=== PATIENT | male | born 1995 | race American Indian/Alaskan Native ===

== ENCOUNTER 2017-01-02 11:12 | Emergency (ER) | payer OTHER ==
[2017-01-02 11:25] VITALS: BP 119/74
--- NOTE | 2017-01-02 11:59 | Emergency Department Report ---
Entered by ARIANA JULIO, acting as scribe for HODA SWAN NP. Chief Complaint: Chest Pain Stated Complaint: CP/VOMITING BLOOD Time Seen by Provider: 01/02/17 11:51 - HPI History of Present Illness: Patient presents to the ED c/o of chest pain that began last night. Patient reports using cocaine yesterday. Associated symptoms include minimal dizziness. NKDA. - ROS Review of Systems: All systems are negative unless stated in HPI above. - Exam Vital Signs: Vital Signs 01/02/17 11:21 Temperature 97.2 F L Pulse Rate 54 L Respiratory 18 Rate Blood Pressure 119/74 O2 Sat by Pulse 98 Oximetry Physical Exam: General: well nourished, well developed, alert and oriented x 3 MSE screening note: Focused history and physical exam performed. Due to findings the following was ordered: COCAINE LAST PM CP DURING HS BIPOLAR OFF MEDS ASTHMA CHILD HERNIA REPAIR IN PAST POLY SUB WATSON/COCAINE/THC/ESCACY... ED Medical Decision Making - EKG Data EKG shows normal: sinus rhythm Rate: normal - EKG Data When compared to previous EKG there are: no significant change Interpretation: no acute changes - Medical Decision Making Patient seen by provider in triage. Patient will be taken to get lab work done. ED Disposition for MSE Condition: Stable This documentation as recorded by the scribe,ARIANA JULIO,accurately reflects the service I personally performed and the decisions made by DENISSE cook CATHLEEN A, NP.
[2017-01-02 12:36] LABS: Basophils % (Auto) 0.4 % (0.0-1.8); Eosinophils % (Auto) 0.9 % (0.0-4.3); Hematocrit 43.9 % (35.5-45.6); Mean Corpuscular HGB Conc 34 % (32-34); Mean Corpuscular Hemoglobin 33 pg (28-32); Mean Corpuscular Volume 96 fl (84-94); Platelet Count 146 K/mm3 (140-440); Red Blood Count 4.57 M/mm3 (3.65-5.03); Red Cell Distribution Width 12.1 % (13.2-15.2); White Blood Count 6.2 K/mm3 (4.5-11.0)
[2017-01-02 12:45] LABS: INR 0.98 (0.87-1.13)
[2017-01-02 12:46] LABS: Partial Thromboplastin Time 33.6 Sec. (24.2-36.6)
[2017-01-02 12:56] LABS: Creatine Kinase MB 1.6 ng/mL (0.0-4.0)
[2017-01-02 12:57] LABS: Alanine Aminotransferase 10 units/L (7-56); Albumin 4.6 g/dL (3.9-5); Albumin/Globulin Ratio 1.8 %; Alkaline Phosphatase 61 units/L (35-129); Anion Gap 18 mmol/L; BUN/Creatinine Ratio 16.66; Bilirubin,Total 0.6 mg/dL (0.1-1.2); Blood Urea Nitrogen 15 mg/dL (9-20); Calcium 9.6 mg/dL (8.4-10.2); Carbon Dioxide 24 mmol/L (22-30); Chloride 102.8 mmol/L (98-107); Creatine Kinase 234 units/L (55-170); Glucose 89 mg/dL (75-100); Potassium 4.7 mmol/L (3.6-5.0); Sodium 140 mmol/L (137-145); Total Protein 7.2 g/dL (6.3-8.2)
[2017-01-02 14:44] LABS: Urine Drugs of Abuse Note Disclamer
[2017-01-02 14:57] LABS: Bilirubin,Urine NEG (Negative); Blood,Urine NEG (Negative); Ketones,Urine NEG (Negative); Leukocyte Esterase,Urine NEG (Negative); Nitrite,Urine NEG (Negative); Protein,Urine <15 mg/dL mg/dL (Negative); Urobilinogen,Urine < 2.0 mg/dL (<2.0); WBC,Urine < 1.0 /HPF (0.0-6.0)
== END 2017-01-03 01:48 | disposition left against medical advice (07) ==
LOC: ED 11:12
DX: R07.9 Chest pain, unspecified (principal); R42 Dizziness and giddiness; F14.90 Cocaine use, unspecified, uncomplicated; Z53.21 Procedure and treatment not carried out due to patient leaving prior to being seen by health care provider
CPT/HCPCS: 36415; 80053; 80307; 81001; 82550; 82553; 84484; 85025; 85610; 85730; 93005; 93010

== ENCOUNTER 2018-06-11 16:35 | Emergency (ER) | payer SELFPAY ==
[2018-06-11 16:48] VITALS: BP 127/83
[2018-06-11] MEDS ORDERED: DUONEB *Not for PRN Use IH ONE ×2 (16:58→17:03)
[2018-06-11] MEDS ORDERED: DECADRON IM ONE (20:38)
[2018-06-11] MEDS ORDERED: PROVENTIL IH ONE (20:38)
--- NOTE | 2018-06-11 21:43 | Emergency Department Report ---
- General Chief Complaint: Adult Asthma Stated Complaint: ASTHMA Time Seen by Provider: 06/11/18 20:36 Source: patient Mode of arrival: Ambulatory Limitations: No Limitations - History of Present Illness Initial Comments: This is a 23-year-old male nontoxic, well nourished in appearance, no acute signs of distress presents to the ED with c/o of productive cough, wheezing, rhinorrhea, nasal congestion x2 days. Patient describes productive cough as yellow mucus production. Patient denies any sick contact. Patient denies any recent travels, long car, recent hospital stays. Patient denies any calf pain or calf tenderness. Patient denies any chest pain, short of breath, fever, chills, nausea, vomiting, hemoptysis, numbness, tingling, headache or stiff neck. Patient denies any allergies. PMH includes asthma. Stated has been out of his inhaler medications. MD Complaint: cough, rhinorrhea, nasal congestion, other (wheezing) -: days(s) (2) Severity: mild Consistency: constant Improves With: nothing Worsens With: nothing Associated Symptoms: rhinorrhea, nasal congestion, cough. denies: fever, chills , myalgias, diaphoresis, headache, sore throat, stiff neck, chest pain, shortness of breath, abdominal pain, nausea, vomiting, diarrhea, dysuria, rash, confusion, right sweats, weight loss, epistaxis, hoarseness, ear pain Treatments Prior to Arrival: none - Related Data Previous Rx's Medication Instructions Recorded Last Taken Type Ciprofloxacin HCl [Ciprofloxacin 500 mg PO Q12HR #20 tab 09/23/15 Unknown Rx TAB] Phenazopyridine [Pyridium] 100 mg PO TID #6 tab 09/23/15 Unknown Rx ALBUTEROL Inhaler (OR & NICU) 2 puff IH QID PRN #1 inha 02/02/16 Unknown Rx [ProAir HFA Inhaler] Albuterol *Only Ed* [Proventil 2.5 mg IH Q4H PRN #1 box 02/02/16 Unknown Rx 0.5% NEBS] predniSONE [Deltasone] 50 mg PO QDAY #5 tab 02/02/16 Unknown Rx ALBUTEROL Inhaler(NF) [VENTOLIN 2 puff IH Q4-6H PRN #1 inha 06/11/18 Unknown Rx Inhaler(NF)] ALBUTEROL NEB's [Proventil 0.083% 2.5 mg IH TID PRN #1 box 06/11/18 Unknown Rx NEBS] Azithromycin [Zithromax Z-ANTONIO] 250 mg PO DAILY #6 tablet 06/11/18 Unknown Rx Benzonatate [Tessalon Perle] 100 mg PO Q8H PRN #20 capsule 06/11/18 Unknown Rx Prednisone [predniSONE 10 mg 10 mg PO .TAPER #1 tab.ds.pk 06/11/18 Unknown Rx (6-Day Pack, 21 Tabs)] Allergies Allergy/AdvReac Type Severity Reaction Status Date / Time No Known Allergies Allergy Verified 09/23/15 15:43 ED Review of Systems ROS: Stated complaint: ASTHMA Other details as noted in HPI Constitutional: denies: chills, fever Eyes: denies: eye pain, eye discharge, vision change ENT: denies: ear pain, throat pain Respiratory: cough, wheezing. denies: shortness of breath Cardiovascular: denies: chest pain, palpitations Endocrine: no symptoms reported Gastrointestinal: denies: abdominal pain, nausea, diarrhea Genitourinary: denies: urgency, dysuria Musculoskeletal: denies: back pain, joint swelling, arthralgia Skin: denies: rash, lesions Neurological: denies: headache, weakness, paresthesias Psychiatric: denies: anxiety, depression Hematological/Lymphatic: denies: easy bleeding, easy bruising ED Past Medical Hx - Past Medical History Previous Medical History?: Yes Hx Psychiatric Treatment: Yes (bipolar, depression) Hx Asthma: Yes Additional medical history: Eczema - Surgical History Past Surgical History?: Yes Additional Surgical History: HERNIA REPAIR - Social History Smoking Status: Current Every Day Smoker Substance Use Type: Cocaine, Marijuana - Medications Home Medications: Home Medications Medication Instructions Recorded Confirmed Last Taken Type Ciprofloxacin HCl [Ciprofloxacin 500 mg PO Q12HR #20 tab 09/23/15 Unknown Rx TAB] Phenazopyridine [Pyridium] 100 mg PO TID #6 tab 09/23/15 Unknown Rx ALBUTEROL Inhaler (OR & NICU) 2 puff IH QID PRN #1 inha 02/02/16 Unknown Rx [ProAir HFA Inhaler] Albuterol *Only Ed* [Proventil 2.5 mg IH Q4H PRN #1 box 02/02/16 Unknown Rx 0.5% NEBS] predniSONE [Deltasone] 50 mg PO QDAY #5 tab 02/02/16 Unknown Rx ALBUTEROL Inhaler(NF) [VENTOLIN 2 puff IH Q4-6H PRN #1 inha 06/11/18 Unknown Rx Inhaler(NF)] ALBUTEROL NEB's [Proventil 0.083% 2.5 mg IH TID PRN #1 box 06/11/18 Unknown Rx NEBS] Azithromycin [Zithromax Z-ANTONIO] 250 mg PO DAILY #6 tablet 06/11/18 Unknown Rx Benzonatate [Tessalon Perle] 100 mg PO Q8H PRN #20 capsule 06/11/18 Unknown Rx Prednisone [predniSONE 10 mg 10 mg PO .TAPER #1 tab.ds.pk 06/11/18 Unknown Rx (6-Day Pack, 21 Tabs)] ED Physical Exam - General Limitations: No Limitations General appearance: alert, in no apparent distress - Head Head exam: Present: atraumatic, normocephalic - Eye Eye exam: Present: normal appearance Pupils: Present: normal accommodation - ENT ENT exam: Present: normal exam, mucous membranes moist - Neck Neck exam: Present: normal inspection, full ROM. Absent: tenderness, meningismus, lymphadenopathy - Respiratory Respiratory exam: Present: normal lung sounds bilaterally, wheezes (bilateral upper and lower lobes). Absent: respiratory distress, rales, rhonchi, stridor, chest wall tenderness, accessory muscle use, decreased breath sounds, prolonged expiratory - Cardiovascular Cardiovascular Exam: Present: regular rate, normal rhythm, normal heart sounds. Absent: bradycardia, tachycardia, irregular rhythm, systolic murmur, diastolic murmur, rubs, gallop - GI/Abdominal GI/Abdominal exam: Present: soft, normal bowel sounds. Absent: distended, tenderness, guarding, rebound, rigid, diminished bowel sounds - Rectal Rectal exam: Present: deferred - Extremities Exam Extremities exam: Present: normal inspection, full ROM, normal capillary refill. Absent: tenderness - Back Exam Back exam: Present: normal inspection, full ROM. Absent: tenderness, CVA tenderness (R), CVA tenderness (L), muscle spasm, paraspinal tenderness, vertebral tenderness, rash noted - Neurological Exam Neurological exam: Present: alert, oriented X3, normal gait - Psychiatric Psychiatric exam: Present: normal affect, normal mood - Skin Skin exam: Present: warm, dry, intact, normal color. Absent: rash ED Course Vital Signs 06/11/18 06/11/18 06/11/18 16:45 17:07 17:42 Temperature 98.3 F Pulse Rate 94 H Pulse Rate [ 79 80 Posterior Bilateral Throughout] Respiratory 20 Rate Respiratory 20 18 Rate [Posterior Bilateral Throughout] Blood Pressure 127/83 O2 Sat by Pulse 95 Oximetry 06/11/18 06/11/18 20:48 21:48 Temperature Pulse Rate Pulse Rate [ 97 H 99 H Posterior Bilateral Throughout] Respiratory Rate Respiratory 20 20 Rate [Posterior Bilateral Throughout] Blood Pressure O2 Sat by Pulse Oximetry - Reevaluation(s) Reevaluation #1: 06/11/18 21:40 Patient is speaking in full sentences with no signs of distress noted. ED Medical Decision Making - Medical Decision Making This is a 23-year-old male that presents with bronchitis and asthma exacerbation. Patient is stable and was examined by me. Chest x-ray has been obtained and dictated by radiologist with normal exam. Patient is notified of x -ray results with no questions noted. Due to patient having symptoms of upper respiratory infection and worsening I will treat patient empirically with zpak. Patient did receive breathing treatment and steroids in the ED which patient the symptoms has resolved and subsided. Posttreatment and there is no wheezing upon auscultation. Patient is discharged with albuterol and prednisone. Patient was instructed to increase hydration, rest and take Motrin for fever episodes. Vitals stable. Patient is nonfebrile and normal heart rate. Patient was instructed Follow-up with a primary care doctor in 3-5 days or if symptoms worsen and continue return to emergency room as soon as possible. At time time of discharge, the patient does not seem toxic or ill in appearance. No acute signs of distress noted. Patient agrees to discharge treatment plan of care. No further questions noted by the patient. Critical care attestation.: If time is entered above; I have spent that time in minutes in the direct care of this critically ill patient, excluding procedure time. ED Disposition Clinical Impression: Bronchitis Asthma exacerbation Qualifiers: Asthma severity: mild Asthma persistence: intermittent Qualified Code(s): J45.21 - Mild intermittent asthma with (acute) exacerbation Disposition: TO HOME OR SELFCARE Is pt being admited?: No Does the pt Need Aspirin: No Condition: Stable Instructions: Asthma (ED), Acute Bronchitis (ED) Additional Instructions: Follow-up with a primary care doctor in 3-5 days or if symptoms worsen and continue return to emergency room as soon as possible. Prescriptions: ALBUTEROL Inhaler(NF) [VENTOLIN Inhaler(NF)] 2 puff IH Q4-6H PRN #1 inha PRN Reason: Wheezing ALBUTEROL NEB's [Proventil 0.083% NEBS] 2.5 mg IH TID PRN #1 box PRN Reason: Wheezing Azithromycin [Zithromax Z-ANTONIO] 250 mg PO DAILY #6 tablet Benzonatate [Tessalon Perle] 100 mg PO Q8H PRN #20 capsule PRN Reason: Cough Prednisone [predniSONE 10 mg (6-Day Pack, 21 Tabs)] 10 mg PO .TAPER #1 tab.ds.pk Referrals: PRIMARY CARE, [Primary Care Provider] - 3-5 Days MAGNOLIA FIELDS MD [Staff Physician] - 3-5 Days [facility] [Outside] - 3-5 Days [facility] [Outside] - 3-5 Days Forms: Work/School Release Form(ED)
--- NOTE | 2018-06-11 22:27 | XRay Report ---
FINAL REPORT PROCEDURE: XR CHEST ROUTINE 2V TECHNIQUE: PA and lateral chest radiographs were obtained. CPT 91282 HISTORY: wheezing cough COMPARISON: No prior studies are available for comparison. FINDINGS: Heart: Normal. Mediastinum/Vessels: Normal. Lungs/Pleural space: Normal. Bony thorax: No acute osseous abnormality. Other: IMPRESSION: Normal examination.
== END 2018-06-11 22:40 | disposition home or self-care (01) ==
LOC: ED 16:35
DX: J40 Bronchitis, not specified as acute or chronic (principal); J45.21 Mild intermittent asthma with (acute) exacerbation; F31.9 Bipolar disorder, unspecified; F32.9 Major depressive disorder, single episode, unspecified; F17.200 Nicotine dependence, unspecified, uncomplicated; F12.10 Cannabis abuse, uncomplicated; F14.10 Cocaine abuse, uncomplicated; Z79.899 Other long term (current) drug therapy
CPT/HCPCS: 71046; 94640; 94644; 96372; 99283; J1100

== ENCOUNTER 2019-05-09 03:50 | Emergency (ER) | payer SELFPAY ==
[2019-05-09 04:03] VITALS: BP 137/73
[2019-05-09] MEDS ORDERED: DUONEB *Not for PRN Use IH ONE (04:03)
[2019-05-09] MEDS ORDERED: DELTASONE PO ONE (04:21)
[2019-05-09] MEDS ORDERED: PROVENTIL IH ONE (04:22)
[2019-05-09] MEDS ORDERED: TYLENOL PO ONE (04:23)
--- NOTE | 2019-05-09 04:26 | Emergency Department Report ---
ED Asthma HPI - General Chief Complaint: Adult Asthma Stated Complaint: ASTHMA ATTACK Time Seen by Provider: 05/09/19 04:21 Source: patient Mode of arrival: Ambulatory Limitations: No Limitations - History of Present Illness Initial Comments: 24-year-old -Serbian male presents to the emergency room reporting he was awaken with wheezing coughing and shortness of breath. Patient reports that he ran out of his medication for several months. Patient denies any fever chills no nausea no vomiting. Patient reports that there is mold in his home. He also complains of a headache. -: During the night Severity: moderate Context: ran out of meds Associated Symptoms: productive cough - Related Data Current Asthma Therapy: none Previous Rx's Medication Instructions Recorded Last Taken Type Ciprofloxacin HCl [Ciprofloxacin 500 mg PO Q12HR #20 tab 09/23/15 Unknown Rx TAB] Phenazopyridine [Pyridium] 100 mg PO TID #6 tab 09/23/15 Unknown Rx ALBUTEROL Inhaler (OR & NICU) 2 puff IH QID PRN #1 inha 02/02/16 Unknown Rx [ProAir HFA Inhaler] Albuterol *Only Ed* [Proventil 2.5 mg IH Q4H PRN #1 box 02/02/16 Unknown Rx 0.5% NEBS] predniSONE [Deltasone] 50 mg PO QDAY #5 tab 02/02/16 Unknown Rx ALBUTEROL Inhaler(NF) [VENTOLIN 2 puff IH Q4-6H PRN #1 inha 06/11/18 Unknown Rx Inhaler(NF)] ALBUTEROL NEB's [Proventil 0.083% 2.5 mg IH TID PRN #1 box 06/11/18 Unknown Rx NEBS] Azithromycin [Zithromax Z-ANTONIO] 250 mg PO DAILY #6 tablet 06/11/18 Unknown Rx Benzonatate [Tessalon Perle] 100 mg PO Q8H PRN #20 capsule 06/11/18 Unknown Rx Prednisone [predniSONE 10 mg 10 mg PO .TAPER #1 tab.ds.pk 06/11/18 Unknown Rx (6-Day Pack, 21 Tabs)] Albuterol Sulfate [Proventil Hfa] 6.7 gm IH QID PRN #1 hfa.aer.ad 05/09/19 Unknown Rx predniSONE [Deltasone] 20 mg PO QDAY 4 Days #4 tab 05/09/19 Unknown Rx Allergies Allergy/AdvReac Type Severity Reaction Status Date / Time No Known Allergies Allergy Verified 09/23/15 15:43 ED Review of Systems ROS: Stated complaint: ASTHMA ATTACK Other details as noted in HPI Comment: All other systems reviewed and negative Respiratory: cough, shortness of breath, wheezing ED Past Medical Hx - Past Medical History Previous Medical History?: Yes Hx Psychiatric Treatment: Yes (bipolar, depression) Hx Asthma: Yes Additional medical history: Eczema - Surgical History Past Surgical History?: Yes Additional Surgical History: HERNIA REPAIR - Social History Smoking Status: Current Every Day Smoker Substance Use Type: Marijuana - Medications Home Medications: Home Medications Medication Instructions Recorded Confirmed Last Taken Type Ciprofloxacin HCl [Ciprofloxacin 500 mg PO Q12HR #20 tab 09/23/15 Unknown Rx TAB] Phenazopyridine [Pyridium] 100 mg PO TID #6 tab 09/23/15 Unknown Rx ALBUTEROL Inhaler (OR & NICU) 2 puff IH QID PRN #1 inha 02/02/16 Unknown Rx [ProAir HFA Inhaler] Albuterol *Only Ed* [Proventil 2.5 mg IH Q4H PRN #1 box 02/02/16 Unknown Rx 0.5% NEBS] predniSONE [Deltasone] 50 mg PO QDAY #5 tab 02/02/16 Unknown Rx ALBUTEROL Inhaler(NF) [VENTOLIN 2 puff IH Q4-6H PRN #1 inha 06/11/18 Unknown Rx Inhaler(NF)] ALBUTEROL NEB's [Proventil 0.083% 2.5 mg IH TID PRN #1 box 06/11/18 Unknown Rx NEBS] Azithromycin [Zithromax Z-ANTONIO] 250 mg PO DAILY #6 tablet 06/11/18 Unknown Rx Benzonatate [Tessalon Perle] 100 mg PO Q8H PRN #20 capsule 06/11/18 Unknown Rx Prednisone [predniSONE 10 mg 10 mg PO .TAPER #1 tab.ds.pk 06/11/18 Unknown Rx (6-Day Pack, 21 Tabs)] Albuterol Sulfate [Proventil Hfa] 6.7 gm IH QID PRN #1 hfa.aer.ad 05/09/19 Unknown Rx predniSONE [Deltasone] 20 mg PO QDAY 4 Days #4 tab 05/09/19 Unknown Rx ED Physical Exam - General Limitations: No Limitations General appearance: alert, in no apparent distress - Head Head exam: Present: atraumatic, normocephalic - Eye Eye exam: Present: normal appearance - ENT ENT exam: Present: mucous membranes moist - Respiratory Respiratory exam: Present: rhonchi - Cardiovascular Cardiovascular Exam: Present: regular rate, normal rhythm. Absent: systolic murmur, diastolic murmur, rubs, gallop - GI/Abdominal GI/Abdominal exam: Present: soft, normal bowel sounds - Neurological Exam Neurological exam: Present: alert, oriented X3, normal gait - Psychiatric Psychiatric exam: Present: normal affect, normal mood - Skin Skin exam: Present: warm, dry, intact, normal color. Absent: rash ED Course Vital Signs 05/09/19 03:58 Temperature 98.2 F Pulse Rate 89 Respiratory 24 Rate Blood Pressure 137/73 O2 Sat by Pulse 92 Oximetry ED Medical Decision Making - Radiology Data Radiology results: report reviewed Patient: GILSON MORENO MR#: [id number] : 1995 Acct:[id number] Age/Sex: 24 / M ADM Date: 05/09/19 Loc: ED Attending Dr: Ordering Physician: SHAHNAZ REY Date of Service: 05/09/19 Procedure(s): XR chest routine 2V Accession Number(s): [id number] cc: SHAHNAZ REY Fluoro Time In Minutes: CHEST 2 VIEWS INDICATION / CLINICAL INFORMATION: SOB and cough. COMPARISON: 06/11/2018. FINDINGS: SUPPORT DEVICES: None. HEART / MEDIASTINUM: The heart size and pulmonary vasculature are normal. LUNGS / PLEURA: The lungs appear mildly hyperinflated, but are clear. No pneumothorax. ADDITIONAL FINDINGS: No significant additional findings. IMPRESSION: Mild hyperinflation of the lungs without other abnormality. Signer Name: Capo Keenan MD Signed: 05/09/2019 4:41 AM Workstation Name: [id number] Transcribed By: RT Dictated By: Capo Keenan MD Electronically Authenticated By: Capo Keenan MD Signed Date/Time: 05/09/19440 DD/ 9 TD/TT: - Medical Decision Making 24-year-old -Serbian male presents to the emergency room reporting he was awaken with wheezing coughing and shortness of breath. Patient reports that he ran out of his medication for several months. Patient denies any fever chills no nausea no vomiting. Patient reports that there is mold in his home. He also complains of a headache. Prednisone 40 mg by mouth, chest x-ray, albuterol nebulizer 5 mg. Patient was given a DuoNeb in triage. Critical care attestation.: If time is entered above; I have spent that time in minutes in the direct care of this critically ill patient, excluding procedure time. ED Disposition Clinical Impression: Asthma Disposition: DC-01 TO HOME OR SELFCARE Is pt being admited?: No Does the pt Need Aspirin: No Condition: Stable Instructions: Asthma (ED), Reactive Airways Disease (ED) Additional Instructions: Please complete steroids as prescribed. Use inhaler as needed. Follow-up with a primary care provider I have listed one below for your convenience. Prescriptions: predniSONE [Deltasone] 20 mg PO QDAY 4 Days #4 tab Albuterol Sulfate [Proventil Hfa] 6.7 gm IH QID PRN #1 hfa.aer.ad PRN Reason: Shortness Of Breath Referrals: SARA POLLARD MD [Primary Care Provider] - 3-5 Days Forms: Work/School Release Form(ED)
--- NOTE | 2019-05-09 04:46 | XRay Report ---
CHEST 2 VIEWS INDICATION / CLINICAL INFORMATION: SOB and cough. COMPARISON: 06/11/2018. FINDINGS: SUPPORT DEVICES: None. HEART / MEDIASTINUM: The heart size and pulmonary vasculature are normal. LUNGS / PLEURA: The lungs appear mildly hyperinflated, but are clear. No pneumothorax. ADDITIONAL FINDINGS: No significant additional findings. IMPRESSION: Mild hyperinflation of the lungs without other abnormality. Signer Name: Capo Keenan MD Signed: 05/09/2019 4:41 AM Workstation Name: [id number]
== END 2019-05-09 05:16 | disposition home or self-care (01) ==
LOC: ED 03:50
DX: J45.909 Unspecified asthma, uncomplicated (principal); F31.9 Bipolar disorder, unspecified; F17.200 Nicotine dependence, unspecified, uncomplicated; F12.10 Cannabis abuse, uncomplicated
CPT/HCPCS: 71046; 94640; 99283; J7512

== ENCOUNTER 2019-05-26 04:23 | Emergency (ER) | payer SELFPAY ==
[2019-05-26] MEDS ORDERED: DELTASONE PO ONE (04:29)
[2019-05-26] MEDS ORDERED: DUONEB *Not for PRN Use IH ONE (04:29)
--- NOTE | 2019-05-26 04:36 | Emergency Department Report ---
ED Asthma HPI - General Stated Complaint: CARLITA Time Seen by Provider: 05/26/19 04:29 Source: patient, EMS - History of Present Illness Initial Comments: Mr. Coleen Leonard is a 24-year-old male history of persistent asthma who presents via the EMS after smoking cocaine prior to arrival with shortness of breath and wheezing productive cough with mucus. He denies fever. He received bronchial dilator therapy per EMS. Denies pain. Denies fever. He does smoke tobacco. He has asthma attack since at least twice a week. Never has been hospitalized for asthma. MD Complaint: "asthma attack", shortness of breath -: Gradual, hour(s) (1) Asthma History: history of frequent attac Severity: mild Context: ran out of meds, other (cocaine use tobacco abuse) Associated Symptoms: productive cough - Related Data Previous Rx's Medication Instructions Recorded Last Taken Type Ciprofloxacin HCl [Ciprofloxacin 500 mg PO Q12HR #20 tab 09/23/15 Unknown Rx TAB] Phenazopyridine [Pyridium] 100 mg PO TID #6 tab 09/23/15 Unknown Rx ALBUTEROL Inhaler (OR & NICU) 2 puff IH QID PRN #1 inha 02/02/16 Unknown Rx [ProAir HFA Inhaler] Albuterol *Only Ed* [Proventil 2.5 mg IH Q4H PRN #1 box 02/02/16 Unknown Rx 0.5% NEBS] predniSONE [Deltasone] 50 mg PO QDAY #5 tab 02/02/16 Unknown Rx ALBUTEROL Inhaler(NF) [VENTOLIN 2 puff IH Q4-6H PRN #1 inha 06/11/18 Unknown Rx Inhaler(NF)] ALBUTEROL NEB's [Proventil 0.083% 2.5 mg IH TID PRN #1 box 06/11/18 Unknown Rx NEBS] Azithromycin [Zithromax Z-ANTONIO] 250 mg PO DAILY #6 tablet 06/11/18 Unknown Rx Benzonatate [Tessalon Perle] 100 mg PO Q8H PRN #20 capsule 06/11/18 Unknown Rx Prednisone [predniSONE 10 mg 10 mg PO .TAPER #1 tab.ds.pk 06/11/18 Unknown Rx (6-Day Pack, 21 Tabs)] Albuterol Sulfate [Proventil Hfa] 6.7 gm IH QID PRN #1 hfa.aer.ad 05/09/19 Unknown Rx predniSONE [Deltasone] 20 mg PO QDAY 4 Days #4 tab 05/09/19 Unknown Rx ALBUTEROL Inhaler (OR & NICU) 2 puff IH QID PRN #1 device 05/26/19 Unknown Rx [ProAir HFA Inhaler] predniSONE [Deltasone] 3 tab PO QDAY 3 Days #9 tab 05/26/19 Unknown Rx Allergies Allergy/AdvReac Type Severity Reaction Status Date / Time No Known Allergies Allergy Verified 09/23/15 15:43 ED Review of Systems ROS: Stated complaint: CARLITA Other details as noted in HPI Comment: All other systems reviewed and negative Constitutional: denies: fever, malaise Respiratory: cough, shortness of breath, wheezing Cardiovascular: denies: chest pain ED Past Medical Hx - Past Medical History Previous Medical History?: Yes Hx Psychiatric Treatment: Yes (bipolar, depression) Hx Asthma: Yes Additional medical history: Eczema - Surgical History Additional Surgical History: HERNIA REPAIR - Social History Smoking Status: Current Every Day Smoker Substance Use Type: Cocaine, Marijuana - Medications Home Medications: Home Medications Medication Instructions Recorded Confirmed Last Taken Type Ciprofloxacin HCl [Ciprofloxacin 500 mg PO Q12HR #20 tab 09/23/15 Unknown Rx TAB] Phenazopyridine [Pyridium] 100 mg PO TID #6 tab 09/23/15 Unknown Rx ALBUTEROL Inhaler (OR & NICU) 2 puff IH QID PRN #1 inha 02/02/16 Unknown Rx [ProAir HFA Inhaler] Albuterol *Only Ed* [Proventil 2.5 mg IH Q4H PRN #1 box 02/02/16 Unknown Rx 0.5% NEBS] predniSONE [Deltasone] 50 mg PO QDAY #5 tab 02/02/16 Unknown Rx ALBUTEROL Inhaler(NF) [VENTOLIN 2 puff IH Q4-6H PRN #1 inha 06/11/18 Unknown Rx Inhaler(NF)] ALBUTEROL NEB's [Proventil 0.083% 2.5 mg IH TID PRN #1 box 06/11/18 Unknown Rx NEBS] Azithromycin [Zithromax Z-ANTONIO] 250 mg PO DAILY #6 tablet 06/11/18 Unknown Rx Benzonatate [Tessalon Perle] 100 mg PO Q8H PRN #20 capsule 06/11/18 Unknown Rx Prednisone [predniSONE 10 mg 10 mg PO .TAPER #1 tab.ds.pk 06/11/18 Unknown Rx (6-Day Pack, 21 Tabs)] Albuterol Sulfate [Proventil Hfa] 6.7 gm IH QID PRN #1 hfa.aer.ad 05/09/19 Unknown Rx predniSONE [Deltasone] 20 mg PO QDAY 4 Days #4 tab 05/09/19 Unknown Rx ALBUTEROL Inhaler (OR & NICU) 2 puff IH QID PRN #1 device 05/26/19 Unknown Rx [ProAir HFA Inhaler] predniSONE [Deltasone] 3 tab PO QDAY 3 Days #9 tab 05/26/19 Unknown Rx ED Physical Exam - General General appearance: alert, in no apparent distress, other (talkative jovial comfortable no acute distress normal vital signs. Heart rate 82 beats a minute episode rate 18 breaths a minute pulse ox 97% on room air) - Head Head exam: Present: atraumatic, normocephalic - Eye Eye exam: Present: normal appearance - ENT ENT exam: Present: mucous membranes moist - Neck Neck exam: Present: normal inspection, full ROM - Respiratory Respiratory exam: Present: normal lung sounds bilaterally. Absent: respiratory distress, wheezes, rales, rhonchi - Cardiovascular Cardiovascular Exam: Present: regular rate, normal rhythm, normal heart sounds. Absent: systolic murmur, diastolic murmur, rubs, gallop - GI/Abdominal GI/Abdominal exam: Present: soft, normal bowel sounds. Absent: distended, tenderness, guarding, rebound - Rectal Rectal exam: Present: deferred - Extremities Exam Extremities exam: Present: normal inspection - Back Exam Back exam: Present: normal inspection - Neurological Exam Neurological exam: Present: alert, oriented X3 - Psychiatric Psychiatric exam: Present: normal affect, normal mood - Skin Skin exam: Present: warm, dry, intact, normal color. Absent: rash ED Medical Decision Making - Medical Decision Making Mr. Velasco is a 23-year-old male who presents with asthma exacerbation. Prescribed prednisone therapy as well as albuterol MDI. Clear breath sounds upon arrival. Appears well and comfortable. Denies chest pain. I do not suspect pneumothorax or complication from cocaine use. He appears well and comfortable. Critical care attestation.: If time is entered above; I have spent that time in minutes in the direct care of this critically ill patient, excluding procedure time. ED Disposition Clinical Impression: Acute asthma exacerbation Disposition: TO HOME OR SELFCARE Is pt being admited?: No Does the pt Need Aspirin: No Condition: Stable Instructions: Asthma (ED) Prescriptions: predniSONE [Deltasone] 3 tab PO QDAY 3 Days #9 tab ALBUTEROL Inhaler (OR & NICU) [ProAir HFA Inhaler] 2 puff IH QID PRN #1 device PRN Reason: Shortness Of Breath Referrals: [facility] [Outside] - 3-5 Days
[2019-05-26 05:04] VITALS: BP 130/60
== END 2019-05-26 05:25 | disposition home or self-care (01) ==
LOC: ED 04:23
DX: J45.901 Unspecified asthma with (acute) exacerbation (principal); F31.9 Bipolar disorder, unspecified; F17.200 Nicotine dependence, unspecified, uncomplicated; F12.10 Cannabis abuse, uncomplicated; F14.10 Cocaine abuse, uncomplicated; Z79.899 Other long term (current) drug therapy; Z98.890 Other specified postprocedural states
CPT/HCPCS: 94640; 99283; J7512; 94644

== ENCOUNTER 2019-05-30 03:34 | Emergency (ER) | payer SELFPAY ==
[2019-05-30] MEDS ORDERED: DUONEB *Not for PRN Use IH ONE ×2 (03:39→03:58)
[2019-05-30 03:58] VITALS: BP 128/76
[2019-05-30] MEDS ORDERED: PROVENTIL IH ONE (04:06)
[2019-05-30] MEDS ORDERED: DECADRON IM ONE (04:06)
[2019-05-30] MEDS ORDERED: CLARITIN PO ONE (04:10)
[2019-05-30] MEDS ORDERED: IBUPROFEN PO ONE (04:10)
--- NOTE | 2019-05-30 04:13 | Emergency Department Report ---
Minor Respiratory - HPI Chief Complaint: Adult Asthma Stated Complaint: ASTHMA ATTACk Time Seen by Provider: 05/30/19 04:06 Duration: Today Pain Location: Chest Severity: moderate Minor Respiratory: Yes Able to Tolerate Fluids, Yes Cough, Yes Shortness of Breath, No Rhinorrhea, No Sore Throat, No Ear Pain, No Sick Contacts, No Hemoptysis, No Chest Pain, No Fever Other History: 24 yo male comes to ER co sob. Pt has asthma and is wheezing with a documented sat of 88 in triage. RN placed pt in 30- on exam - dec in bases moved to 45 and RT called for a second duoneb/steroids. ED Review of Systems ROS: Stated complaint: ASTHMA ATTACH Other details as noted in HPI Comment: All other systems reviewed and negative ED Past Medical Hx - Past Medical History Previous Medical History?: Yes Hx Psychiatric Treatment: Yes (bipolar, depression) Hx Asthma: Yes Additional medical history: Eczema - Surgical History Past Surgical History?: Yes Additional Surgical History: HERNIA REPAIR - Social History Smoking Status: Never Smoker Substance Use Type: None - Medications Home Medications: Home Medications Medication Instructions Recorded Confirmed Last Taken Type ALBUTEROL NEB's [Proventil 0.083% 2.5 mg IH TID PRN #1 box 05/30/19 Unknown Rx NEBS] Albuterol Sulfate [Proventil Hfa] 6.7 gm IH QID PRN #1 hfa.aer.ad 05/30/19 Unknown Rx Cetirizine HCl [ZyrTEC] 10 mg PO DAILY #30 capsule 05/30/19 Unknown Rx Fluticasone [Flonase] 1 spray NS QDAY #1 bottle 05/30/19 Unknown Rx Fluticasone/Salmeterol [Advair 1 puff IH BID #1 disk.w.dev 05/30/19 Unknown Rx Diskus 250-50 mcg] predniSONE [Deltasone] 20 mg PO DAILY #5 tablet 05/30/19 Unknown Rx Minor Respiratory Exam - Exam General: Vital signs noted. No distress. Alert and acting appropriately. HEENT: Yes Moist Mucous Membranes, No Pharyngeal Erythema, No Pharyngeal Exudates Ear: Neither TM Bulge, Neither TM Erythema, Neither EAC Pain, Neither EAC Discharge Neck: Yes Supple, No Adenopathy Lungs: Yes Good Air Exchange, Yes Wheezes, No Ronchi, No Stridor Heart: Yes Regular Abdomen: No Tenderness Skin: No Rash Neurologic: Alert and oriented, no deficits. Musculoskeletal: Unremarkable. ED Course Vital Signs 05/30/19 03:37 Temperature 97.7 F Pulse Rate 102 H Respiratory 28 H Rate Blood Pressure 128/76 O2 Sat by Pulse 88 Oximetry ED Medical Decision Making - Medical Decision Making no fever no sputum vs noted- RN to chart duoneb x2 medicated in ER improved with duoneb dc home with dc plan of care and pcp follow up - Differential Diagnosis asthma ae with or without infection Critical care attestation.: If time is entered above; I have spent that time in minutes in the direct care of this critically ill patient, excluding procedure time. ED Disposition Clinical Impression: Acute asthma exacerbation Disposition: DC-01 TO HOME OR SELFCARE Is pt being admited?: No Does the pt Need Aspirin: No Condition: Stable Instructions: Asthma (ED) Additional Instructions: TAKE MEDS INSTRUCTED FOLLOW UP WITH PCP REFERRAL BELOW Prescriptions: Fluticasone/Salmeterol [Advair Diskus 250-50 mcg] 1 puff IH BID #1 disk.w.dev predniSONE [Deltasone] 20 mg PO DAILY #5 tablet Fluticasone [Flonase] 1 spray NS QDAY #1 bottle ALBUTEROL NEB's [Proventil 0.083% NEBS] 2.5 mg IH TID PRN #1 box PRN Reason: Wheezing Albuterol Sulfate [Proventil Hfa] 6.7 gm IH QID PRN #1 hfa.aer.ad PRN Reason: Shortness Of Breath Cetirizine HCl [ZyrTEC] 10 mg PO DAILY #30 capsule Referrals: SLICK AGUIAR MD [Staff Physician] - 3-5 Days Time of Disposition: 04:11
== END 2019-05-30 05:36 | disposition home or self-care (01) ==
LOC: ED 03:34
DX: J45.901 Unspecified asthma with (acute) exacerbation (principal); F31.9 Bipolar disorder, unspecified
CPT/HCPCS: 96372; 99283; J1100

== ENCOUNTER 2019-12-23 01:37 | Emergency (ER) | payer SELFPAY ==
[2019-12-23] MEDS ORDERED: ALBUTEROL 2.5 MG/3 ML NEBU IH PRN (01:58)
[2019-12-23] MEDS ORDERED: HALOPERIDOL LACTATE 5 MG/1 ML INJ IM PRN (01:58)
[2019-12-23] MEDS ORDERED: LORazepam 2 MG/ML VIAL IM PRN (01:58)
--- NOTE | 2019-12-23 02:03 | Emergency Department Report ---
ED General Adult HPI - General Chief complaint: Dyspnea/Respdistress Stated complaint: CARLITA Time Seen by Provider: 12/23/19 01:44 Source: patient, EMS ( EMS documentation not available at time of chart dictation ), RN notes reviewed, old records reviewed Mode of arrival: Stretcher Limitations: Other (Intoxication and disorganized behavior) - History of Present Illness Initial comments: The patient is a 24-year-old gentleman who is not known to myself previously, has a history of asthma, and crack abuse. He is brought to the hospital by emergency medical services. Apparently, the patient consumed crack and possibly methamphetamines, and developed shortness of breath. As per EMS verbal report, there is no history of trauma. Patient complains of chest pressure, headache, shortness of breath, generalized weakness, malaise and fatigue. He will not answer questions about homicidality or suicidality. He states that he did not do cocaine, only crack, but "I aint no crack head." The patient will follow commands, and is asking for shots of Kaela alcohol at this time. He is also asking to take his boots off. The patient is not currently accompanied by friends or family members at this time who provide additional information or collateral information. History is limited as the patient appears to be impaired and intoxicated. -: This evening Severity scale (0 -10): 0 Quality: other Consistency: other Improves with: other Worsens with: other Associated Symptoms: other - Related Data Previous Rx's Medication Instructions Recorded Last Taken Type ALBUTEROL NEB's [Proventil 0.083% 2.5 mg IH TID PRN #1 box 05/30/19 Unknown Rx NEBS] Albuterol Sulfate [Proventil Hfa] 6.7 gm IH QID PRN #1 hfa.aer.ad 05/30/19 Unknown Rx Cetirizine HCl [ZyrTEC] 10 mg PO DAILY #30 capsule 05/30/19 Unknown Rx Fluticasone [Flonase] 1 spray NS QDAY #1 bottle 05/30/19 Unknown Rx Fluticasone/Salmeterol [Advair 1 puff IH BID #1 disk.w.dev 05/30/19 Unknown Rx Diskus 250-50 mcg] predniSONE [Deltasone] 20 mg PO DAILY #5 tablet 05/30/19 Unknown Rx Albuterol Sulfate [Proair 90 mcg IH Q4HR PRN #2 aer.pow.ba 12/23/19 Unknown Rx Respiclick] Allergies Allergy/AdvReac Type Severity Reaction Status Date / Time No Known Allergies Allergy Verified 09/23/15 15:43 ED Review of Systems ROS: Stated complaint: CARLITA Other details as noted in HPI Comment: Unobtainable due to pts medical conditions (Intoxication, disorganized behavior, lack of patient cooperation) ED Past Medical Hx - Past Medical History Previous Medical History?: Yes Hx Psychiatric Treatment: Yes (bipolar, depression, schizophrenia) Hx Asthma: Yes Additional medical history: Eczema - Surgical History Past Surgical History?: Yes Additional Surgical History: HERNIA REPAIR - Social History Smoking Status: Current Every Day Smoker Substance Use Type: Alcohol, Cocaine, Methamphetamines - Medications Home Medications: Home Medications Medication Instructions Recorded Confirmed Last Taken Type ALBUTEROL NEB's [Proventil 0.083% 2.5 mg IH TID PRN #1 box 05/30/19 Unknown Rx NEBS] Albuterol Sulfate [Proventil Hfa] 6.7 gm IH QID PRN #1 hfa.aer.ad 05/30/19 Unknown Rx Cetirizine HCl [ZyrTEC] 10 mg PO DAILY #30 capsule 05/30/19 Unknown Rx Fluticasone [Flonase] 1 spray NS QDAY #1 bottle 05/30/19 Unknown Rx Fluticasone/Salmeterol [Advair 1 puff IH BID #1 disk.w.dev 05/30/19 Unknown Rx Diskus 250-50 mcg] predniSONE [Deltasone] 20 mg PO DAILY #5 tablet 05/30/19 Unknown Rx Albuterol Sulfate [Proair 90 mcg IH Q4HR PRN #2 aer.pow.ba 12/23/19 Unknown Rx Respiclick] ED Physical Exam - General Limitations: Other (Disorganized behavior, intoxication) General appearance: appears intoxicated, anxious - Head Head exam: Present: atraumatic, normocephalic - Eye Eye exam: Present: normal appearance, EOMI. Absent: nystagmus - ENT ENT exam: Present: normal exam, normal orophraynx, mucous membranes moist, normal external ear exam - Neck Neck exam: Present: normal inspection, full ROM. Absent: tenderness, meningismus - Respiratory Respiratory exam: Present: rhonchi. Absent: respiratory distress, wheezes, rales, stridor - Cardiovascular Cardiovascular Exam: Present: normal rhythm, tachycardia, normal heart sounds. Absent: systolic murmur, diastolic murmur, rubs, gallop - GI/Abdominal GI/Abdominal exam: Present: soft. Absent: distended, tenderness, guarding, rebound, rigid, pulsatile mass - Rectal Rectal exam: Present: deferred - Extremities Exam Extremities exam: Present: normal inspection, full ROM, other (2+ pulses noted in the bilateral upper and lower extremities. There is no palpable cord. negative Homans sign. Muscular compartments are soft. The pelvis is stable.). Absent: pedal edema, calf tenderness - Back Exam Back exam: Present: normal inspection, full ROM. Absent: tenderness, CVA tenderness (R), CVA tenderness (L), paraspinal tenderness, vertebral tenderness - Neurological Exam Neurological exam: Present: alert, other (There is no facial droop. The tongue is midline. Extraocular movements are intact bilaterally. There is 5 out of 5 strength in bilateral upper and lower extremities. Sensation is intact to light touch bilateral upper and lower extremities. ) - Psychiatric Psychiatric exam: Present: agitated, anxious - Skin Skin exam: Present: warm, dry, intact, normal color. Absent: rash ED Course Vital Signs 12/23/19 12/23/19 12/23/19 01:47 01:51 02:00 Temperature 98.2 F Pulse Rate 113 H 106 H 103 H Respiratory 20 23 16 Rate Blood Pressure 139/101 139/101 Blood Pressure 139/101 [Left] O2 Sat by Pulse 99 96 94 Oximetry 12/23/19 12/23/19 05:00 06:00 Temperature 98.0 F Pulse Rate 94 H 98 H Respiratory 31 H 28 H Rate Blood Pressure 122/72 Blood Pressure 120/78 [Left] O2 Sat by Pulse 96 Oximetry - Reevaluation(s) Reevaluation #1: 12/23/19 02:03 Differential diagnosis, including but not limited to: Polysubstance abuse, reactive airway disease, intoxication, disorganized behavior, electrolyte derangement, myositis/rhabdomyolysis, asthma, pneumonia, pneumothorax, intracranial injury Assessment and plan: 24-year-old gentleman who is obviously intoxicated and impaired on presumed crack/cocaine/methamphetamines, brought to the hospital by EMS with a complaint of shortness of breath, minimal rhonchi noted on exam, saturating at 97% on room air, complaining of headache and chest pressure, and is obviously intoxicated. He is asking for shots of alcohol at this time. He is placed on hold, screening laboratory studies ordered, EKG ordered, CT scan of the brain ordered, we will reassess once the patient is clinically sober. As needed Haldol, Ativan, albuterol are ordered. Reevaluation #2: 12/23/19 02:04 For the entire history and physical examination, and in subsequent patient encounters, I had on complete personal protective equipment. Reevaluation #3: 12/23/19 03:15 X-ray of the chest is negative. CT scan of the brain is negative. Reevaluation #4: 12/23/19 05:21 Patient sleeping comfortably at this time, and in no acute distress. He was medicated with haloperidol and Ativan for agitation. Patient will be discharged when he is clinically sober, and exhibits decision-making capacity. care was transferred to Dr Nestor Cr to discharge when the above criteria are met 12/24/19 10:02 ED Medical Decision Making - Lab Data Result diagrams: 12/23/19 02:47 12/23/19 02:47 Vital Signs 12/23/19 01:51 Temperature 98.2 F Pulse Rate 106 H Respiratory 23 Rate Blood Pressure 139/101 [Left] O2 Sat by Pulse 96 Oximetry Vital Signs 12/23/19 01:51 Temperature 98.2 F Pulse Rate 106 H Respiratory 23 Rate Blood Pressure 139/101 [Left] O2 Sat by Pulse 96 Oximetry Lab Results 12/23/19 12/23/19 12/23/19 Range/Units 02:47 02:47 02:47 Hgb 13.9 (11.8-15.2) gm/dl Hct 40.6 (35.5-45.6) % Plt Count 163 (140-440) K/mm3 Sodium 141 (137-145) mmol/L Potassium 3.5 L (3.6-5.0) mmol/L Chloride 107.7 H (98-107) mmol/L Carbon Dioxide 24 (22-30) mmol/L Anion Gap 13 mmol/L BUN 10 (9-20) mg/dL Creatinine 0.9 (0.8-1.5) mg/dL Estimated GFR > 60 ml/min BUN/Creatinine Ratio 11 % Glucose 100 (75-100) mg/dL Calcium 9.0 (8.4-10.2) mg/dL Total Creatine Kinase 430 H (55-170) units/L Salicylates < 0.3 L (2.8-20.0) mg/dL Acetaminophen (10.0-30.0) ug/mL Plasma/Serum Alcohol (0-0.07) % 12/23/19 12/23/19 Range/Units 02:47 02:47 Hgb (11.8-15.2) gm/dl Hct (35.5-45.6) % Plt Count (140-440) K/mm3 Sodium (137-145) mmol/L Potassium (3.6-5.0) mmol/L Chloride (98-107) mmol/L Carbon Dioxide (22-30) mmol/L Anion Gap mmol/L BUN (9-20) mg/dL Creatinine (0.8-1.5) mg/dL Estimated GFR ml/min BUN/Creatinine Ratio % Glucose (75-100) mg/dL Calcium (8.4-10.2) mg/dL Total Creatine Kinase (55-170) units/L Salicylates (2.8-20.0) mg/dL Acetaminophen < 5.0 L (10.0-30.0) ug/mL Plasma/Serum Alcohol < 0.01 (0-0.07) % - EKG Data -: EKG Interpreted by [place] EKG shows normal: sinus rhythm Rate: tachycardia - EKG Data 12/23/19 02:36 Sinus rhythm, tachycardia, 103 bpm, normal axis, QTC 445 ms, high left ventricular voltage, motion artifact, Q waves noted in the inferior leads, borderline atrial enlargement, QTC 445 ms. The EKG is abnormal. Nonspecific changes when compared to prior EKG from December 2016. Not a STEMI. - Radiology Data Radiology results: pending Critical care attestation.: If time is entered above; I have spent that time in minutes in the direct care of this critically ill patient, excluding procedure time. ED Disposition Clinical Impression: Reactive airway disease, Crack cocaine use Disposition: DC-01 TO HOME OR SELFCARE Is pt being admited?: No Does the pt Need Aspirin: No Condition: Stable Additional Instructions: Please drink 4 to 6 cups of water per day for the foreseeable future. Avoid consumption of alcohol, crack, cocaine, methamphetamines and recreational drugs. Consumption of the aforementioned may lead to addiction, , disability, paralysis, loss of quality of life. Take the medications as needed and directed, follow-up with a primary care doctor within 2 weeks, make certain to wash hands with soap and water often, and do not touch hands to face, eyes, mouth. Return to the emergency room right away with new, worsened or different symptoms, or symptoms not present on the initial emergency room evaluation. Prescriptions: Albuterol Sulfate [Proair Respiclick] 90 mcg IH Q4HR PRN #2 aer.pow.ba PRN Reason: Wheezing Referrals: FRANDY TOM MD [Staff Physician] - 3-5 Days [facility] [Provider Group] - 3-5 Days
--- NOTE | 2019-12-23 02:56 | XRay Report ---
CHEST 1 VIEW INDICATION / CLINICAL INFORMATION: cough wheezing. COMPARISON: 05/09/2019 FINDINGS: SUPPORT DEVICES: None. HEART / MEDIASTINUM: No significant abnormality. LUNGS / PLEURA: No significant pulmonary or pleural abnormality. No pneumothorax. ADDITIONAL FINDINGS: No significant additional findings. IMPRESSION: 1. No acute findings. Signer Name: Eric Cason MD Signed: 12/23/2019 2:51 AM Workstation Name: [id number]
--- NOTE | 2019-12-23 03:07 | Cat Scan Report ---
CT head/brain wo con INDICATION / CLINICAL INFORMATION: Pt admitted to doing CRACK, he complains of a headache now. Had to scan twice due to motion artifact( s).. TECHNIQUE: All CT scans at this location are performed using CT dose reduction for ALARA by means of automated e xposure control. COMPARISON: None available. FINDINGS: No intracranial hemorrhage. No abnormal extra-axial fluid collection. The ventricular system and basilar cisterns are normal. No evidence of territorial infarction. Osseous structures and visualized nasal sinuses are normal. IMPRESSION: 1. No acute intracranial abnormality Signer Name: Eric Cason MD Signed: 12/23/2019 3:03 AM Workstation Name: [id number]
[2019-12-23 03:17] LABS: BUN/Creatinine Ratio 11; Blood Urea Nitrogen 10 mg/dL (9-20); Hematocrit 40.6 % (35.5-45.6); Hemoglobin 13.9 gm/dl (11.8-15.2); Hemolysis Index 6
[2019-12-23 06:14] VITALS: BP 120/78
== END 2019-12-23 12:41 | disposition home or self-care (01) ==
LOC: ED 01:37
DX: J45.909 Unspecified asthma, uncomplicated (principal); F14.10 Cocaine abuse, uncomplicated; F31.9 Bipolar disorder, unspecified; F20.9 Schizophrenia, unspecified; L30.9 Dermatitis, unspecified; F17.200 Nicotine dependence, unspecified, uncomplicated; F15.10 Other stimulant abuse, uncomplicated; Z98.890 Other specified postprocedural states; Z79.899 Other long term (current) drug therapy
CPT/HCPCS: 36415; 70450; 71045; 80048; 82550; 85014; 85018; 85049; 93005; 93010; 96372; 99285; J1630; J2060; 80320; G0480

== ENCOUNTER 2020-05-03 10:15 | Inpatient (IN) | payer OTHER, SELFPAY ==
[2020-05-03] MEDS ORDERED: ETOMIDATE 20 MG/10 ML INJ IV ONE (10:20)
[2020-05-03] MEDS ORDERED: SUCCINYLCHOLINE CHLORIDE 200 MG/10 ML INJ MDV ONE (10:20)
[2020-05-03] MEDS ORDERED: LORazepam 2 MG/ML VIAL ONE (10:21)
[2020-05-03] MEDS ORDERED: IPRATROPIUM 0.02% NEBU 2.5 ML IH ONE ×2 (10:28→10:31)
[2020-05-03] MEDS ORDERED: ALBUTEROL 2.5 MG/3 ML NEBU IH ONE ×3 (10:29→12:46)
[2020-05-03] MEDS ORDERED: LORazepam 2 MG/ML VIAL IV ONE (10:30)
[2020-05-03] MEDS ORDERED: LEVALBUTEROL 0.63 MG/3 ML NEBU IH ONE ×2 (10:34→11:05)
--- NOTE | 2020-05-03 10:53 | Emergency Department Report ---
ED Shortness of Breath HPI - General Chief Complaint: Dyspnea/Respdistress Stated Complaint: RESPIRATORY DISTRESS Time Seen by Provider: 05/03/20 10:30 Source: patient, EMS Mode of arrival: Stretcher Limitations: No Limitations - History of Present Illness Initial Comments: 25-year-old male, history of asthma, presents to ED in respiratory distress. Sampson mares states symptoms began last. EMS was called this morning. Initial O2 sats upon arrival was 78% on room air. Patient was given mag sulfate 2 g, Solu- Medrol 125 mg, albuterol 10 mg. EMS attempted to use CPAP the patient, however he did not tolerate it. Patient was here last month for same and was intubated. MD Complaint: "asthma attack" -: Last night Severity: severe Consistency: constant Improves With: bronchodilators Worsens With: exertion Known History Of: asthma Treatments Prior to Arrival: bronchodilator, other (Solu-Medrol, mag sulfate) - Related Data Home Oxygen Therapy: No Previous Rx's Medication Instructions Recorded Last Taken Type ALBUTEROL NEB's [Proventil 0.083% 2.5 mg IH TID PRN #1 box 05/30/19 Unknown Rx NEBS] Albuterol Sulfate [Proventil Hfa] 6.7 gm IH QID PRN #1 hfa.aer.ad 05/30/19 Unknown Rx Cetirizine HCl [ZyrTEC] 10 mg PO DAILY #30 capsule 05/30/19 Unknown Rx Fluticasone [Flonase] 1 spray NS QDAY #1 bottle 05/30/19 Unknown Rx Fluticasone/Salmeterol [Advair 1 puff IH BID #1 disk.w.dev 05/30/19 Unknown Rx Diskus 250-50 mcg] predniSONE [Deltasone] 20 mg PO DAILY #5 tablet 05/30/19 Unknown Rx Albuterol Sulfate [Proair 90 mcg IH Q4HR PRN #2 aer.pow.ba 12/23/19 Unknown Rx Respiclick] Albuterol Sulfate [Albuterol 0.63% 0.63 mg IH TID PRN #1 box 04/09/20 Unknown Rx NEBS] Ipratropium [Atrovent NEB] 0.5 mg IH Q8HRT #1 box 04/09/20 Unknown Rx Nebulizer and Compressor [[place] 1 each MC TID PRN #1 each 04/09/20 Unknown Rx Choice Nebulizer] Prednisone [predniSONE 10 mg 10 mg PO .TAPER #1 tab.ds.pk 04/09/20 Unknown Rx (6-Day Pack, 21 Tabs)] Allergies Allergy/AdvReac Type Severity Reaction Status Date / Time No Known Allergies Allergy Verified 09/23/15 15:43 ED Review of Systems ROS: Stated complaint: RESPIRATORY DISTRESS Other details as noted in HPI Comment: All other systems reviewed and negative Constitutional: denies: fever Respiratory: cough, shortness of breath, wheezing ED Past Medical Hx - Past Medical History Previous Medical History?: Yes Hx Psychiatric Treatment: Yes (bipolar, depression, schizophrenia) Hx Asthma: Yes (intubation) Hx Tuberculosis: No Additional medical history: Eczema - Surgical History Past Surgical History?: Yes Additional Surgical History: HERNIA REPAIR - Social History Smoking Status: Current Every Day Smoker - Medications Home Medications: Home Medications Medication Instructions Recorded Confirmed Last Taken Type ALBUTEROL NEB's [Proventil 0.083% 2.5 mg IH TID PRN #1 box 05/30/19 Unknown Rx NEBS] Albuterol Sulfate [Proventil Hfa] 6.7 gm IH QID PRN #1 hfa.aer.ad 05/30/19 Unknown Rx Cetirizine HCl [ZyrTEC] 10 mg PO DAILY #30 capsule 05/30/19 Unknown Rx Fluticasone [Flonase] 1 spray NS QDAY #1 bottle 05/30/19 Unknown Rx Fluticasone/Salmeterol [Advair 1 puff IH BID #1 disk.w.dev 05/30/19 Unknown Rx Diskus 250-50 mcg] predniSONE [Deltasone] 20 mg PO DAILY #5 tablet 05/30/19 Unknown Rx Albuterol Sulfate [Proair 90 mcg IH Q4HR PRN #2 aer.pow.ba 12/23/19 Unknown Rx Respiclick] Albuterol Sulfate [Albuterol 0.63% 0.63 mg IH TID PRN #1 box 04/09/20 Unknown Rx NEBS] Ipratropium [Atrovent NEB] 0.5 mg IH Q8HRT #1 box 04/09/20 Unknown Rx Nebulizer and Compressor [[place] 1 each MC TID PRN #1 each 04/09/20 Unknown Rx Choice Nebulizer] Prednisone [predniSONE 10 mg 10 mg PO .TAPER #1 tab.ds.pk 04/09/20 Unknown Rx (6-Day Pack, 21 Tabs)] ED Physical Exam - General Limitations: No Limitations General appearance: alert, in distress - Head Head exam: Present: atraumatic, normocephalic - Eye Eye exam: Present: normal appearance, EOMI - ENT ENT exam: Present: mucous membranes moist - Neck Neck exam: Present: normal inspection - Respiratory Respiratory exam: Present: wheezes, decreased breath sounds - Cardiovascular Cardiovascular Exam: Present: normal rhythm, tachycardia - GI/Abdominal GI/Abdominal exam: Present: soft. Absent: distended, tenderness - Extremities Exam Extremities exam: Present: normal inspection, pedal edema. Absent: calf tenderness - Neurological Exam Neurological exam: Present: alert, oriented X3 - Psychiatric Psychiatric exam: Present: normal affect, normal mood - Skin Skin exam: Present: warm, dry, intact, normal color ED Course Vital Signs 05/03/20 05/03/20 05/03/20 10:30 10:39 10:40 Temperature 98.7 F Pulse Rate 140 H 138 H 136 H Pulse Rate [ 140 H Anterior Bilateral Throughout] Pulse Rate [ From Monitor] Respiratory 39 H 47 H 43 H Rate Respiratory 40 H Rate [Anterior Bilateral Throughout] Blood Pressure 102/85 Blood Pressure 102/85 [Right] O2 Sat by Pulse 99 98 100 Oximetry 05/03/20 05/03/20 05/03/20 11:00 11:30 12:00 Temperature Pulse Rate 131 H 121 H 127 H Pulse Rate [ Anterior Bilateral Throughout] Pulse Rate [ From Monitor] Respiratory 51 H 45 H 43 H Rate Respiratory Rate [Anterior Bilateral Throughout] Blood Pressure 116/71 129/61 114/74 Blood Pressure [Right] O2 Sat by Pulse 100 100 99 Oximetry 05/03/20 05/03/20 05/03/20 12:30 12:59 13:00 Temperature Pulse Rate 113 H 115 H Pulse Rate [ 116 H Anterior Bilateral Throughout] Pulse Rate [ From Monitor] Respiratory 38 H 44 H Rate Respiratory 36 H Rate [Anterior Bilateral Throughout] Blood Pressure 121/76 146/74 Blood Pressure [Right] O2 Sat by Pulse 98 100 Oximetry 05/03/20 14:25 Temperature Pulse Rate Pulse Rate [ Anterior Bilateral Throughout] Pulse Rate [ 118 H From Monitor] Respiratory 29 H Rate Respiratory Rate [Anterior Bilateral Throughout] Blood Pressure Blood Pressure [Right] O2 Sat by Pulse 100 Oximetry - Reevaluation(s) Reevaluation #1: 05/03/20 11:04 Per lab, ABG machine is down, not working. ED Medical Decision Making - Lab Data Result diagrams: 05/03/20 10:41 05/03/20 10:41 - Radiology Data Radiology results: report reviewed, image reviewed - Medical Decision Making 25-year-old male with acute asthma exacerbation. Patient was given 1 mg of Ativan for anxiety and then immediately placed on BiPAP, which he has tolerated well. Patient was given Solu-Medrol, mag sulfate en route by EMS prior to ED arrival. Labs are within normal limits. Unable to obtain ABG because machine is currently not working. Chest x-ray was negative for any acute findings. Patient has been reassessed multiple times. Patient feeling much better. His respiratory rate improved. Patient will be admitted to the hospitalist, Dr. Boyer, for further management. - Differential Diagnosis Asthma, pneumonia, pulm edema Critical Care Time: Yes Critical care time in (mins) excluding proc time.: 35 Critical care attestation.: If time is entered above; I have spent that time in minutes in the direct care of this critically ill patient, excluding procedure time. Critical Care Time: 35 min ED Disposition Clinical Impression: Status asthmaticus, Acute respiratory failure with hypoxia Disposition: OP ADMIT IP TO THIS HOSP Is pt being admited?: Yes Condition: Stable Time of Disposition: 12:09
[2020-05-03 11:08] LABS: Basophils % (Auto) 0.7 % (0.0-1.8); Eosinophils # (Auto) 0.4 K/mm3 (0.0-0.4); Eosinophils % (Auto) 6.4 % (0.0-4.3); Hematocrit 44.3 % (35.5-45.6); Lymphocytes # (Auto) 0.9 K/mm3 (1.2-5.4); Lymphocytes % (Auto) 15.5 % (13.4-35.0); Mean Corpuscular HGB Conc 34 % (32-34); Mean Corpuscular Volume 97 fl (84-94); Monocytes # (Auto) 0.3 K/mm3 (0.0-0.8); Monocytes % (Auto) 5.5 % (0.0-7.3); Platelet Count 174 K/mm3 (140-440); Red Blood Count 4.57 M/mm3 (3.65-5.03); Red Cell Distribution Width 12.5 % (13.2-15.2)
--- NOTE | 2020-05-03 11:09 | XRay Report ---
CHEST 1 VIEW INDICATION / CLINICAL INFORMATION: sob. COMPARISON: Single view chest dated 04/04/2020. FINDINGS: SUPPORT DEVICES: None. HEART / MEDIASTINUM: No significant abnormality. LUNGS / PLEURA: There is mild hyperinflation of the lungs. No focal airspace disease. No pneumothorax . ADDITIONAL FINDINGS: No significant additional findings. IMPRESSION: Mild hyperinflation which can be seen with asthma/reactive airways disease. Alternatively, this may b e the result of a good inspiratory effort. Signer Name: Osmel Alford MD Signed: 05/03/2020 11:04 AM Workstation Name: [id number]
[2020-05-03 11:25] LABS: BUN/Creatinine Ratio 8; Blood Urea Nitrogen 8 mg/dL (9-20); Calcium 9.2 mg/dL (8.4-10.2); Hemolysis Index 9
[2020-05-03] MEDS ORDERED: SODIUM CHLORIDE 0.9% 1000 ML 1,000 ML IV ONE (12:02)
[2020-05-03] MEDS ORDERED: NALOXONE 0.4 MG/1 ML INJ IV PRN (12:55)
[2020-05-03] MEDS ORDERED: MAGNESIUM SULFATE 2 GM/50 ML BAG IV ONE ×2 (12:57→13:41)
--- NOTE | 2020-05-03 12:58 | History and Physical Report ---
History of Present Illness Date of examination: 05/03/20 Date of admission: 05/03/20 Chief complaint: ACUTE RESPIRATORY FAILURE History of present illness: Patient is a 25-year-old old male with history of asthma, bipolar, depression, schizophrenia with hx of Drug abuse comes in for severe shortness of breath and wheezing and was brought in by the EMS. Per ED documentation, patient received multiple treatments with EMS but was still with rapid rate at 40 on admission, improving some on BIPAP. The patient is significantly dyspenic and unable to give me any information. The Patient was recently at the hospital and was briefly intubated and extubated and discharged. No further information is available. Past History Past Medical History: hypertension, other Past Surgical History: Other (hernia surgery) Social history: no significant social history, full code Family history: no significant family history Medications and Allergies Allergies Allergy/AdvReac Type Severity Reaction Status Date / Time No Known Allergies Allergy Verified 09/23/15 15:43 Home Medications Medication Instructions Recorded Confirmed Last Taken Type ALBUTEROL NEB's [Proventil 0.083% 2.5 mg IH TID PRN #1 box 05/30/19 Unknown Rx NEBS] Albuterol Sulfate [Proventil Hfa] 6.7 gm IH QID PRN #1 hfa.aer.ad 05/30/19 Unknown Rx Cetirizine HCl [ZyrTEC] 10 mg PO DAILY #30 capsule 05/30/19 Unknown Rx Fluticasone [Flonase] 1 spray NS QDAY #1 bottle 05/30/19 Unknown Rx Fluticasone/Salmeterol [Advair 1 puff IH BID #1 disk.w.dev 05/30/19 Unknown Rx Diskus 250-50 mcg] predniSONE [Deltasone] 20 mg PO DAILY #5 tablet 05/30/19 Unknown Rx Albuterol Sulfate [Proair 90 mcg IH Q4HR PRN #2 aer.pow.ba 12/23/19 Unknown Rx Respiclick] Albuterol Sulfate [Albuterol 0.63% 0.63 mg IH TID PRN #1 box 04/09/20 Unknown Rx NEBS] Ipratropium [Atrovent NEB] 0.5 mg IH Q8HRT #1 box 04/09/20 Unknown Rx Nebulizer and Compressor [[place] 1 each MC TID PRN #1 each 04/09/20 Unknown Rx Choice Nebulizer] Prednisone [predniSONE 10 mg 10 mg PO .TAPER #1 tab.ds.pk 04/09/20 Unknown Rx (6-Day Pack, 21 Tabs)] Active Meds: Active Medications Sodium Chloride (Nacl 0.9% 1000 Ml) 1,000 mls @ 999 mls/hr IV BOLUS ONE Stop: 05/03/20 13:02 Last Admin: 05/03/20 12:13 Dose: 999 mls/hr Documented by: Review of Systems ROS unobtainable: due to mental status (respiratory failure) Exam - Physical Exam Narrative exam: VITAL SIGNS: Reviewed. GENERAL: The patient appears normally developed, increased respiratory distress, Vital signs as documented. HEAD: No signs of head trauma. EYES: Pupils are equal. Extraocular motions intact. EARS: Hearing grossly intact. MOUTH: Oropharynx is normal. NECK: No adenopathy, no JVD. CHEST: Chest with tachypenia breath sounds bilaterally. No wheezes, rales, or rhonchi. CARDIAC: Regular rate and rhythm. S1 and S2, without murmurs, gallops, or rubs. VASCULAR: No Edema. Peripheral pulses normal and equal in all extremities. ABDOMEN: Soft, non tender and non distended. No rebound or guarding, and no masses palpated. Bowel Sounds normal. MUSCULOSKELETAL: Good range of motion of all major joints. Extremities without clubbing, cyanosis or edema. NEUROLOGIC EXAM: lethargic No focal sensory or strength deficits. PSYCHIATRIC: Mood normal. SKIN: detail exam as documented in skin assessment - Constitutional Vitals: Temp Pulse Resp BP Pulse Ox 98.7 F 140 H 40 H 102/85 100 05/03/20 10:39 05/03/20 10:40 05/03/20 10:40 05/03/20 10:39 05/03/20 10:40 Results - Labs CBC & Chem 7: 05/03/20 10:41 05/03/20 10:41 Labs: Laboratory Last Values WBC 5.7 K/mm3 (4.5-11.0) 05/03/20 10:41 RBC 4.57 M/mm3 (3.65-5.03) 05/03/20 10:41 Hgb 15.0 gm/dl (11.8-15.2) 05/03/20 10:41 Hct 44.3 % (35.5-45.6) 05/03/20 10:41 MCV 97 fl (84-94) H 05/03/20 10:41 MCH 33 pg (28-32) H 05/03/20 10:41 MCHC 34 % (32-34) 05/03/20 10:41 RDW 12.5 % (13.2-15.2) L 05/03/20 10:41 Plt Count 174 K/mm3 (140-440) 05/03/20 10:41 Lymph % (Auto) 15.5 % (13.4-35.0) 05/03/20 10:41 [place] % (Auto) 5.5 % (0.0-7.3) 05/03/20 10:41 Eos % (Auto) 6.4 % (0.0-4.3) H 05/03/20 10:41 Baso % (Auto) 0.7 % (0.0-1.8) 05/03/20 10:41 Lymph # 0.9 K/mm3 (1.2-5.4) L 05/03/20 10:41 [place] # 0.3 K/mm3 (0.0-0.8) 05/03/20 10:41 Eos # 0.4 K/mm3 (0.0-0.4) 05/03/20 10:41 Baso # 0.0 K/mm3 (0.0-0.1) 05/03/20 10:41 Seg Neutrophils % 71.9 % (40.0-70.0) H 05/03/20 10:41 Seg Neutrophils # 4.1 K/mm3 (1.8-7.7) 05/03/20 10:41 Sodium 141 mmol/L (137-145) 05/03/20 10:41 Potassium 3.6 mmol/L (3.6-5.0) 05/03/20 10:41 Chloride 102.1 mmol/L (98-107) 05/03/20 10:41 Carbon Dioxide 25 mmol/L (22-30) 05/03/20 10:41 Anion Gap 18 mmol/L 05/03/20 10:41 BUN 8 mg/dL (9-20) L 05/03/20 10:41 Creatinine 1.0 mg/dL (0.8-1.3) 05/03/20 10:41 Estimated GFR > 60 ml/min 05/03/20 10:41 BUN/Creatinine Ratio 8 % 05/03/20 10:41 Glucose 139 mg/dL (75-100) H 05/03/20 10:41 Calcium 9.2 mg/dL (8.4-10.2) 05/03/20 10:41 Assessment and Plan Assessment and plan: Patient is a 25-year-old old male with history of asthma, bipolar, depression, schizophrenia with hx of Drug abuse comes in for severe shortness of breath and wheezing and was brought in by the EMS. Per ED documentation, patient received multiple treatments with EMS but was still with rapid rate at 40 on admission, improving some on BIPAP. The patient is significantly dyspenic and unable to give me any information. The Patient was recently at the hospital and was briefly intubated and extubated and discharged. No further information is available. Acute Hypoxic and hypercapenia Respiratory Failure Status Asthmaticus Cocaine Dependance in prior admit Plan Admit to IMCU Nebs Continue BIPAP Pulmonary Consult STEROIDS TOXICOLOGY Repeat ABG DVT/GI prophy The high probability of a clinically significant, sudden or life threatening deterioration of the [PULMONARY] system(s) required my full and direct attention, intervention and personal management. The aggregate critical care time was [65] minutes. This time is in addition to time spent performing reported procedures but includes the following: [X] Data Review and interpretation [X] Patient assessment and monitoring of vital signs [X] Documentation [X] Medication orders and management Advance Directives: Yes Plan of care discussed with patient/family: Yes
[2020-05-03] MEDS ORDERED: methylPREDNISolone Sod Succinate 40 MG/1 ML INJ ONE (13:41)
[2020-05-03] MEDS: methylPREDNISolone Sod Succinate 125 MG/2 ML INJ IV SCH ×2 (15:14→21:36)
[2020-05-03] MEDS: IPRATROPIUM/ALBUTEROL SULFATE 3 ML AMPUL.NEB IH SCH ×2 (15:43→21:14)
[2020-05-03 18:56] LABS: C-Reactive Protein 17.7 mg/dL (0.00-1.30)
[2020-05-03] MEDS: LORazepam 2 MG/ML VIAL IV PRN (20:10)
[2020-05-03] MEDS: BUDESONIDE 0.5 MG/2 ML NEBU IH SCH (21:07)
[2020-05-03] MEDS: ALBUTEROL 2.5 MG/3 ML NEBU IH PRN ×2 (21:15→22:34)
[2020-05-03] MEDS ORDERED: diphenhydrAMINE 50 MG/ML VIAL IV STA (21:20)
[2020-05-03] MEDS ORDERED: HALOPERIDOL DECANOATE 100 MG/1 ML INJ IM STA (21:21)
[2020-05-03] MEDS ORDERED: LORazepam 2 MG/ML VIAL IV STA (21:22)
[2020-05-03] MEDS ORDERED: HALOPERIDOL LACTATE 5 MG/1 ML INJ IV ONE (21:32)
[2020-05-03] MEDS: SENNOSIDES 8.6 MG TAB PO SCH (21:54)
[2020-05-04] MEDS: IPRATROPIUM/ALBUTEROL SULFATE 3 ML AMPUL.NEB IH SCH ×4 (02:45→20:11)
[2020-05-04] MEDS: guaiFENesin 100 MG/5 ML ORAL LIQD PO PRN (05:02)
[2020-05-04] MEDS: LORazepam 2 MG/ML VIAL IV PRN (05:02)
[2020-05-04] MEDS: methylPREDNISolone Sod Succinate 125 MG/2 ML INJ IV SCH (05:02)
[2020-05-04] MEDS: BUDESONIDE 0.5 MG/2 ML NEBU IH SCH ×2 (08:18→20:11)
[2020-05-04 08:28] LABS: Basophils % (Auto) 0.3 % (0.0-1.8); Hematocrit 41.3 % (35.5-45.6); Lymphocytes # (Auto) 0.3 K/mm3 (1.2-5.4); Mean Corpuscular HGB Conc 34 % (32-34); Mean Corpuscular Volume 97 fl (84-94); Monocytes # (Auto) 0.1 K/mm3 (0.0-0.8); Monocytes % (Auto) 2.8 % (0.0-7.3); Platelet Count 182 K/mm3 (140-440); Red Blood Count 4.28 M/mm3 (3.65-5.03); Red Cell Distribution Width 12.1 % (13.2-15.2)
[2020-05-04 08:55] LABS: BUN/Creatinine Ratio 17; Blood Urea Nitrogen 15 mg/dL (9-20); Calcium 9.9 mg/dL (8.4-10.2); Hemolysis Index 31
[2020-05-04] MEDS: SENNOSIDES 8.6 MG TAB PO SCH ×2 (09:10→22:18)
--- NOTE | 2020-05-04 11:14 | Event Note ---
Date: 05/04/20 25 y/o male with known asthma, tobacco abuse, polysubstance abuse, admitted with acute respiratory failure. Very agitated and anxious last night. Treated with Haldol 5, Ativan 2 and Benadryl IV 25 along with labetalol 20 IV x1. Slept through the night with better vitals and respiratory rate. Still tachypnic this am but asleep. Mask off and sat is 100. Stopped IV steroids and will place on oral prednisone. Continue Pulmicort and scheduled duonebs. Follow up tox screen and continue PRN ativan.
--- NOTE | 2020-05-04 12:37 | Consultation ---
History of Present Illness - Reason for Consult Consult date: 05/04/20 Reason for consult: agitation - History of Present Psychiatric Illness Kanu Velasco is a 25y/o male patient who presented to the ER for shortness of breath. It is documented that the patient was here for the same thing last month, in which he was intubated for at that time. The patient has a history of polysubstance abuse. His UDS was positive for Meth, and Cocaine. I attempted to interview the patient, he is lying in bed with his eyes closed. The patient is somnolent and could not be engaged to interview. PAST PSYCHIATRIC HISTORY: Unable to obtain due to patient's factors PAST MEDICAL HISTORY: Unable to obtain Family Psychiatric History: None reported or documented SOCIAL HISTORY Unable to obtain REVIEW OF SYSTEMS Unable to assess due to patient factors MENTAL STATUS EXAMINATION Unable to obtain ASSESSMENT Altered Mental Status Cocaine Use Disorder Methamphetamine Use Disorder RECOMMENDATIONS MEDICATIONS Valproic Sodium 500mg IV q12 hours Start Risperidone 0.25mg po BID Start Geodon 20mg IM q6h prn agitation Risks, benefits and alternatives of medications discussed with the patient, questions answered and consent obtained from patient. PSYCHOTHERAPY: Supportive psychotherapy provided MEDICAL: Per primary team DELIRIUM PRECAUTIONS: Please re-orient patient frequently, keep lights on during the day, and minimize benzodiazepines and opiates as these medications could worsen patient's confusion. CRM SPECIALIST: per medical team DISPOSITION: TBD LEGAL STATUS: Involuntary Will continue to follow Thank you for the consult. Please contact with any questions and/or concerns. Medications and Allergies Allergies Allergy/AdvReac Type Severity Reaction Status Date / Time No Known Allergies Allergy Verified 09/23/15 15:43 Home Medications Medication Instructions Recorded Confirmed Last Taken Type ALBUTEROL NEB's [Proventil 0.083% 2.5 mg IH TID PRN #1 box 05/30/19 Unknown Rx NEBS] Albuterol Sulfate [Proventil Hfa] 6.7 gm IH QID PRN #1 hfa.aer.ad 05/30/19 Unknown Rx Cetirizine HCl [ZyrTEC] 10 mg PO DAILY #30 capsule 05/30/19 Unknown Rx Fluticasone [Flonase] 1 spray NS QDAY #1 bottle 05/30/19 Unknown Rx Fluticasone/Salmeterol [Advair 1 puff IH BID #1 disk.w.dev 05/30/19 Unknown Rx Diskus 250-50 mcg] predniSONE [Deltasone] 20 mg PO DAILY #5 tablet 05/30/19 Unknown Rx Albuterol Sulfate [Proair 90 mcg IH Q4HR PRN #2 aer.pow.ba 12/23/19 Unknown Rx Respiclick] Albuterol Sulfate [Albuterol 0.63% 0.63 mg IH TID PRN #1 box 04/09/20 Unknown Rx NEBS] Ipratropium [Atrovent NEB] 0.5 mg IH Q8HRT #1 box 04/09/20 Unknown Rx Nebulizer and Compressor [[place] 1 each MC TID PRN #1 each 04/09/20 Unknown Rx Choice Nebulizer] Prednisone [predniSONE 10 mg 10 mg PO .TAPER #1 tab.ds.pk 04/09/20 Unknown Rx (6-Day Pack, 21 Tabs)] Active Meds: Active Medications Acetaminophen (Tylenol) 650 mg PO Q6H PRN PRN Reason: Pain MILD(1-3)/Fever >100.5/ROJO Albuterol (Proventil) 2.5 mg IH Q3HRT PRN PRN Reason: Shortness Of Breath Last Admin: 05/03/20 22:34 Dose: 2.5 mg Documented by: Albuterol/Ipratropium (Duoneb *Not For Prn Use*) 1 ampul IH Q6HRT [facility] Last Admin: 05/04/20 08:18 Dose: 1 ampul Documented by: Budesonide (Pulmicort) 0.5 mg IH Q12HRT [facility] Last Admin: 05/04/20 08:18 Dose: 0.5 mg Documented by: Guaifenesin (Robitussin) 200 mg PO Q6H PRN PRN Reason: Cough Lorazepam (Ativan) 1 mg IV Q3H PRN PRN Reason: Anxiety Last Admin: 05/04/20 05:02 Dose: 1 mg Documented by: Naloxone HCl (Naloxone) 0.1 mg IV Q2MIN PRN PRN Reason: Res Rate </= 8 or 02 SAT < 92% Oxycodone/Acetaminophen (Percocet 5/325) 1 tab PO Q6H PRN PRN Reason: Pain, Moderate (4-6) Senna (Senokot) 8.6 mg PO BID [facility] Last Admin: 05/04/20 09:10 Dose: Not Given Documented by: Sodium Chloride (Sodium Chloride Flush Syringe 10 Ml) 10 ml IV BID [facility] Last Admin: 05/04/20 09:28 Dose: 10 ml Documented by: Sodium Chloride (Sodium Chloride Flush Syringe 10 Ml) 10 ml IV PRN PRN PRN Reason: LINE FLUSH Mental Status Exam - Vital signs Last Vital Signs Temp 97.4 F L 05/03/20 23:38 Pulse 95 H 05/04/20 12:00 Resp 42 H 05/04/20 12:00 BP 119/61 05/04/20 12:00 Pulse Ox 96 05/04/20 12:00 Results Result Diagrams: 05/04/20 07:06 05/04/20 07:06 Abnormal lab results 05/03/20 05/03/20 05/03/20 Range/Units 14:06 18:19 18:19 WBC (4.5-11.0) K/mm3 MCV (84-94) fl MCH (28-32) pg RDW (13.2-15.2) % Lymph % (Auto) (13.4-35.0) % Lymph # (1.2-5.4) K/mm3 Seg Neutrophils % (40.0-70.0) % D-Dimer (0-234) ng/mlDDU ABG pH 7.289 L (7.320-7.450) POC ABG pO2 146.9 H (83-108) mmHg Glucose 143 H (75-100) mg/dL Ferritin 636.4 H (30.0-300.0) ng/mL Lactate Dehydrogenase 1035 H (91-180) units/L C-Reactive Protein 17.70 H (0.00-1.30) mg/dL 05/04/20 05/04/20 05/04/20 Range/Units 07:06 07:06 07:06 WBC 2.6 L (4.5-11.0) K/mm3 MCV 97 H (84-94) fl MCH 33 H (28-32) pg RDW 12.1 L (13.2-15.2) % Lymph % (Auto) 13.0 L (13.4-35.0) % Lymph # 0.3 L (1.2-5.4) K/mm3 Seg Neutrophils % 83.9 H (40.0-70.0) % D-Dimer 377.38 H (0-234) ng/mlDDU ABG pH (7.320-7.450) POC ABG pO2 (83-108) mmHg Glucose 143 H (75-100) mg/dL Ferritin (30.0-300.0) ng/mL Lactate Dehydrogenase (91-180) units/L C-Reactive Protein (0.00-1.30) mg/dL All other labs normal.
[2020-05-04] MEDS ORDERED: ZIPRASIDONE MESYLATE 20 MG VIAL IM PRN (12:41)
[2020-05-04] MEDS: risperiDONE 0.25 MG TAB PO SCH ×2 (13:12→22:17)
[2020-05-04] MEDS: VALPROATE SODIUM 500 MG in SODIUM CHLORIDE 0.9% 100 ML IV SCH (14:33)
--- NOTE | 2020-05-04 15:56 | Progress Note ---
Assessment and Plan Assessment and plan: Patient is a 25-year-old old male with history of asthma, bipolar, depression, schizophrenia with hx of Drug abuse comes in for severe shortness of breath and wheezing and was brought in by the EMS. Per ED documentation, patient received multiple treatments with EMS but was still with rapid rate at 40 on admission, improving some on BIPAP. The patient is significantly dyspenic and unable to give me any information. The Patient was recently at the hospital and was briefly intubated and extubated and discharged. No further information is available. Acute Hypoxic and hypercapenia Respiratory Failure Status Asthmaticus Cocaine Dependance in prior admit Plan Continue supportive care Now off BiPAP Nebs Pulmonary Consult noted iv steroids stopped, inhaled steroids at this time. TOXICOLOGY Repeat ABG DVT/GI prophy The high probability of a clinically significant, sudden or life threatening deterioration of the [PULMONARY] system(s) required my full and direct attent ion, intervention and personal management. The aggregate critical care time was [35] minutes. This time is in addition to time spent performing reported procedures but includes the following: [X] Data Review and interpretation [X] Patient assessment and monitoring of vital signs [X] Documentation [X] Medication orders and management History Interval history: Patient seen and examined, still tachypenic but good oxygen saturation. Hospitalist Physical - Physical exam Narrative exam: VITAL SIGNS: Reviewed. GENERAL: The patient appears normally developed, Tachypenia, Vital signs as documented. HEAD: No signs of head trauma. EYES: Pupils are equal. Extraocular motions intact. EARS: Hearing grossly intact. MOUTH: Oropharynx is normal. NECK: No adenopathy, no JVD. CHEST: Chest with tachypenia breath sounds bilaterally. No wheezes, rales, or rhonchi. CARDIAC: Regular rate and rhythm. S1 and S2, without murmurs, gallops, or rubs. VASCULAR: No Edema. Peripheral pulses normal and equal in all extremities. ABDOMEN: Soft, non tender and non distended. No rebound or guarding, and no masses palpated. Bowel Sounds normal. MUSCULOSKELETAL: Good range of motion of all major joints. Extremities without clubbing, cyanosis or edema. NEUROLOGIC EXAM: lethargic No focal sensory or strength deficits. PSYCHIATRIC: Mood normal. SKIN: detail exam as documented in skin assessment - Constitutional Vitals: Temp Pulse Resp BP Pulse Ox 97.4 F L 97 H 33 H 119/45 100 08/16/20 23:38 05/04/20 15:00 05/04/20 15:00 05/04/20 15:00 05/04/20 15:00 Results - Labs CBC & Chem 7: 05/04/20 07:06 05/04/20 07:06 Labs: Laboratory Last Values WBC 2.6 K/mm3 (4.5-11.0) L 05/04/20 07:06 RBC 4.28 M/mm3 (3.65-5.03) 05/04/20 07:06 Hgb 14.0 gm/dl (11.8-15.2) 05/04/20 07:06 Hct 41.3 % (35.5-45.6) 05/04/20 07:06 MCV 97 fl (84-94) H 05/04/20 07:06 MCH 33 pg (28-32) H 05/04/20 07:06 MCHC 34 % (32-34) 05/04/20 07:06 RDW 12.1 % (13.2-15.2) L 05/04/20 07:06 Plt Count 182 K/mm3 (140-440) 05/04/20 07:06 Lymph % (Auto) 13.0 % (13.4-35.0) L 05/04/20 07:06 [place] % (Auto) 2.8 % (0.0-7.3) 05/04/20 07:06 Eos % (Auto) 0.0 % (0.0-4.3) 05/04/20 07:06 Baso % (Auto) 0.3 % (0.0-1.8) 05/04/20 07:06 Lymph # 0.3 K/mm3 (1.2-5.4) L 05/04/20 07:06 [place] # 0.1 K/mm3 (0.0-0.8) 05/04/20 07:06 Eos # 0.0 K/mm3 (0.0-0.4) 05/04/20 07:06 Baso # 0.0 K/mm3 (0.0-0.1) 05/04/20 07:06 Seg Neutrophils % 83.9 % (40.0-70.0) H 05/04/20 07:06 Seg Neutrophils # 2.2 K/mm3 (1.8-7.7) 05/04/20 07:06 D-Dimer 377.38 ng/mlDDU (0-234) H 05/04/20 07:06 ABG pH 7.289 (7.320-7.450) L 05/03/20 14:06 POC ABG pCO2 46.4 mmHg (32.0-48.0) 05/03/20 14:06 POC ABG pO2 146.9 mmHg (83-108) H 05/03/20 14:06 ABG Sodium 136.0 mmol/L (136.0-145.0) 05/03/20 14:06 ABG Potassium 3.9 mmol/L (3.40-4.50) 05/03/20 14:06 ABG Chloride 104.0 mmol/L (98-107) 05/03/20 14:06 FiO2 50.0 05/03/20 14:06 Sodium 139 mmol/L (137-145) 05/04/20 07:06 Potassium 5.0 mmol/L (3.6-5.0) D 05/04/20 07:06 Chloride 102.0 mmol/L (98-107) 05/04/20 07:06 Carbon Dioxide 23 mmol/L (22-30) 05/04/20 07:06 Anion Gap 19 mmol/L 05/04/20 07:06 BUN 15 mg/dL (9-20) 05/04/20 07:06 Creatinine 0.9 mg/dL (0.8-1.3) 05/04/20 07:06 Estimated GFR > 60 ml/min 05/04/20 07:06 BUN/Creatinine Ratio 17 % 05/04/20 07:06 Glucose 143 mg/dL (75-100) H 05/04/20 07:06 Calcium 9.9 mg/dL (8.4-10.2) 05/04/20 07:06 Ferritin 636.4 ng/mL (30.0-300.0) H 05/03/20 18:19 Lactate Dehydrogenase 1035 units/L (91-180) H 05/03/20 18:19 C-Reactive Protein 17.70 mg/dL (0.00-1.30) H 05/03/20 18:19 Procalcitonin 1.42 ng/mL (<0.15) 05/03/20 18:19 Arterial Blood Ionized Calcium 4.6 mg/dL (4.6-5.3) 05/03/20 14:06 Coronavirus (PCR) Negative (Negative) 05/04/20 08:27 Wallace/IV: Voiding Method Urinal IV Catheter Type [Right INT / Saline Lock Antecubital] IV Catheter Type [Left Hand] INT / Saline Lock Active Medications - Current Medications Current Medications: Generic Name Dose Route Start Last Admin Trade Name Freq PRN Reason Stop Dose Admin Acetaminophen 650 mg 05/03/20 12:55 Tylenol PO Q6H PRN Pain MILD(1-3)/Fever >100.5/ROJO Albuterol 2.5 mg 05/03/20 12:55 05/03/20 22:34 Proventil IH 2.5 mg Q3HRT PRN Administration Shortness Of Breath Albuterol/Ipratropium 1 ampul 05/03/20 14:00 05/04/20 08:18 Duoneb *Not For Prn Use* IH 1 ampul Q6HRT LARISA Administration Budesonide 0.5 mg 05/03/20 20:00 05/04/20 08:18 Pulmicort IH 0.5 mg Q12HRT LARISA Administration Guaifenesin 200 mg 05/03/20 22:21 Robitussin PO Q6H PRN Cough Valproate Sodium 500 mg/ 105 mls @ 100 mls/hr 05/04/20 14:00 05/04/20 14:33 Sodium Chloride IV 100 mls/hr Q12H LARISA Administration Lorazepam 1 mg 05/03/20 19:56 05/04/20 05:02 Ativan IV 1 mg Q3H PRN Administration Anxiety Naloxone HCl 0.1 mg 05/03/20 12:55 Naloxone IV Q2MIN PRN Res Rate </= 8 or 02 SAT < 92% Oxycodone/Acetaminophen 1 tab 05/03/20 12:55 Percocet 5/325 PO Q6H PRN Pain, Moderate (4-6) Risperidone 0.25 mg 05/04/20 13:00 05/04/20 13:12 Risperdal PO 0.25 mg BID LARISA Administration Senna 8.6 mg 05/03/20 22:00 05/04/20 09:10 Senokot PO Not Given BID LARISA Sodium Chloride 10 ml 05/03/20 22:00 05/04/20 09:28 Sodium Chloride Flush Syringe 10 Ml IV 10 ml BID LARISA Administration Sodium Chloride 10 ml 05/03/20 12:55 Sodium Chloride Flush Syringe 10 Ml IV PRN PRN LINE FLUSH Ziprasidone 20 mg 05/04/20 12:41 Geodon IM Q6H PRN Agitation Nutrition/Malnutrition Assess - Dietary Evaluation Nutrition/Malnutrition Findings: Nutrition Notes Start: 05/04/20 13:41 Freq: Status: Active Protocol: Document 05/04/20 13:41 LM (Rec: 05/04/20 13:50 LM [id number]) Nutrition Notes Need for Assessment generated from: MD Order Initial or Follow up Assessment Other Pertinent Diagnosis ARF, cocaine/meth dependence, PUI COVID-19, asthma, schizophrenia Current Diet Regular Labs/Tests Reviewed Pertinent Medications Solu-Medrol Ativan Height 5 ft 6 in Weight 61.008 kg [place] Body Weight (kg) 64.54 BMI 21.7 Weight Status Appropriate Subjective/Other Information Unable to reach pt by phone. No intakes in chart. Burn Absent Trauma Absent Minimum of two criteria No physical signs of malnutrition #1 Nutrition Diagnosis Predicted suboptimal energy intake Etiology cocaine/meth abuse, homelessness As Evidenced by Signs and Symptoms no intakes in chart Is patient on ventilator? No Is Patient Ambulatory and/or Out of Bed No REE-([facility]-confined to bed) 0181.160 Calculation Used for Recommendations [facility] Additional Notes Protein: 49-61g (0.8-1g/kg) Fluid: 1ml/kcal Nutrition Intervention Change Diet Order: continue Goal #1 Meet at least 75% of energy and protein needs Anticipated Discharge Needs: regular Follow-Up By: 05/06/20 Additional Comments F/U for intakes, full assessment
[2020-05-04 17:15] LABS: Amphetamine Screen,Urine PRESUMPTIVE NEGATIVE; Benzodiazepines Screen,Urine PRESUMPTIVE NEGATIVE; Cannabinoid Screen,Urine PRESUMPTIVE NEGATIVE; Cocaine Screen,Urine PRESUMPTIVE POSITIVE; Methadone Screen,Urine PRESUMPTIVE NEGATIVE; Opiate Screen,Urine PRESUMPTIVE NEGATIVE
[2020-05-05] MEDS: VALPROATE SODIUM 500 MG in SODIUM CHLORIDE 0.9% 100 ML IV SCH ×2 (01:05→20:24)
[2020-05-05] MEDS: IPRATROPIUM/ALBUTEROL SULFATE 3 ML AMPUL.NEB IH SCH ×5 (01:47→20:59)
[2020-05-05] MEDS: BUDESONIDE 0.5 MG/2 ML NEBU IH SCH ×3 (09:57→20:59)
--- NOTE | 2020-05-05 10:23 | Progress Note ---
Assessment and Plan Pulm lr stable for discharge. Suggest long acting therapy if patient can afford. Would start on Symbicort 160 2 puffs BID Smoking cessation Polysubstance abuse help if willing to do so Will sign off, call if questions. Subjective Date of service: 05/05/20 Interval history: Weaned to room air with good sats. Psych saw on yesterday. No plan in note yet as seen by the GEOGRAPHY DEPARTMENT CHAIR. Objective - Constitutional Vitals: Vital Signs - 12hr 05/04/20 05/04/20 05/04/20 22:30 22:46 23:00 Temperature Pulse Rate 104 H 102 H 100 H Pulse Rate [ Anterior Bilateral Throughout] Pulse Rate [ From Monitor] Pulse Rate [ Posterior Bilateral Throughout] Respiratory 24 33 H 37 H Rate Respiratory Rate [Anterior Bilateral Throughout] Respiratory Rate [Posterior Bilateral Throughout] Blood Pressure 125/104 143/84 45/31 O2 Sat by Pulse 96 88 98 Oximetry 05/04/20 05/04/20 05/04/20 23:16 23:30 23:46 Temperature Pulse Rate 90 102 H 103 H Pulse Rate [ Anterior Bilateral Throughout] Pulse Rate [ From Monitor] Pulse Rate [ Posterior Bilateral Throughout] Respiratory 19 24 24 Rate Respiratory Rate [Anterior Bilateral Throughout] Respiratory Rate [Posterior Bilateral Throughout] Blood Pressure 45/31 O2 Sat by Pulse 97 95 93 Oximetry 05/04/20 05/05/20 05/05/20 23:52 00:00 00:02 Temperature 97.8 F Pulse Rate 97 H 97 H 89 Pulse Rate [ Anterior Bilateral Throughout] Pulse Rate [ 97 H From Monitor] Pulse Rate [ Posterior Bilateral Throughout] Respiratory 26 H 26 H 26 H Rate Respiratory Rate [Anterior Bilateral Throughout] Respiratory Rate [Posterior Bilateral Throughout] Blood Pressure 104/59 O2 Sat by Pulse 94 94 93 Oximetry 05/05/20 05/05/20 05/05/20 00:16 00:30 00:46 Temperature Pulse Rate 97 H 96 H 91 H Pulse Rate [ Anterior Bilateral Throughout] Pulse Rate [ From Monitor] Pulse Rate [ Posterior Bilateral Throughout] Respiratory 26 H 25 H 24 Rate Respiratory Rate [Anterior Bilateral Throughout] Respiratory Rate [Posterior Bilateral Throughout] Blood Pressure O2 Sat by Pulse 93 95 92 Oximetry 05/05/20 05/05/20 05/05/20 01:00 01:16 01:30 Temperature Pulse Rate 91 H 92 H 97 H Pulse Rate [ Anterior Bilateral Throughout] Pulse Rate [ From Monitor] Pulse Rate [ Posterior Bilateral Throughout] Respiratory 24 25 H 16 Rate Respiratory Rate [Anterior Bilateral Throughout] Respiratory Rate [Posterior Bilateral Throughout] Blood Pressure 132/64 O2 Sat by Pulse 91 94 86 Oximetry 05/05/20 05/05/20 05/05/20 01:45 02:00 02:15 Temperature Pulse Rate 86 84 88 Pulse Rate [ Anterior Bilateral Throughout] Pulse Rate [ From Monitor] Pulse Rate [ Posterior Bilateral Throughout] Respiratory 28 H 27 H 27 H Rate Respiratory Rate [Anterior Bilateral Throughout] Respiratory Rate [Posterior Bilateral Throughout] Blood Pressure 109/64 105/56 94/58 O2 Sat by Pulse 90 92 91 Oximetry 05/05/20 05/05/20 05/05/20 02:30 02:45 03:00 Temperature Pulse Rate 81 91 H 92 H Pulse Rate [ Anterior Bilateral Throughout] Pulse Rate [ From Monitor] Pulse Rate [ Posterior Bilateral Throughout] Respiratory 25 H 24 25 H Rate Respiratory Rate [Anterior Bilateral Throughout] Respiratory Rate [Posterior Bilateral Throughout] Blood Pressure 124/67 105/59 102/55 O2 Sat by Pulse 90 91 91 Oximetry 05/05/20 05/05/20 05/05/20 03:15 03:30 03:45 Temperature Pulse Rate 91 H 84 87 Pulse Rate [ Anterior Bilateral Throughout] Pulse Rate [ From Monitor] Pulse Rate [ Posterior Bilateral Throughout] Respiratory 26 H 26 H Rate Respiratory Rate [Anterior Bilateral Throughout] Respiratory Rate [Posterior Bilateral Throughout] Blood Pressure 103/62 98/61 107/60 O2 Sat by Pulse 90 90 89 Oximetry 05/05/20 05/05/20 05/05/20 04:00 04:15 04:30 Temperature 98.3 F Pulse Rate 89 88 82 Pulse Rate [ Anterior Bilateral Throughout] Pulse Rate [ 87 From Monitor] Pulse Rate [ Posterior Bilateral Throughout] Respiratory 26 H Rate Respiratory Rate [Anterior Bilateral Throughout] Respiratory Rate [Posterior Bilateral Throughout] Blood Pressure 99/64 93/59 91/58 O2 Sat by Pulse 91 89 85 Oximetry 05/05/20 05/05/20 05/05/20 04:46 05:00 05:15 Temperature Pulse Rate Pulse Rate [ Anterior Bilateral Throughout] Pulse Rate [ From Monitor] Pulse Rate [ Posterior Bilateral Throughout] Respiratory Rate Respiratory Rate [Anterior Bilateral Throughout] Respiratory Rate [Posterior Bilateral Throughout] Blood Pressure 134/93 113/69 107/59 O2 Sat by Pulse 87 95 89 Oximetry 05/05/20 05/05/20 05/05/20 05:30 05:45 06:00 Temperature Pulse Rate 84 Pulse Rate [ Anterior Bilateral Throughout] Pulse Rate [ From Monitor] Pulse Rate [ Posterior Bilateral Throughout] Respiratory 27 H Rate Respiratory Rate [Anterior Bilateral Throughout] Respiratory Rate [Posterior Bilateral Throughout] Blood Pressure 105/65 99/62 99/62 O2 Sat by Pulse 93 91 86 Oximetry 05/05/20 05/05/20 05/05/20 06:15 06:30 06:45 Temperature Pulse Rate 79 75 80 Pulse Rate [ Anterior Bilateral Throughout] Pulse Rate [ From Monitor] Pulse Rate [ Posterior Bilateral Throughout] Respiratory 25 H 24 24 Rate Respiratory Rate [Anterior Bilateral Throughout] Respiratory Rate [Posterior Bilateral Throughout] Blood Pressure 100/59 100/65 100/61 O2 Sat by Pulse 91 91 91 Oximetry 05/05/20 05/05/20 05/05/20 07:00 07:15 07:30 Temperature Pulse Rate 78 80 84 Pulse Rate [ Anterior Bilateral Throughout] Pulse Rate [ From Monitor] Pulse Rate [ Posterior Bilateral Throughout] Respiratory 19 33 H 36 H Rate Respiratory Rate [Anterior Bilateral Throughout] Respiratory Rate [Posterior Bilateral Throughout] Blood Pressure 118/78 116/76 110/67 O2 Sat by Pulse 94 93 92 Oximetry 05/05/20 05/05/20 05/05/20 07:45 08:00 08:15 Temperature 97.6 F Pulse Rate 82 104 H 83 Pulse Rate [ Anterior Bilateral Throughout] Pulse Rate [ 114 H From Monitor] Pulse Rate [ Posterior Bilateral Throughout] Respiratory 27 H 29 H 28 H Rate Respiratory Rate [Anterior Bilateral Throughout] Respiratory Rate [Posterior Bilateral Throughout] Blood Pressure 102/65 111/61 107/65 O2 Sat by Pulse 92 96 91 Oximetry 05/05/20 05/05/20 05/05/20 08:30 08:45 09:00 Temperature Pulse Rate 79 89 90 Pulse Rate [ Anterior Bilateral Throughout] Pulse Rate [ From Monitor] Pulse Rate [ Posterior Bilateral Throughout] Respiratory 18 20 24 Rate Respiratory Rate [Anterior Bilateral Throughout] Respiratory Rate [Posterior Bilateral Throughout] Blood Pressure 121/49 127/73 136/76 O2 Sat by Pulse 96 92 93 Oximetry 05/05/20 05/05/20 05/05/20 09:15 09:30 09:45 Temperature Pulse Rate 92 H 92 H 100 H Pulse Rate [ Anterior Bilateral Throughout] Pulse Rate [ From Monitor] Pulse Rate [ Posterior Bilateral Throughout] Respiratory 30 H 29 H 25 H Rate Respiratory Rate [Anterior Bilateral Throughout] Respiratory Rate [Posterior Bilateral Throughout] Blood Pressure 122/66 122/66 99/48 O2 Sat by Pulse 91 94 88 Oximetry 05/05/20 05/05/20 05/05/20 09:57 09:59 10:00 Temperature Pulse Rate 104 H Pulse Rate [ 91 H Anterior Bilateral Throughout] Pulse Rate [ From Monitor] Pulse Rate [ 89 Posterior Bilateral Throughout] Respiratory 31 H Rate Respiratory 29 H Rate [Anterior Bilateral Throughout] Respiratory 26 H Rate [Posterior Bilateral Throughout] Blood Pressure 109/56 O2 Sat by Pulse 96 95 Oximetry - Labs CBC & Chem 7: 05/04/20 07:06 05/04/20 07:06 Medications & Allergies - Medications Allergies/Adverse Reactions: Allergies No Known Allergies Allergy (Verified 09/23/15 15:43) Home Medications: Home Medications Medication Instructions Recorded Confirmed Last Taken Type ALBUTEROL NEB's [Proventil 0.083% 2.5 mg IH TID PRN #1 box 05/30/19 Unknown Rx NEBS] Albuterol Sulfate [Proventil Hfa] 6.7 gm IH QID PRN #1 hfa.aer.ad 05/30/19 Unknown Rx Cetirizine HCl [ZyrTEC] 10 mg PO DAILY #30 capsule 05/30/19 Unknown Rx Fluticasone [Flonase] 1 spray NS QDAY #1 bottle 05/30/19 Unknown Rx Fluticasone/Salmeterol [Advair 1 puff IH BID #1 disk.w.dev 05/30/19 Unknown Rx Diskus 250-50 mcg] predniSONE [Deltasone] 20 mg PO DAILY #5 tablet 05/30/19 Unknown Rx Albuterol Sulfate [Proair 90 mcg IH Q4HR PRN #2 aer.pow.ba 12/23/19 Unknown Rx Respiclick] Albuterol Sulfate [Albuterol 0.63% 0.63 mg IH TID PRN #1 box 04/09/20 Unknown Rx NEBS] Ipratropium [Atrovent NEB] 0.5 mg IH Q8HRT #1 box 04/09/20 Unknown Rx Nebulizer and Compressor [Mcdaniel 1 each MC TID PRN #1 each 04/09/20 Unknown Rx Choice Nebulizer] Prednisone [predniSONE 10 mg 10 mg PO .TAPER #1 tab.ds.pk 04/09/20 Unknown Rx (6-Day Pack, 21 Tabs)] Active Medications: Generic Name Dose Route Start Last Admin Trade Name Freq PRN Reason Stop Dose Admin Acetaminophen 650 mg 05/03/20 12:55 Tylenol PO Q6H PRN Pain MILD(1-3)/Fever >100.5/ROJO Albuterol 2.5 mg 05/03/20 12:55 05/03/20 22:34 Proventil IH 2.5 mg Q3HRT PRN Administration Shortness Of Breath Albuterol/Ipratropium 1 ampul 05/03/20 14:00 05/05/20 09:57 Duoneb *Not For Prn Use* IH 1 ampul Q6HRT LARISA Administration Budesonide 0.5 mg 05/03/20 20:00 05/05/20 09:57 Pulmicort IH 0.5 mg Q12HRT LARISA Administration Guaifenesin 200 mg 05/03/20 22:21 Robitussin PO Q6H PRN Cough Valproate Sodium 500 mg/ 105 mls @ 100 mls/hr 05/04/20 14:00 05/05/20 01:05 Sodium Chloride IV 100 mls/hr Q12H LARISA Administration Lorazepam 1 mg 05/03/20 19:56 05/04/20 05:02 Ativan IV 1 mg Q3H PRN Administration Anxiety Naloxone HCl 0.1 mg 05/03/20 12:55 Naloxone IV Q2MIN PRN Res Rate </= 8 or 02 SAT < 92% Oxycodone/Acetaminophen 1 tab 05/03/20 12:55 Percocet 5/325 PO Q6H PRN Pain, Moderate (4-6) Risperidone 0.25 mg 05/04/20 13:00 05/04/20 22:17 Risperdal PO 0.25 mg BID LARISA Administration Senna 8.6 mg 05/03/20 22:00 05/04/20 22:18 Senokot PO Not Given BID LARISA Sodium Chloride 10 ml 05/03/20 22:00 05/05/20 01:05 Sodium Chloride Flush Syringe 10 Ml IV 10 ml BID LARISA Administration Sodium Chloride 10 ml 05/03/20 12:55 Sodium Chloride Flush Syringe 10 Ml IV PRN PRN LINE FLUSH Ziprasidone 20 mg 05/04/20 12:41 Geodon IM Q6H PRN Agitation
[2020-05-05] MEDS: SENNOSIDES 8.6 MG TAB PO SCH ×2 (10:24→22:07)
[2020-05-05] MEDS: risperiDONE 0.25 MG TAB PO SCH ×2 (10:24→22:07)
--- NOTE | 2020-05-05 10:27 | Progress Note ---
Subjective - Reason for Consult Consult date: 05/05/20 Reason for consult: drug use - Chief Complaint Chief complaint: During my interview with the patient today, he is lying in bed with his eyes closed. He easily arouses. He is a/o x 3. He states he was admitted because he has "an asthma attack." The patient expressed "feeling suicidal." He says, "nothing is going right in my life." The patient also verbalizes feeling "depressed." The patient was positive for cocaine use, and states, "I feel that my purpose in life is to do drugs and music." He states, "I do want rehab, but it's not going to change nothing. He says "as soon as I get out of rehab, I'm gone do drugs again." He then states, "I don't know what else to do. I feel hopeless." The patient denies hallucinations of any kind. The patient states, "I feel like God allows things to happen for a reason." REVIEW OF SYSTEMS Constitutional: Negative for weight loss ENT: Negative for stridor Respiratory: Cough All other systems reviewed and are negative, except respiratory MENTAL STATUS EXAMINATION General Appearance: Dressed appropriately Behavior: calm, cooperative. Good eye contact Mood: "depressed, hopeless" Affect and affective range: Congruent with stated mood Speech: Normal volume, Regular rate and rhythm Thought Process: Goal directed Thought Content: Suicidal Ideation: yes Homicidal Ideation: Denies HI Hallucinations: Denies Delusions: None elicited Insight and Judgment: Limited Memory/Cognition: Limited RECOMMENDATIONS 1013, informed nurse and community support worker of the patient's status MEDICATIONS Start Zoloft 25mg po daily Continue previously prescribed meds Risks, benefits and alternatives of medications discussed with the patient, questions answered and consent obtained from patient. PSYCHOTHERAPY: Supportive psychotherapy provided MEDICAL: Per primary team DELIRIUM PRECAUTIONS: Please re-orient patient frequently, keep lights on during the day, and minimize benzodiazepines and opiates as these medications could worsen patient's confusion. 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 He may transfer to an acute psych facility once medically clear. LEGAL STATUS: Involuntary Will continue to follow Thank you for the consult. Please contact with any questions and/or concerns. Mental Status Exam - Vital signs Last Vital Signs Temp 97.6 F 05/05/20 08:00 Pulse 104 H 08/18/20 10:00 Resp 31 H 05/05/20 10:00 BP 109/56 05/05/20 10:00 Pulse Ox 95 05/05/20 10:00
--- NOTE | 2020-05-05 10:54 | Event Note ---
Date: 05/05/20 Patient is medically stable for discharge Patient could be discharged to inpatient psych facility as soon as bed available
--- NOTE | 2020-05-05 16:09 | Progress Note ---
Assessment and Plan Acute Hypoxic and hypercapenia Respiratory Failure - Now off BiPAP, nebs, Pulmonary Consult noted - iv steroids stopped, inhaled steroids at this time. Status Asthmaticus, cont nebs and steroid, And supplemental O2 as needed Cocaine Dependance - UDS +ve for cocaine - no willingness to stop - psych following DVT/GI prophy - transfer to tele today Brief history: Patient is a 25-year-old old male with history of asthma, bipolar, depression, schizophrenia with hx of Drug abuse comes in for severe shortness of breath and wheezing and was brought in by the EMS. Per ED documentation, patient received multiple treatments with EMS but was still with rapid rate at 40 on admission, improving some on BIPAP. The patient is significantly dyspenic and unable to give me any information. The Patient was recently at the hospital and was briefly intubated and extubated and discharged. No further information is juventino ilable. Subjective Date of service: 05/05/20 Interval history: Patient seen and examined. Medical records and medication list reviewed. No acute event overnight noted by the RN. Patient denies any chest pain . Patient is tolerating diet. Discussed plan of care at bedside with patient. transfer to floor today Objective - Exam Narrative Exam: GENERAL: well-developed and well-nourished black male lying on bed appeared to be lethargic. HEENT: Normocephalic. Atraumatic. No conjunctival congestion or icterus. Patient has moist mucous membranes. NECK: Supple. Trachea midline. CHEST/LUNGS: Clear to auscultated bilaterally, breathing nonlabored. No wheezes crackles or rhonchi. HEART/CARDIOVASCULAR: Regular in rate and rhythm. S1 and S2 positive. ABDOMEN: Abdomen is soft, nontender. Patient has normal bowel sounds. SKIN: There is no rash. Warm and dry. NEURO: No focal motor deficit. Follows command. MUSCULOSKELETAL: No joint effusion or tenderness. EXTRIMITY: No edema, no cyanosis or clubbing. PSYCH: Cooperative. - Constitutional Vitals: Vital Signs - 12hr 05/05/20 05/05/20 05/05/20 04:15 04:30 04:46 Temperature Pulse Rate 88 82 Pulse Rate [ Anterior Bilateral Throughout] Pulse Rate [ From Monitor] Pulse Rate [ Posterior Bilateral Throughout] Respiratory Rate Respiratory Rate [Anterior Bilateral Throughout] Respiratory Rate [Posterior Bilateral Throughout] Blood Pressure 93/59 91/58 134/93 O2 Sat by Pulse 89 85 87 Oximetry 05/05/20 05/05/20 05/05/20 05:00 05:15 05:30 Temperature Pulse Rate Pulse Rate [ Anterior Bilateral Throughout] Pulse Rate [ From Monitor] Pulse Rate [ Posterior Bilateral Throughout] Respiratory Rate Respiratory Rate [Anterior Bilateral Throughout] Respiratory Rate [Posterior Bilateral Throughout] Blood Pressure 113/69 107/59 105/65 O2 Sat by Pulse 95 89 93 Oximetry 05/05/20 05/05/20 05/05/20 05:45 06:00 06:15 Temperature Pulse Rate 84 79 Pulse Rate [ Anterior Bilateral Throughout] Pulse Rate [ From Monitor] Pulse Rate [ Posterior Bilateral Throughout] Respiratory 27 H 25 H Rate Respiratory Rate [Anterior Bilateral Throughout] Respiratory Rate [Posterior Bilateral Throughout] Blood Pressure 99/62 99/62 100/59 O2 Sat by Pulse 91 86 91 Oximetry 05/05/20 05/05/20 05/05/20 06:30 06:45 07:00 Temperature Pulse Rate 75 80 78 Pulse Rate [ Anterior Bilateral Throughout] Pulse Rate [ From Monitor] Pulse Rate [ Posterior Bilateral Throughout] Respiratory 24 24 19 Rate Respiratory Rate [Anterior Bilateral Throughout] Respiratory Rate [Posterior Bilateral Throughout] Blood Pressure 100/65 100/61 118/78 O2 Sat by Pulse 91 91 94 Oximetry 05/05/20 05/05/20 05/05/20 07:15 07:30 07:45 Temperature Pulse Rate 80 84 82 Pulse Rate [ Anterior Bilateral Throughout] Pulse Rate [ From Monitor] Pulse Rate [ Posterior Bilateral Throughout] Respiratory 33 H 36 H 27 H Rate Respiratory Rate [Anterior Bilateral Throughout] Respiratory Rate [Posterior Bilateral Throughout] Blood Pressure 116/76 110/67 102/65 O2 Sat by Pulse 93 92 92 Oximetry 05/05/20 05/05/20 05/05/20 08:00 08:15 08:30 Temperature 97.6 F Pulse Rate 81 83 79 Pulse Rate [ Anterior Bilateral Throughout] Pulse Rate [ 114 H From Monitor] Pulse Rate [ Posterior Bilateral Throughout] Respiratory 29 H 28 H 18 Rate Respiratory Rate [Anterior Bilateral Throughout] Respiratory Rate [Posterior Bilateral Throughout] Blood Pressure 111/61 107/65 121/49 O2 Sat by Pulse 96 91 96 Oximetry 05/05/20 05/05/20 05/05/20 08:45 09:00 09:15 Temperature Pulse Rate 89 90 92 H Pulse Rate [ Anterior Bilateral Throughout] Pulse Rate [ From Monitor] Pulse Rate [ Posterior Bilateral Throughout] Respiratory 20 24 30 H Rate Respiratory Rate [Anterior Bilateral Throughout] Respiratory Rate [Posterior Bilateral Throughout] Blood Pressure 127/73 136/76 122/66 O2 Sat by Pulse 92 93 91 Oximetry 05/05/20 05/05/20 05/05/20 09:30 09:45 09:57 Temperature Pulse Rate 92 H 100 H Pulse Rate [ 91 H Anterior Bilateral Throughout] Pulse Rate [ From Monitor] Pulse Rate [ 89 Posterior Bilateral Throughout] Respiratory 29 H 25 H Rate Respiratory 29 H Rate [Anterior Bilateral Throughout] Respiratory 26 H Rate [Posterior Bilateral Throughout] Blood Pressure 122/66 99/48 O2 Sat by Pulse 94 88 Oximetry 05/05/20 05/05/20 05/05/20 09:59 10:00 10:15 Temperature Pulse Rate 104 H 105 H Pulse Rate [ Anterior Bilateral Throughout] Pulse Rate [ From Monitor] Pulse Rate [ Posterior Bilateral Throughout] Respiratory 31 H Rate Respiratory Rate [Anterior Bilateral Throughout] Respiratory Rate [Posterior Bilateral Throughout] Blood Pressure 109/56 103/62 O2 Sat by Pulse 96 95 93 Oximetry 05/05/20 05/05/20 05/05/20 10:30 10:45 11:00 Temperature Pulse Rate 96 H 89 96 H Pulse Rate [ Anterior Bilateral Throughout] Pulse Rate [ From Monitor] Pulse Rate [ Posterior Bilateral Throughout] Respiratory 35 H 42 H 33 H Rate Respiratory Rate [Anterior Bilateral Throughout] Respiratory Rate [Posterior Bilateral Throughout] Blood Pressure 99/66 110/71 118/64 O2 Sat by Pulse 93 94 97 Oximetry 05/05/20 05/05/20 05/05/20 11:15 11:30 11:46 Temperature Pulse Rate 95 H 97 H 107 H Pulse Rate [ Anterior Bilateral Throughout] Pulse Rate [ From Monitor] Pulse Rate [ Posterior Bilateral Throughout] Respiratory 29 H 30 H 22 Rate Respiratory Rate [Anterior Bilateral Throughout] Respiratory Rate [Posterior Bilateral Throughout] Blood Pressure 107/59 107/59 111/54 O2 Sat by Pulse 91 84 88 Oximetry 05/05/20 05/05/20 05/05/20 12:00 12:15 12:30 Temperature 98 F Pulse Rate 105 H 90 82 Pulse Rate [ Anterior Bilateral Throughout] Pulse Rate [ 97 H From Monitor] Pulse Rate [ Posterior Bilateral Throughout] Respiratory 17 24 34 H Rate Respiratory Rate [Anterior Bilateral Throughout] Respiratory Rate [Posterior Bilateral Throughout] Blood Pressure 114/60 111/73 112/74 O2 Sat by Pulse 86 91 96 Oximetry 05/05/20 05/05/20 05/05/20 12:45 13:00 13:15 Temperature Pulse Rate 85 82 87 Pulse Rate [ Anterior Bilateral Throughout] Pulse Rate [ From Monitor] Pulse Rate [ Posterior Bilateral Throughout] Respiratory 31 H 29 H 28 H Rate Respiratory Rate [Anterior Bilateral Throughout] Respiratory Rate [Posterior Bilateral Throughout] Blood Pressure 114/59 107/55 96/52 O2 Sat by Pulse 94 93 92 Oximetry 05/05/20 13:30 Temperature Pulse Rate 95 H Pulse Rate [ Anterior Bilateral Throughout] Pulse Rate [ From Monitor] Pulse Rate [ Posterior Bilateral Throughout] Respiratory 28 H Rate Respiratory Rate [Anterior Bilateral Throughout] Respiratory Rate [Posterior Bilateral Throughout] Blood Pressure 113/56 O2 Sat by Pulse 93 Oximetry - Labs CBC & Chem 7: 05/04/20 07:06 05/04/20 07:06
[2020-05-05] MEDS: SERTRALINE 25 MG TAB PO SCH (19:41)
[2020-05-06] MEDS: VALPROATE SODIUM 500 MG in SODIUM CHLORIDE 0.9% 100 ML IV SCH ×2 (02:47→14:54)
[2020-05-06] MEDS: IPRATROPIUM/ALBUTEROL SULFATE 3 ML AMPUL.NEB IH SCH ×4 (02:50→20:41)
[2020-05-06] MEDS: BUDESONIDE 0.5 MG/2 ML NEBU IH SCH ×2 (08:36→20:40)
[2020-05-06] MEDS: SERTRALINE 25 MG TAB PO SCH (09:35)
[2020-05-06] MEDS: SENNOSIDES 8.6 MG TAB PO SCH ×2 (09:35→22:49)
[2020-05-06] MEDS: risperiDONE 0.25 MG TAB PO SCH ×2 (10:26→22:49)
--- NOTE | 2020-05-06 12:10 | Discharge Summary ---
Providers - Providers Date of Admission: 05/03/20 12:22 Date of discharge: 05/11/20 Attending physician: TYLER HENRIQUEZ 05/03/20 12:55 Consult to Dietitian/Nutrition [CONS] Routine Physician Instructions: Reason For Exam: Reason for Consult: Malnutrition 05/03/20 12:57 Consult to Mental Health [CONS] Routine Reason For Exam: PSYCHOSIS Primary care physician: GEOTHERMAL HVAC TECHNICIAN Hospitalization Condition: Stable Hospital course: Patient is a 25-year-old old male with history of asthma, bipolar, depression, schizophrenia with hx of Drug abuse comes in for severe shortness of breath and wheezing and was brought in by the EMS. Per ED documentation, patient received multiple treatments with EMS but was still with rapid respiratory rate at 40 on admission, placed on BIPAP. Patient also treated with frequent nebulizer and IV steroid. Patient was weaned off from the BiPAP and IV steroid change to inhaled steroid. Patient was initially at IMCU then transferred to medical floor. His UDS was positive for cocaine. Psychiatry recommended inpatient psych admission. Patient is medically stable for inpatient psych admission when available. Discharge diagnosis: Acute hypoxic and hypercapnic respiratory failure due to status asthmaticus, now resolved Status asthmaticus, resolved Cocaine dependence Bipolar 1 disorder, depressed s/p 1013 Substance induced mood disorder Disposition: [id number]/TX-70 ANOTHER TYPE HLTHCARE Time spent for discharge: 34 minutes Core Measure Documentation - Palliative Care Palliative Care/ Comfort Measures: Not Applicable - Core Measures Any of the following diagnoses?: none Exam - Physical Exam Narrative exam: GENERAL: well-developed and well-nourished black male lying on bed HEENT: Normocephalic. Atraumatic. No conjunctival congestion or icterus. Patient has moist mucous membranes. NECK: Supple. Trachea midline. CHEST/LUNGS: Clear to auscultated bilaterally, breathing nonlabored. No wheezes crackles or rhonchi. HEART/CARDIOVASCULAR: Regular in rate and rhythm. S1 and S2 positive. ABDOMEN: Abdomen is soft, nontender. Patient has normal bowel sounds. SKIN: There is no rash. Warm and dry. NEURO: No focal motor deficit. Follows command. MUSCULOSKELETAL: No joint effusion or tenderness. EXTRIMITY: No edema, no cyanosis or clubbing. PSYCH: Cooperative. - Constitutional Vitals: Temp Pulse Resp BP Pulse Ox 97.5 F L 101 H 17 103/65 91 05/06/20 11:32 05/06/20 11:32 05/06/20 11:32 05/06/20 11:32 05/06/20 11:32 Plan Activity: advance as tolerated Weight Bearing Status: Weight Bear as Tolerated Diet: regular Additional Instructions: Follow-up with psychiatry outpatient Follow up with: PRIMARY CARE, [Primary Care Provider] - 7 Days Prescriptions: Fluticasone/Salmeterol [Advair Diskus 250-50 mcg] 1 puff IH BID #1 disk.w.dev Fluticasone [Flonase] 1 spray NS QDAY #1 bottle Prednisone [predniSONE 10 mg (6-Day Pack, 21 Tabs)] 10 mg PO .TAPER #1 tab.ds.pk risperiDONE [RisperDAL] 0.25 mg PO BID #14 tablet Sertraline [Zoloft] 25 mg PO QDAY #14 tablet
--- NOTE | 2020-05-06 12:43 | Progress Note ---
Subjective - Reason for Consult Consult date: 05/06/20 Reason for consult: SI - Chief Complaint Chief complaint: During my interview with the patient today, he is lying in bed awake. He is a/o x 3. His affect is restricted. The patient seems a little better today. He verbalizes "being depressed with so much that has happened in my life." He says, "but the medicine made me feel level." Kanu says, "my mom was on drugs. She didn't raise me. And when I lost my about a year ago, my world was knocked off it's axis." He says, "but I don't think I'll hurt myself when I leave." He then says, "I'll try no to. That's why I do the drugs." The patient denies hallucinations of any kind. He says "I was never hallucinating." The patient states, "I do drugs to deal with everything that's going on. And to not think about my depression." REVIEW OF SYSTEMS Constitutional: Negative for weight loss ENT: Negative for stridor Respiratory: Cough All other systems reviewed and are negative, except respiratory MENTAL STATUS EXAMINATION General Appearance: Dressed appropriately Behavior: calm, cooperative. Good eye contact Mood: "depressed" Affect and affective range: Congruent with stated mood Speech: Normal volume, Regular rate and rhythm Thought Process: Goal directed Thought Content: Suicidal Ideation: Passive Homicidal Ideation: Denies HI Hallucinations: Denies Delusions: None elicited Insight and Judgment: Limited Memory/Cognition: Limited RECOMMENDATIONS 1013, informed nurse and residential door unit installer of the patient's status MEDICATIONS Continue currently prescribed meds Risks, benefits and alternatives of medications discussed with the patient, questions answered and consent obtained from patient. PSYCHOTHERAPY: Supportive psychotherapy provided MEDICAL: Per primary team DELIRIUM PRECAUTIONS: Please re-orient patient frequently, keep lights on during the day, and minimize benzodiazepines and opiates as these medications could worsen patient's confusion. GARNETT FIXER: per medical team DISPOSITION: The patient meets the criteria for acute inpatient psychiatric treatment. He may transfer to an acute psych facility once medically clear. LEGAL STATUS: Involuntary Will continue to follow Thank you for the consult. Please contact with any questions and/or concerns. Mental Status Exam - Vital signs Last Vital Signs Temp 97.5 F L 05/06/20 11:32 Pulse 101 H 05/06/20 11:32 Resp 17 05/06/20 11:32 BP 103/65 05/06/20 11:32 Pulse Ox 91 05/06/20 11:32
--- NOTE | 2020-05-06 15:14 | Progress Note ---
Assessment and Plan Acute Hypoxic and hypercapenia Respiratory Failure - Now off BiPAP, nebs, Pulmonary Consult noted - iv steroids stopped, inhaled steroids at this time. Status Asthmaticus, cont nebs and steroid, And supplemental O2 as needed Cocaine Dependance - UDS +ve for cocaine - no willingness to stop - psych following Severe depression - paych following, need inpt psych on discharge DVT/GI prophy - heparin/ppi Brief history: Patient is a 25-year-old old male with history of asthma, bipolar, depression, schizophrenia with hx of Drug abuse comes in for severe shortness of breath and wheezing and was brought in by the EMS. Per ED documentation, patient received multiple treatments with EMS but was still with rapid rate at 40 on admission, improving some on BIPAP. The patient is significantly dyspenic and unable to give me any information. The Patient was recently at the hospital and was briefly intubated and extubated and discharged. No further information is available. Subjective Date of service: 05/06/20 Interval history: Patient seen and examined. Medical records and medication list reviewed. No acute event overnight noted by the RN. Patient denies any chest pain . Patient is tolerating diet. Discussed plan of care at bedside with patient. sitter at bedside Objective - Exam Narrative Exam: GENERAL: well-developed and well-nourished black male lying on bed HEENT: Normocephalic. Atraumatic. No conjunctival congestion or icterus. Patient has moist mucous membranes. NECK: Supple. Trachea midline. CHEST/LUNGS: Clear to auscultated bilaterally, breathing nonlabored. No wheezes crackles or rhonchi. HEART/CARDIOVASCULAR: Regular in rate and rhythm. S1 and S2 positive. ABDOMEN: Abdomen is soft, nontender. Patient has normal bowel sounds. SKIN: There is no rash. Warm and dry. NEURO: No focal motor deficit. Follows command. MUSCULOSKELETAL: No joint effusion or tenderness. EXTRIMITY: No edema, no cyanosis or clubbing. PSYCH: Cooperative. - Constitutional Vitals: Vital Signs - 12hr 05/06/20 05/06/20 05/06/20 05:03 08:38 11:32 Temperature 98.4 F 97.5 F L Pulse Rate 76 101 H Pulse Rate [ 88 Anterior Bilateral Throughout] Pulse Rate [ 86 Posterior Bilateral Throughout] Respiratory 18 17 Rate Respiratory 18 Rate [Anterior Bilateral Throughout] Respiratory 16 Rate [Posterior Bilateral Throughout] Blood Pressure 116/76 103/65 O2 Sat by Pulse 95 95 91 Oximetry - Labs CBC & Chem 7: 05/04/20 07:06 05/04/20 07:06
[2020-05-07] MEDS: VALPROATE SODIUM 500 MG in SODIUM CHLORIDE 0.9% 100 ML IV SCH (01:53)
[2020-05-07] MEDS: SERTRALINE 25 MG TAB PO SCH (10:48)
[2020-05-07] MEDS: SENNOSIDES 8.6 MG TAB PO SCH ×2 (10:48→22:10)
[2020-05-07] MEDS: risperiDONE 0.25 MG TAB PO SCH ×2 (10:48→22:10)
[2020-05-07] MEDS: IPRATROPIUM/ALBUTEROL SULFATE 3 ML AMPUL.NEB IH SCH ×3 (11:57→21:44)
[2020-05-07] MEDS: BUDESONIDE 0.5 MG/2 ML NEBU IH SCH ×2 (11:58→21:43)
--- NOTE | 2020-05-07 12:09 | Progress Note ---
Subjective - Reason for Consult Consult date: 05/07/20 Reason for consult: overdose, drug use - Chief Complaint Chief complaint: During my interview with the patient today, he is lying in bed awake. He is a/o x 3. His mood appears better. The patient states, "down, but I feel a little more upbeat. The meds are starting to level me out." He says, "but life is so stressful. I keep allowing things to take me to that place." When asking the patient was he suicidal, he looks out of the window and says, "right now talking to you, I feel okay. It's getting out there that makes me feel scared and hopeless." He then says, "I just don't know. Do you think I'll be okay." The patient denies hallucinations of any kind. He also denies any problems with his sleep cycle or appetite. REVIEW OF SYSTEMS Constitutional: Negative for weight loss ENT: Negative for stridor Respiratory: Cough All other systems reviewed and are negative, except respiratory MENTAL STATUS EXAMINATION General Appearance: Dressed appropriately Behavior: calm, cooperative. Good eye contact Mood: "down, but a little more upbeat" Affect and affective range: Congruent with stated mood Speech: Normal volume, Regular rate and rhythm Thought Process: Goal directed Thought Content: Suicidal Ideation: Passive Homicidal Ideation: Denies HI Hallucinations: Denies Delusions: None elicited Insight and Judgment: Limited Memory/Cognition: Limited Assessment Bipolar Disorder, Severe, Current Episode Depressed w/o Psychotic Features Cocaine Use Disorder Substance Induced Mood Disorder RECOMMENDATIONS MEDICATIONS Changed Depakote to DR 500mg po BID Increased Risperidone 0.5mg po BID to improve mood Risks, benefits and alternatives of medications discussed with the patient, questions answered and consent obtained from patient. PSYCHOTHERAPY: Supportive psychotherapy provided MEDICAL: Per primary team DELIRIUM PRECAUTIONS: Please re-orient patient frequently, keep lights on during the day, and minimize benzodiazepines and opiates as these medications could worsen patient's confusion. TICKET SELLER: per medical team DISPOSITION: The patient meets the criteria for acute inpatient psychiatric treatment. He may transfer to an acute psych facility once medically clear. LEGAL STATUS: Involuntary Will continue to follow Thank you for the consult. Please contact with any questions and/or concerns. Mental Status Exam - Vital signs Last Vital Signs Temp 98.6 F 05/07/20 05:33 Pulse 74 05/07/20 08:08 Resp 20 05/07/20 08:08 BP 117/63 05/07/20 08:08 Pulse Ox 93 05/07/20 08:08
[2020-05-07] MEDS ORDERED: VALPROIC ACID 250 MG CAP PO SCH (13:00)
[2020-05-07] MEDS: DIVALPROEX DR 500 MG TAB PO SCH (22:10)
[2020-05-08] MEDS: oxyCODONE /ACETAMINOPHEN 5-325MG TAB PO PRN ×4 (00:58→22:41)
[2020-05-08] MEDS: ACETAMINOPHEN 325 MG TAB PO PRN (04:44)
[2020-05-08] MEDS: LORazepam 2 MG/ML VIAL IV PRN (04:44)
[2020-05-08] MEDS: BUDESONIDE 0.5 MG/2 ML NEBU IH SCH ×2 (07:51→19:26)
[2020-05-08] MEDS: IPRATROPIUM/ALBUTEROL SULFATE 3 ML AMPUL.NEB IH SCH ×3 (07:51→19:26)
[2020-05-08] MEDS: SERTRALINE 25 MG TAB PO SCH (09:32)
[2020-05-08] MEDS: SENNOSIDES 8.6 MG TAB PO SCH ×2 (09:32→22:41)
[2020-05-08] MEDS: DIVALPROEX DR 500 MG TAB PO SCH ×2 (09:32→22:41)
[2020-05-08] MEDS: risperiDONE 0.25 MG TAB PO SCH ×2 (09:33→22:40)
--- NOTE | 2020-05-08 09:42 | Progress Note ---
Subjective - Reason for Consult Consult date: 05/08/20 Reason for consult: MHE Requesting physician: TYLER HENRIQUEZ - Chief Complaint Chief complaint: Psych Progress HPI In my interview with the patient this morning, the patient reports he feels "daron alright", endorses still feeling sad, identifies drug use as a problem, OD recently and says he is not "technically SI". Review of Symptoms: Constitutional: Negative for weight loss ENT: Negative for stridor Respiratory: Negative for cough or hemoptysis All other systems reviewed and are negative MENTAL STATUS EXAMINATION General Appearance and Behavior: Age appropriate, faire hygiene, wearing appropriate clothes, lying in bed, good eye contact, cooperative polite with questioning. Cooperation: Participating/engaged Psychomotor Behavior: unremarkable and within normal limits Mood: Depressed Affect and affective range: sad Thought Process: Fluent/Logical, Thought Content: Within reality Speech: Normal volume, Regular rate and rhythm Intellectual Functioning: Average Suicidal Ideation: Suicidal Homicidal Ideation: Denies HI Impulse Control: Unimpaired Insight and Judgment: Normal insight and judgment Memory: Normal Attention: Normal Orientation: Alert, oriented Assessment and Plan - Patient Problems (1) Bipolar 1 disorder, depressed Current Visit: Yes Status: Acute (2) Substance induced mood disorder Current Visit: Yes Status: Acute MEDICATIONS: continue current meds Risks, benefits and alternatives of medications discussed with the patient, questions answered and consent obtained from patient. PSYCHOTHERAPY: Supportive psychotherapy provided MEDICAL: Per primary team DELIRIUM PRECAUTIONS: Please re-orient patient frequently, keep lights on during the day, and minimize benzodiazepines and opiates as these medications could worsen patient's confusion. WIND SITE MANAGER: Per medical team DISPOSITION: Recommends acute inpatient psychiatric hospitalization at this time LEGAL STATUS: 1013 FOLLOW-UP: Will follow Thank you for the consult. Please contact with any questions and/or concerns. Mental Status Exam - Vital signs Last Vital Signs Temp 98.0 F 05/08/20 02:52 Pulse 88 05/08/20 07:52 Resp 18 05/08/20 07:52 BP 117/64 05/08/20 02:52 Pulse Ox 95 05/08/20 02:52 Assessment and Plan - Patient Problems (1) Bipolar 1 disorder, depressed Current Visit: Yes Status: Acute (2) Substance induced mood disorder Current Visit: Yes Status: Acute
[2020-05-08] MEDS ORDERED: ALBUTEROL 2.5 MG/3 ML NEBU IH PRN (09:50)
--- NOTE | 2020-05-08 13:09 | Progress Note ---
Assessment and Plan Acute Hypoxic and hypercapenia Respiratory Failure - Now off BiPAP, nebs, Pulmonary Consult noted - iv steroids stopped, inhaled steroids at this time. Status Asthmaticus, s/p nebs and iv steroid, - now on inhalers And supplemental O2 as needed Cocaine Dependance - UDS +ve for cocaine - no willingness to stop - psych following Bipolar 1 disorder, depressed Substance induced mood disorder - paych following, need inpt psych on discharge DVT/GI prophy - heparin/ppi -Medically stable to go for inpatient psych unit. Discharge pending on inpatient psych placement. Brief history: Patient is a 25-year-old old male with history of asthma, bipolar, depression, schizophrenia with hx of Drug abuse comes in for severe shortness of breath and wheezing and was brought in by the EMS. Per ED documentation, patient received multiple treatments with EMS but was still with rapid rate at 40 on admission, improved some on BIPAP. The patient was significantly dyspenic and unable to give any information. The Patient was recently at the hospital and was briefly intubated and extubated and discharged. No further information is available. Subjective Date of service: 05/07/20 Interval history: Patient seen and examined. Medical records and medication list reviewed. No acute event overnight noted by the RN. Patient denies any chest pain . Patient is tolerating diet. Discussed plan of care at bedside with patient. sitter at bedside Objective - Exam Narrative Exam: GENERAL: well-developed and well-nourished black male lying on bed HEENT: Normocephalic. Atraumatic. No conjunctival congestion or icterus. Patient has moist mucous membranes. NECK: Supple. Trachea midline. CHEST/LUNGS: Clear to auscultated bilaterally, breathing nonlabored. No wheezes crackles or rhonchi. HEART/CARDIOVASCULAR: Regular in rate and rhythm. S1 and S2 positive. ABDOMEN: Abdomen is soft, nontender. Patient has normal bowel sounds. SKIN: There is no rash. Warm and dry. NEURO: No focal motor deficit. Follows command. MUSCULOSKELETAL: No joint effusion or tenderness. EXTRIMITY: No edema, no cyanosis or clubbing. PSYCH: Cooperative. - Constitutional Vitals: Vital Signs - 12hr 05/08/20 05/08/20 02:52 07:52 Temperature 98.0 F Pulse Rate 83 Pulse Rate [ 88 Posterior Bilateral Throughout] Respiratory 18 Rate Respiratory 18 Rate [Posterior Bilateral Throughout] Blood Pressure 117/64 O2 Sat by Pulse 95 Oximetry - Labs CBC & Chem 7: 05/04/20 07:06 05/04/20 07:06 Labs: Abnormal lab results 05/03/20 Range/Units 22:28 POC ABG pO2 113.5 H (83-108) mmHg ABG Potassium 4.9 H (3.40-4.50) mmol/L ABG Glucose 149 H (65-95) mg/dL Arterial Blood Glucose 149 H (65-95) mg/dL
[2020-05-09] MEDS: oxyCODONE /ACETAMINOPHEN 5-325MG TAB PO PRN ×3 (06:38→22:46)
[2020-05-09] MEDS: BUDESONIDE 0.5 MG/2 ML NEBU IH SCH ×2 (08:11→21:56)
[2020-05-09] MEDS: IPRATROPIUM/ALBUTEROL SULFATE 3 ML AMPUL.NEB IH SCH ×3 (08:11→21:56)
--- NOTE | 2020-05-09 08:35 | Progress Note ---
Subjective - Reason for Consult Consult date: 05/09/20 Reason for consult: MHE Requesting physician: TYLER HENRIQUEZ - Chief Complaint Chief complaint: Psych Progress HPI In my interview with the patient this morning, patient reports poor sleep but says appetite has been improving since he is not on drugs. Patient reports his mood is down, he feels empty, no intrusive thoughts. He reports he lost his GF about a year ago to drugs, and does not want to end up that way, says when he is back in the street things can happen, and he can find drugs anywhere but is not craving. Pt says his looking forward to getting placed. Review of Symptoms: Constitutional: Negative for weight loss ENT: Negative for stridor Respiratory: Negative for cough or hemoptysis All other systems reviewed and are negative MENTAL STATUS EXAMINATION General Appearance and Behavior: Age appropriate, faire hygiene, wearing appropriate clothes, lying in bed, good eye contact, cooperative polite with questioning. Cooperation: Participating/engaged Psychomotor Behavior: unremarkable and within normal limits Mood: i dont know Affect and affective range: flat Thought Process: Fluent/Logical, Thought Content: Within reality Speech: Normal volume, Regular rate and rhythm Intellectual Functioning: Average Suicidal Ideation: Suicidal Homicidal Ideation: Denies HI Impulse Control: Unimpaired Insight and Judgment: Normal insight and judgment Memory: Normal Attention: Normal Orientation: Alert, oriented Assessment and Plan - Patient Problems (1) Bipolar 1 disorder, depressed Current Visit: Yes Status: Acute (2) Substance induced mood disorder Current Visit: Yes Status: Acute MEDICATIONS: continue current meds Risks, benefits and alternatives of medications discussed with the patient, questions answered and consent obtained from patient. PSYCHOTHERAPY: Supportive psychotherapy provided MEDICAL: Per primary team DELIRIUM PRECAUTIONS: Please re-orient patient frequently, keep lights on during the day, and minimize benzodiazepines and opiates as these medications could worsen patient's confusion. IRIDOLOGIST: Per medical team DISPOSITION: Recommends acute inpatient psychiatric hospitalization at this time LEGAL STATUS: 1013 FOLLOW-UP: Will follow Thank you for the consult. Please contact with any questions and/or concerns. Mental Status Exam - Vital signs Last Vital Signs Temp 98.5 F 05/08/20 23:13 Pulse 86 05/08/20 23:13 Resp 20 05/08/20 23:13 BP 140/80 05/08/20 23:13 Pulse Ox 93 05/08/20 23:13 Assessment and Plan - Patient Problems (1) Bipolar 1 disorder, depressed Current Visit: Yes Status: Acute (2) Substance induced mood disorder Current Visit: Yes Status: Acute
--- NOTE | 2020-05-09 10:52 | Progress Note ---
Assessment and Plan Acute Hypoxic and hypercapenia Respiratory Failure - Now off BiPAP and nebs, Pulmonary Consult noted - iv steroids stopped, inhaled steroids at this time Status Asthmaticus, s/p nebs and iv steroid, - now on inhalers And supplemental O2 as needed Cocaine Dependance - UDS +ve for cocaine - no willingness to stop - psych following Bipolar 1 disorder, depressed Substance induced mood disorder - paych following, need inpt psych on discharge DVT/GI prophy - heparin/ppi -Medically stable to go for inpatient psych unit. Discharge pending on inpatient psych placement. Brief history: Patient is a 25-year-old old male with history of asthma, bipolar, depression, schizophrenia with hx of Drug abuse comes in for severe shortness of breath and wheezing and was brought in by the EMS. Per ED documentation, patient received multiple treatments with EMS but was still with rapid rate at 40 on admission, improved some on BIPAP. The patient was significantly dyspenic and unable to give any information. The Patient was recently at the hospital and was briefly intubated and extubated and discharged. No further information is available. Subjective Date of service: 05/08/20 Interval history: Patient seen and examined. Medical records and medication list reviewed. No acute event overnight noted by the RN. Patient denies any chest pain . Patient is tolerating diet. Discussed plan of care at bedside with patient. sitter at bedside Objective - Exam Narrative Exam: GENERAL: well-developed and well-nourished black male lying on bed HEENT: Normocephalic. Atraumatic. No conjunctival congestion or icterus. Patient has moist mucous membranes. NECK: Supple. Trachea midline. CHEST/LUNGS: Clear to auscultated bilaterally, breathing nonlabored. No wheezes crackles or rhonchi. HEART/CARDIOVASCULAR: Regular in rate and rhythm. S1 and S2 positive. ABDOMEN: Abdomen is soft, nontender. Patient has normal bowel sounds. SKIN: There is no rash. Warm and dry. NEURO: No focal motor deficit. Follows command. MUSCULOSKELETAL: No joint effusion or tenderness. EXTRIMITY: No edema, no cyanosis or clubbing. PSYCH: Cooperative. - Constitutional Vitals: Vital Signs - 12hr 05/08/20 23:13 Temperature 98.5 F Pulse Rate 86 Respiratory 20 Rate Blood Pressure 140/80 O2 Sat by Pulse 93 Oximetry - Labs CBC & Chem 7: 05/04/20 07:06 05/04/20 07:06
[2020-05-09] MEDS ORDERED: FUROSEMIDE 40 MG/4 ML INJ IV ONE (10:53)
[2020-05-09] MEDS: ACETAMINOPHEN 325 MG TAB PO PRN ×2 (11:49→19:54)
[2020-05-09] MEDS: DIVALPROEX DR 500 MG TAB PO SCH ×2 (11:50→21:53)
[2020-05-09] MEDS: risperiDONE 0.25 MG TAB PO SCH ×2 (11:50→21:53)
[2020-05-09] MEDS: SENNOSIDES 8.6 MG TAB PO SCH ×2 (11:52→21:53)
[2020-05-09] MEDS: SERTRALINE 25 MG TAB PO SCH (11:56)
[2020-05-09] MEDS: guaiFENesin 100 MG/5 ML ORAL LIQD PO PRN (22:46)
[2020-05-10] MEDS: oxyCODONE /ACETAMINOPHEN 5-325MG TAB PO PRN ×4 (05:25→22:43)
--- NOTE | 2020-05-10 09:55 | Progress Note ---
Subjective - Reason for Consult Consult date: 05/10/20 Reason for consult: MHE Requesting physician: TYLER HENRIQUEZ - Chief Complaint Chief complaint: Psych Progress HPI Patient seen in room this AM, says he still feels hopeless, not suicidal but he doesn't know what he would do to himself once back ont he streets because he will most likely do more drugs since they help clear his mind and make him forget things easily. Reports sleeping and eating good Review of Symptoms: Constitutional: Negative for weight loss ENT: Negative for stridor Respiratory: Negative for cough or hemoptysis All other systems reviewed and are negative MENTAL STATUS EXAMINATION General Appearance and Behavior: Age appropriate, faire hygiene, wearing appropriate clothes, lying in bed, good eye contact, cooperative polite with questioning. Cooperation: Participating/engaged Psychomotor Behavior: unremarkable and within normal limits Mood:empty Affect and affective range: flat Thought Process: Fluent/Logical, Thought Content: hopelessness Speech: Normal volume, Regular rate and rhythm Intellectual Functioning: Average Suicidal Ideation: Suicidal Homicidal Ideation: Denies HI Impulse Control: Unimpaired Insight and Judgment: Normal insight and judgment Memory: Normal Attention: Normal Orientation: Alert, oriented Assessment and Plan - Patient Problems (1) Bipolar 1 disorder, depressed Current Visit: Yes Status: Acute (2) Substance induced mood disorder Current Visit: Yes Status: Acute MEDICATIONS: continue current meds Risks, benefits and alternatives of medications discussed with the patient, questions answered and consent obtained from patient. PSYCHOTHERAPY: Supportive psychotherapy provided MEDICAL: Per primary team DELIRIUM PRECAUTIONS: Please re-orient patient frequently, keep lights on during the day, and minimize benzodiazepines and opiates as these medications could worsen patient's confusion. PRESIDENT AND CEO: Per medical team DISPOSITION: Recommends acute inpatient psychiatric hospitalization at this time LEGAL STATUS: 1013 FOLLOW-UP: Will follow Thank you for the consult. Please contact with any questions and/or concerns. Mental Status Exam - Vital signs Last Vital Signs Temp 97.8 F 05/10/20 05:57 Pulse 83 05/10/20 05:57 Resp 20 05/10/20 05:57 BP 116/75 05/10/20 05:57 Pulse Ox 96 05/10/20 05:57 Assessment and Plan - Patient Problems (1) Bipolar 1 disorder, depressed Current Visit: Yes Status: Acute (2) Substance induced mood disorder Current Visit: Yes Status: Acute
[2020-05-10] MEDS: BUDESONIDE 0.5 MG/2 ML NEBU IH SCH ×2 (10:03→22:12)
[2020-05-10] MEDS: IPRATROPIUM/ALBUTEROL SULFATE 3 ML AMPUL.NEB IH SCH ×3 (10:08→22:12)
[2020-05-10] MEDS: SENNOSIDES 8.6 MG TAB PO SCH ×2 (10:49→22:43)
[2020-05-10] MEDS: risperiDONE 0.25 MG TAB PO SCH ×2 (10:49→22:43)
[2020-05-10] MEDS: SERTRALINE 25 MG TAB PO SCH (10:49)
[2020-05-10] MEDS: DIVALPROEX DR 500 MG TAB PO SCH ×2 (10:49→22:44)
--- NOTE | 2020-05-10 10:54 | Progress Note ---
Assessment and Plan Acute Hypoxic and hypercapenia Respiratory Failure - Now off BiPAP and nebs, Pulmonary Consult noted - iv steroids stopped, inhaled steroids at this time Status Asthmaticus, s/p nebs and iv steroid, - now on inhalers And supplemental O2 as needed Cocaine Dependance - UDS +ve for cocaine - no willingness to stop - psych following Bipolar 1 disorder, depressed Substance induced mood disorder - paych following, need inpt psych on discharge DVT/GI prophy - heparin/ppi -Medically stable to go for inpatient psych unit. Discharge pending on inpatient psych placement. Brief history: Patient is a 25-year-old old male with history of asthma, bipolar, depression, schizophrenia with hx of Drug abuse comes in for severe shortness of breath and wheezing and was brought in by the EMS. Per ED documentation, patient received multiple treatments with EMS but was still with rapid rate at 40 on admission, improved some on BIPAP. The patient was significantly dyspenic and unable to give any information. The Patient was recently at the hospital and was briefly intubated and extubated and discharged. No further information is available. Subjective Date of service: 05/09/20 Interval history: Patient seen and examined. Medical records and medication list reviewed. No acute event overnight noted by the RN. Patient denies any chest pain . Patient is tolerating diet. Discussed plan of care at bedside with patient. sitter at bedside Objective - Exam Narrative Exam: GENERAL: well-developed and well-nourished black male lying on bed HEENT: Normocephalic. Atraumatic. No conjunctival congestion or icterus. Patient has moist mucous membranes. NECK: Supple. Trachea midline. CHEST/LUNGS: Clear to auscultated bilaterally, breathing nonlabored. No wheezes crackles or rhonchi. HEART/CARDIOVASCULAR: Regular in rate and rhythm. S1 and S2 positive. ABDOMEN: Abdomen is soft, nontender. Patient has normal bowel sounds. SKIN: There is no rash. Warm and dry. NEURO: No focal motor deficit. Follows command. MUSCULOSKELETAL: No joint effusion or tenderness. EXTRIMITY: No edema, no cyanosis or clubbing. PSYCH: Cooperative. - Constitutional Vitals: Vital Signs - 12hr 05/09/20 05/10/20 23:34 05:57 Temperature 98.1 F 97.8 F Pulse Rate 89 83 Respiratory 20 20 Rate Blood Pressure 131/81 116/75 O2 Sat by Pulse 95 96 Oximetry - Labs CBC & Chem 7: 05/04/20 07:06 05/04/20 07:06
--- NOTE | 2020-05-10 19:30 | XRay Report ---
CHEST 1 VIEW INDICATION / CLINICAL INFORMATION: MAIN. COMPARISON: 05/03/2020 FINDINGS: SUPPORT DEVICES: None. HEART / MEDIASTINUM: No significant abnormality. LUNGS / PLEURA: No significant pulmonary or pleural abnormality. No pneumothorax. ADDITIONAL FINDINGS: No significant additional findings. IMPRESSION: 1. No acute findings. Signer Name: Capo Dow MD Signed: 05/10/2020 7:25 PM Workstation Name: [id number]
[2020-05-10] MEDS: ACETAMINOPHEN 325 MG TAB PO PRN (20:05)
[2020-05-10] MEDS: guaiFENesin 100 MG/5 ML ORAL LIQD PO PRN (22:43)
[2020-05-11] MEDS: ACETAMINOPHEN 325 MG TAB PO PRN ×3 (03:37→22:33)
[2020-05-11] MEDS: oxyCODONE /ACETAMINOPHEN 5-325MG TAB PO PRN ×3 (05:01→18:36)
--- NOTE | 2020-05-11 07:48 | Progress Note ---
Assessment and Plan Acute Hypoxic and hypercapenia Respiratory Failure - Now off BiPAP and nebs, Pulmonary Consult noted - iv steroids stopped, inhaled steroids at this time Status Asthmaticus, s/p nebs and iv steroid, - now on inhalers And supplemental O2 as needed Cocaine Dependance - UDS +ve for cocaine - no willingness to stop - psych following Bipolar 1 disorder, depressed Substance induced mood disorder - paych following, need inpt psych on discharge DVT/GI prophy - heparin/ppi -Medically stable to go for inpatient psych unit. Discharge pending on inpatient psych placement. Brief history: Patient is a 25-year-old old male with history of asthma, bipolar, depression, schizophrenia with hx of Drug abuse comes in for severe shortness of breath and wheezing and was brought in by the EMS. Per ED documentation, patient received multiple treatments with EMS but was still with rapid rate at 40 on admission, improved some on BIPAP. The patient was significantly dyspenic and unable to give any information. The Patient was recently at the hospital and was briefly intubated and extubated and discharged. No further information is available. Subjective Date of service: 05/10/20 Interval history: Patient seen and examined. Medical records and medication list reviewed. No acute event overnight noted by the RN. Patient denies any chest pain . Patient is tolerating diet. Discussed plan of care at bedside with patient. sitter at bedside Objective - Exam Narrative Exam: GENERAL: well-developed and well-nourished black male lying on bed HEENT: Normocephalic. Atraumatic. No conjunctival congestion or icterus. Patient has moist mucous membranes. NECK: Supple. Trachea midline. CHEST/LUNGS: Clear to auscultated bilaterally, breathing nonlabored. No wheezes crackles or rhonchi. HEART/CARDIOVASCULAR: Regular in rate and rhythm. S1 and S2 positive. ABDOMEN: Abdomen is soft, nontender. Patient has normal bowel sounds. SKIN: There is no rash. Warm and dry. NEURO: No focal motor deficit. Follows command. MUSCULOSKELETAL: No joint effusion or tenderness. EXTRIMITY: No edema, no cyanosis or clubbing. PSYCH: Cooperative. - Constitutional Vitals: Vital Signs - 12hr 05/10/20 05/10/20 05/10/20 22:00 22:15 22:16 Temperature Pulse Rate Pulse Rate [ 98 H Posterior Bilateral Throughout] Pulse Rate [ 102 H Right Radial] Respiratory 18 Rate Respiratory 20 Rate [Posterior Bilateral Throughout] Blood Pressure 138/86 [Right] O2 Sat by Pulse 95 93 Oximetry 05/10/20 05/10/20 22:44 22:45 Temperature 98.2 F Pulse Rate 102 H Pulse Rate [ Posterior Bilateral Throughout] Pulse Rate [ Right Radial] Respiratory 18 Rate Respiratory Rate [Posterior Bilateral Throughout] Blood Pressure [Right] O2 Sat by Pulse 95 Oximetry - Labs CBC & Chem 7: 05/04/20 07:06 05/04/20 07:06 HEART Score - HEART Score Troponin: Troponin T < 0.010 ng/mL (0.00-0.029) 05/10/20 19:40
[2020-05-11] MEDS: BUDESONIDE 0.5 MG/2 ML NEBU IH SCH ×2 (07:52→19:36)
[2020-05-11] MEDS: IPRATROPIUM/ALBUTEROL SULFATE 3 ML AMPUL.NEB IH SCH ×3 (07:52→19:36)
[2020-05-11] MEDS: DIVALPROEX DR 500 MG TAB PO SCH ×2 (09:48→22:24)
[2020-05-11] MEDS: risperiDONE 0.25 MG TAB PO SCH ×2 (09:48→22:24)
[2020-05-11] MEDS: SENNOSIDES 8.6 MG TAB PO SCH ×2 (09:48→22:24)
[2020-05-11] MEDS: SERTRALINE 25 MG TAB PO SCH (09:48)
--- NOTE | 2020-05-11 10:55 | Progress Note ---
Subjective - Reason for Consult Consult date: 05/11/20 Reason for consult: MHE Requesting physician: TYLER HENRIQUEZ - Chief Complaint Chief complaint: Psych Progress HPI Patient seen in room this AM, says he still feels very hopeless and knows if discharged he would do more drugs, thankful im actually listening to him and helping with mental health and being here is helping him with his withdrawals. He has nothing to live for but believes if he is able to get intervention he can pull his life back together Review of Symptoms: Constitutional: Negative for weight loss ENT: Negative for stridor Respiratory: Negative for cough or hemoptysis All other systems reviewed and are negative MENTAL STATUS EXAMINATION General Appearance and Behavior: Age appropriate, faire hygiene, wearing appropriate clothes, lying in bed, good eye contact, cooperative polite with questioning. Cooperation: Participating/engaged Psychomotor Behavior: unremarkable and within normal limits Mood:empty Affect and affective range: flat Thought Process: Fluent/Logical, Thought Content: hopelessness Speech: Normal volume, Regular rate and rhythm Intellectual Functioning: Average Suicidal Ideation: Suicidal Homicidal Ideation: Denies HI Impulse Control: Unimpaired Insight and Judgment: Normal insight and judgment Memory: Normal Attention: Normal Orientation: Alert, oriented Assessment and Plan - Patient Problems (1) Bipolar 1 disorder, depressed Current Visit: Yes Status: Acute (2) Substance induced mood disorder Current Visit: Yes Status: Acute MEDICATIONS: continue current meds Risks, benefits and alternatives of medications discussed with the patient, questions answered and consent obtained from patient. PSYCHOTHERAPY: Supportive psychotherapy provided MEDICAL: Per primary team DELIRIUM PRECAUTIONS: Please re-orient patient frequently, keep lights on during the day, and minimize benzodiazepines and opiates as these medications could worsen patient's confusion. DAIRY QUALITY ASSURANCE OFFICER: Per medical team DISPOSITION: Recommends acute inpatient psychiatric hospitalization at this time LEGAL STATUS: 1013 FOLLOW-UP: Will follow Thank you for the consult. Please contact with any questions and/or concerns. Mental Status Exam - Vital signs Last Vital Signs Temp 98.2 F 05/10/20 22:45 Pulse 80 05/11/20 07:53 Resp 20 05/11/20 07:53 BP 138/86 05/10/20 22:00 Pulse Ox 95 05/10/20 22:44 Assessment and Plan - Patient Problems (1) Bipolar 1 disorder, depressed Current Visit: Yes Status: Acute (2) Substance induced mood disorder Current Visit: Yes Status: Acute
--- NOTE | 2020-05-11 14:28 | Progress Note ---
Assessment and Plan Acute Hypoxic and hypercapenia Respiratory Failure - Now off BiPAP and nebs, Pulmonary Consult noted - iv steroids stopped, inhaled steroids at this time Status Asthmaticus, s/p nebs and iv steroid, - now on inhalers And supplemental O2 as needed Cocaine Dependance - UDS +ve for cocaine - no willingness to stop - psych following Bipolar 1 disorder, depressed Substance induced mood disorder - paych following, need inpt psych on discharge left chest wall pain -CXr negative, trop normal, EKG unremarkable - as needed pain meds DVT/GI prophy - heparin/ppi -Medically stable to go for inpatient psych unit. Discharge pending on inpatient psych placement. Brief history: Patient is a 25-year-old old male with history of asthma, bipolar, depression, schizophrenia with hx of Drug abuse comes in for severe shortness of breath and wheezing and was brought in by the EMS. Per ED documentation, patient received multiple treatments with EMS but was still with rapid rate at 40 on admission, improved some on BIPAP. The patient was significantly dyspenic and unable to give any information. The Patient was recently at the hospital and was briefly intubated and extubated and discharged. No further information is available. Subjective Date of service: 05/11/20 Interval history: Patient seen and examined. Medical records and medication list reviewed. No acute event overnight noted by the RN. Patient c/o left chest wall pain . Patient is tolerating diet. Discussed plan of care at bedside with patient. sitter at bedside Objective - Exam Narrative Exam: GENERAL: well-developed and well-nourished black male lying on bed HEENT: Normocephalic. Atraumatic. No conjunctival congestion or icterus. Patient has moist mucous membranes. NECK: Supple. Trachea midline. CHEST/LUNGS: Clear to auscultated bilaterally, breathing nonlabored. No wheezes crackles or rhonchi. HEART/CARDIOVASCULAR: Regular in rate and rhythm. S1 and S2 positive. ABDOMEN: Abdomen is soft, nontender. Patient has normal bowel sounds. SKIN: There is no rash. Warm and dry. NEURO: No focal motor deficit. Follows command. MUSCULOSKELETAL: No joint effusion or tenderness. EXTRIMITY: No edema, no cyanosis or clubbing. PSYCH: Cooperative. - Constitutional Vitals: Vital Signs - 12hr 05/11/20 05/11/20 05/11/20 03:37 03:38 07:53 Temperature 98.1 F Pulse Rate 86 Pulse Rate [ 80 Posterior Bilateral Throughout] Respiratory 20 Rate Respiratory 20 Rate [Posterior Bilateral Throughout] Blood Pressure 125/82 O2 Sat by Pulse 96 Oximetry 05/11/20 13:02 Temperature 98.3 F Pulse Rate 89 Pulse Rate [ Posterior Bilateral Throughout] Respiratory 20 Rate Respiratory Rate [Posterior Bilateral Throughout] Blood Pressure 127/84 O2 Sat by Pulse 97 Oximetry - Labs CBC & Chem 7: 05/04/20 07:06 05/04/20 07:06 HEART Score - HEART Score Troponin: Troponin T < 0.010 ng/mL (0.00-0.029) 05/10/20 19:40
[2020-05-11] MEDS: guaiFENesin 100 MG/5 ML ORAL LIQD PO PRN (22:25)
[2020-05-12] MEDS: LORazepam 2 MG/ML VIAL IV PRN (01:53)
[2020-05-12] MEDS: oxyCODONE /ACETAMINOPHEN 5-325MG TAB PO PRN ×3 (01:53→21:18)
[2020-05-12] MEDS: BUDESONIDE 0.5 MG/2 ML NEBU IH SCH ×2 (07:22→21:30)
[2020-05-12] MEDS: IPRATROPIUM/ALBUTEROL SULFATE 3 ML AMPUL.NEB IH SCH ×2 (07:22→21:30)
--- NOTE | 2020-05-12 07:34 | Progress Note ---
Assessment and Plan Assessment and plan: Patient is a 25-year-old old male with history of asthma, bipolar, depression, schizophrenia with hx of Drug abuse comes in for severe shortness of breath and wheezing and was brought in by the EMS. Per ED documentation, patient received multiple treatments with EMS but was still with rapid rate at 40 on admission, improved some on BIPAP. The patient was significantly dyspenic and unable to give any information. The Patient was recently at the hospital and was briefly intubated and extubated and discharged. No further information is available. Interval history: Since my last visit with the patient the patient was treated on BiPAP has now been off BiPAP steroids stopped continues on inhaled steroids. Urine drug screen was positive for cocaine and he did not exhibit any willingness to quit cocaine use. Was also noted to have bipolar disorder following psych evaluation and inpatient psych is recommended and this has been delaying the discharge as facility still being sought for for the patient. He remains medically stable for discharge once an inpatient facility is found Acute Hypoxic and hypercapenia Respiratory Failure Status Asthmaticus Cocaine Dependance in prior admit Bipolar disorder Substance use disorder Left chest wall pain: Chest x-ray, negative, troponin negative EKG unremarkable Plan Continue supportive care Awaiting placement Continue nebulizer management Nebs DVT and GI prophylaxis Continue management per psych Medically stable for transfer to inpatient psych History Interval history: Patient seen and examined, sitting up at the bedside, wants to go home with concerned that he continues his drug habit due to a sense of guilt he contributed to his girlfriend by encouraging her drug use. Hospitalist Physical - Physical exam Narrative exam: VITAL SIGNS: Reviewed. GENERAL: The patient appears normally developed, sitting up at the bedside vital signs as documented. HEAD: No signs of head trauma. EYES: Pupils are equal. Extraocular motions intact. EARS: Hearing grossly intact. MOUTH: Oropharynx is normal. NECK: No adenopathy, no JVD. CHEST: Chest with clear breath sounds bilaterally. No wheezes, rales, or rhonchi. CARDIAC: Regular rate and rhythm. S1 and S2, without murmurs, gallops, or rubs. VASCULAR: No Edema. Peripheral pulses normal and equal in all extremities. ABDOMEN: Soft, non tender and non distended. No rebound or guarding, and no masses palpated. Bowel Sounds normal. MUSCULOSKELETAL: Good range of motion of all major joints. Extremities without clubbing, cyanosis or edema. NEUROLOGIC EXAM: Awake alert and oriented x3 no focal sensory or strength deficits. PSYCHIATRIC: Mood normal. SKIN: detail exam as documented in skin assessment - Constitutional Vitals: Temp Pulse Resp BP Pulse Ox 98.4 F 104 H 16 118/82 96 05/12/20 04:51 05/12/20 07:24 05/12/20 07:24 05/12/20 04:51 05/12/20 04:51 HEART Score - HEART Score Troponin: Troponin T < 0.010 ng/mL (0.00-0.029) 05/10/20 19:40 Results - Labs CBC & Chem 7: 05/04/20 07:06 05/04/20 07:06 Labs: Laboratory Last Values WBC 2.6 K/mm3 (4.5-11.0) L 05/04/20 07:06 RBC 4.28 M/mm3 (3.65-5.03) 05/04/20 07:06 Hgb 14.0 gm/dl (11.8-15.2) 05/04/20 07:06 Hct 41.3 % (35.5-45.6) 05/04/20 07:06 MCV 97 fl (84-94) H 05/04/20 07:06 MCH 33 pg (28-32) H 05/04/20 07:06 MCHC 34 % (32-34) 05/04/20 07:06 RDW 12.1 % (13.2-15.2) L 05/04/20 07:06 Plt Count 182 K/mm3 (140-440) 05/04/20 07:06 Lymph % (Auto) 13.0 % (13.4-35.0) L 05/04/20 07:06 [place] % (Auto) 2.8 % (0.0-7.3) 05/04/20 07:06 Eos % (Auto) 0.0 % (0.0-4.3) 05/04/20 07:06 Baso % (Auto) 0.3 % (0.0-1.8) 05/04/20 07:06 Lymph # 0.3 K/mm3 (1.2-5.4) L 05/04/20 07:06 [place] # 0.1 K/mm3 (0.0-0.8) 05/04/20 07:06 Eos # 0.0 K/mm3 (0.0-0.4) 05/04/20 07:06 Baso # 0.0 K/mm3 (0.0-0.1) 05/04/20 07:06 Seg Neutrophils % 83.9 % (40.0-70.0) H 05/04/20 07:06 Seg Neutrophils # 2.2 K/mm3 (1.8-7.7) 05/04/20 07:06 D-Dimer 377.38 ng/mlDDU (0-234) H 05/04/20 07:06 ABG pH TNR 05/03/20 22:42 POC ABG pCO2 TNR 05/03/20 22:42 POC ABG pO2 TNR 05/03/20 22:42 ABG Sodium TNR 05/03/20 22:42 ABG Potassium TNR 05/03/20 22:42 ABG Chloride TNR 05/03/20 22:42 ABG Glucose TNR 05/03/20 22:42 FiO2 TNR 05/03/20 22:42 Sodium 139 mmol/L (137-145) 05/04/20 07:06 Potassium 5.0 mmol/L (3.6-5.0) D 05/04/20 07:06 Chloride 102.0 mmol/L (98-107) 05/04/20 07:06 Carbon Dioxide 23 mmol/L (22-30) 05/04/20 07:06 Anion Gap 19 mmol/L 05/04/20 07:06 BUN 15 mg/dL (9-20) 05/04/20 07:06 Creatinine 0.9 mg/dL (0.8-1.3) 05/04/20 07:06 Estimated GFR > 60 ml/min 05/04/20 07:06 BUN/Creatinine Ratio 17 % 05/04/20 07:06 Glucose 143 mg/dL (75-100) H 05/04/20 07:06 Calcium 9.9 mg/dL (8.4-10.2) 05/04/20 07:06 Ferritin 636.4 ng/mL (30.0-300.0) H 05/03/20 18:19 Lactate Dehydrogenase 1035 units/L (91-180) H 05/03/20 18:19 Troponin T < 0.010 ng/mL (0.00-0.029) 05/10/20 19:40 C-Reactive Protein 17.70 mg/dL (0.00-1.30) H 05/03/20 18:19 Procalcitonin 1.42 ng/mL (<0.15) 05/03/20 18:19 Arterial Blood Glucose TNR 05/03/20 22:42 Arterial Blood Ionized Calcium TNR 05/03/20 22:42 Urine Opiates Screen Presumptive negative 05/04/20 16:54 Urine Methadone Screen Presumptive negative 05/04/20 16:54 Ur Barbiturates Screen Presumptive negative 05/04/20 16:54 Ur Phencyclidine Scrn Presumptive negative 05/04/20 16:54 Ur Amphetamines Screen Presumptive negative 05/04/20 16:54 U Benzodiazepines Scrn Presumptive negative 05/04/20 16:54 Urine Cocaine Screen Presumptive positive 05/04/20 16:54 U Marijuana (THC) Screen Presumptive negative 05/04/20 16:54 Drugs of Abuse Note Disclamer 05/04/20 16:54 Coronavirus (PCR) Negative (Negative) 05/04/20 08:27 Awllace/IV: Voiding Method Toilet IV Catheter Type [Right INT / Saline Lock Antecubital] IV Catheter Type [Left Hand] INT / Saline Lock Active Medications - Current Medications Current Medications: Generic Name Dose Route Start Last Admin Trade Name Freq PRN Reason Stop Dose Admin Acetaminophen 650 mg 05/03/20 12:55 05/11/20 22:33 Tylenol PO 650 mg Q6H PRN Administration Pain MILD(1-3)/Fever >100.5/ROJO Albuterol 2.5 mg 05/08/20 09:50 Proventil IH Q4HRT PRN Shortness Of Breath Albuterol/Ipratropium 1 ampul 05/08/20 08:00 05/12/20 07:22 Duoneb *Not For Prn Use* IH 1 ampul TIDRT LARISA Administration Budesonide 0.5 mg 05/03/20 20:00 05/12/20 07:22 Pulmicort IH 0.5 mg Q12HRT LARISA Administration Divalproex Sodium 500 mg 05/07/20 22:00 05/11/20 22:[address] PO 500 mg BID LARISA Administration Guaifenesin 200 mg 05/03/20 22:21 05/11/20 22:25 Robitussin PO 200 mg Q6H PRN Administration Cough Lorazepam 1 mg 05/03/20 19:56 05/12/20 01:53 Ativan IV 1 mg Q3H PRN Administration Anxiety Naloxone HCl 0.1 mg 05/03/20 12:55 Naloxone IV Q2MIN PRN Res Rate </= 8 or 02 SAT < 92% Oxycodone/Acetaminophen 1 tab 05/11/20 12:13 05/12/20 01:53 Percocet 5/325 PO 1 tab Q8H PRN Administration Pain, Moderate (4-6) Risperidone 0.5 mg 05/07/20 22:00 05/11/20 22:24 Risperdal PO 0.5 mg BID LARISA Administration Senna 8.6 mg 05/03/20 22:00 05/11/20 22:24 Senokot PO 8.6 mg BID LARISA Administration Sertraline HCl 25 mg 05/05/20 11:00 05/11/20 09:48 Zoloft PO 25 mg QDAY LARISA Administration Sodium Chloride 10 ml 05/03/20 22:00 05/11/20 22:25 Sodium Chloride Flush Syringe 10 Ml IV 10 ml BID LARISA Administration Sodium Chloride 10 ml 05/03/20 12:55 Sodium Chloride Flush Syringe 10 Ml IV PRN PRN LINE FLUSH Ziprasidone 20 mg 05/04/20 12:41 Geodon IM Q6H PRN Agitation Nutrition/Malnutrition Assess - Dietary Evaluation Nutrition/Malnutrition Findings: Nutrition Notes Start: 05/04/20 13:41 Freq: Status: Active Protocol: Document 05/07/20 13:15 LP (Rec: 05/07/20 13:35 LP [id number]) Nutrition Notes Initial or Follow up Reassessment Current Diagnosis Respiratory Failure Other Pertinent Diagnosis cocaine/meth dependence, PUI COVID-19, asthma, schizophrenia Current Diet Regular Labs/Tests Reviewed Pertinent Medications Reviewed Height 5 ft 6 in Weight 61.008 kg [place] Body Weight (kg) 64.54 BMI 21.7 Subjective/Other Data Entry Assistant states pt is eating well. Unable to obtain nutrition hx and unable to give malnutrition dx at this time. Burn Absent Trauma Absent GI Symptoms None Minimum of two criteria No physical signs of malnutrition #1 Nutrition Diagnosis Predicted suboptimal energy intake As Evidenced by Signs and Symptoms Pt eating well Diagnosis Progress(for reassessment Resolved documentation) Is patient on ventilator? No Is Patient Ambulatory and/or Out of Bed No [facility] 1841.160 Calculation Used for Recommendations [facility] Additional Notes Protein: 49-61g (0.8-1g/kg) Fluid: 1ml/kcal Nutrition Intervention Change Diet Order: continue Goal #1 Meet at least 75% of energy and protein needs Revisit per MD consult or patient Sign Off request:
--- NOTE | 2020-05-12 08:02 | Progress Note ---
Subjective - Reason for Consult Consult date: 05/12/20 Reason for consult: MHE Requesting physician: TYLER HENRIQUEZ - Chief Complaint Chief complaint: Psych Progress HPI Patient seen today, reports poor sleep, cigarette cravings. Endorses improved self worthiness feeling, medication compliant, denies acute SI, endorses intermittent feeling of hopelessness. Review of Symptoms: Constitutional: Negative for weight loss ENT: Negative for stridor Respiratory: Negative for cough or hemoptysis All other systems reviewed and are negative MENTAL STATUS EXAMINATION General Appearance and Behavior: Age appropriate, faire hygiene, wearing appropriate clothes, lying in bed, good eye contact, cooperative polite with questioning. Cooperation: Participating/engaged Psychomotor Behavior: unremarkable and within normal limits Mood:empty Affect and affective range: flat Thought Process: Fluent/Logical, Thought Content: hopelessness Speech: Normal volume, Regular rate and rhythm Intellectual Functioning: Average Suicidal Ideation: Suicidal Homicidal Ideation: Denies HI Impulse Control: Unimpaired Insight and Judgment: Normal insight and judgment Memory: Normal Attention: Normal Orientation: Alert, oriented Assessment and Plan - Patient Problems (1) Bipolar 1 disorder, depressed Current Visit: Yes Status: Acute (2) Substance induced mood disorder Current Visit: Yes Status: Acute MEDICATIONS: continue current meds, pt started on ambien for sleep. Risks, benefits and alternatives of medications discussed with the patient, questions answered and consent obtained from patient. PSYCHOTHERAPY: Supportive psychotherapy provided MEDICAL: Per primary team DELIRIUM PRECAUTIONS: Please re-orient patient frequently, keep lights on during the day, and minimize benzodiazepines and opiates as these medications could worsen patient's confusion. RESEARCH LABORATORY MANAGER: Per medical team DISPOSITION: Recommends acute inpatient psychiatric hospitalization at this time LEGAL STATUS: 1013 FOLLOW-UP: Will follow Thank you for the consult. Please contact with any questions and/or concerns. Mental Status Exam - Vital signs Last Vital Signs Temp 98.4 F 05/12/20 04:51 Pulse 104 H 05/12/20 07:24 Resp 16 05/12/20 07:24 BP 118/82 05/12/20 04:51 Pulse Ox 96 05/12/20 04:51 Assessment and Plan - Patient Problems (1) Bipolar 1 disorder, depressed Current Visit: Yes Status: Acute (2) Substance induced mood disorder Current Visit: Yes Status: Acute
[2020-05-12] MEDS: risperiDONE 0.25 MG TAB PO SCH ×2 (09:40→21:17)
[2020-05-12] MEDS: SENNOSIDES 8.6 MG TAB PO SCH ×2 (09:40→21:17)
[2020-05-12] MEDS: DIVALPROEX DR 500 MG TAB PO SCH ×2 (09:40→21:17)
[2020-05-12] MEDS: SERTRALINE 25 MG TAB PO SCH (09:40)
[2020-05-12] MEDS: NICOTINE 21 MG/24 HR PATCH TD SCH (10:47)
[2020-05-12] MEDS: guaiFENesin 100 MG/5 ML ORAL LIQD PO PRN (21:16)
[2020-05-12] MEDS: ZOLPIDEM 5 MG TAB PO SCH (21:17)
[2020-05-13] MEDS: oxyCODONE /ACETAMINOPHEN 5-325MG TAB PO PRN ×3 (05:49→22:22)
[2020-05-13] MEDS: guaiFENesin 100 MG/5 ML ORAL LIQD PO PRN (05:49)
--- NOTE | 2020-05-13 07:36 | Progress Note ---
Subjective - Reason for Consult Consult date: 05/13/20 Reason for consult: MHE Requesting physician: TYLER HENRIQUEZ - Chief Complaint Chief complaint: Psych Progress HPI Review of Symptoms: Constitutional: Negative for weight loss ENT: Negative for stridor Respiratory: Negative for cough or hemoptysis All other systems reviewed and are negative MENTAL STATUS EXAMINATION General Appearance and Behavior: Age appropriate, faire hygiene, wearing appropriate clothes, lying in bed, good eye contact, cooperative polite with questioning. Cooperation: Participating/engaged Psychomotor Behavior: unremarkable and within normal limits Mood:empty Affect and affective range: flat Thought Process: Fluent/Logical, Thought Content: hopelessness Speech: Normal volume, Regular rate and rhythm Intellectual Functioning: Average Suicidal Ideation: Suicidal Homicidal Ideation: Denies HI Impulse Control: Unimpaired Insight and Judgment: Normal insight and judgment Memory: Normal Attention: Normal Orientation: Alert, oriented Assessment and Plan - Patient Problems (1) Bipolar 1 disorder, depressed Current Visit: Yes Status: Acute (2) Substance induced mood disorder Current Visit: Yes Status: Acute MEDICATIONS: continue current meds, pt started on ambien for sleep. Risks, benefits and alternatives of medications discussed with the patient, questions answered and consent obtained from patient. PSYCHOTHERAPY: Supportive psychotherapy provided MEDICAL: Per primary team DELIRIUM PRECAUTIONS: Please re-orient patient frequently, keep lights on during the day, and minimize benzodiazepines and opiates as these medications could worsen patient's confusion. PASTEURIZER: Per medical team DISPOSITION: Recommends acute inpatient psychiatric hospitalization at this time LEGAL STATUS: 1013 FOLLOW-UP: Will follow Thank you for the consult. Please contact with any questions and/or concerns. Mental Status Exam - Vital signs Last Vital Signs Temp 97.9 F 05/13/20 05:58 Pulse 83 05/13/20 05:58 Resp 17 05/13/20 06:49 BP 122/80 05/13/20 05:58 Pulse Ox 99 05/13/20 05:58 Assessment and Plan - Patient Problems (1) Bipolar 1 disorder, depressed Current Visit: Yes Status: Acute (2) Substance induced mood disorder Current Visit: Yes Status: Acute
[2020-05-13] MEDS: BUDESONIDE 0.5 MG/2 ML NEBU IH SCH ×2 (08:23→20:31)
[2020-05-13] MEDS: IPRATROPIUM/ALBUTEROL SULFATE 3 ML AMPUL.NEB IH SCH ×2 (08:23→20:31)
[2020-05-13] MEDS: SERTRALINE 25 MG TAB PO SCH (10:57)
[2020-05-13] MEDS: NICOTINE 21 MG/24 HR PATCH TD SCH (10:57)
[2020-05-13] MEDS: risperiDONE 0.25 MG TAB PO SCH ×2 (10:57→22:24)
[2020-05-13] MEDS: DIVALPROEX DR 500 MG TAB PO SCH ×2 (10:57→22:23)
[2020-05-13] MEDS: SENNOSIDES 8.6 MG TAB PO SCH ×2 (10:57→22:24)
[2020-05-13] MEDS ORDERED: MORPHINE 2 MG/1 ML INJ IV ONE (13:00)
--- NOTE | 2020-05-13 13:33 | Progress Note ---
Assessment and Plan Assessment and plan: Patient is a 25-year-old old male with history of asthma, bipolar, depression, schizophrenia with hx of Drug abuse comes in for severe shortness of breath and wheezing and was brought in by the EMS. Per ED documentation, patient received multiple treatments with EMS but was still with rapid rate at 40 on admission, improved some on BIPAP. The patient was significantly dyspenic and unable to give any information. The Patient was recently at the hospital and was briefly intubated and extubated and discharged. No further information is available. Interval history: Since my last visit with the patient the patient was treated on BiPAP has now been off BiPAP steroids stopped continues on inhaled steroids. Urine drug screen was positive for cocaine and he did not exhibit any willingness to quit cocaine use. Was also noted to have bipolar disorder following psych evaluation and inpatient psych is recommended and this has been delaying the discharge as facility still being sought for for the patient. He remains medically stable for discharge once an inpatient facility is found 05/13: Patient is clinically stable at this point for discharge to inpatient psych. Again in summary of his clinical condition the patient had asthma exacerbation which is often exacerbated by cocaine use. Otherwise he has not had any acute exacerbations since his BiPAP discontinuation he has not had any recurrent hypoxic or hypercapnic episode. He will continue for management of his asthma on nebulizer treatments and as needed albuterol. An outpatient he will need follow-up with pulmonary physician. A peak flow meter will also be recommended to continue to monitor his progress which is standard diagnosis and management for asthmatic patients. Harmonic Analyst also recommends Symbicort 160 mg 2 puffs twice daily and patient continues on this.. Acute Hypoxic and hypercapenia Respiratory Failure-resolved Status Asthmaticus-resolved Asthma Cocaine Dependance in prior admit Bipolar disorder Substance use disorder Left chest wall pain: Chest x-ray, negative, troponin negative EKG unremarkable Plan Continue supportive care Awaiting placement Continue nebulizer management Nebs DVT and GI prophylaxis Continue management per psych Medically stable for transfer to inpatient psych History Interval history: Patient seen and examined, sitting up at the bedside, continues to wants to go home with concerned that he continues his drug habit due to a sense of guilt he contributed to his girlfriend by encouraging her drug use. Hospitalist Physical - Physical exam Narrative exam: VITAL SIGNS: Reviewed. GENERAL: The patient appears normally developed, sitting up at the bedside vital signs as documented. HEAD: No signs of head trauma. EYES: Pupils are equal. Extraocular motions intact. EARS: Hearing grossly intact. MOUTH: Oropharynx is normal. NECK: No adenopathy, no JVD. CHEST: Chest with clear breath sounds bilaterally. No wheezes, rales, or rhonchi. CARDIAC: Regular rate and rhythm. S1 and S2, without murmurs, gallops, or rubs. VASCULAR: No Edema. Peripheral pulses normal and equal in all extremities. ABDOMEN: Soft, non tender and non distended. No rebound or guarding, and no masses palpated. Bowel Sounds normal. MUSCULOSKELETAL: Good range of motion of all major joints. Extremities without clubbing, cyanosis or edema. NEUROLOGIC EXAM: Awake alert and oriented x3 no focal sensory or strength deficits. PSYCHIATRIC: Mood normal. SKIN: detail exam as documented in skin assessment - Constitutional Vitals: Temp Pulse Resp BP Pulse Ox 98.9 F 89 20 114/66 97 05/13/20 11:33 05/13/20 11:33 05/13/20 11:33 05/13/20 11:33 05/13/20 11:33 HEART Score - HEART Score Troponin: Troponin T < 0.010 ng/mL (0.00-0.029) 05/10/20 19:40 Results - Labs CBC & Chem 7: 05/04/20 07:06 05/04/20 07:06 Labs: Laboratory Last Values WBC 2.6 K/mm3 (4.5-11.0) L 05/04/20 07:06 RBC 4.28 M/mm3 (3.65-5.03) 05/04/20 07:06 Hgb 14.0 gm/dl (11.8-15.2) 05/04/20 07:06 Hct 41.3 % (35.5-45.6) 05/04/20 07:06 MCV 97 fl (84-94) H 05/04/20 07:06 MCH 33 pg (28-32) H 05/04/20 07:06 MCHC 34 % (32-34) 05/04/20 07:06 RDW 12.1 % (13.2-15.2) L 05/04/20 07:06 Plt Count 182 K/mm3 (140-440) 05/04/20 07:06 Lymph % (Auto) 13.0 % (13.4-35.0) L 05/04/20 07:06 [place] % (Auto) 2.8 % (0.0-7.3) 05/04/20 07:06 Eos % (Auto) 0.0 % (0.0-4.3) 05/04/20 07:06 Baso % (Auto) 0.3 % (0.0-1.8) 05/04/20 07:06 Lymph # 0.3 K/mm3 (1.2-5.4) L 05/04/20 07:06 [place] # 0.1 K/mm3 (0.0-0.8) 05/04/20 07:06 Eos # 0.0 K/mm3 (0.0-0.4) 05/04/20 07:06 Baso # 0.0 K/mm3 (0.0-0.1) 05/04/20 07:06 Seg Neutrophils % 83.9 % (40.0-70.0) H 05/04/20 07:06 Seg Neutrophils # 2.2 K/mm3 (1.8-7.7) 05/04/20 07:06 D-Dimer 377.38 ng/mlDDU (0-234) H 05/04/20 07:06 ABG pH TNR 05/03/20 22:42 POC ABG pCO2 TNR 05/03/20 22:42 POC ABG pO2 TNR 05/03/20 22:42 ABG Sodium TNR 05/03/20 22:42 ABG Potassium TNR 05/03/20 22:42 ABG Chloride TNR 05/03/20 22:42 ABG Glucose TNR 05/03/20 22:42 FiO2 TNR 05/03/20 22:42 Sodium 139 mmol/L (137-145) 05/04/20 07:06 Potassium 5.0 mmol/L (3.6-5.0) D 05/04/20 07:06 Chloride 102.0 mmol/L (98-107) 05/04/20 07:06 Carbon Dioxide 23 mmol/L (22-30) 05/04/20 07:06 Anion Gap 19 mmol/L 05/04/20 07:06 BUN 15 mg/dL (9-20) 05/04/20 07:06 Creatinine 0.9 mg/dL (0.8-1.3) 05/04/20 07:06 Estimated GFR > 60 ml/min 05/04/20 07:06 BUN/Creatinine Ratio 17 % 05/04/20 07:06 Glucose 143 mg/dL (75-100) H 05/04/20 07:06 Calcium 9.9 mg/dL (8.4-10.2) 05/04/20 07:06 Ferritin 636.4 ng/mL (30.0-300.0) H 05/03/20 18:19 Lactate Dehydrogenase 1035 units/L (91-180) H 05/03/20 18:19 Troponin T < 0.010 ng/mL (0.00-0.029) 05/10/20 19:40 C-Reactive Protein 17.70 mg/dL (0.00-1.30) H 05/03/20 18:19 Procalcitonin 1.42 ng/mL (<0.15) 05/03/20 18:19 Arterial Blood Glucose TNR 05/03/20 22:42 Arterial Blood Ionized Calcium TNR 05/03/20 22:42 Urine Opiates Screen Presumptive negative 05/04/20 16:54 Urine Methadone Screen Presumptive negative 05/04/20 16:54 Ur Barbiturates Screen Presumptive negative 05/04/20 16:54 Ur Phencyclidine Scrn Presumptive negative 05/04/20 16:54 Ur Amphetamines Screen Presumptive negative 05/04/20 16:54 U Benzodiazepines Scrn Presumptive negative 05/04/20 16:54 Urine Cocaine Screen Presumptive positive 05/04/20 16:54 U Marijuana (THC) Screen Presumptive negative 05/04/20 16:54 Drugs of Abuse Note Disclamer 05/04/20 16:54 Coronavirus (PCR) Negative (Negative) 05/04/20 08:27 Wallace/IV: Voiding Method Toilet IV Catheter Type [Right INT / Saline Lock Antecubital] IV Catheter Type [Left Hand] INT / Saline Lock Active Medications - Current Medications Current Medications: Generic Name Dose Route Start Last Admin Trade Name Freq PRN Reason Stop Dose Admin Acetaminophen 650 mg 05/03/20 12:55 05/11/20 22:33 Tylenol PO 650 mg Q6H PRN Administration Pain MILD(1-3)/Fever >100.5/ROJO Albuterol 2.5 mg 05/08/20 09:50 Proventil IH Q4HRT PRN Shortness Of Breath Albuterol/Ipratropium 1 ampul 05/12/20 20:00 05/13/20 08:23 Duoneb *Not For Prn Use* IH 1 ampul Q12HRT LARISA Administration Budesonide 0.5 mg 05/03/20 20:00 05/13/20 08:23 Pulmicort IH 0.5 mg Q12HRT LARISA Administration Divalproex Sodium 500 mg 05/07/20 22:00 05/13/20 10:[address] PO 500 mg BID LARISA Administration Guaifenesin 200 mg 05/03/20 22:21 05/13/20 05:49 Robitussin PO 200 mg Q6H PRN Administration Cough Lorazepam 1 mg 05/03/20 19:56 05/12/20 01:53 Ativan IV 1 mg Q3H PRN Administration Anxiety Naloxone HCl 0.1 mg 05/03/20 12:55 Naloxone IV Q2MIN PRN Res Rate </= 8 or 02 SAT < 92% Nicotine 21 mg 05/12/20 11:00 05/13/20 10:57 Habitrol TD 21 mg QDAY LARISA Administration Oxycodone/Acetaminophen 1 tab 05/13/20 13:05 Percocet 5/325 PO Q6H PRN Pain, Moderate (4-6) Prazosin HCl 1 mg 05/13/20 22:00 Prazosin PO QHS LARISA Risperidone 0.5 mg 05/07/20 22:00 05/13/20 10:57 Risperdal PO 0.5 mg BID LARISA Administration Senna 8.6 mg 05/03/20 22:00 05/13/20 10:57 Senokot PO 8.6 mg BID LARISA Administration Sertraline HCl 25 mg 05/05/20 11:00 05/13/20 10:57 Zoloft PO 25 mg QDAY LARISA Administration Sodium Chloride 10 ml 05/03/20 22:00 05/13/20 10:58 Sodium Chloride Flush Syringe 10 Ml IV 10 ml BID LARISA Administration Sodium Chloride 10 ml 05/03/20 12:55 Sodium Chloride Flush Syringe 10 Ml IV PRN PRN LINE FLUSH Ziprasidone 20 mg 05/04/20 12:41 Geodon IM Q6H PRN Agitation Zolpidem Tartrate 5 mg 05/12/20 22:00 05/12/20 21:17 Ambien PO 5 mg QHS LARISA Administration Nutrition/Malnutrition Assess - Dietary Evaluation Nutrition/Malnutrition Findings: Nutrition Notes Start: 05/04/20 13:41 Freq: Status: Active Protocol: Document 05/07/20 13:15 LP (Rec: 05/07/20 13:35 LP [id number]) Nutrition Notes Initial or Follow up Reassessment Current Diagnosis Respiratory Failure Other Pertinent Diagnosis cocaine/meth dependence, PUI COVID-19, asthma, schizophrenia Current Diet Regular Labs/Tests Reviewed Pertinent Medications Reviewed Height 5 ft 6 in Weight 61.008 kg [place] Body Weight (kg) 64.54 BMI 21.7 Subjective/Other Sack Keeper states pt is eating well. Unable to obtain nutrition hx and unable to give malnutrition dx at this time. Burn Absent Trauma Absent GI Symptoms None Minimum of two criteria No physical signs of malnutrition #1 Nutrition Diagnosis Predicted suboptimal energy intake As Evidenced by Signs and Symptoms Pt eating well Diagnosis Progress(for reassessment Resolved documentation) Is patient on ventilator? No Is Patient Ambulatory and/or Out of Bed No REE-(Reese-St. Jeor-confined to bed) 1841.160 Calculation Used for Recommendations Reese-St Jeor Additional Notes Protein: 49-61g (0.8-1g/kg) Fluid: 1ml/kcal Nutrition Intervention Change Diet Order: continue Goal #1 Meet at least 75% of energy and protein needs Revisit per MD consult or patient Sign Off request:
[2020-05-13 14:11] LABS: Basophils % (Auto) 0.5 % (0.0-1.8); Eosinophils # (Auto) 0.1 K/mm3 (0.0-0.4); Eosinophils % (Auto) 2.9 % (0.0-4.3); Hematocrit 36.7 % (35.5-45.6); Hemoglobin 12.4 gm/dl (11.8-15.2); Lymphocytes # (Auto) 1.5 K/mm3 (1.2-5.4); Lymphocytes % (Auto) 32.2 % (13.4-35.0); Mean Corpuscular HGB Conc 34 % (32-34); Mean Corpuscular Volume 97 fl (84-94); Monocytes # (Auto) 0.4 K/mm3 (0.0-0.8); Monocytes % (Auto) 9.1 % (0.0-7.3); Platelet Count 195 K/mm3 (140-440); Red Cell Distribution Width 12.2 % (13.2-15.2)
[2020-05-13] MEDS: ZOLPIDEM 5 MG TAB PO SCH (22:28)
[2020-05-13] MEDS: PRAZOSIN 1 MG CAP PO SCH (22:40)
[2020-05-14] MEDS: ACETAMINOPHEN 325 MG TAB PO PRN (01:54)
[2020-05-14] MEDS: oxyCODONE /ACETAMINOPHEN 5-325MG TAB PO PRN ×3 (05:54→23:51)
[2020-05-14] MEDS: guaiFENesin 100 MG/5 ML ORAL LIQD PO PRN (05:55)
--- NOTE | 2020-05-14 08:22 | Discharge Summary ---
Providers - Providers Date of Admission: 05/03/20 12:22 Attending physician: YAKELIN PITTMAN MD 05/03/20 12:55 Consult to Dietitian/Nutrition [CONS] Routine Physician Instructions: Reason For Exam: Reason for Consult: Malnutrition 05/03/20 12:57 Consult to Mental Health [CONS] Routine Reason For Exam: PSYCHOSIS Primary care physician: [facility] APPLICATION ARCHITECT Hospitalization Reason for admission: ASTHMA WITH ACUTE EXACERBATION Condition: Stable Hospital course: Patient is a 25-year-old old male with history of asthma, bipolar, depression, schizophrenia with hx of Drug abuse comes in for severe shortness of breath and wheezing and was brought in by the EMS. Per ED documentation, patient received multiple treatments with EMS but was still with rapid rate at 40 on admission, improved some on BIPAP. The patient was significantly dyspenic and unable to give any information. The Patient was recently at the hospital and was briefly intubated and extubated and discharged. No further information is available. Interval history: Since my last visit with the patient the patient was treated on BiPAP has now been off BiPAP steroids stopped continues on inhaled steroids. Urine drug screen was positive for cocaine and he did not exhibit any willingness to quit cocaine use. Was also noted to have bipolar disorder following psych evaluation and inpatient psych is recommended and this has been delaying the discharge as facility still being sought for for the patient. He remains medically stable for discharge once an inpatient facility is found 05/13: Patient is clinically stable at this point for discharge to inpatient psych. Again in summary of his clinical condition the patient had asthma exacerbation which is often exacerbated by cocaine use. Otherwise he has not had any acute exacerbations since his BiPAP discontinuation he has not had any recurrent hypoxic or hypercapnic episode. He will continue for management of his asthma on nebulizer treatments and as needed albuterol. An outpatient he will need follow-up with pulmonary physician. A peak flow meter will also be recommended to continue to monitor his progress which is standard diagnosis and management for asthmatic patients. Generator Switchboard Operator also recommends Symbicort 160 mg 2 puffs twice daily and patient continues on this. 05/14: Patient clinically stable, BP has remained stable, will stop BP meds at this time. Patient leukopenia resolved. Pending bed for discharged to inpatient psych facility. He remains clinically stable for discharge. 05/15: Patient clinically stable seen by psychiatrist today and considering his improvement rescinded 1013 he is stable to be discharged. Acute Hypoxic and hypercapenia Respiratory Failure-resolved Status Asthmaticus-resolved Asthma Cocaine Dependance in prior admit Bipolar disorder Substance use disorder Left chest wall pain: Chest x-ray, negative, troponin negative EKG unremarkable Leukopenia Disposition: DC/TX-65 PSY HOSP/PSY UNIT Time spent for discharge: 35 MINS Core Measure Documentation - Palliative Care Palliative Care/ Comfort Measures: Not Applicable - Core Measures Any of the following diagnoses?: none Exam - Physical Exam Narrative exam: VITAL SIGNS: Reviewed. GENERAL: The patient appears normally developed, vital signs as documented. HEAD: No signs of head trauma. EYES: Pupils are equal. Extraocular motions intact. EARS: Hearing grossly intact. MOUTH: Oropharynx is normal. NECK: No adenopathy, no JVD. CHEST: Chest with clear breath sounds bilaterally. No wheezes, rales, or rhonchi. CARDIAC: Regular rate and rhythm. S1 and S2, without murmurs, gallops, or rubs. VASCULAR: No Edema. Peripheral pulses normal and equal in all extremities. ABDOMEN: Soft, non tender and non distended. No rebound or guarding, and no masses palpated. Bowel Sounds normal. MUSCULOSKELETAL: Good range of motion of all major joints. Extremities without clubbing, cyanosis or edema. NEUROLOGIC EXAM: Awake alert and oriented x3 no focal sensory or strength deficits. PSYCHIATRIC: Mood normal. SKIN: detail exam as documented in skin assessment - Constitutional Vitals: Temp Pulse Resp BP Pulse Ox 99.3 F 78 18 117/65 96 05/13/20 21:19 05/14/20 06:13 05/14/20 06:00 05/14/20 06:00 05/14/20 06:13 Plan Activity: advance as tolerated, fall precautions Diet: low fat Special Instructions: record daily weights, record daily BP diary Follow up with: PRIMARY CARE, [Primary Care Provider] - 7 Days Prescriptions: Fluticasone/Salmeterol [Advair Diskus 250-50 mcg] 1 puff IH BID #1 disk.w.dev Divalproex [DepaKOTE ] 500 mg PO BID #60 tablet Fluticasone [Flonase] 1 spray NS QDAY #1 bottle Prednisone [predniSONE 10 mg (6-Day Pack, 21 Tabs)] 10 mg PO .TAPER #1 tab.ds.pk risperiDONE [RisperDAL] 0.5 mg PO BID #60 tablet Sertraline [Zoloft] 25 mg PO QDAY #30 tab
--- NOTE | 2020-05-14 08:45 | Progress Note ---
Subjective - Reason for Consult Consult date: 05/14/20 Reason for consult: MHE Requesting physician: YAKELIN PITTMAN - Chief Complaint Chief complaint: Psych Progress HPI Patient seen in room today, reports sleeping much better than previous, nightmares gone and medication helped, still endorses hopelessness, depression but denies active SI, says it comes and goes. Review of Symptoms: Constitutional: Negative for weight loss ENT: Negative for stridor Respiratory: Negative for cough or hemoptysis All other systems reviewed and are negative MENTAL STATUS EXAMINATION General Appearance and Behavior: Age appropriate, faire hygiene, wearing appropriate clothes, lying in bed, good eye contact, cooperative polite with questioning. Cooperation: Participating/engaged Psychomotor Behavior: unremarkable and within normal limits Mood:empty Affect and affective range: flat Thought Process: Fluent/Logical, Thought Content: hopelessness Speech: Normal volume, Regular rate and rhythm Intellectual Functioning: Average Suicidal Ideation: Passive Homicidal Ideation: Denies HI Impulse Control: Unimpaired Insight and Judgment: Normal insight and judgment Memory: Normal Attention: Normal Orientation: Alert, oriented Assessment and Plan - Patient Problems (1) Bipolar 1 disorder, depressed Current Visit: Yes Status: Acute (2) Substance induced mood disorder Current Visit: Yes Status: Acute MEDICATIONS: continue current meds, pt started on ambien for sleep. Risks, benefits and alternatives of medications discussed with the patient, questions answered and consent obtained from patient. PSYCHOTHERAPY: Supportive psychotherapy provided MEDICAL: Per primary team DELIRIUM PRECAUTIONS: Please re-orient patient frequently, keep lights on during the day, and minimize benzodiazepines and opiates as these medications could worsen patient's confusion. HEARING INSTRUMENT SPECIALIST: Per medical team DISPOSITION: Recommends acute inpatient psychiatric hospitalization at this time LEGAL STATUS: 1013 FOLLOW-UP: Will follow Thank you for the consult. Please contact with any questions and/or concerns. Mental Status Exam - Vital signs Last Vital Signs Temp 99.3 F 05/13/20 21:19 Pulse 78 05/14/20 06:13 Resp 16 05/14/20 06:54 BP 117/65 05/14/20 06:00 Pulse Ox 96 05/14/20 06:13 Assessment and Plan - Patient Problems (1) Bipolar 1 disorder, depressed Current Visit: Yes Status: Acute (2) Substance induced mood disorder Current Visit: Yes Status: Acute
[2020-05-14] MEDS: BUDESONIDE 0.5 MG/2 ML NEBU IH SCH ×2 (09:00→21:01)
[2020-05-14] MEDS: IPRATROPIUM/ALBUTEROL SULFATE 3 ML AMPUL.NEB IH SCH ×2 (09:00→21:02)
[2020-05-14] MEDS: NICOTINE 21 MG/24 HR PATCH TD SCH (10:05)
[2020-05-14] MEDS: SERTRALINE 25 MG TAB PO SCH (10:05)
[2020-05-14] MEDS: DIVALPROEX DR 500 MG TAB PO SCH ×2 (10:05→23:52)
[2020-05-14] MEDS: SENNOSIDES 8.6 MG TAB PO SCH ×2 (10:05→23:52)
[2020-05-14] MEDS: risperiDONE 0.25 MG TAB PO SCH ×2 (10:17→23:51)
--- NOTE | 2020-05-14 16:57 | Progress Note ---
Assessment and Plan Assessment and plan: Patient is a 25-year-old old male with history of asthma, bipolar, depression, schizophrenia with hx of Drug abuse comes in for severe shortness of breath and wheezing and was brought in by the EMS. Per ED documentation, patient received multiple treatments with EMS but was still with rapid rate at 40 on admission, improved some on BIPAP. The patient was significantly dyspenic and unable to give any information. The Patient was recently at the hospital and was briefly intubated and extubated and discharged. No further information is available. Interval history: Since my last visit with the patient the patient was treated on BiPAP has now been off BiPAP steroids stopped continues on inhaled steroids. Urine drug screen was positive for cocaine and he did not exhibit any willingness to quit cocaine use. Was also noted to have bipolar disorder following psych evaluation and inpatient psych is recommended and this has been delaying the discharge as facility still being sought for for the patient. He remains medically stable for discharge once an inpatient facility is found 05/13: Patient is clinically stable at this point for discharge to inpatient psych. Again in summary of his clinical condition the patient had asthma exacerbation which is often exacerbated by cocaine use. Otherwise he has not had any acute exacerbations since his BiPAP discontinuation he has not had any recurrent hypoxic or hypercapnic episode. He will continue for management of his asthma on nebulizer treatments and as needed albuterol. An outpatient he will need follow-up with pulmonary physician. A peak flow meter will also be recommended to continue to monitor his progress which is standard diagnosis and management for asthmatic patients. Engine Hostler also recommends Symbicort 160 mg 2 puffs twice daily and patient continues on this. 05/14: No respiratory distress. Clinically stable. Acute Hypoxic and hypercapenia Respiratory Failure-resolved Status Asthmaticus-resolved Asthma Cocaine Dependance in prior admit Bipolar disorder Substance use disorder Left chest wall pain: Chest x-ray, negative, troponin negative EKG unremarkable Plan Continue supportive care Awaiting placement Continue nebulizer management Nebs DVT and GI prophylaxis Continue management per psych Medically stable for transfer to inpatient psych History Interval history: Patient seen and examined, ambulating with no new complaints Hospitalist Physical - Physical exam Narrative exam: VITAL SIGNS: Reviewed. GENERAL: The patient appears normally developed, vital signs as documented. HEAD: No signs of head trauma. EYES: Pupils are equal. Extraocular motions intact. EARS: Hearing grossly intact. MOUTH: Oropharynx is normal. NECK: No adenopathy, no JVD. CHEST: Chest with clear breath sounds bilaterally. No wheezes, rales, or rhonchi. CARDIAC: Regular rate and rhythm. S1 and S2, without murmurs, gallops, or rubs. VASCULAR: No Edema. Peripheral pulses normal and equal in all extremities. ABDOMEN: Soft, non tender and non distended. No rebound or guarding, and no masses palpated. Bowel Sounds normal. MUSCULOSKELETAL: Good range of motion of all major joints. Extremities without clubbing, cyanosis or edema. NEUROLOGIC EXAM: Awake alert and oriented x3 no focal sensory or strength deficits. PSYCHIATRIC: Mood normal. SKIN: detail exam as documented in skin assessment - Constitutional Vitals: Temp Pulse Resp BP Pulse Ox 98.1 F 99 H 20 127/71 97 05/14/20 13:06 05/14/20 13:06 05/14/20 13:06 05/14/20 13:06 05/14/20 13:06 HEART Score - HEART Score Troponin: Troponin T < 0.010 ng/mL (0.00-0.029) 05/10/20 19:40 Results - Labs CBC & Chem 7: 05/13/20 13:22 05/04/20 07:06 Labs: Laboratory Last Values WBC 4.6 K/mm3 (4.5-11.0) 05/13/20 13:22 RBC 3.80 M/mm3 (3.65-5.03) 05/13/20 13:22 Hgb 12.4 gm/dl (11.8-15.2) 05/13/20 13:22 Hct 36.7 % (35.5-45.6) 05/13/20 13:22 MCV 97 fl (84-94) H 05/13/20 13:22 MCH 33 pg (28-32) H 05/13/20 13:22 MCHC 34 % (32-34) 05/13/20 13:22 RDW 12.2 % (13.2-15.2) L 05/13/20 13:22 Plt Count 195 K/mm3 (140-440) 05/13/20 13:22 Lymph % (Auto) 32.2 % (13.4-35.0) 05/13/20 13:22 Kimble % (Auto) 9.1 % (0.0-7.3) H 05/13/20 13:22 Eos % (Auto) 2.9 % (0.0-4.3) 05/13/20 13:22 Baso % (Auto) 0.5 % (0.0-1.8) 05/13/20 13:22 Lymph # 1.5 K/mm3 (1.2-5.4) 05/13/20 13:22 Kimble # 0.4 K/mm3 (0.0-0.8) 05/13/20 13:22 Eos # 0.1 K/mm3 (0.0-0.4) 05/13/20 13:22 Baso # 0.0 K/mm3 (0.0-0.1) 05/13/20 13:22 Seg Neutrophils % 55.3 % (40.0-70.0) 05/13/20 13:22 Seg Neutrophils # 2.6 K/mm3 (1.8-7.7) 05/13/20 13:22 D-Dimer 377.38 ng/mlDDU (0-234) H 05/04/20 07:06 ABG pH TNR 05/03/20 22:42 POC ABG pCO2 TNR 05/03/20 22:42 POC ABG pO2 TNR 05/03/20 22:42 ABG Sodium TNR 05/03/20 22:42 ABG Potassium TNR 05/03/20 22:42 ABG Chloride TNR 05/03/20 22:42 ABG Glucose TNR 05/03/20 22:42 FiO2 TNR 05/03/20 22:42 Sodium 139 mmol/L (137-145) 05/04/20 07:06 Potassium 5.0 mmol/L (3.6-5.0) D 05/04/20 07:06 Chloride 102.0 mmol/L (98-107) 05/04/20 07:06 Carbon Dioxide 23 mmol/L (22-30) 05/04/20 07:06 Anion Gap 19 mmol/L 05/04/20 07:06 BUN 15 mg/dL (9-20) 05/04/20 07:06 Creatinine 0.9 mg/dL (0.8-1.3) 05/04/20 07:06 Estimated GFR > 60 ml/min 05/04/20 07:06 BUN/Creatinine Ratio 17 % 05/04/20 07:06 Glucose 143 mg/dL (75-100) H 05/04/20 07:06 Calcium 9.9 mg/dL (8.4-10.2) 05/04/20 07:06 Ferritin 636.4 ng/mL (30.0-300.0) H 05/03/20 18:19 Lactate Dehydrogenase 1035 units/L (91-180) H 05/03/20 18:19 Troponin T < 0.010 ng/mL (0.00-0.029) 05/10/20 19:40 C-Reactive Protein 17.70 mg/dL (0.00-1.30) H 05/03/20 18:19 Procalcitonin 1.42 ng/mL (<0.15) 05/03/20 18:19 Arterial Blood Glucose TNR 05/03/20 22:42 Arterial Blood Ionized Calcium TNR 05/03/20 22:42 Urine Opiates Screen Presumptive negative 05/04/20 16:54 Urine Methadone Screen Presumptive negative 05/04/20 16:54 Ur Barbiturates Screen Presumptive negative 05/04/20 16:54 Ur Phencyclidine Scrn Presumptive negative 05/04/20 16:54 Ur Amphetamines Screen Presumptive negative 05/04/20 16:54 U Benzodiazepines Scrn Presumptive negative 05/04/20 16:54 Urine Cocaine Screen Presumptive positive 05/04/20 16:54 U Marijuana (THC) Screen Presumptive negative 05/04/20 16:54 Drugs of Abuse Note Disclamer 05/04/20 16:54 Coronavirus (PCR) Negative (Negative) 05/04/20 08:27 Wallace/IV: Voiding Method Toilet IV Catheter Type [Right INT / Saline Lock Antecubital] IV Catheter Type [Left Hand] INT / Saline Lock Active Medications - Current Medications Current Medications: Generic Name Dose Route Start Last Admin Trade Name Freq PRN Reason Stop Dose Admin Acetaminophen 650 mg 05/03/20 12:55 05/14/20 01:54 Tylenol PO 650 mg Q6H PRN Administration Pain MILD(1-3)/Fever >100.5/ROJO Albuterol 2.5 mg 05/08/20 09:50 Proventil IH Q4HRT PRN Shortness Of Breath Albuterol/Ipratropium 1 ampul 05/12/20 20:00 05/14/20 09:00 Duoneb *Not For Prn Use* IH 1 ampul Q12HRT LARISA Administration Budesonide 0.5 mg 05/03/20 20:00 05/14/20 09:00 Pulmicort IH 0.5 mg Q12HRT LARISA Administration Divalproex Sodium 500 mg 05/07/20 22:00 05/14/20 10:[address] PO 500 mg BID LARISA Administration Guaifenesin 200 mg 05/03/20 22:21 05/14/20 05:55 Robitussin PO 200 mg Q6H PRN Administration Cough Lorazepam 1 mg 05/03/20 19:56 05/12/20 01:53 Ativan IV 1 mg Q3H PRN Administration Anxiety Naloxone HCl 0.1 mg 05/03/20 12:55 Naloxone IV Q2MIN PRN Res Rate </= 8 or 02 SAT < 92% Nicotine 21 mg 05/12/20 11:00 05/14/20 10:05 Habitrol TD 21 mg QDAY LARISA Administration Oxycodone/Acetaminophen 1 tab 05/13/20 13:05 05/14/20 15:05 Percocet 5/325 PO 1 tab Q6H PRN Administration Pain, Moderate (4-6) Prazosin HCl 1 mg 05/13/20 22:00 05/13/20 22:40 Prazosin PO 1 mg QHS LARISA Administration Risperidone 0.5 mg 05/07/20 22:00 05/14/20 10:17 Risperdal PO 0.5 mg BID LARISA Administration Senna 8.6 mg 05/03/20 22:00 05/14/20 10:05 Senokot PO 8.6 mg BID LARISA Administration Sertraline HCl 25 mg 05/05/20 11:00 05/14/20 10:05 Zoloft PO 25 mg QDAY LARISA Administration Sodium Chloride 10 ml 05/03/20 22:00 05/14/20 10:06 Sodium Chloride Flush Syringe 10 Ml IV 10 ml BID LARISA Administration Sodium Chloride 10 ml 05/03/20 12:55 Sodium Chloride Flush Syringe 10 Ml IV PRN PRN LINE FLUSH Ziprasidone 20 mg 05/04/20 12:41 Geodon IM Q6H PRN Agitation Zolpidem Tartrate 5 mg 05/12/20 22:00 05/13/20 22:28 Ambien PO 5 mg QHS LARISA Administration Nutrition/Malnutrition Assess - Dietary Evaluation Nutrition/Malnutrition Findings: Nutrition Notes Start: 05/04/20 13:41 Freq: Status: Active Protocol: Document 05/07/20 13:15 LP (Rec: 05/07/20 13:35 LP [email or web address]) Nutrition Notes Initial or Follow up Reassessment Current Diagnosis Respiratory Failure Other Pertinent Diagnosis cocaine/meth dependence, PUI COVID-19, asthma, schizophrenia Current Diet Regular Labs/Tests Reviewed Pertinent Medications Reviewed Height 5 ft 6 in Weight 61.008 kg Cameron Body Weight (kg) 64.54 BMI 21.7 Subjective/Other Data Reporting Analyst states pt is eating well. Unable to obtain nutrition hx and unable to give malnutrition dx at this time. Burn Absent Trauma Absent GI Symptoms None Minimum of two criteria No physical signs of malnutrition #1 Nutrition Diagnosis Predicted suboptimal energy intake As Evidenced by Signs and Symptoms Pt eating well Diagnosis Progress(for reassessment Resolved documentation) Is patient on ventilator? No Is Patient Ambulatory and/or Out of Bed No REE-(Cannon-St. Jeor-confined to bed) 1841.160 Calculation Used for Recommendations Cannon-St Jeor Additional Notes Protein: 49-61g (0.8-1g/kg) Fluid: 1ml/kcal Nutrition Intervention Change Diet Order: continue Goal #1 Meet at least 75% of energy and protein needs Revisit per MD consult or patient Sign Off request:
[2020-05-14] MEDS: ZOLPIDEM 5 MG TAB PO SCH (23:52)
[2020-05-14] MEDS: PRAZOSIN 1 MG CAP PO SCH (23:53)
[2020-05-15] MEDS: DIVALPROEX DR 500 MG TAB PO SCH (09:39)
[2020-05-15] MEDS: risperiDONE 0.25 MG TAB PO SCH (09:40)
[2020-05-15] MEDS: NICOTINE 21 MG/24 HR PATCH TD SCH (09:40)
[2020-05-15] MEDS: SERTRALINE 25 MG TAB PO SCH (09:40)
[2020-05-15] MEDS: SENNOSIDES 8.6 MG TAB PO SCH (09:40)
[2020-05-15] MEDS: oxyCODONE /ACETAMINOPHEN 5-325MG TAB PO PRN (09:45)
[2020-05-15 13:08] VITALS: BP 126/70
--- NOTE | 2020-05-15 13:20 | Progress Note ---
Subjective - Reason for Consult Consult date: 05/15/20 Reason for consult: Drug use - Chief Complaint Chief complaint: The patient's medical record was reviewed and the patient's progress was discussed with the nursing staff. During my interview with the patient today, he is lying in bed, awake. He is calm, cooperative and pleasant. The patient makes good eye contact. He is conversational and upbeat. He is smiling. The patient states "why am I still here. I thoughts I was going home when I last saw you." The patient denies SI/HI. He states, "look, I do not want to . I'm not feeling like that at all. I'm not suicidal or homicidal." Kanu says, "I spoke with my twins today. They are coming down here and will be with my uncle." He then states, "I'm not thinking about no drugs or none of that. I want to see my kids." The patient denies hallucinations of any kind. He calls me back into the room as I'm leaving the interview. He states, "seriously though, can you please let me go home. I'm good." REVIEW OF SYSTEMS Constitutional: Negative for weight loss ENT: Negative for stridor Respiratory: Cough All other systems reviewed and are negative, except respiratory MENTAL STATUS EXAMINATION General Appearance: Dressed appropriately Behavior: calm, cooperative. Pleasant. Good eye contact Mood: "good" the patient is upbeat Affect and affective range: Congruent with stated mood Speech: Normal volume, Regular rate and rhythm Thought Process: Goal directed Thought Content: Suicidal Ideation: Denies Homicidal Ideation: Denies Hallucinations: Denies Delusions: None elicited Insight and Judgment: Limited Memory/Cognition: Limited Assessment Bipolar Disorder, Severe, Current Episode Depressed w/o Psychotic Features Cocaine Use Disorder Substance Induced Mood Disorder RECOMMENDATIONS D/C [address] 500mg po BID Risperidone 0.5mg po BID Zoloft 25mg po daily Risks, benefits and alternatives of medications discussed with the patient, questions answered and consent obtained from patient. PSYCHOTHERAPY: Supportive psychotherapy provided MEDICAL: Per primary team DELIRIUM PRECAUTIONS: Please re-orient patient frequently, keep lights on during the day, and minimize benzodiazepines and opiates as these medications could worsen patient's confusion. COORDINATOR SKILL TRAINING PROGRAM: per medical team DISPOSITION: The patient does not meet the criteria for acute inpatient psychiatric treatment. He may discharge home once medically clear. The patient understands that if suicidal thoughts or feelings of endangerment are to arise he is to seek immediate assistance including, but not limited to the crisis hotline, 911 and/or ER. The sitter to give the patient resources for cognitive behavioral therapy, outpatient psych and drug rehabilitation programs. The sitter is also to further discuss the safety plant with the patient. The patient is to abstain from all illicit drug use and alcohol. He is to follow up with outpatient psych in 7 to 14 days upon discharge. Will sign off. Thank you for the consult. Please contact with any questions and/or concerns. Mental Status Exam - Vital signs Last Vital Signs Temp 98.6 F 05/15/20 11:02 Pulse 105 H 05/15/20 11:02 Resp 18 05/15/20 11:02 BP 126/70 05/15/20 11:02 Pulse Ox 95 05/15/20 11:02
[2020-05-15] MEDS: IPRATROPIUM/ALBUTEROL SULFATE 3 ML AMPUL.NEB IH SCH (14:44)
[2020-05-15] MEDS: BUDESONIDE 0.5 MG/2 ML NEBU IH SCH (14:44)
--- NOTE | 2020-05-15 15:25 | Discharge Summary ---
Providers - Providers Date of Admission: 05/03/20 12:22 Attending physician: YAKELIN PITTMAN MD 05/03/20 12:55 Consult to Dietitian/Nutrition [CONS] Routine Physician Instructions: Reason For Exam: Reason for Consult: Malnutrition 05/03/20 12:57 Consult to Mental Health [CONS] Routine Reason For Exam: PSYCHOSIS Primary care physician: LEGAL LIBRARIAN Hospitalization Reason for admission: asthma exacerbation Condition: Stable Hospital course: Patient is a 25-year-old old male with history of asthma, bipolar, depression, schizophrenia with hx of Drug abuse comes in for severe shortness of breath and wheezing and was brought in by the EMS. Per ED documentation, patient received multiple treatments with EMS but was still with rapid rate at 40 on admission, improved some on BIPAP. The patient was significantly dyspenic and unable to give any information. The Patient was recently at the hospital and was briefly intubated and extubated and discharged. No further information is available. Interval history: Since my last visit with the patient the patient was treated on BiPAP has now been off BiPAP steroids stopped continues on inhaled steroids. Urine drug screen was positive for cocaine and he did not exhibit any willingness to quit cocaine use. Was also noted to have bipolar disorder following psych evaluation and inpatient psych is recommended and this has been delaying the discharge as facility still being sought for for the patient. He remains medically stable for discharge once an inpatient facility is found 05/13: Patient is clinically stable at this point for discharge to inpatient psych. Again in summary of his clinical condition the patient had asthma exacerbation which is often exacerbated by cocaine use. Otherwise he has not had any acute exacerbations since his BiPAP discontinuation he has not had any recurrent hypoxic or hypercapnic episode. He will continue for management of his asthma on nebulizer treatments and as needed albuterol. An outpatient he will need follow-up with pulmonary physician. A peak flow meter will also be recommended to continue to monitor his progress which is standard diagnosis and management for asthmatic patients. Foam Tank Laminator also recommends Symbicort 160 mg 2 puffs twice daily and patient continues on this. 05/14: Patient clinically stable, BP has remained stable, will stop BP meds at this time. Patient leukopenia resolved. Pending bed for discharged to inpatient psych facility. He remains clinically stable for discharge. 05/15: Patient clinically stable seen by psychiatrist today and considering his improvement rescinded 1013 he is stable to be discharged. Acute Hypoxic and hypercapenia Respiratory Failure-resolved Status Asthmaticus-resolved Asthma Cocaine Dependance in prior admit Bipolar disorder Substance use disorder Left chest wall pain: Chest x-ray, negative, troponin negative EKG unremarkable Leukopenia Disposition: DC-01 TO HOME OR SELFCARE Time spent for discharge: 35 mins Core Measure Documentation - Palliative Care Palliative Care/ Comfort Measures: Not Applicable - Core Measures Any of the following diagnoses?: none Exam - Physical Exam Narrative exam: VITAL SIGNS: Reviewed. GENERAL: The patient appears normally developed, vital signs as documented. HEAD: No signs of head trauma. EYES: Pupils are equal. Extraocular motions intact. EARS: Hearing grossly intact. MOUTH: Oropharynx is normal. NECK: No adenopathy, no JVD. CHEST: Chest with clear breath sounds bilaterally. No wheezes, rales, or rhonchi. CARDIAC: Regular rate and rhythm. S1 and S2, without murmurs, gallops, or rubs. VASCULAR: No Edema. Peripheral pulses normal and equal in all extremities. ABDOMEN: Soft, non tender and non distended. No rebound or guarding, and no masses palpated. Bowel Sounds normal. MUSCULOSKELETAL: Good range of motion of all major joints. Extremities without clubbing, cyanosis or edema. NEUROLOGIC EXAM: Awake alert and oriented x3 no focal sensory or strength deficits. PSYCHIATRIC: Mood normal. SKIN: detail exam as documented in skin assessment - Constitutional Vitals: Temp Pulse Resp BP Pulse Ox 98.6 F 105 H 18 126/70 95 05/15/20 11:02 05/15/20 14:45 05/15/20 14:45 05/15/20 11:02 05/15/20 11:02 Plan Activity: advance as tolerated, fall precautions Diet: low fat Special Instructions: record daily BP diary, smoking cessation Follow up with: PRIMARY CARE, [Primary Care Provider] - 7 Days Prescriptions: Fluticasone/Salmeterol [Advair Diskus 250-50 mcg] 1 puff IH BID #1 disk.w.dev Divalproex [DepaKOTE ] 500 mg PO BID #60 tablet Fluticasone [Flonase] 1 spray NS QDAY #1 bottle Prednisone [predniSONE 10 mg (6-Day Pack, 21 Tabs)] 10 mg PO .TAPER #1 tab.ds.pk risperiDONE [RisperDAL] 0.5 mg PO BID #60 tablet Sertraline [Zoloft] 25 mg PO QDAY #30 tab
== END 2020-05-15 15:25 | disposition home or self-care (01) | DRG 189 ==
LOC: ED 10:15 → CC1 12:22 → IMCU 13:03 → 3A 05-05 20:16
PROVIDERS: ADMIT Internal Medicine; ATTEND Internal Medicine
PROC: 5A09357 Assistance with Respiratory Ventilation, Less than 24 Consecutive Hours, Continuous Positive Airway Pressure (ICD-10-PCS; principal; 2020-05-03)
PROC: 4A033R1 Measurement of Arterial Saturation, Peripheral, Percutaneous Approach (ICD-10-PCS; 2020-05-03)
DX: J96.02 Acute respiratory failure with hypercapnia (principal); J45.902 Unspecified asthma with status asthmaticus; F31.4 Bipolar disorder, current episode depressed, severe, without psychotic features; J96.01 Acute respiratory failure with hypoxia; F20.9 Schizophrenia, unspecified; D72.819 Decreased white blood cell count, unspecified; F19.90 Other psychoactive substance use, unspecified, uncomplicated; F14.90 Cocaine use, unspecified, uncomplicated; I10 Essential (primary) hypertension; Z79.899 Other long term (current) drug therapy; Z03.818 Encounter for observation for suspected exposure to other biological agents ruled out
CPT/HCPCS: 36415; 36600; 71045; 80048; 80307; 82728; 82805; 82947; 83615; 84145; 84484; 85025; 85379; 86140; 93005; 94640; 94644; 94760; G0378; J0330; J1200; J1630; J1940; J2060; J2920; J2930; J3475; J7030; U0003-CS

== ENCOUNTER 2020-06-20 03:59 | Inpatient (IN) | payer OTHER, SELFPAY ==
[~2020-06-20 03:59] MED LIST: ETOMIDATE 20 MG/10 ML INJ IV ONE; MIDAZOLAM 5 MG/5 ML INJ MDV IV ONE; SUCCINYLCHOLINE CHLORIDE 200 MG/10 ML INJ MDV ONE
[2020-06-20] MEDS ORDERED: ALBUTEROL 2.5 MG/3 ML NEBU IH ONE ×2 (04:07→04:09)
[2020-06-20] MEDS ORDERED: methylPREDNISolone Sod Succinate 125 MG/2 ML INJ IV ONE (04:07)
[2020-06-20] MEDS ORDERED: MAGNESIUM SULFATE 2 GM/50 ML BAG IV ONE (04:07)
[2020-06-20] MEDS ORDERED: IPRATROPIUM 0.02% NEBU 2.5 ML IH ONE ×2 (04:07→04:09)
--- NOTE | 2020-06-20 04:14 | Emergency Department Report ---
ED Asthma HPI - General Stated Complaint: ASTHMA/SOB PUI?: No Time Seen by Provider: 06/20/20 04:07 Source: patient, old records reviewed Mode of arrival: Ambulatory Limitations: No Limitations - History of Present Illness Initial Comments: CC: "I need CPAP." HPI: Mr. Velasco is a 25 yo male with hx of severe asthma persistent, tobacco abuse, bipolar disorder who presents with one day of wheezing and shortness of breath. Home treatment did not provide relief. Hx of previous intubation. Hx of multiple hospitalizations for asthma. MD Complaint: "asthma attack", shortness of breath, wheezing -: Gradual, days(s) (1) Asthma History: childhood onset, history of frequent attac, history of prior ED visit, previously intubated Severity: severe Context: medication non-compliance Associated Symptoms: none - Related Data Previous Rx's Medication Instructions Recorded Last Taken Type Cetirizine HCl [ZyrTEC 10mg cap] 10 mg PO DAILY #30 capsule 05/30/19 Unknown Rx Nebulizer and Compressor [[place] 1 each MC TID PRN #1 each 04/09/20 Unknown Rx Choice Nebulizer] Fluticasone [Flonase] 1 spray NS QDAY #1 bottle 05/06/20 Unknown Rx Fluticasone/Salmeterol [Advair 1 puff IH BID #1 disk.w.dev 05/06/20 Unknown Rx Diskus 250-50 mcg] Prednisone [predniSONE 10 mg 10 mg PO .TAPER #1 tab.ds.pk 05/06/20 Unknown Rx (6-Day Pack, 21 Tabs)] Albuterol Mdi (or & Nicu Only) 2 puff IH Q4HRT PRN inha 05/07/20 Unknown Rx [ProAir HFA Inhaler] Divalproex Dr [Johan GARCIA] 500 mg PO BID #60 tablet 05/15/20 Unknown Rx Sertraline [Zoloft] 25 mg PO QDAY #30 tab 05/15/20 Unknown Rx risperiDONE [RisperDAL] 0.5 mg PO BID #60 tablet 05/15/20 Unknown Rx Allergies Allergy/AdvReac Type Severity Reaction Status Date / Time No Known Allergies Allergy Verified 09/23/15 15:43 ED Review of Systems ROS: Stated complaint: ASTHMA/SOB Other details as noted in HPI Comment: All other systems reviewed and negative Constitutional: denies: fever, malaise Respiratory: shortness of breath, wheezing Cardiovascular: denies: chest pain Gastrointestinal: denies: abdominal pain, nausea, vomiting ED Past Medical Hx - Past Medical History Previous Medical History?: Yes Hx Psychiatric Treatment: Yes (bipolar, depression, schizophrenia) Hx Asthma: Yes (intubation) Hx Tuberculosis: No Additional medical history: Eczema - Surgical History Additional Surgical History: HERNIA REPAIR - Social History Smoking Status: Current Every Day Smoker - Medications Home Medications: Home Medications Medication Instructions Recorded Confirmed Last Taken Type Cetirizine HCl [ZyrTEC 10mg cap] 10 mg PO DAILY #30 capsule 05/30/19 05/07/20 Unknown Rx Nebulizer and Compressor [[place] 1 each MC TID PRN #1 each 04/09/20 05/07/20 Unknown Rx Choice Nebulizer] Fluticasone [Flonase] 1 spray NS QDAY #1 bottle 05/06/20 Unknown Rx Fluticasone/Salmeterol [Advair 1 puff IH BID #1 disk.w.dev 05/06/20 Unknown Rx Diskus 250-50 mcg] Prednisone [predniSONE 10 mg 10 mg PO .TAPER #1 tab.ds.pk 05/06/20 Unknown Rx (6-Day Pack, 21 Tabs)] Albuterol Mdi (or & Nicu Only) 2 puff IH Q4HRT PRN inha 05/07/20 Unknown Rx [ProAir HFA Inhaler] Divalproex Dr [DepaKOTE DR] 500 mg PO BID #60 tablet 05/15/20 Unknown Rx Sertraline [Zoloft] 25 mg PO QDAY #30 tab 05/15/20 Unknown Rx risperiDONE [RisperDAL] 0.5 mg PO BID #60 tablet 05/15/20 Unknown Rx ED Physical Exam - General General appearance: alert, anxious, in distress, other (tripod position on edge of stretcher, restless) - Head Head exam: Present: atraumatic, normocephalic - Eye Eye exam: Present: normal appearance - ENT ENT exam: Present: mucous membranes moist - Neck Neck exam: Present: normal inspection - Respiratory Respiratory exam: Present: respiratory distress, wheezes, decreased breath sounds, prolonged expiratory. Absent: rales, rhonchi - Cardiovascular Cardiovascular Exam: Present: normal rhythm, tachycardia, normal heart sounds. Absent: systolic murmur, diastolic murmur, rubs, gallop - GI/Abdominal GI/Abdominal exam: Present: soft, normal bowel sounds. Absent: distended, tenderness, guarding, rebound - Rectal Rectal exam: Present: deferred - Extremities Exam Extremities exam: Present: normal inspection - Neurological Exam Neurological exam: Present: alert, oriented X3 - Psychiatric Psychiatric exam: Present: normal affect, normal mood, anxious - Skin Skin exam: Present: warm, dry, intact, normal color. Absent: rash ED Course Vital Signs 06/20/20 06/20/20 06/20/20 04:07 05:18 05:22 Pulse Rate 103 H 114 H Pulse Rate [ 141 H Bilateral Throughout] Respiratory 20 Rate Respiratory 24 Rate [Bilateral Throughout] Blood Pressure 147/82 Blood Pressure 151/99 [left arm] O2 Sat by Pulse 99 98 Oximetry 06/20/20 05:33 Pulse Rate 105 H Pulse Rate [ Bilateral Throughout] Respiratory 23 Rate Respiratory Rate [Bilateral Throughout] Blood Pressure Blood Pressure [left arm] O2 Sat by Pulse 98 Oximetry - Intubation Time Out Performed: Yes Sedative: Etomidate Mg Given: 20 Mg Given: 150 Laryngoscope: fiberoptic video scope Size: 4 ET Tube Size: 7.5 Tube Secured Depth (cm): 24 Tube Secured Location: lips Tube Placement Confirmation: visualized tube passing t Patient Tolerated Procedure: well Intubation Complications: none ED Medical Decision Making - Lab Data Result diagrams: 06/20/20 04:38 06/20/20 04:38 - Radiology Data Radiology results: report reviewed CHEST 1 VIEW INDICATION: Asthma COMPARISON: 05/10/2020 FINDINGS: Support devices: Endotracheal tube in good position. Heart: Normal Lungs/Pleura: No acute pulmonary or pleural findings. IMPRESSION: 1. No acute disease. Endotracheal tube in good position. - Medical Decision Making Mr. Velasco presents with status asthmaticus. Shortly after arrival to treatment room, patient became agitated. Sweaty. He appeared delirious. Oxygen saturations 94% on room air. I immediately asked nurse to administer epinephrine subcutaneously. Patient also received IV lorazepam and IV Zofran. Patient initially wanted a trial of BiPAP, however due to coughing and vomiting prohibited noninvasive positive pressure ventilation. Patient became increas ingly agitated. I was concerned for hypoxia and hypercapnia. Patient would not allow preoxygenation with nonrebreather nor application of nebulizer treatment. Patient required physical restraint while nonrebreather provided preoxygenation in preparation for emergent intubation. RSI performed without complication. Patient admitted to the CCU in fair condition. Critical Care Time: Yes Critical care time in (mins) excluding proc time.: 40 Critical care attestation.: If time is entered above; I have spent that time in minutes in the direct care of this critically ill patient, excluding procedure time. 40 minutes of critical care time excluding procedures were used in the care of the patient. I came immediately to the bedside upon patient's arrival. Nurse bridge/structure inspection team leader informed me that patient had severe work of breathing. I discussed treatment plan with the nursing team members and respiratory therapist. I re viewed electronic record. Patient required multiple interventions and reassessments. With history of intubation and patient's obvious work of breathing I was concerned for imminent airway compromise. ED Disposition Clinical Impression: Status asthmaticus, Acute respiratory failure with hypoxia Disposition: OP ADMIT IP TO THIS HOSP Is pt being admited?: Yes Does the pt Need Aspirin: No Condition: Fair
[2020-06-20] MEDS ORDERED: ONDANSETRON 4 MG/2 ML INJ ONE (04:18)
[2020-06-20] MEDS ORDERED: LORazepam 2 MG/ML VIAL ONE ×2 (04:18→04:26)
[2020-06-20] MEDS ORDERED: EPINEPHrine/PF 1 MG/1 ML INJ ONE (04:20)
[2020-06-20] MEDS ORDERED: LORazepam 2 MG/ML VIAL IV ONE (04:36)
[2020-06-20] MEDS ORDERED: EPINEPHrine/PF 1 MG/1 ML INJ SUB-Q ONE (04:36)
[2020-06-20] MEDS ORDERED: ONDANSETRON 4 MG/2 ML INJ IV ONE (04:37)
[2020-06-20] MEDS ORDERED: SODIUM CHLORIDE 0.9% 1000 ML 1,000 ML IV ONE (04:37)
[2020-06-20] MEDS ORDERED: MINERAL OIL/PETROLATUM, WHITE OPHTH OINT 3.5 GM OU PRN (04:37)
[2020-06-20] MEDS ORDERED: LIP THERAPY VASELINE TP PRN (04:37)
[2020-06-20] MEDS ORDERED: ETOMIDATE 20 MG/10 ML INJ IV ONE (04:42)
[2020-06-20] MEDS ORDERED: SUCCINYLCHOLINE CHLORIDE 200 MG/10 ML INJ MDV IV ONE (04:42)
[2020-06-20 04:50] LABS: Basophils # (Auto) 0.1 K/mm3 (0.0-0.1); Basophils % (Auto) 0.6 % (0.0-1.8); Eosinophils # (Auto) 0.6 K/mm3 (0.0-0.4); Eosinophils % (Auto) 6.4 % (0.0-4.3); Hematocrit 46.2 % (35.5-45.6); Hemoglobin 16.2 gm/dl (11.8-15.2); Lymphocytes # (Auto) 2.4 K/mm3 (1.2-5.4); Lymphocytes % (Auto) 25.7 % (13.4-35.0); Mean Corpuscular HGB Conc 35 % (32-34); Mean Corpuscular Volume 96 fl (84-94); Monocytes # (Auto) 0.5 K/mm3 (0.0-0.8); Monocytes % (Auto) 4.8 % (0.0-7.3); Red Blood Count 4.81 M/mm3 (3.65-5.03); Red Cell Distribution Width 12.3 % (13.2-15.2)
[2020-06-20 04:54] LABS: Platelet Count 233 K/mm3 (140-440)
[2020-06-20] MEDS ORDERED: MIDAZOLAM 5 MG/5 ML INJ MDV IV NR (05:00)
--- NOTE | 2020-06-20 05:22 | XRay Report ---
CHEST 1 VIEW INDICATION: Asthma COMPARISON: 05/10/2020 FINDINGS: Support devices: Endotracheal tube in good position. Heart: Normal Lungs/Pleura: No acute pulmonary or pleural findings. IMPRESSION: 1. No acute disease. Endotracheal tube in good position. Signer Name: Finn Pierce MD Signed: 06/20/2020 5:17 AM Workstation Name: [id number]
[2020-06-20 05:51] LABS: BUN/Creatinine Ratio TNR; Blood Urea Nitrogen TNR mg/dL (9-20)
[2020-06-20 05:52] LABS: Calcium TNR mg/dL (8.4-10.2); Hemolysis Index TNR
[2020-06-20 06:14] LABS: Bacteria,Urine 1+ /HPF (Negative); Bilirubin,Urine NEG (Negative); Blood,Urine SM (Negative); Color,Urine Yellow (Yellow); Mucus,Urine FEW /HPF; Urobilinogen,Urine < 2.0 mg/dL (<2.0)
[2020-06-20 06:21] LABS: Amphetamine Screen,Urine Negative; Benzodiazepines Screen,Urine Negative; Cannabinoid Screen,Urine Negative; Methadone Screen,Urine Negative; Opiate Screen,Urine Negative
[2020-06-20 06:51] LABS: Cocaine Screen,Urine Positive
[2020-06-20 07:04] LABS: Alanine Aminotransferase 17 units/L (7-56); Albumin 4.4 g/dL (3.9-5); BUN/Creatinine Ratio 11; Blood Urea Nitrogen 10 mg/dL (9-20); Calcium 8.5 mg/dL (8.4-10.2); Hemolysis Index 97
--- NOTE | 2020-06-20 10:30 | History and Physical Report ---
<DIXIE NOVA - Last Filed: 06/20/20 15:51> History of Present Illness Date of examination: 06/20/20 Date of admission: 06/20/20 04:58 Chief complaint: Status asthmatus History of present illness: This is a 25 yo male with hx of severe asthma persistent and hx of multiple admission and intubation. He has hx of tobacco use and bipolar disorder He presents to ED worsening wheezing and shortness of breath. Unable to obtain full history due to patient orally intubated and sedated on propofol Most of the history obtained fro ED note and medical record Ed Work up shows WBC 9.4, hemoglobin 16.2, Sodium 142, potassium 5.1, serum blood sugar 178 Chest x-ray shows ET in place-no acute process Past History Past Medical History: other (asthma) Past Surgical History: No surgical history, Other Social history: smoking Medications and Allergies Allergies Allergy/AdvReac Type Severity Reaction Status Date / Time No Known Allergies Allergy Verified 09/23/15 15:43 Home Medications Medication Instructions Recorded Confirmed Last Taken Type Cetirizine HCl [ZyrTEC 10mg cap] 10 mg PO DAILY #30 capsule 05/30/19 05/07/20 Unknown Rx Nebulizer and Compressor [[place] 1 each MC TID PRN #1 each 04/09/20 05/07/20 Unknown Rx Choice Nebulizer] Fluticasone [Flonase] 1 spray NS QDAY #1 bottle 05/06/20 Unknown Rx Fluticasone/Salmeterol [Advair 1 puff IH BID #1 disk.w.dev 05/06/20 Unknown Rx Diskus 250-50 mcg] Prednisone [predniSONE 10 mg 10 mg PO .TAPER #1 tab.ds.pk 05/06/20 Unknown Rx (6-Day Pack, 21 Tabs)] Albuterol Mdi (or & Nicu Only) 2 puff IH Q4HRT PRN inha 05/07/20 Unknown Rx [ProAir HFA Inhaler] Divalproex [Johan GARCIA] 500 mg PO BID #60 tablet 05/15/20 Unknown Rx Sertraline [Zoloft] 25 mg PO QDAY #30 tab 05/15/20 Unknown Rx risperiDONE [RisperDAL] 0.5 mg PO BID #60 tablet 05/15/20 Unknown Rx Active Meds: Active Medications Hydrophilic Ointment (Vaseline Lip Therapy) 1 applic TP Q2HR PRN PRN Reason: Dry Lips Propofol (Diprivan 10 Mg/Ml) 1,000 mg in 100 mls @ 1.77 mls/hr IV TITR LARISA; Protocol Last Titration: 06/20/20 09:05 Dose: 50 mcg/kg/min, 17.7 mls/hr Documented by: Midazolam HCl (Versed) 5 mg IV ONCE NR Stop: 06/20/20 23:45 Last Admin: 06/20/20 04:40 Dose: 5 mg Documented by: Multi-Ingred Cream/Lotion/Oil/Oint (Artificial Tears Ophth Oint) 1 applic OU Q4HR PRN PRN Reason: Dry Eye(s) Review of Systems Constitutional: lethargy (due to sedation) Exam - Constitutional Vitals: Temp Pulse Resp BP Pulse Ox 97 H 28 H 127/81 96 06/20/20 09:04 06/20/20 08:45 06/20/20 09:04 06/20/20 09:04 General appearance: Present: mild distress - Respiratory Respiratory effort: accessory muscle use, other (Wheezing on auscultation) - Cardiovascular Heart Sounds: Present: S1 & S2. Absent: rub, click - Extremities Extremities: pulses symmetrical, No edema Peripheral Pulses: within normal limits - Abdominal Male genitourinary: Present: normal - Integumentary Integumentary: Present: clear, warm, dry - Musculoskeletal Musculoskeletal: strength equal bilaterally - Psychiatric Psychiatric: other (sedated) - Allied Health Allied health notes reviewed: nursing Results - Labs CBC & Chem 7: 06/20/20 04:38 06/20/20 05:51 Labs: Abnormal lab results 06/20/20 06/20/20 06/20/20 Range/Units 04:38 05:16 05:51 Hgb 16.2 H (11.8-15.2) gm/dl Hct 46.2 H (35.5-45.6) % MCV 96 H (84-94) fl MCH 34 H (28-32) pg MCHC 35 H (32-34) % RDW 12.3 L (13.2-15.2) % Eos % (Auto) 6.4 H (0.0-4.3) % Eos # (Auto) 0.6 H (0.0-0.4) K/mm3 ABG pH 7.142 L (7.320-7.450) POC ABG pCO2 69.3 H (32.0-48.0) mmHg POC ABG pO2 219.5 H (83-108) mmHg ABG Glucose 162 H (65-95) mg/dL Potassium 5.1 H (3.6-5.0) mmol/L Carbon Dioxide 20 L (22-30) mmol/L Glucose 178 H (75-100) mg/dL Arterial Blood Glucose 162 H (65-95) mg/dL 06/20/20 Range/Units 09:26 Hgb (11.8-15.2) gm/dl Hct (35.5-45.6) % MCV (84-94) fl MCH (28-32) pg MCHC (32-34) % RDW (13.2-15.2) % Eos % (Auto) (0.0-4.3) % Eos # (Auto) (0.0-0.4) K/mm3 ABG pH (7.320-7.450) POC ABG pCO2 (32.0-48.0) mmHg POC ABG pO2 (83-108) mmHg ABG Glucose 113 H (65-95) mg/dL Potassium (3.6-5.0) mmol/L Carbon Dioxide (22-30) mmol/L Glucose (75-100) mg/dL Arterial Blood Glucose 113 H (65-95) mg/dL Assessment and Plan - Patient Problems (1) Tobacco dependence Current Visit: Yes Status: Acute Plan to address problem: Will discussed tobacco use cessation when patient stable and awake (2) Acute respiratory failure with hypoxia Current Visit: Yes Status: Acute Plan to address problem: Respiratory care-bronchodilator -oxygen supplementation and ABGs ET in placed appreciated -on chest x-ray Rcis following oral hygiene Start empiric abx with Azithromycin daily (3) Status asthmaticus Current Visit: Yes Status: Acute Plan to address problem: Presently intubated Chest x-ray shows ET in place Rcis consulted Continue abx therapy, Systemic steroids and bronchodilator (4) Bipolar 1 disorder, depressed Current Visit: No Status: Acute Plan to address problem: Will resume home anti-depressant Depakote and risperadone (5) DVT prophylaxis Current Visit: No Status: Acute Plan to address problem: Lovenox SCD while on the bed (6) Cocaine dependence Current Visit: No Status: Chronic Qualifiers: Substance use status: in withdrawal Qualified Code(s): F14.23 - Cocaine dependence with withdrawal Plan to address problem: Will discuss substance use cessation when patient is stable <TYLER HENRIQUEZ R - Last Filed: 06/21/20 14:55> History of Present Illness Date of admission: 06/20/20 04:58 Medications and Allergies Active Meds: Active Medications Albuterol/Ipratropium (Duoneb *Not For Prn Use*) 1 ampul IH Q6HRT LARISA Last Admin: 06/21/20 14:13 Dose: 1 ampul Documented by: Enoxaparin Sodium (Enoxaparin) 40 mg SUB-Q QDAY@2200 LARISA; Protocol Famotidine (Pepcid) 20 mg PO QDAY LARISA Last Admin: 06/21/20 13:51 Dose: 20 mg Documented by: Fentanyl (Sublimaze) 50 mcg IV Q10MIN PRN PRN Reason: ANALGESIA Hydrophilic Ointment (Vaseline Lip Therapy) 1 applic TP Q2HR PRN PRN Reason: Dry Lips Propofol (Diprivan 10 Mg/Ml) 1,000 mg in 100 mls @ 1.77 mls/hr IV TITR LARISA; Protocol Last Titration: 06/21/20 10:06 Dose: 0 mcg/kg/min, 0 mls/hr Documented by: Azithromycin 500 mg/ Sodium (Chloride) 250 mls @ 250 mls/hr IV Q24H LARISA; Protoc ol Last Admin: 06/21/20 11:50 Dose: 250 mls/hr Documented by: Fentanyl Citrate (Fentanyl Drip Premix) 2,000 mcg in 100 mls @ 5.9 mls/hr IV TITR LARISA; Protocol Last Titration: 06/21/20 11:49 Dose: 0 mcg/kg/hr, 0 mls/hr Documented by: Methylprednisolone Sodium Succinate (Solu-Medrol) 80 mg IV Q8H LARISA Last Admin: 06/21/20 11:50 Dose: 80 mg Documented by: Multi-Ingred Cream/Lotion/Oil/Oint (Artificial Tears Ophth Oint) 1 applic OU Q4HR PRN PRN Reason: Dry Eye(s) Risperidone (Risperdal) 0.5 mg PO BID [facility] Last Admin: 06/21/20 09:04 Dose: 0.5 mg Documented by: Valproic Acid (Depakene Liq) 500 mg FEEDTUBE Q12HR [facility] Last Admin: 06/21/20 09:04 Dose: 500 mg Documented by: Exam - Constitutional Vitals: Temp Pulse Resp BP Pulse Ox 97.6 F 87 10 L 120/91 96 06/21/20 11:46 06/21/20 14:30 06/21/20 14:30 06/21/20 14:30 06/21/20 14:30 Results - Labs CBC & Chem 7: 06/20/20 04:38 06/20/20 05:51 Labs: Abnormal lab results 06/21/20 Range/Units 04:40 ABG pO2 67.9 L (80.0-90.0) mm Hg ABG HCO3 26.1 H (20.0-26.0) mmol/L ABG O2 Saturation 94.6 L (95.0-99.0) % ABG Hemoglobin 10.6 L (14.0-18.0) gm/dl Oxyhemoglobin 92.8 L (95.0-99.0) % Assessment and Plan I saw and evaluated the patient. I agree with the findings and the plan of care as documented in the Nurse Practitioner's~note, with the following corrections and additions. Will order for COVID-19, monitor BMP and potassium level for hyperkalemia
[2020-06-20] MEDS ORDERED: methylPREDNISolone Sod Succinate 125 MG/2 ML INJ ONE (11:45)
[2020-06-20] MEDS: methylPREDNISolone Sod Succinate 125 MG/2 ML INJ IV SCH ×2 (11:45→21:05)
[2020-06-20] MEDS ORDERED: DIVALPROEX DR 500 MG TAB ONE (11:46)
[2020-06-20] MEDS: AZITHROMYCIN 500 MG in SODIUM CHLORIDE 0.9% 250ML 250 ML IV SCH (11:46)
[2020-06-20] MEDS: DIVALPROEX DR 250 MG TAB PO SCH ×2 (11:50→23:10)
[2020-06-20] MEDS ORDERED: IPRATROPIUM/ALBUTEROL SULFATE 3 ML AMPUL.NEB IH ONE (13:06)
[2020-06-20] MEDS: IPRATROPIUM/ALBUTEROL SULFATE 3 ML AMPUL.NEB IH SCH ×2 (13:07→20:41)
--- NOTE | 2020-06-20 16:35 | Consultation ---
History of Present Illness Consult date: 06/20/20 Requesting physician: BHUMI CRUZ Reason for consult: asthma (Status), other (Acute Hypoxemic Respiratory Failure) History of present illness: PULMONARY/CCM CONSULT NOTE (Full dictation # [id number]) Please see dictated notes for full details Past History Past Medical History: other (asthma) Past Surgical History: No surgical history, Other Social history: smoking Medications and Allergies Allergies Allergy/AdvReac Type Severity Reaction Status Date / Time No Known Allergies Allergy Verified 09/23/15 15:43 Home Medications Medication Instructions Recorded Confirmed Last Taken Type Cetirizine HCl [ZyrTEC 10mg cap] 10 mg PO DAILY #30 capsule 05/30/19 05/07/20 Unknown Rx Nebulizer and Compressor [[place] 1 each MC TID PRN #1 each 04/09/20 05/07/20 Unknown Rx Choice Nebulizer] Fluticasone [Flonase] 1 spray NS QDAY #1 bottle 05/06/20 Unknown Rx Fluticasone/Salmeterol [Advair 1 puff IH BID #1 disk.w.dev 05/06/20 Unknown Rx Diskus 250-50 mcg] Prednisone [predniSONE 10 mg 10 mg PO .TAPER #1 tab.ds.pk 05/06/20 Unknown Rx (6-Day Pack, 21 Tabs)] Albuterol Mdi (or & Nicu Only) 2 puff IH Q4HRT PRN inha 05/07/20 Unknown Rx [ProAir HFA Inhaler] Divalproex Dr [Johan DE LEÓN] 500 mg PO BID #60 tablet 05/15/20 Unknown Rx Sertraline [Zoloft] 25 mg PO QDAY #30 tab 05/15/20 Unknown Rx risperiDONE [RisperDAL] 0.5 mg PO BID #60 tablet 05/15/20 Unknown Rx Active Meds: Active Medications Albuterol/Ipratropium (Duoneb *Not For Prn Use*) 1 ampul IH Q6HRT [facility] Last Admin: 06/20/20 13:07 Dose: 1 ampul Documented by: Divalproex Sodium (Johan De León) 500 mg PO BID [facility] Last Admin: 06/20/20 11:50 Dose: Not Given Documented by: Hydrophilic Ointment (Vaseline Lip Therapy) 1 applic TP Q2HR PRN PRN Reason: Dry Lips Propofol (Diprivan 10 Mg/Ml) 1,000 mg in 100 mls @ 1.77 mls/hr IV TITR LARISA; Protocol Last Titration: 06/20/20 09:05 Dose: 50 mcg/kg/min, 17.7 mls/hr Documented by: Azithromycin 500 mg/ Sodium (Chloride) 250 mls @ 250 mls/hr IV Q24H LARISA; Protocol Last Admin: 06/20/20 11:46 Dose: 250 mls/hr Documented by: Methylprednisolone Sodium Succinate (Solu-Medrol) 80 mg IV Q8H LARISA Last Admin: 06/20/20 11:45 Dose: 80 mg Documented by: Midazolam HCl (Versed) 5 mg IV ONCE NR Stop: 06/20/20 23:45 Last Admin: 06/20/20 04:40 Dose: 5 mg Documented by: Multi-Ingred Cream/Lotion/Oil/Oint (Artificial Tears Ophth Oint) 1 applic OU Q4HR PRN PRN Reason: Dry Eye(s) Risperidone (Risperdal) 0.5 mg PO BID [facility] Physical Examination Vital signs: Vital Signs Pulse Resp BP Pulse Ox 103 H 20 151/99 99 06/20/20 04:07 06/20/20 04:07 06/20/20 04:07 06/20/20 04:07 Results - Laboratory Findings CBC and BMP: 06/20/20 04:38 06/20/20 05:51 ABG ABG pH 7.354 (7.320-7.450) 06/20/20 09:26 POC ABG pCO2 37.0 mmHg (32.0-48.0) 06/20/20 09:26 POC ABG pO2 107.2 mmHg (83-108) 06/20/20 09:26 POC ABG HCO3 20.2 06/20/20 09:26 Abnormal lab findings: Abnormal Labs 06/20/20 06/20/20 06/20/20 04:38 05:16 05:51 Hgb 16.2 H Hct 46.2 H MCV 96 H MCH 34 H MCHC 35 H RDW 12.3 L Eos % (Auto) 6.4 H Eos # (Auto) 0.6 H ABG pH 7.142 L POC ABG pCO2 69.3 H POC ABG pO2 219.5 H ABG Glucose 162 H Potassium 5.1 H Carbon Dioxide 20 L Glucose 178 H Arterial Blood Glucose 162 H 06/20/20 09:26 Hgb Hct MCV MCH MCHC RDW Eos % (Auto) Eos # (Auto) ABG pH POC ABG pCO2 POC ABG pO2 ABG Glucose 113 H Potassium Carbon Dioxide Glucose Arterial Blood Glucose 113 H
[2020-06-20] MEDS ORDERED: fentaNYL 100 MCG/2 ML INJ IV PRN (17:21)
[2020-06-20] MEDS: fentaNYL DRIP Premix 2,000 MCG/100 ML BAG IV SCH (17:28)
[2020-06-20] MEDS: risperiDONE 0.25 MG TAB PO SCH (21:06)
[2020-06-20] MEDS: VALPROIC ACID 250 MG/5 ML ORAL LIQD FEEDTUBE SCH (23:25)
[2020-06-21] MEDS: IPRATROPIUM/ALBUTEROL SULFATE 3 ML AMPUL.NEB IH SCH ×4 (01:33→20:35)
[2020-06-21] MEDS: methylPREDNISolone Sod Succinate 125 MG/2 ML INJ IV SCH ×3 (03:37→20:48)
[2020-06-21 05:53] LABS: ABG Base Excess 1.3 mmol/L (-2.0-3.0); ABG HCO3 26.1 mmol/L (20.0-26.0); ABG Methemoglobin 0.4 % (0.0-1.5); ABG Oxygen Saturation 94.6 % (95.0-99.0); ABG PH 7.41 pH Units (7.350-7.450); ABG PO2 67.9 mm Hg (80.0-90.0)
[2020-06-21] MEDS: fentaNYL DRIP Premix 2,000 MCG/100 ML BAG IV SCH (07:19)
--- NOTE | 2020-06-21 08:53 | Progress Note ---
<DIXIE NOVA - Last Filed: 06/21/20 14:16> Assessment and Plan - Patient Problems (1) Tobacco dependence Current Visit: Yes Status: Acute Plan to address problem: Will discussed tobacco use cessation when patient stable and awake (2) Acute respiratory failure with hypoxia Current Visit: Yes Status: Acute Plan to address problem: espiratory care-bronchodilator -oxygen supplementation and ABGs ET in placed appreciated -on chest x-ray Glazing Superintendent following oral hygiene Continue empiric abx with Azithromycin daily Covid test ordere-f/u with result (3) Status asthmaticus Current Visit: Yes Status: Acute Plan to address problem: Presently intubated Chest x-ray shows ET in place Glazing Superintendent consulted Continue abx therapy, Systemic steroids and bronchodilator Wheezing improving (4) Bipolar 1 disorder, depressed Current Visit: No Status: Acute Plan to address problem: Will resume home anti-depressant Depakote and risperadone (5) DVT prophylaxis Current Visit: No Status: Acute Plan to address problem: Lovenox SCD while on the bed (6) Cocaine dependence Current Visit: No Status: Chronic Qualifiers: Substance use status: in withdrawal Qualified Code(s): F14.23 - Cocaine dependence with withdrawal Plan to address problem: Will discuss substance use cessation when patient is stable Subjective Date of service: 06/21/20 Principal diagnosis: Asthma Interval history: Reviewed lab, mar, and v/s Patient seen at bedside. Wheezing has improved Patient still orally intubated-on propofol for sedation Objective - Constitutional Vitals: Vital Signs - 12hr 06/20/20 06/20/20 06/20/20 21:00 21:30 22:00 Temperature Pulse Rate 108 H 96 H 99 H Pulse Rate [ Bilateral Throughout] Respiratory 20 20 20 Rate Respiratory Rate [Bilateral Throughout] Blood Pressure 121/74 118/69 118/71 O2 Sat by Pulse 94 91 93 Oximetry 06/20/20 06/20/20 06/20/20 22:20 22:30 22:34 Temperature Pulse Rate 98 H 99 H 99 H Pulse Rate [ Bilateral Throughout] Respiratory 20 20 20 Rate Respiratory Rate [Bilateral Throughout] Blood Pressure 118/71 108/60 108/60 O2 Sat by Pulse 94 93 93 Oximetry 06/20/20 06/20/20 06/20/20 23:00 23:04 23:30 Temperature Pulse Rate 96 H 97 H 102 H Pulse Rate [ Bilateral Throughout] Respiratory 20 20 Rate Respiratory Rate [Bilateral Throughout] Blood Pressure 108/61 131/86 O2 Sat by Pulse 93 90 Oximetry 06/20/20 06/21/20 06/21/20 23:58 00:00 00:30 Temperature 97.5 F L Pulse Rate 96 H 89 Pulse Rate [ Bilateral Throughout] Respiratory 17 20 Rate Respiratory Rate [Bilateral Throughout] Blood Pressure 113/67 117/78 O2 Sat by Pulse 93 90 Oximetry 06/21/20 06/21/20 06/21/20 01:00 01:30 01:34 Temperature Pulse Rate 100 H 97 H Pulse Rate [ 95 H Bilateral Throughout] Respiratory 20 20 Rate Respiratory 20 Rate [Bilateral Throughout] Blood Pressure 127/74 113/67 O2 Sat by Pulse 90 91 Oximetry 06/21/20 06/21/20 06/21/20 02:00 02:30 03:00 Temperature Pulse Rate 94 H 94 H 94 H Pulse Rate [ Bilateral Throughout] Respiratory 20 20 20 Rate Respiratory Rate [Bilateral Throughout] Blood Pressure 121/77 112/71 114/64 O2 Sat by Pulse 93 93 93 Oximetry 06/21/20 06/21/20 06/21/20 03:30 04:00 04:28 Temperature 97.8 F Pulse Rate 94 H 93 H 99 H Pulse Rate [ Bilateral Throughout] Respiratory 20 20 Rate Respiratory Rate [Bilateral Throughout] Blood Pressure 104/62 100/56 100/56 O2 Sat by Pulse 91 91 93 Oximetry 06/21/20 06/21/20 06/21/20 04:30 05:00 05:30 Temperature Pulse Rate 97 H 92 H 92 H Pulse Rate [ Bilateral Throughout] Respiratory 11 L 20 11 L Rate Respiratory Rate [Bilateral Throughout] Blood Pressure 118/78 101/53 90/45 O2 Sat by Pulse 92 91 90 Oximetry 06/21/20 06/21/20 06/21/20 06:00 06:30 07:00 Temperature Pulse Rate 93 H 93 H 91 H Pulse Rate [ Bilateral Throughout] Respiratory 20 20 20 Rate Respiratory Rate [Bilateral Throughout] Blood Pressure 94/45 91/48 95/43 O2 Sat by Pulse 90 91 94 Oximetry 06/21/20 06/21/20 06/21/20 08:00 08:03 08:16 Temperature 97.7 F Pulse Rate 93 H Pulse Rate [ 92 H Bilateral Throughout] Respiratory Rate Respiratory 20 Rate [Bilateral Throughout] Blood Pressure 99/46 O2 Sat by Pulse 95 Oximetry General appearance: Present: mild distress, other (orally intubated/sedated) - EENT ENT: hearing intact, clear oral mucosa - Respiratory Respiratory: bilateral: wheezing (improving) - Cardiovascular Heart rate: 94 Rhythm: regular Heart Sounds: Present: S1 & S2. Absent: gallop, rub Extremities: pulses intact, No edema, normal color, Full ROM - Gastrointestinal General gastrointestinal: Present: soft, non-tender, non-distended, normal bowel sounds - Integumentary Integumentary: clear, warm, dry - Musculoskeletal Musculoskeletal: strength equal bilaterally - Psychiatric Psychiatric: other (sedated) - Allied health notes Allied health notes reviewed: nursing - Labs CBC & Chem 7: 06/20/20 04:38 06/20/20 05:51 Labs: Abnormal lab results 06/20/20 06/21/20 Range/Units 09:26 04:40 ABG pO2 67.9 L (80.0-90.0) mm Hg ABG HCO3 26.1 H (20.0-26.0) mmol/L ABG O2 Saturation 94.6 L (95.0-99.0) % ABG Hemoglobin 10.6 L (14.0-18.0) gm/dl ABG Glucose 113 H (65-95) mg/dL Oxyhemoglobin 92.8 L (95.0-99.0) % Arterial Blood Glucose 113 H (65-95) mg/dL <TYLER HENRIQUEZ R - Last Filed: 06/22/20 14:47> Assessment and Plan I saw and evaluated the patient. I agree with the findings and the plan of care as documented in the Nurse Practitioner's~note, with the following corrections and additions. will follow BMP, follow COVID 19 test result Objective - Constitutional Vitals: Vital Signs - 12hr 06/22/20 06/22/20 06/22/20 03:00 04:00 05:00 Temperature 98.1 F Pulse Rate 63 58 L 60 Pulse Rate [ Anterior Bilateral] Pulse Rate [ 58 L From Monitor] Respiratory 16 13 19 Rate Respiratory Rate [Anterior Bilateral] Blood Pressure 101/57 105/63 114/63 O2 Sat by Pulse 96 96 96 Oximetry 10/05/20 10/05/20 10/05/20 06:00 07:00 07:30 Temperature Pulse Rate 87 71 64 Pulse Rate [ Anterior Bilateral] Pulse Rate [ From Monitor] Respiratory 23 17 Rate Respiratory Rate [Anterior Bilateral] Blood Pressure 103/54 102/67 O2 Sat by Pulse 90 91 Oximetry 06/22/20 06/22/20 06/22/20 07:58 08:00 09:00 Temperature Pulse Rate 68 80 Pulse Rate [ 65 Anterior Bilateral] Pulse Rate [ 64 From Monitor] Respiratory 11 L 36 H Rate Respiratory 17 Rate [Anterior Bilateral] Blood Pressure 122/77 109/62 O2 Sat by Pulse 91 93 90 Oximetry 06/22/20 06/22/20 06/22/20 10:00 11:00 11:26 Temperature Pulse Rate 70 75 75 Pulse Rate [ Anterior Bilateral] Pulse Rate [ From Monitor] Respiratory 18 19 Rate Respiratory Rate [Anterior Bilateral] Blood Pressure 117/64 120/64 O2 Sat by Pulse 92 92 Oximetry 06/22/20 06/22/20 06/22/20 11:27 12:00 13:01 Temperature Pulse Rate 73 76 Pulse Rate [ Anterior Bilateral] Pulse Rate [ 64 From Monitor] Respiratory 14 16 19 Rate Respiratory Rate [Anterior Bilateral] Blood Pressure 113/44 113/52 O2 Sat by Pulse 92 92 95 Oximetry 06/22/20 14:00 Temperature Pulse Rate 75 Pulse Rate [ Anterior Bilateral] Pulse Rate [ From Monitor] Respiratory 21 Rate Respiratory Rate [Anterior Bilateral] Blood Pressure 122/61 O2 Sat by Pulse 93 Oximetry - Labs CBC & Chem 7: 06/21/20 17:10 06/22/20 05:03 Labs: Abnormal lab results 06/21/20 06/21/20 06/21/20 Range/Units 14:45 17:10 17:10 MCV 95 H (84-94) fl MCH 33 H (28-32) pg MCHC 35 H (32-34) % RDW 12.3 L (13.2-15.2) % Plt Count 92 L (140-440) K/mm3 Seg Neuts % (Manual) 87.0 H (40.0-70.0) % Lymphocytes % (Manual) 9.0 L (13.4-35.0) % Lymphocytes # (Manual) 0.6 L (1.2-5.4) K/mm3 POC ABG pO2 79.2 L (83-108) mmHg ABG Potassium 4.7 H (3.40-4.50) mmol/L ABG Glucose 123 H (65-95) mg/dL Potassium 5.2 H (3.6-5.0) mmol/L Carbon Dioxide 21 L (22-30) mmol/L BUN 21 H (9-20) mg/dL Glucose 115 H (75-100) mg/dL Arterial Blood Glucose 123 H (65-95) mg/dL 06/22/20 Range/Units 05:03 MCV (84-94) fl MCH (28-32) pg MCHC (32-34) % RDW (13.2-15.2) % Plt Count (140-440) K/mm3 Seg Neuts % (Manual) (40.0-70.0) % Lymphocytes % (Manual) (13.4-35.0) % Lymphocytes # (Manual) (1.2-5.4) K/mm3 POC ABG pO2 (83-108) mmHg ABG Potassium (3.40-4.50) mmol/L ABG Glucose (65-95) mg/dL Potassium (3.6-5.0) mmol/L Carbon Dioxide (22-30) mmol/L BUN 22 H (9-20) mg/dL Glucose 128 H (75-100) mg/dL Arterial Blood Glucose (65-95) mg/dL
[2020-06-21] MEDS: VALPROIC ACID 250 MG/5 ML ORAL LIQD FEEDTUBE SCH ×2 (09:04→22:32)
[2020-06-21] MEDS: risperiDONE 0.25 MG TAB PO SCH ×2 (09:04→22:32)
--- NOTE | 2020-06-21 09:56 | XRay Report ---
CHEST 1 VIEW, 06/21/2020 8:40 AM CLINICAL INFORMATION/INDICATION: Respiratory failure COMPARISON: Chest radiograph, 06/20/2020 FINDINGS: SUPPORT DEVICES: There has been interval placement of an esophagogastric tube with sidehole overlying the mid stomach. The endotracheal tube remains in stable position.. HEART: The cardiac silhouette is normal in size. LUNGS/PLEURA: The lungs are clear of focal airspace disease or significant pleural effusion ADDITIONAL FINDINGS: No additional acute findings. IMPRESSION: 1. Stable appearance of the chest. Signer Name: Eli Workman MD Signed: 06/21/2020 9:52 AM Workstation Name: [id number]
--- NOTE | 2020-06-21 09:57 | XRay Report ---
ABDOMEN 1 VIEW, 06/21/2020 INDICATION / CLINICAL INFORMATION: Nasogastric tube placement COMPARISON: 9 FINDINGS: TUBES / LINES: An esophagogastric tube is present with distal tip and sidehole overlying the expected position of the mid stomach BOWEL GAS PATTERN: There is mild gaseous distention of the stomach. ADDITIONAL FINDINGS: No significant additional findings. IMPRESSION: 1. Placement of esophagogastric tube as above. Signer Name: Eli Workman MD Signed: 06/21/2020 9:52 AM Workstation Name: [email or web address]
[2020-06-21] MEDS: AZITHROMYCIN 500 MG in SODIUM CHLORIDE 0.9% 250ML 250 ML IV SCH (11:50)
[2020-06-21] MEDS: FAMOTIDINE 20 MG TAB PO SCH (13:51)
--- NOTE | 2020-06-21 14:53 | Consultation ---
PULMONARY CRITICAL CARE CONSULTATION NOTE CONSULTING PHYSICIAN: Petrona Castanon M.D. REASON FOR CONSULTATION: Acute hypoxemic respiratory failure, on mechanical ventilatory support, status asthmaticus. CHIEF COMPLAINT AND HISTORY OF PRESENT ILLNESS: The patient is a now 25-year-old male with past medical history significant for history of asthma, who came into the Emergency Room. He also has a history of tobacco abuse and bipolar disorder. He presented with one day of wheezing and shortness of breath. He was treating himself at home, it did not get better, came into the Emergency Room stating that he needs CPAP therapy. He was managed noninvasively for asthma. However, his symptoms did not improve. He remained very anxious. Amongst other things, a drug screen revealed it was positive for cocaine. He ultimately required intubation and being placed on mechanical ventilatory support. We are asked to assist with management. When I stopped by to see him, he was rested in bed. He was on propofol drip maxed out at 50 mcg/kg/minute, but he was very alert and making gestures towards me. He complained of some pain at that time, could not specify where it is. He nodded no to nausea and vomiting, he nodded yes to tobacco use. This really is as much of the history of presentation as I have. PAST MEDICAL HISTORY: Asthma, bipolar disorder, substance abuse. PAST SURGICAL HISTORY: Unknown. MEDICATIONS: He was on at the time I stopped by to see him were reviewed. Pertinent medications included the following: He was on DuoNeb nebulizer treatments scheduled q.6 hours, Depakote 500 mg p.o. b.i.d. scheduled, propofol drip was going at 50 mcg/kg/minute. He was on Zithromax 500 mg IV daily, Solu-Medrol 80 mg IV q.8 hours, Versed received one-time dose and he is on Risperdal 0.5 mg p.o. b.i.d. ALLERGIES: No known drug allergies. DIET: Well-built gentleman. Denies significant weight loss or gain in the preceding few weeks to months. SOCIAL HISTORY: Apparently lives in the community. Has a tobacco use history. He also apparently has a substance use history with a positive drug screen. FAMILY HISTORY: Otherwise, unknown. REVIEW OF SYSTEMS: Unobtainable secondary to the patient's medical and mental condition. Since he has been here, no gross hematochezia or melena, no gross hematuria, no hematemesis. He denies dysuria. No witnessed seizures. No new onset focal weakness. Complete 13-system review of systems obtained as best as I could. Pertinent positives and/or negatives as in body of the history above, otherwise are noncontributory. PHYSICAL EXAMINATION: VITAL SIGNS: On examination at presentation in the Emergency Room, vital signs, he was afebrile, initial temperature was 98.2 degrees Fahrenheit, pulse of 103, respiratory rate 27, blood pressure 151/99, O2 sats were 99%, inspired oxygen concentration at that time was not recorded. When I stopped by to see him, he was on the mechanical ventilator, assist control mode of ventilation, PRVC AC, tidal volumes 450, rate of 20, PEEP of 6, and 30% FiO2 at that time. GENERAL: He is a young male. Normocephalic, atraumatic, on mechanical ventilator with mildly increased respiratory effort at rest. HEAD, EYES, EARS, NOSE AND THROAT: Anicteric. No conjunctival erythema. Oropharynx was moist. ET tube was taped at the lips around 23 cm. No gross jugular venous distention, no thyromegaly. NECK: Grossly, there were no palpable lymph nodes in the supraclavicular or submandibular lymph node chains. LUNGS: Auscultation of both lung vivas, apart from diminished bilateral breath sounds, lungs are actually clear. He did have a prolonged expiratory phase. HEART: Heart sounds 1 and 2 were heard. They were regular in rate and rhythm at the time of my evaluation without overt rubs or murmurs. ABDOMEN: Soft, flat. Bowel sounds are positive, nontender, no palpable hepatosplenomegaly. EXTREMITIES: Without overt digital clubbing, no cyanosis, no pedal edema. Pedal pulses are 2+ bilaterally. NEUROLOGIC: Pupils are equal, round, about 4 mm, reactive to light. Extraocular muscle movements are intact. He moves all 4 extremities spontaneously. SKIN: Normal turgor without overt cellulitis or rash. PSYCHIATRIC: His mood was normal. His affect was not appropriate. LABORATORY DATA: From my review are as follows: White cell count 9400, hemoglobin 16.3, hematocrit 46.2, platelet count 233. Arterial blood gas at presentation showed a pH of 7.14, pCO2 of 69, pO2 of 220, that was on 60% FiO2. Most recent gas showed a pH of 7.35, pCO2 of 37, pO2 of 107, that was on 30% FiO2. Serum sodium was 142, potassium 5.1, chloride 105, bicarbonate was 20, BUN was 10, creatinine was 0.9, glucose was 178. Liver function tests otherwise within normal limits. Urine drug screen was positive for cocaine. No microbiology studies. A chest x-ray has been reviewed, essentially clear lungs, evidence of hyperinflation with flattening of the right hemidiaphragm and widening of the intercostal spaces. ET tube tip is in good position, tip at the level of the aortic knob. No gross pneumothorax, no cardiomegaly, no gross bony fracture. ASSESSMENT: 1. Acute asthma exacerbation, on mechanical ventilatory support. 2. Cocaine use. 3. Hypercapnic respiratory failure at presentation. 4. Mild hyperkalemia. 5. Mild metabolic acidosis. PLAN: We will continue current treatments. He is doing better. I will add some fentanyl drip for sedation. Hopefully, he continues to show improvement. We will continue systemic steroids. Oxygen will be weaned to keep sats greater than or equal to about 90%. Aspiration precautions will be maintained. Ventilator-associated pneumonia bundle has been introduced. Counseling has been done, a little bit of counseling at the bedside, but this will be continued. Once he is liberated from the mechanical ventilator, crisis intervention counselor him against substance abuse. He will be placed on GI and DVT prophylaxis. Flu and pneumonia vaccination will be addressed per protocol. Thank you very much for the consult. We will follow along and make further recommendations as picture progresses/becomes clearer. He is critically ill, on life-sustaining interventions including mechanical ventilatory support, at high risk of from cardiopulmonary system decompensation. At this time, I spent about 35 minutes of critical care time without overlap and excluding any procedural time that may be necessary. JOB# [id number] JASBIR/MAE ERVIN
--- NOTE | 2020-06-21 14:58 | Progress Note ---
Assessment and Plan Acute asthma exacerbation, on mechanical ventilatory support. Cocaine use. Acute Hypoxemic & Hypercapnic respiratory failure at presentation. Mild hyperkalemia. Mild metabolic acidosis. H/O Bipolar Disorder - continue Daily SAT and SBT assessment as tolerated; (tentative extubation today if passes SBT) - add LABA & ICS - begin systemic steroid taper - continue care as below otherwise; - continue accuchecks with glycemic control per SSI (While critically ill target blood glucose of 140-180 mg/dL; avoid hypoglycemia) - sedation prn for target RASS 0 to -1 - continue to wean supplemental oxygen for target O2 sat's > 90% acutely - VAP bundle addressed - continue lung protective strategies - continue bronchodilators with pulmonary hygiene per RT - wean per pulmonary driven protocols otherwise - avoid nephrotoxins, renally dose all medications - continue to avoid benzodiazepine's, reduce the possibility of delirium - AB's per ID rec's - prn analgesia per CPOT score - Maintenance of sleep-wake cycle, avoid delirium - continue enteral nutritional support at goal rate as tolerated - G.I. & VTE prophylaxis - PT/OT/ROM exercises - continue mobility protocols for pressure ulcer prophylaxis - Monitor hemodynamics closely - continue other care per attending / other consultants - discharge planning ongoing concurrently .... Re-evaluate in am & prn CONDITION: CRITICAL PROGNOSIS: GUARDED CODE STATUS: FULL CODE The high probability of a clinically significant, sudden or life-threatening deterioration of the [respiratory & cardiovascular] system(s) required my full and direct attention, intervention and personal management. The aggregate critical care time was [34] minutes without overlap. Time includes spent on; [x] Data Review and interpretation [x] Patient assessment and monitoring of vital signs [x] Documentation [x] Medication orders and management Subjective Date of service: 06/21/20 Principal diagnosis: Asthma; Ac Hypoxemic/Hypercapnic resp failure; hyperkalemia; Bipolar Disord Interval history: Patient is seen today for: Acute asthma exacerbation; Acute Hypoxemic & Hypercapnic respiratory failure; Mild hyperkalemia; Mild metabolic acidosis; H/O Bipolar Disorder Seen and examined at bedside; 24hour events reviewed; nursing and respiratory care staff consulted; no adverse overnight events reported to me; resting pe acefully in bed; all sedation is off; tolerating SBT veryt well; also no agitation today; No N/V/F/C Objective Vital Signs - 12hr 06/21/20 06/21/20 06/21/20 03:00 03:30 04:00 Temperature 97.8 F Pulse Rate 94 H 94 H 93 H Pulse Rate [ Anterior Bilateral] Pulse Rate [ Bilateral Throughout] Pulse Rate [ From Monitor] Respiratory 20 20 20 Rate Respiratory Rate [Anterior Bilateral] Respiratory Rate [Bilateral Throughout] Blood Pressure 114/64 104/62 100/56 O2 Sat by Pulse 93 91 91 Oximetry 06/21/20 06/21/20 06/21/20 04:28 04:30 05:00 Temperature Pulse Rate 99 H 97 H 92 H Pulse Rate [ Anterior Bilateral] Pulse Rate [ Bilateral Throughout] Pulse Rate [ From Monitor] Respiratory 11 L 20 Rate Respiratory Rate [Anterior Bilateral] Respiratory Rate [Bilateral Throughout] Blood Pressure 100/56 118/78 101/53 O2 Sat by Pulse 93 92 91 Oximetry 06/21/20 06/21/20 06/21/20 05:30 06:00 06:30 Temperature Pulse Rate 92 H 93 H 93 H Pulse Rate [ Anterior Bilateral] Pulse Rate [ Bilateral Throughout] Pulse Rate [ From Monitor] Respiratory 11 L 20 20 Rate Respiratory Rate [Anterior Bilateral] Respiratory Rate [Bilateral Throughout] Blood Pressure 90/45 94/45 91/48 O2 Sat by Pulse 90 90 91 Oximetry 06/21/20 06/21/20 06/21/20 07:00 07:30 08:00 Temperature 97.7 F Pulse Rate 91 H 90 91 H Pulse Rate [ Anterior Bilateral] Pulse Rate [ Bilateral Throughout] Pulse Rate [ 93 H From Monitor] Respiratory 20 20 20 Rate Respiratory Rate [Anterior Bilateral] Respiratory Rate [Bilateral Throughout] Blood Pressure 95/43 93/46 99/46 O2 Sat by Pulse 94 92 91 Oximetry 06/21/20 06/21/20 06/21/20 08:03 08:16 08:30 Temperature Pulse Rate 93 H 92 H Pulse Rate [ Anterior Bilateral] Pulse Rate [ 92 H Bilateral Throughout] Pulse Rate [ From Monitor] Respiratory 20 Rate Respiratory Rate [Anterior Bilateral] Respiratory 20 Rate [Bilateral Throughout] Blood Pressure 99/46 93/45 O2 Sat by Pulse 95 87 Oximetry 06/21/20 06/21/20 06/21/20 09:00 09:30 10:00 Temperature Pulse Rate 82 79 78 Pulse Rate [ Anterior Bilateral] Pulse Rate [ Bilateral Throughout] Pulse Rate [ From Monitor] Respiratory 12 14 9 L Rate Respiratory Rate [Anterior Bilateral] Respiratory Rate [Bilateral Throughout] Blood Pressure 100/55 91/53 99/53 O2 Sat by Pulse 95 97 96 Oximetry 06/21/20 06/21/20 06/21/20 10:30 11:00 11:30 Temperature Pulse Rate 78 74 74 Pulse Rate [ Anterior Bilateral] Pulse Rate [ Bilateral Throughout] Pulse Rate [ From Monitor] Respiratory 20 20 20 Rate Respiratory Rate [Anterior Bilateral] Respiratory Rate [Bilateral Throughout] Blood Pressure 98/54 98/58 100/58 O2 Sat by Pulse 95 94 95 Oximetry 06/21/20 06/21/20 06/21/20 11:39 11:46 12:00 Temperature 97.6 F Pulse Rate 86 100 H Pulse Rate [ Anterior Bilateral] Pulse Rate [ Bilateral Throughout] Pulse Rate [ 100 H From Monitor] Respiratory 10 L 11 L Rate Respiratory Rate [Anterior Bilateral] Respiratory Rate [Bilateral Throughout] Blood Pressure 100/58 111/81 O2 Sat by Pulse 94 97 Oximetry 06/21/20 06/21/20 06/21/20 12:30 13:00 13:30 Temperature Pulse Rate 107 H 104 H 89 Pulse Rate [ Anterior Bilateral] Pulse Rate [ Bilateral Throughout] Pulse Rate [ From Monitor] Respiratory 12 14 13 Rate Respiratory Rate [Anterior Bilateral] Respiratory Rate [Bilateral Throughout] Blood Pressure 121/88 127/81 119/90 O2 Sat by Pulse 96 95 94 Oximetry 06/21/20 06/21/20 06/21/20 14:00 14:13 14:30 Temperature Pulse Rate 91 H 87 Pulse Rate [ 94 H Anterior Bilateral] Pulse Rate [ Bilateral Throughout] Pulse Rate [ From Monitor] Respiratory 14 10 L Rate Respiratory 13 Rate [Anterior Bilateral] Respiratory Rate [Bilateral Throughout] Blood Pressure 115/77 120/91 O2 Sat by Pulse 93 96 Oximetry Constitutional: no acute distress, alert, other (young male with normal respiratory effort at rest on MVS) Eyes: non-icteric ENT: oropharynx moist, other (ETT 24 cm CARIDAD) Neck: supple, no lymphadenopathy, no JVD Effort: normal Ascultation: Bilateral: diminished breath sounds, wheezes (faint and intermittent), other (no accessory muscle use) Percussion: Bilateral: not dull Cardiovascular: regular rate and rhythm Gastrointestinal: normoactive bowel sounds, soft, non-tender, non-distended Integumentary: normal Extremities: no cyanosis, no edema, pulses normal, no ischemia or petechiae Neurologic: normal mental status, non-focal exam, pupils equal and round, motor strength normal and Psychiatric: mood appropriate, affect normal CBC and BMP: 06/20/20 04:38 06/20/20 05:51 ABG, PT/INR, D-dimer: ABG ABG pH 7.410 pH Units (7.350-7.450) 06/21/20 04:40 POC ABG pCO2 37.0 mmHg (32.0-48.0) 06/20/20 09:26 ABG pCO2 42.0 mm Hg 06/21/20 04:40 POC ABG pO2 107.2 mmHg (83-108) 06/20/20 09:26 ABG pO2 67.9 mm Hg (80.0-90.0) L 06/21/20 04:40 POC ABG HCO3 20.2 06/20/20 09:26 ABG O2 Saturation 94.6 % (95.0-99.0) L 06/21/20 04:40 Abnormal lab findings: Abnormal Labs 06/20/20 06/20/20 06/20/20 04:38 05:16 05:51 Hgb 16.2 H Hct 46.2 H MCV 96 H MCH 34 H MCHC 35 H RDW 12.3 L Eos % (Auto) 6.4 H Eos # (Auto) 0.6 H ABG pH 7.142 L POC ABG pCO2 69.3 H POC ABG pO2 219.5 H ABG pO2 ABG HCO3 ABG O2 Saturation ABG Hemoglobin ABG Glucose 162 H Oxyhemoglobin Potassium 5.1 H Carbon Dioxide 20 L Glucose 178 H Arterial Blood Glucose 162 H 06/20/20 06/21/20 09:26 04:40 Hgb Hct MCV MCH MCHC RDW Eos % (Auto) Eos # (Auto) ABG pH POC ABG pCO2 POC ABG pO2 ABG pO2 67.9 L ABG HCO3 26.1 H ABG O2 Saturation 94.6 L ABG Hemoglobin 10.6 L ABG Glucose 113 H Oxyhemoglobin 92.8 L Potassium Carbon Dioxide Glucose Arterial Blood Glucose 113 H Chest x-ray: image reviewed (no focal infiltrate) Allied health notes reviewed: nursing
[2020-06-21 19:05] LABS: Hematocrit 40.7 % (35.5-45.6); Hemoglobin 14.2 gm/dl (11.8-15.2); Mean Corpuscular HGB Conc 35 % (32-34); Mean Corpuscular Volume 95 fl (84-94); Red Blood Count 4.27 M/mm3 (3.65-5.03); Red Cell Distribution Width 12.3 % (13.2-15.2)
[2020-06-21 19:32] LABS: Platelet Count 92 K/mm3 (140-440)
[2020-06-21 19:44] LABS: BUN/Creatinine Ratio 19; Blood Urea Nitrogen 21 mg/dL (9-20); Calcium 9.6 mg/dL (8.4-10.2); Hemolysis Index 82
[2020-06-21] MEDS: BUDESONIDE 0.5 MG/2 ML NEBU IH SCH (20:35)
[2020-06-21] MEDS: ARFORMOTEROL 15 MCG/2 ML NEBU IH SCH (20:35)
[2020-06-21 20:37] LABS: Basophils % (Manual) 0 % (0.0-1.8); Eosinophils % (Manual) 0 % (0.0-4.3); Platelet Estimate Consistent w Auto; RBC Morphology Normal; Total Cells Counted 100
[2020-06-21] MEDS ORDERED: ENOXAPARIN 40 MG/0.4 ML INJ SUB-Q SCH (22:00)
[2020-06-22] MEDS: IPRATROPIUM/ALBUTEROL SULFATE 3 ML AMPUL.NEB IH SCH ×4 (02:00→19:30)
--- NOTE | 2020-06-22 03:59 | XRay Report ---
CHEST 1 VIEW INDICATION: follow up respiratory failure COMPARISON: One day prior. FINDINGS: Support devices: None Heart: Normal and unchanged Lungs/Pleura: No acute pulmonary or pleural findings. IMPRESSION: 1. No acute disease and no interval change. Signer Name: Finn Pierce MD Signed: 06/22/2020 3:54 AM Workstation Name: [id number]
[2020-06-22] MEDS: methylPREDNISolone Sod Succinate 125 MG/2 ML INJ IV SCH ×3 (04:22→21:12)
[2020-06-22 05:43] LABS: BUN/Creatinine Ratio 24; Blood Urea Nitrogen 22 mg/dL (9-20); Calcium 9.5 mg/dL (8.4-10.2); Hemolysis Index 6
[2020-06-22] MEDS: ARFORMOTEROL 15 MCG/2 ML NEBU IH SCH ×2 (07:56→19:29)
[2020-06-22] MEDS: BUDESONIDE 0.5 MG/2 ML NEBU IH SCH ×2 (07:57→19:29)
[2020-06-22] MEDS: FAMOTIDINE 20 MG TAB PO SCH (09:36)
[2020-06-22] MEDS: risperiDONE 0.25 MG TAB PO SCH ×2 (09:36→21:12)
[2020-06-22] MEDS: DIVALPROEX DR 500 MG TAB PO SCH ×2 (09:36→21:12)
[2020-06-22] MEDS: AZITHROMYCIN 250 MG TAB PO SCH (09:36)
--- NOTE | 2020-06-22 11:12 | Progress Note ---
Assessment and Plan Acute asthma exacerbation,s/p mechanical ventilatory support. Cocaine use. Acute Hypoxemic & Hypercapnic respiratory failure at presentation. Mild hyperkalemia. Mild metabolic acidosis. H/O Bipolar Disorder - continue accuchecks with glycemic control per SSI (While critically ill target blood glucose of 140-180 mg/dL; avoid hypoglycemia) - continue to wean supplemental oxygen for target O2 sat's > 90% - continue bronchodilators with pulmonary hygiene per RT - wean per pulmonary driven protocols otherwise - avoid nephrotoxins, renally dose all medications - continue to avoid benzodiazepine's, reduce the possibility of delirium - AB's per ID rec's - prn analgesia per CPOT score - Maintenance of sleep-wake cycle, avoid delirium - continue enteral nutritional support at goal rate as tolerated - G.I. & VTE prophylaxis - PT/OT/ROM exercises - continue mobility protocols for pressure ulcer prophylaxis - Monitor hemodynamics closely - continue other care per attending / other consultants -OK to transfer out of the ICU Subjective Date of service: 06/22/20 Principal diagnosis: Asthma; Ac Hypoxemic/Hypercapnic resp failure; hyp erkalemia; Bipolar Disord Interval history: Patient is seen today for: Acute asthma exacerbation; Acute Hypoxemic & Hypercapnic respiratory failure; Mild hyperkalemia; Mild metabolic acidosis; H/O Bipolar Disorder Seen and examined at bedside; 24hour events reviewed; nursing and respiratory care staff consulted; no adverse overnight events reported to me; resting peacefully in bed;s/p liberation from MVS ; also no agitation today; No N/V/F/C Objective Vital Signs - 12hr 06/21/20 06/22/20 06/22/20 23:31 00:00 00:30 Temperature 97.9 F Pulse Rate 90 88 79 Pulse Rate [ Anterior Bilateral] Pulse Rate [ 88 From Monitor] Respiratory 18 17 16 Rate Respiratory Rate [Anterior Bilateral] Blood Pressure 93/37 123/66 118/61 O2 Sat by Pulse 95 94 97 Oximetry 06/22/20 06/22/20 06/22/20 01:00 01:30 02:00 Temperature Pulse Rate 88 84 92 H Pulse Rate [ Anterior Bilateral] Pulse Rate [ From Monitor] Respiratory 17 16 16 Rate Respiratory Rate [Anterior Bilateral] Blood Pressure 100/52 110/54 120/71 O2 Sat by Pulse 91 90 91 Oximetry 06/22/20 06/22/20 06/22/20 02:30 03:00 04:00 Temperature 98.1 F Pulse Rate 73 63 58 L Pulse Rate [ Anterior Bilateral] Pulse Rate [ 58 L From Monitor] Respiratory 13 16 13 Rate Respiratory Rate [Anterior Bilateral] Blood Pressure 109/60 101/57 105/63 O2 Sat by Pulse 96 96 96 Oximetry 06/22/20 06/22/20 06/22/20 05:00 06:00 07:00 Temperature Pulse Rate 60 87 71 Pulse Rate [ Anterior Bilateral] Pulse Rate [ From Monitor] Respiratory 19 23 17 Rate Respiratory Rate [Anterior Bilateral] Blood Pressure 114/63 103/54 102/67 O2 Sat by Pulse 96 90 91 Oximetry 06/22/20 06/22/20 06/22/20 07:30 07:58 08:00 Temperature Pulse Rate 64 68 Pulse Rate [ 65 Anterior Bilateral] Pulse Rate [ 64 From Monitor] Respiratory 11 L Rate Respiratory 17 Rate [Anterior Bilateral] Blood Pressure 122/77 O2 Sat by Pulse 91 93 Oximetry 06/22/20 06/22/20 09:00 10:00 Temperature Pulse Rate 80 70 Pulse Rate [ Anterior Bilateral] Pulse Rate [ From Monitor] Respiratory 36 H 18 Rate Respiratory Rate [Anterior Bilateral] Blood Pressure 109/62 117/64 O2 Sat by Pulse 90 92 Oximetry Constitutional: no acute distress, alert, other (young male with normal respiratory effort at rest ) Eyes: non-icteric ENT: oropharynx moist, other Neck: supple, no lymphadenopathy, no JVD Effort: normal Ascultation: Bilateral: diminished breath sounds, wheezes, other (no accessory muscle use) Percussion: Bilateral: not dull Cardiovascular: regular rate and rhythm Gastrointestinal: normoactive bowel sounds, soft, non-tender, non-distended Integumentary: normal Extremities: no cyanosis, no edema, pulses normal, no ischemia or petechiae Neurologic: normal mental status, non-focal exam, pupils equal and round, motor strength normal and Psychiatric: mood appropriate, affect normal CBC and BMP: 06/21/20 17:10 06/22/20 05:03 ABG, PT/INR, D-dimer: ABG ABG pH 7.371 (7.320-7.450) 06/21/20 14:45 POC ABG pCO2 43.7 mmHg (32.0-48.0) 06/21/20 14:45 ABG pCO2 42.0 mm Hg 06/21/20 04:40 POC ABG pO2 79.2 mmHg (83-108) L 06/21/20 14:45 ABG pO2 67.9 mm Hg (80.0-90.0) L 06/21/20 04:40 POC ABG HCO3 24.8 06/21/20 14:45 ABG O2 Saturation 94.6 % (95.0-99.0) L 06/21/20 04:40 Abnormal lab findings: Abnormal Labs 06/20/20 06/20/20 06/20/20 04:38 05:16 05:51 Hgb 16.2 H Hct 46.2 H MCV 96 H MCH 34 H MCHC 35 H RDW 12.3 L Plt Count Eos % (Auto) 6.4 H Eos # (Auto) 0.6 H Seg Neuts % (Manual) Lymphocytes % (Manual) Lymphocytes # (Manual) ABG pH 7.142 L POC ABG pCO2 69.3 H POC ABG pO2 219.5 H ABG pO2 ABG HCO3 ABG O2 Saturation ABG Hemoglobin ABG Potassium ABG Glucose 162 H Oxyhemoglobin Potassium 5.1 H Carbon Dioxide 20 L BUN Glucose 178 H Arterial Blood Glucose 162 H 06/20/20 06/21/20 06/21/20 09:26 04:40 14:45 Hgb Hct MCV MCH MCHC RDW Plt Count Eos % (Auto) Eos # (Auto) Seg Neuts % (Manual) Lymphocytes % (Manual) Lymphocytes # (Manual) ABG pH POC ABG pCO2 POC ABG pO2 79.2 L ABG pO2 67.9 L ABG HCO3 26.1 H ABG O2 Saturation 94.6 L ABG Hemoglobin 10.6 L ABG Potassium 4.7 H ABG Glucose 113 H 123 H Oxyhemoglobin 92.8 L Potassium Carbon Dioxide BUN Glucose Arterial Blood Glucose 113 H 123 H 06/21/20 06/21/20 06/22/20 17:10 17:10 05:03 Hgb Hct MCV 95 H MCH 33 H MCHC 35 H RDW 12.3 L Plt Count 92 L Eos % (Auto) Eos # (Auto) Seg Neuts % (Manual) 87.0 H Lymphocytes % (Manual) 9.0 L Lymphocytes # (Manual) 0.6 L ABG pH POC ABG pCO2 POC ABG pO2 ABG pO2 ABG HCO3 ABG O2 Saturation ABG Hemoglobin ABG Potassium ABG Glucose Oxyhemoglobin Potassium 5.2 H Carbon Dioxide 21 L BUN 21 H 22 H Glucose 115 H 128 H Arterial Blood Glucose Chest x-ray: image reviewed Allied health notes reviewed: nursing
--- NOTE | 2020-06-22 15:10 | Progress Note ---
Assessment and Plan -- Acute respiratory failure with hypoxia Due to acute asthma exacerbation with possible drug abuse respiratory care-bronchodilator -oxygen supplementation and ABGs s/o intubation, extubated yesterday afternoon Continue empiric abx with Azithromycin daily Covid test ordered-f/u result -- Status asthmaticus Patient required intubation, now extubated Abrasive Grinder consulted Continue abx therapy, Systemic steroids and bronchodilator Wheezing improved --suicidal attempt Patient stated that he was trying to commit suicide by taking cocaine Will place sitter at the bedside, consult psych -- Bipolar 1 disorder, depressed Resumed home anti-depressant: Depakote and risperadone consult Psych -- Cocaine dependence discussed substance use cessation --Hyperkalemia-5.1 - resolved, follow BMP -- Tobacco dependence Will discussed tobacco use cessation when patient stable and awake 06/22: Extubated yesterday, tolerating diet. Patient stated that he wanted to commit suicide by taking lots of cocaine. [facility], will follow up COVID-19 result. Will also consult psych for discharge clearance. Subjective Date of service: 06/22/20 Principal diagnosis: Asthma; Ac Hypoxemic/Hypercapnic resp failure; hyperkalemia; Bipolar Disord Interval history: Patient seen and examined. Medical records and medication list reviewed. No acute event overnight noted by the RN. Extubated yesterday afternoon Patient denies any chest pain or difficulty breathing. Patient is tolerating diet. Appears very depressed and stated that he wanted to commit suicide by taking cocaine Discussed plan of care at bedside with patient. Objective - Exam Narrative Exam: GENERAL: well-developed and well-nourished -[place]ij[place] male lying on bed appeared to be in no discomfort. HEENT: Normocephalic. Atraumatic. No conjunctival congestion or icterus. Patient has moist mucous membranes. NECK: Supple. Trachea midline. CHEST/LUNGS: Clear to auscultated bilaterally, breathing nonlabored. No wheezes crackles or rhonchi. HEART/CARDIOVASCULAR: Regular in rate and rhythm. S1 and S2 positive. ABDOMEN: Abdomen is soft, nontender. Patient has normal bowel sounds. SKIN: There is no rash. Warm and dry. NEURO: No focal motor deficit. Follows command. MUSCULOSKELETAL: No joint effusion or tenderness. EXTRIMITY: No edema, no cyanosis or clubbing. PSYCH: Cooperative. - Constitutional Vitals: Vital Signs - 12hr 06/22/20 06/22/20 06/22/20 04:00 05:00 06:00 Temperature 98.1 F Pulse Rate 58 L 60 87 Pulse Rate [ Anterior Bilateral] Pulse Rate [ 58 L From Monitor] Respiratory 13 19 23 Rate Respiratory Rate [Anterior Bilateral] Blood Pressure 105/63 114/63 103/54 O2 Sat by Pulse 96 96 90 Oximetry 06/22/20 06/22/20 06/22/20 07:00 07:30 07:58 Temperature Pulse Rate 71 64 Pulse Rate [ 65 Anterior Bilateral] Pulse Rate [ From Monitor] Respiratory 17 Rate Respiratory 17 Rate [Anterior Bilateral] Blood Pressure 102/67 O2 Sat by Pulse 91 91 Oximetry 06/22/20 06/22/20 06/22/20 08:00 09:00 10:00 Temperature Pulse Rate 68 80 70 Pulse Rate [ Anterior Bilateral] Pulse Rate [ 64 From Monitor] Respiratory 11 L 36 H 18 Rate Respiratory Rate [Anterior Bilateral] Blood Pressure 122/77 109/62 117/64 O2 Sat by Pulse 93 90 92 Oximetry 06/22/20 06/22/20 06/22/20 11:00 11:26 11:27 Temperature Pulse Rate 75 75 Pulse Rate [ Anterior Bilateral] Pulse Rate [ 64 From Monitor] Respiratory 19 14 Rate Respiratory Rate [Anterior Bilateral] Blood Pressure 120/64 O2 Sat by Pulse 92 92 Oximetry 06/22/20 06/22/20 06/22/20 12:00 13:01 14:00 Temperature Pulse Rate 73 76 75 Pulse Rate [ Anterior Bilateral] Pulse Rate [ From Monitor] Respiratory 16 19 21 Rate Respiratory Rate [Anterior Bilateral] Blood Pressure 113/44 113/52 122/61 O2 Sat by Pulse 92 95 93 Oximetry - Labs CBC & Chem 7: 06/21/20 17:10 06/22/20 05:03 Labs: Abnormal lab results 06/21/20 06/21/20 06/21/20 Range/Units 14:45 17:10 17:10 MCV 95 H (84-94) fl MCH 33 H (28-32) pg MCHC 35 H (32-34) % RDW 12.3 L (13.2-15.2) % Plt Count 92 L (140-440) K/mm3 Seg Neuts % (Manual) 87.0 H (40.0-70.0) % Lymphocytes % (Manual) 9.0 L (13.4-35.0) % Lymphocytes # (Manual) 0.6 L (1.2-5.4) K/mm3 POC ABG pO2 79.2 L (83-108) mmHg ABG Potassium 4.7 H (3.40-4.50) mmol/L ABG Glucose 123 H (65-95) mg/dL Potassium 5.2 H (3.6-5.0) mmol/L Carbon Dioxide 21 L (22-30) mmol/L BUN 21 H (9-20) mg/dL Glucose 115 H (75-100) mg/dL Arterial Blood Glucose 123 H (65-95) mg/dL 06/22/20 Range/Units 05:03 MCV (84-94) fl MCH (28-32) pg MCHC (32-34) % RDW (13.2-15.2) % Plt Count (140-440) K/mm3 Seg Neuts % (Manual) (40.0-70.0) % Lymphocytes % (Manual) (13.4-35.0) % Lymphocytes # (Manual) (1.2-5.4) K/mm3 POC ABG pO2 (83-108) mmHg ABG Potassium (3.40-4.50) mmol/L ABG Glucose (65-95) mg/dL Potassium (3.6-5.0) mmol/L Carbon Dioxide (22-30) mmol/L BUN 22 H (9-20) mg/dL Glucose 128 H (75-100) mg/dL Arterial Blood Glucose (65-95) mg/dL
[2020-06-23] MEDS: methylPREDNISolone Sod Succinate 125 MG/2 ML INJ IV SCH (04:04)
[2020-06-23] MEDS: ARFORMOTEROL 15 MCG/2 ML NEBU IH SCH (08:01)
[2020-06-23] MEDS: IPRATROPIUM/ALBUTEROL SULFATE 3 ML AMPUL.NEB IH SCH ×2 (08:01→14:13)
[2020-06-23] MEDS: BUDESONIDE 0.5 MG/2 ML NEBU IH SCH (08:01)
--- NOTE | 2020-06-23 10:41 | Consultation ---
History of Present Illness - Reason for Consult Consult date: 06/23/20 Reason for consult: MHE Requesting physician: TYLER HENRIQUEZ - Chief Complaint Chief complaint: Status asthmatus - History of Present Psychiatric Illness Per ED Provider Mr. Velasco is a 25 yo male with hx of severe asthma persistent, tobacco abuse, bipolar disorder who presents with one day of wheezing and shortness of breath. Home treatment did not provide relief. Hx of previous intubation. Hx of multiple hospitalizations for asthma. Per Hospitalist: --suicidal attempt Patient stated that he was trying to commit suicide by taking a bunch of cocaine Will place sitter at the bedside, consult psych HPI Patient is 25 year old homeless, unemployed, single with children history with Past psychiatric history of bipolar and polysubstance abuse including cocaine, substance induced mood disorder and past medical history of asthma who presents to the ED with complaints of Asthma and upon discharge plan after hospital stay he reports suicidal thoughts. This patient is well known to me, has chronic history of cocaine use with recommendation for outpt cocaine use rehab resources from previous discharge. Patient says he still use drugs, doesnt know why, did not use the outp drug resources, and also complained of back pains, requesting pain medicine. I informed patient, no pain medicine will be provided, due to drug use history, patient then asked to be discharged. PAST PSYCHIATRIC HISTORY Diagnoses: Bipolar, polysusbtance abuse Suicide attempts or Self-harm behavior: Yes Prior psychiatric hospitalizations: Yes Substance Abuse history: Cocaine Previous psychiatric medications tried: Yes Outpatient treatment: unknown PAST MEDICAL HISTORY: Asthma Family Psychiatric History: None reported or documented SOCIAL HISTORY Marital Status: single Living Arrangements: homeless Employment Status: unemployed Access to guns/weapons: none reported Education: High school drop out History of Abuse: none reported Legal History: none reported Review of Symptoms: Constitutional: Negative for weight loss ENT: Negative for stridor Respiratory: Negative for cough or hemoptysis All other systems reviewed and are negative MENTAL STATUS EXAMINATION General Appearance and Behavior: Age appropriate, faire hygiene, wearing appropriate clothes, lying in bed, good eye contact, cooperative polite with questioning. Cooperation: Participating/engaged Psychomotor Behavior: unremarkable and within normal limits Mood: Depressed Affect and affective range: sad Thought Process: Fluent/Logical, Thought Content: hopelessness Speech: Normal volume, Regular rate and rhythm Intellectual Functioning: Average Suicidal Ideation: "not really" Homicidal Ideation: Denies HI Impulse Control: Unimpaired Insight and Judgment: Normal insight and judgment Memory: Normal Attention: Normal Orientation: Alert, oriented Assessment and Plan - Patient Problems (1) Bipolar 1 disorder, depressed Current Visit: Yes Status: Acute (2) Substance induced mood disorder Current Visit: Yes Status: Acute The patient has history of polysubstance abuse, homelessness, and poor insight and judgment and well known to me from prior encounter with inpatient psych medication management and outpt resources provided . These risk factors are not currently modifiable with acute inpatient psychiatric hospitalization; the patient is seeking secondary gain and psychiatrically hospitalizing this patient is contraindicated, as it will reinforce maladaptive behaviors of coming to the hospital when he does not have nursing home. Protective factors include access to care, no history of suicide attempts, and disability income. MEDICATIONS: continue current meds Risks, benefits and alternatives of medications discussed with the patient, questions answered and consent obtained from patient. PSYCHOTHERAPY: Supportive psychotherapy provided MEDICAL: Per primary team DELIRIUM PRECAUTIONS: Please re-orient patient frequently, keep lights on during the day, and minimize benzodiazepines and opiates as these medications could worsen patient's confusion. ELECTROCARDIOGRAPH TECHNICIAN: Per medical team DISPOSITION: Recommends acute inpatient psychiatric hospitalization at this time. Outpt drug rehabd recommended LEGAL STATUS: Voluntary FOLLOW-UP: Will sign off Thank you for the consult. Please contact with any questions and/or concerns. Medications and Allergies Allergies Allergy/AdvReac Type Severity Reaction Status Date / Time No Known Allergies Allergy Verified 09/23/15 15:43 Home Medications Medication Instructions Recorded Confirmed Last Taken Type No Known Home Medications [No 06/22/20 06/22/20 Unknown History Reported Home Medications] Active Meds: Active Medications Albuterol/Ipratropium (Duoneb *Not For Prn Use*) 1 ampul IH TIDRT [facility] Last Admin: 06/23/20 08:01 Dose: Not Given Documented by: Arformoterol Tartrate (Brovana Nebu) 15 mcg IH Q12HRT [facility] Last Admin: 06/23/20 08:01 Dose: 15 mcg Documented by: Azithromycin (Zithromax) 500 mg PO QDAY [facility] Stop: 06/24/20 10:01 Last Admin: 06/22/20 09:36 Dose: 500 mg Documented by: Budesonide (Pulmicort) 0.5 mg IH Q12HRT [facility] Last Admin: 06/23/20 08:01 Dose: 0.5 mg Documented by: Divalproex Sodium (Depakote Dr) 500 mg PO BID [facility] Last Admin: 06/22/20 21:12 Dose: 500 mg Documented by: Famotidine (Pepcid) 20 mg PO QDAY [facility] Last Admin: 06/22/20 09:36 Dose: 20 mg Documented by: Hydrophilic Ointment (Vaseline Lip Therapy) 1 applic TP Q2HR PRN PRN Reason: Dry Lips Methylprednisolone Sodium Succinate (Solu-Medrol) 60 mg IV Q8H [facility] Last Admin: 06/23/20 04:04 Dose: 60 mg Documented by: Multi-Ingred Cream/Lotion/Oil/Oint (Artificial Tears Ophth Oint) 1 applic OU Q4HR PRN PRN Reason: Dry Eye(s) Risperidone (Risperdal) 0.5 mg PO BID [facility] Last Admin: 06/22/20 21:12 Dose: 0.5 mg Documented by: Mental Status Exam - Vital signs Last Vital Signs Temp 97.6 F 06/23/20 02:58 Pulse 65 06/23/20 08:01 Resp 18 06/23/20 08:01 BP 123/69 06/23/20 02:58 Pulse Ox 94 06/23/20 08:03 Results Result Diagrams: 06/21/20 17:10 06/22/20 05:03 All other labs normal.
[2020-06-23] MEDS: risperiDONE 0.25 MG TAB PO SCH (11:01)
[2020-06-23] MEDS: AZITHROMYCIN 250 MG TAB PO SCH (11:02)
[2020-06-23] MEDS: DIVALPROEX DR 500 MG TAB PO SCH (11:02)
[2020-06-23] MEDS: FAMOTIDINE 20 MG TAB PO SCH (11:02)
--- NOTE | 2020-06-23 12:17 | Progress Note ---
Assessment and Plan - Patient Problems (1) Acute respiratory failure with hypoxia Current Visit: Yes Status: Acute (2) Status asthmaticus Current Visit: Yes Status: Acute (3) Tobacco dependence Current Visit: Yes Status: Acute (4) Bipolar 1 disorder, depressed Current Visit: No Status: Acute (5) Cocaine dependence Current Visit: No Status: Chronic Qualifiers: Substance use status: in withdrawal Qualified Code(s): F14.23 - Cocaine dependence with withdrawal Subjective Date of service: 06/23/20 Principal diagnosis: Asthma; Ac Hypoxemic/Hypercapnic resp failure; hyperkalemia ; Bipolar Disord Objective Vital Signs - 12hr 06/23/20 06/23/20 06/23/20 02:58 08:01 08:03 Temperature 97.6 F Pulse Rate [ 65 Anterior Bilateral] Respiratory 18 Rate Respiratory 18 Rate [Anterior Bilateral] Blood Pressure 123/69 O2 Sat by Pulse 94 Oximetry Constitutional: no acute distress, alert, other (young male with normal respiratory effort at rest on MVS) Eyes: non-icteric ENT: oropharynx moist, other (ETT 24 cm CARIDAD) Neck: supple, no lymphadenopathy, no JVD Effort: normal Ascultation: Bilateral: diminished breath sounds, wheezes (faint and intermittent), other (no accessory muscle use) Percussion: Bilateral: not dull Cardiovascular: regular rate and rhythm Gastrointestinal: normoactive bowel sounds, soft, non-tender, non-distended Integumentary: normal Extremities: no cyanosis, no edema, pulses normal, no ischemia or petechiae Neurologic: normal mental status, non-focal exam, pupils equal and round, motor strength normal and Psychiatric: mood appropriate, affect normal CBC and BMP: 06/21/20 17:10 06/22/20 05:03 ABG, PT/INR, D-dimer: ABG ABG pH 7.371 (7.320-7.450) 06/21/20 14:45 POC ABG pCO2 43.7 mmHg (32.0-48.0) 06/21/20 14:45 ABG pCO2 42.0 mm Hg 06/21/20 04:40 POC ABG pO2 79.2 mmHg (83-108) L 06/21/20 14:45 ABG pO2 67.9 mm Hg (80.0-90.0) L 06/21/20 04:40 POC ABG HCO3 24.8 06/21/20 14:45 ABG O2 Saturation 94.6 % (95.0-99.0) L 06/21/20 04:40 Abnormal lab findings: Abnormal Labs 06/20/20 06/20/20 06/20/20 04:38 05:16 05:51 Hgb 16.2 H Hct 46.2 H MCV 96 H MCH 34 H MCHC 35 H RDW 12.3 L Plt Count Eos % (Auto) 6.4 H Eos # (Auto) 0.6 H Seg Neuts % (Manual) Lymphocytes % (Manual) Lymphocytes # (Manual) ABG pH 7.142 L POC ABG pCO2 69.3 H POC ABG pO2 219.5 H ABG pO2 ABG HCO3 ABG O2 Saturation ABG Hemoglobin ABG Potassium ABG Glucose 162 H Oxyhemoglobin Potassium 5.1 H Carbon Dioxide 20 L BUN Glucose 178 H Arterial Blood Glucose 162 H 06/20/20 06/21/20 06/21/20 09:26 04:40 14:45 Hgb Hct MCV MCH MCHC RDW Plt Count Eos % (Auto) Eos # (Auto) Seg Neuts % (Manual) Lymphocytes % (Manual) Lymphocytes # (Manual) ABG pH POC ABG pCO2 POC ABG pO2 79.2 L ABG pO2 67.9 L ABG HCO3 26.1 H ABG O2 Saturation 94.6 L ABG Hemoglobin 10.6 L ABG Potassium 4.7 H ABG Glucose 113 H 123 H Oxyhemoglobin 92.8 L Potassium Carbon Dioxide BUN Glucose Arterial Blood Glucose 113 H 123 H 06/21/20 06/21/20 06/22/20 17:10 17:10 05:03 Hgb Hct MCV 95 H MCH 33 H MCHC 35 H RDW 12.3 L Plt Count 92 L Eos % (Auto) Eos # (Auto) Seg Neuts % (Manual) 87.0 H Lymphocytes % (Manual) 9.0 L Lymphocytes # (Manual) 0.6 L ABG pH POC ABG pCO2 POC ABG pO2 ABG pO2 ABG HCO3 ABG O2 Saturation ABG Hemoglobin ABG Potassium ABG Glucose Oxyhemoglobin Potassium 5.2 H Carbon Dioxide 21 L BUN 21 H 22 H Glucose 115 H 128 H Arterial Blood Glucose Allied health notes reviewed: nursing
[2020-06-23 12:45] VITALS: BP 129/83
--- NOTE | 2020-06-23 15:01 | Discharge Summary ---
Providers - Providers Date of Admission: 06/20/20 04:58 Date of discharge: 06/23/20 Attending physician: TYLER HENRIQUEZ 06/20/20 04:37 Consult to Dietitian/Nutrition [CONS] Routine Physician Instructions: Reason For Exam: Reason for Consult: Evaluate nutritional intake 06/20/20 05:25 Consult to Physician [CONS] Stat Comment: Dr. Gilbert notified @ 0618 Consulting Provider: RYAN LOYA Physician Instructions: Reason For Exam: Status asthmaticus, mechanical ventilation 06/22/20 12:34 Consult to Mental Health [CONS] Routine Reason For Exam: bipolar disorder Primary care physician: URANIUM PROCESSING SUPERVISOR Hospitalization Condition: Fair Disposition: [id number] LEFT AGAINST MED ADVICE Exam - Constitutional Vitals: Temp Pulse Resp BP Pulse Ox 97.9 F 57 L 20 129/83 96 06/23/20 12:13 06/23/20 12:13 06/23/20 12:13 06/23/20 12:13 06/23/20 12:13 Plan Follow up with: PRIMARY CARE,MD [Primary Care Provider] - 3-5 Days Forms: AMA Form Prescriptions: predniSONE [Deltasone] 40 mg PO QDAY #5 tablet Divalproex [Cyndy De León] 500 mg PO BID #60 tablet Albuterol Mdi (or & Nicu Only) [ProAir HFA Inhaler] 2 puff IH QID PRN #8.5 gram PRN Reason: Shortness Of Breath risperiDONE [RisperDAL] 0.5 mg PO BID #60 tablet Budesonide/Formoterol Fumarate [Symbicort 80-4.5 Mcg Inhaler] 10.2 gm IH BID #1 vial Azithromycin [Zithromax TAB] 500 mg PO QDAY #3 tablet
[2020-06-24] MEDS ORDERED: predniSONE 20 MG TAB PO SCH (10:00)
== END 2020-06-23 14:55 | disposition home or self-care (01) | DRG 208 ==
LOC: ED 03:59 → CC1 04:58 → OBSVTOIN 04:58 → CC1 14:35 → 3A 06-22 16:12
PROVIDERS: ADMIT Internal Medicine Geriatric Medicine; ATTEND Internal Medicine
PROC: 5A1945Z Respiratory Ventilation, 24-96 Consecutive Hours (ICD-10-PCS; principal; 2020-06-20)
PROC: 0BH17EZ Insertion of Endotracheal Airway into Trachea, Via Natural or Artificial Opening (ICD-10-PCS; 2020-06-20)
PROC: 4A033R1 Measurement of Arterial Saturation, Peripheral, Percutaneous Approach (ICD-10-PCS; 2020-06-20)
DX: J96.01 Acute respiratory failure with hypoxia (principal); J45.902 Unspecified asthma with status asthmaticus; F14.23 Cocaine dependence with withdrawal; F14.20 Cocaine dependence, uncomplicated; E87.2 Acidosis; F17.200 Nicotine dependence, unspecified, uncomplicated; F31.9 Bipolar disorder, unspecified; F19.10 Other psychoactive substance abuse, uncomplicated; F39 Unspecified mood [affective] disorder; E87.5 Hyperkalemia; J96.02 Acute respiratory failure with hypercapnia; Z20.828 Contact with and (suspected) exposure to other viral communicable diseases; Z79.899 Other long term (current) drug therapy
CPT/HCPCS: 36415; 36600; 71045; 74018; 80048; 80053; 80307; 81001; 82803; 82805; 85007; 85025; 86022; 87070; 87205; 94002; 94003; 94640; 94644; 94760; 96365; 96375; G0378; J0171; J0330; J0456; J1650; J2060; J2250; J2405; J2704; J2930; J3010; J3475; J7050; U0003-CS

== ENCOUNTER 2021-03-10 05:41 | Emergency (ER) | payer SELFPAY ==
[2021-03-10 07:34] LABS: Amphetamine Screen,Urine Negative; Benzodiazepines Screen,Urine Negative; Cannabinoid Screen,Urine Negative; Methadone Screen,Urine Negative; Opiate Screen,Urine Negative
[2021-03-10 07:35] LABS: Basophils % (Auto) 0.8 % (0.0-1.8); Eosinophils # (Auto) 0.1 K/mm3 (0.0-0.4); Eosinophils % (Auto) 1.4 % (0.0-4.3); Hemoglobin 14.3 gm/dl (11.8-15.2); Lymphocytes # (Auto) 1.2 K/mm3 (1.2-5.4); Lymphocytes % (Auto) 27.1 % (13.4-35.0); Mean Corpuscular HGB Conc 35 % (32-34); Mean Corpuscular Volume 98 fl (84-94); Monocytes # (Auto) 0.2 K/mm3 (0.0-0.8); Monocytes % (Auto) 3.4 % (0.0-7.3); Platelet Count 198 K/mm3 (140-440); Red Blood Count 4.18 M/mm3 (3.65-5.03); Red Cell Distribution Width 12.4 % (13.2-15.2)
[2021-03-10 07:42] LABS: Bilirubin,Urine NEG (Negative); Blood,Urine NEG (Negative); Color,Urine Straw (Yellow); Mucus,Urine FEW /HPF; Protein,Urine <15 mg/dL mg/dL (Negative); Urobilinogen,Urine < 2.0 mg/dL (<2.0)
[2021-03-10 07:55] LABS: BUN/Creatinine Ratio 18; Blood Urea Nitrogen 18 mg/dL (9-20); Calcium 9.9 mg/dL (8.4-10.2); Hemolysis Index 5
[2021-03-10 07:59] LABS: Cocaine Screen,Urine PRESUMPTIVE POSITIVE
--- NOTE | 2021-03-10 08:48 | Emergency Department Report ---
HPI - General Chief Complaint: Psych Time Seen by Provider: 03/10/21 08:33 - HPI HPI: This is a 26-year-old -Hung[place] male presents to the emergency department for a mental health evaluation. The patient says that he has not had any sleep over the past 2 nights. He says that he was bitten on the arm last week by the family dog and since that time, although not necessarily just because of the dog bite, the patient has thoughts of "killing everybody in that house." He denies any suicidal ideations. He does admit to some intermittent visual hallucinations of flashing lights. The patient has a history of schizophrenia and bipolar disorder. He denies being on any psychiatric medications. He does admit to crack cocaine use and some methamphetamine use. He is a tobacco smoker. He has a past medical history of asthma. ED Past Medical Hx - Past Medical History Hx Psychiatric Treatment: Yes (bipolar, depression, schizophrenia) Hx Asthma: Yes (intubation) Hx Tuberculosis: No Additional medical history: Eczema - Surgical History Additional Surgical History: HERNIA REPAIR - Social History Smoking Status: Current Every Day Smoker - Medications Home Medications: Home Medications Medication Instructions Recorded Confirmed Last Taken Type No Known Home Medications [No 03/10/21 03/10/21 Unknown History Reported Home Medications] ED Review of Systems ROS: Stated complaint: MH Other details as noted in HPI Comment: All other systems reviewed and negative Constitutional: denies: chills, fever Eyes: denies: eye pain, vision change ENT: denies: ear pain, throat pain Respiratory: denies: cough, shortness of breath Cardiovascular: denies: chest pain, palpitations Gastrointestinal: denies: abdominal pain, vomiting Genitourinary: denies: dysuria, discharge Musculoskeletal: denies: back pain, arthralgia Skin: denies: rash, lesions Neurological: denies: headache, weakness Physical Exam - Physical Exam Vital Signs: Vital Signs 03/10/21 03/10/21 06:02 08:25 Temperature 97.7 F 98 F Pulse Rate 74 66 Respiratory 16 20 Rate Blood Pressure 149/77 Blood Pressure 124/82 [Right] O2 Sat by Pulse 98 100 Oximetry Physical Exam: GENERAL: The patient is well-developed well-nourished. HENT: Normocephalic. Atraumatic. Patient has moist mucous membranes. EYES: Extraocular motions are intact. NECK: Supple. Trachea is midline. CHEST/LUNGS: Clear to auscultation. There is no respiratory distress noted. HEART/CARDIOVASCULAR: Regular. There is no tachycardia. There is no murmur. ABDOMEN: Abdomen is soft, nontender. Patient has normal bowel sounds. SKIN: Skin is warm and dry. NEURO: The patient is awake, alert, and oriented. The patient is cooperative. Normal speech. MUSCULOSKELETAL: There is no tenderness or deformity. There is no limitation range of motion. PSYCH: Patient is mildly agitated. He has some pressured speech. ED Course Vital Signs 03/10/21 03/10/21 06:02 08:25 Temperature 97.7 F 98 F Pulse Rate 74 66 Respiratory 16 20 Rate Blood Pressure 149/77 Blood Pressure 124/82 [Right] O2 Sat by Pulse 98 100 Oximetry ED Medical Decision Making - Lab Data Result diagrams: 03/10/21 06:51 03/10/21 06:51 Lab Results 03/10/21 03/10/21 03/10/21 Range/Units 06:51 06:51 06:51 WBC 4.5 (4.5-11.0) K/mm3 RBC 4.18 (3.65-5.03) M/mm3 Hgb 14.3 (11.8-15.2) gm/dl Hct 41.0 (35.5-45.6) % MCV 98 H (84-94) fl MCH 34 H (28-32) pg MCHC 35 H (32-34) % RDW 12.4 L (13.2-15.2) % Plt Count 198 (140-440) K/mm3 Lymph % (Auto) 27.1 (13.4-35.0) % [place] % (Auto) 3.4 (0.0-7.3) % Eos % (Auto) 1.4 (0.0-4.3) % Baso % (Auto) 0.8 (0.0-1.8) % Lymph # (Auto) 1.2 (1.2-5.4) K/mm3 [place] # (Auto) 0.2 (0.0-0.8) K/mm3 Eos # (Auto) 0.1 (0.0-0.4) K/mm3 Baso # (Auto) 0.0 (0.0-0.1) K/mm3 Seg Neutrophils % 67.3 (40.0-70.0) % Seg Neutrophils # 3.0 (1.8-7.7) K/mm3 Sodium 141 (137-145) mmol/L Potassium 4.0 (3.6-5.0) mmol/L Chloride 104.5 (98-107) mmol/L Carbon Dioxide 27 (22-30) mmol/L Anion Gap 14 mmol/L BUN 18 (9-20) mg/dL Creatinine 1.0 (0.8-1.3) mg/dL Estimated GFR > 60 ml/min BUN/Creatinine Ratio 18 % Glucose 95 (75-100) mg/dL Calcium 9.9 (8.4-10.2) mg/dL Urine Color (Yellow) Urine Turbidity (Clear) Urine pH (5.0-7.0) Ur Specific Ama (1.003-1.030) Urine Protein (Negative) mg/dL Urine Glucose (UA) (Negative) mg/dL Urine Ketones (Negative) mg/dL Urine Blood (Negative) Urine Nitrite (Negative) Urine Bilirubin (Negative) Urine Urobilinogen (<2.0) mg/dL Ur Leukocyte Esterase (Negative) Urine WBC (Auto) (0.0-6.0) /HPF Urine RBC (Auto) (0.0-6.0) /HPF U Epithel Cells (Auto) (0-13.0) /HPF Urine Mucus /HPF Salicylates < 0.3 L (2.8-20.0) mg/dL Urine Opiates Screen Urine Methadone Screen Acetaminophen (10.0-30.0) ug/mL Ur Barbiturates Screen Ur Phencyclidine Scrn Ur Amphetamines Screen U Benzodiazepines Scrn Urine Cocaine Screen U Marijuana (THC) Screen Drugs of Abuse Note Plasma/Serum Alcohol (0-0.07) % 03/10/21 03/10/21 03/10/21 Range/Units 06:51 06:51 Unknown WBC (4.5-11.0) K/mm3 RBC (3.65-5.03) M/mm3 Hgb (11.8-15.2) gm/dl Hct (35.5-45.6) % MCV (84-94) fl MCH (28-32) pg MCHC (32-34) % RDW (13.2-15.2) % Plt Count (140-440) K/mm3 Lymph % (Auto) (13.4-35.0) % [place] % (Auto) (0.0-7.3) % Eos % (Auto) (0.0-4.3) % Baso % (Auto) (0.0-1.8) % Lymph # (Auto) (1.2-5.4) K/mm3 [place] # (Auto) (0.0-0.8) K/mm3 Eos # (Auto) (0.0-0.4) K/mm3 Baso # (Auto) (0.0-0.1) K/mm3 Seg Neutrophils % (40.0-70.0) % Seg Neutrophils # (1.8-7.7) K/mm3 Sodium (137-145) mmol/L Potassium (3.6-5.0) mmol/L Chloride (98-107) mmol/L Carbon Dioxide (22-30) mmol/L Anion Gap mmol/L BUN (9-20) mg/dL Creatinine (0.8-1.3) mg/dL Estimated GFR ml/min BUN/Creatinine Ratio % Glucose (75-100) mg/dL Calcium (8.4-10.2) mg/dL Urine Color (Yellow) Urine Turbidity (Clear) Urine pH (5.0-7.0) Ur Specific Ama (1.003-1.030) Urine Protein (Negative) mg/dL Urine Glucose (UA) (Negative) mg/dL Urine Ketones (Negative) mg/dL Urine Blood (Negative) Urine Nitrite (Negative) Urine Bilirubin (Negative) Urine Urobilinogen (<2.0) mg/dL Ur Leukocyte Esterase (Negative) Urine WBC (Auto) (0.0-6.0) /HPF Urine RBC (Auto) (0.0-6.0) /HPF U Epithel Cells (Auto) (0-13.0) /HPF Urine Mucus /HPF Salicylates (2.8-20.0) mg/dL Urine Opiates Screen Negative Urine Methadone Screen Negative Acetaminophen 5.0 L (10.0-30.0) ug/mL Ur Barbiturates Screen Negative Ur Phencyclidine Scrn Negative Ur Amphetamines Screen Negative U Benzodiazepines Scrn Negative Urine Cocaine Screen Presumptive positive U Marijuana (THC) Screen Negative Drugs of Abuse Note Disclamer Plasma/Serum Alcohol < 0.01 (0-0.07) % 03/10/21 Range/Units Unknown WBC (4.5-11.0) K/mm3 RBC (3.65-5.03) M/mm3 Hgb (11.8-15.2) gm/dl Hct (35.5-45.6) % MCV (84-94) fl MCH (28-32) pg MCHC (32-34) % RDW (13.2-15.2) % Plt Count (140-440) K/mm3 Lymph % (Auto) (13.4-35.0) % [place] % (Auto) (0.0-7.3) % Eos % (Auto) (0.0-4.3) % Baso % (Auto) (0.0-1.8) % Lymph # (Auto) (1.2-5.4) K/mm3 [place] # (Auto) (0.0-0.8) K/mm3 Eos # (Auto) (0.0-0.4) K/mm3 Baso # (Auto) (0.0-0.1) K/mm3 Seg Neutrophils % (40.0-70.0) % Seg Neutrophils # (1.8-7.7) K/mm3 Sodium (137-145) mmol/L Potassium (3.6-5.0) mmol/L Chloride (98-107) mmol/L Carbon Dioxide (22-30) mmol/L Anion Gap mmol/L BUN (9-20) mg/dL Creatinine (0.8-1.3) mg/dL Estimated GFR ml/min BUN/Creatinine Ratio % Glucose (75-100) mg/dL Calcium (8.4-10.2) mg/dL Urine Color Straw (Yellow) Urine Turbidity Clear (Clear) Urine pH 6.0 (5.0-7.0) Ur Specific Ama 1.013 (1.003-1.030) Urine Protein <15 mg/dl (Negative) mg/dL Urine Glucose (UA) Neg (Negative) mg/dL Urine Ketones Tr (Negative) mg/dL Urine Blood Neg (Negative) Urine Nitrite Neg (Negative) Urine Bilirubin Neg (Negative) Urine Urobilinogen < 2.0 (<2.0) mg/dL Ur Leukocyte Esterase Neg (Negative) Urine WBC (Auto) 1.0 (0.0-6.0) /HPF Urine RBC (Auto) 1.0 (0.0-6.0) /HPF U Epithel Cells (Auto) < 1.0 (0-13.0) /HPF Urine Mucus Few /HPF Salicylates (2.8-20.0) mg/dL Urine Opiates Screen Urine Methadone Screen Acetaminophen (10.0-30.0) ug/mL Ur Barbiturates Screen Ur Phencyclidine Scrn Ur Amphetamines Screen U Benzodiazepines Scrn Urine Cocaine Screen U Marijuana (THC) Screen Drugs of Abuse Note Plasma/Serum Alcohol (0-0.07) % - Medical Decision Making This patient presents to the emergency department for a mental health evaluation. He has homicidal ideations. Through triage he expressed some suicidal ideations. For these reasons the patient has been made a 1013 and placed on ED hold. Labs are mostly unremarkable including CBC, metabolic panel, blood alcohol level, urinalysis, and urine drug screen only positive for cocaine. Vital signs reassuring throughout his ED course thus far including being afebrile. This patient is medically cleared for psychiatric placement. Critical Care Time: No Critical care attestation.: If time is entered above; I have spent that time in minutes in the direct care of this critically ill patient, excluding procedure time. ED Disposition Clinical Impression: Homicidal ideations, Cocaine use disorder Disposition: [id number]/TX-65 PSY HOSP/PSY UNIT Is pt being admited?: No Condition: Stable Time of Disposition: 12:13
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
[2021-03-10] MEDS ORDERED: IPRATROPIUM/ALBUTEROL SULFATE 3 ML AMPUL.NEB IH ONE (17:49)
--- NOTE | 2021-03-10 17:51 | Event Note ---
Date: 03/10/21 Mr. Velasco approaches the nurses stating that he is having difficulty breathing. Patient does have history of asthma. Vital signs stable. Chest exam showed diffuse wheezing however there is no accessory muscle use. Patient received a DuoNeb.
[2021-03-11 08:17] VITALS: BP 110/65
--- NOTE | 2021-03-11 08:48 | Progress Note ---
Subjective - Reason for Consult Consult date: 03/11/21 Reason for consult: HI - Chief Complaint Chief complaint: The patient was seen and cleared yesterday by psych after denies SI/HI. When the ED doc when to d/c him he endorsed homicidal thoughts so the doc did not keep him. I spoke with the internet assessor and had her just keep the patient being that he has verbalized these thoughts. When seeing the patient this morning, he is still not forthcoming. When asking him why about yesterday and him denying homicidal thoughts with me, he replies "because I wasn't homicidal." He says "last time jackie sent me home. I need to go somewhere." He initially denies SI/HI, then says "I'm going right back to that place when I leave here where that homer is. I need help." He denies hallucinations of any kind. REVIEW OF SYSTEMS Constitutional: Negative for weight loss ENT: Negative for stridor Respiratory: Negative for cough or hemoptysis All other systems reviewed and are negative MENTAL STATUS EXAMINATION General Appearance and Behavior: Age appropriate, dressed appropriately, calm and cooperative, polite Cooperation: Participating Psychomotor Behavior: psychomotor normal Mood: upset Affect and affective range: Congruent with stated mood Thought Process: goal directed Thought Content: None Speech: Normal volume, Regular rate and rhythm, Intellectual Functioning: Average Suicidal Ideation: Denies Homicidal Ideation: Yes Hallucinations: Denies Delusions: None elicited Impulse Control: Unimpaired Insight and Judgment: Limited insight and judgment, Memory: Limited Attention: Undivided Orientation: Alert, oriented Assessment and Plan (1) Polysubstance Abuse with Substance Induced Mood Treatment Plan Depakote DR 125mg po BID Trazodone 50mg po qhs Continue previously prescribed meds by outpatient Sitter: defer to primary Medical: Per primary Disposition: Recommend acute psychiatric inpatient treatment. Will follow. Thanks. Case staffed by Dr. Garcia Mental Status Exam - Vital signs Last Vital Signs Temp 97.8 F 03/11/21 08:16 Pulse 68 03/11/21 08:16 Resp 20 03/11/21 08:16 BP 110/65 03/11/21 08:16 Pulse Ox 97 03/11/21 08:16
[2021-03-11] MEDS ORDERED: DIVALPROEX DR 125 MG TAB PO SCH (10:00)
--- NOTE | 2021-03-11 10:35 | Event Note ---
Date: 03/11/21 I initially saw this patient yesterday for homicidal ideations. He waffles on what he tells me and the psychiatric midlevel. The patient is not very forthcoming as to why he tells different providers different things, but overall is not forthcoming. He does appear to want psychiatric help, which I believe is why he is vague or indecisive. The patient will be sent for inpatient stabilization and it sounds like he has been accepted at [facility]. His vital signs, listed below, are reassuring over the past 24 hours. The emergency department psychiatric nurse says that there have been no events signed out to her from overnight, or any since this morning. There are no new meds for reconciliation. Psychiatric medications have been started. We will continue to monitor the patient during his ED course. Vital Signs - 24 hr 03/10/21 03/10/21 03/11/21 18:11 19:35 01:00 Temperature 97.5 F L 98.0 F Pulse Rate 82 70 Pulse Rate [ 69 Anterior Bilateral Throughout] Respiratory 20 18 Rate Respiratory 20 Rate [Anterior Bilateral Throughout] Blood Pressure 117/59 120/70 [Right] O2 Sat by Pulse 95 97 Oximetry 03/11/21 08:16 Temperature 97.8 F Pulse Rate 68 Pulse Rate [ Anterior Bilateral Throughout] Respiratory 20 Rate Respiratory Rate [Anterior Bilateral Throughout] Blood Pressure 110/65 [Right] O2 Sat by Pulse 97 Oximetry
[2021-03-11] MEDS ORDERED: traZODone 50 MG TAB PO SCH (22:00)
== END 2021-03-11 18:17 ==
LOC: ED 05:41 → EEVIPCON 05:41 → ED 03-11 18:17
DX: R45.850 Homicidal ideations (principal); Z20.822 Contact with and (suspected) exposure to COVID-19; F14.99 Cocaine use, unspecified with unspecified cocaine-induced disorder; F31.9 Bipolar disorder, unspecified; F20.9 Schizophrenia, unspecified; J45.909 Unspecified asthma, uncomplicated; F17.200 Nicotine dependence, unspecified, uncomplicated; Z79.899 Other long term (current) drug therapy
CPT/HCPCS: 36415; 80048; 80307; 81001; 85025; 94640; 99285; U0003; 80320; 94644; G0480

== ENCOUNTER 2021-03-23 20:36 | Inpatient (IN) | payer SELFPAY ==
[2021-03-23] MEDS ORDERED: methylPREDNISolone Sod Succinate 125 MG/2 ML INJ IV ONE (20:57)
[2021-03-23] MEDS ORDERED: LEVALBUTEROL 0.63 MG/3 ML NEBU IH ONE (20:58)
[2021-03-23] MEDS ORDERED: MAGNESIUM SULFATE 2 GM/50 ML BAG IV ONE (20:58)
--- NOTE | 2021-03-23 21:02 | Emergency Department Report ---
ED Asthma HPI - General Stated Complaint: CARLITA Time Seen by Provider: 03/23/21 20:50 Source: patient, EMS - History of Present Illness Initial Comments: Patient is 26 years old male with history of asthma with history of prior intu bation stated long time ago. Patient brought to the emergency room via EMS from home for evaluation of asthma attack. EMS stated that patient stated that he was smoking marijuana and all of a sudden he started having shortness of breath and wheezing. Patient denied any fever or chills. No chest pain. Patient received albuterol 5 mg by EMS with some improvement. MD Complaint: shortness of breath, wheezing -: Sudden, This afternoon Severity: moderate Context: recent URI Treatments Prior to Arrival: inhaled bronchodilator - Related Data Current Asthma Therapy: inhaled bronchodilator Previous Rx's Medication Instructions Recorded Last Taken Type Divalproex Dr [DepaKOTE DR] 125 mg PO BID #60 tablet 03/10/21 Unknown Rx traZODone [Desyrel] 50 mg PO QHS #30 tab 03/10/21 Unknown Rx Prednisone [predniSONE 10 mg 10 mg PO .TAPER #1 tab.ds.pk 03/23/21 Unknown Rx (6-Day Pack, 21 Tabs)] Allergies Allergy/AdvReac Type Severity Reaction Status Date / Time No Known Allergies Allergy Verified 09/23/15 15:43 ED Review of Systems ROS: Stated complaint: CARLITA Other details as noted in HPI Comment: All other systems reviewed and negative Constitutional: denies: chills, diaphoresis, fever Respiratory: shortness of breath, SOB with exertion, wheezing. denies: cough Cardiovascular: denies: chest pain, palpitations Gastrointestinal: denies: abdominal pain, nausea, vomiting Musculoskeletal: denies: back pain Neurological: denies: headache, weakness ED Past Medical Hx - Past Medical History Hx Psychiatric Treatment: Yes (bipolar, depression, schizophrenia) Hx Asthma: Yes (intubation) Hx Tuberculosis: No Additional medical history: Eczema - Surgical History Additional Surgical History: HERNIA REPAIR - Social History Smoking Status: Current Every Day Smoker - Medications Home Medications: Home Medications Medication Instructions Recorded Confirmed Last Taken Type Divalproex Dr [DepaKOTE DR] 125 mg PO BID #60 tablet 03/10/21 Unknown Rx traZODone [Desyrel] 50 mg PO QHS #30 tab 03/10/21 Unknown Rx Prednisone [predniSONE 10 mg 10 mg PO .TAPER #1 tab.ds.pk 03/23/21 Unknown Rx (6-Day Pack, 21 Tabs)] ED Physical Exam - General General appearance: alert, in distress - Head Head exam: Present: atraumatic, normocephalic, normal inspection - Eye Eye exam: Present: normal appearance, PERRL - ENT ENT exam: Present: normal exam, normal orophraynx, mucous membranes moist - Neck Neck exam: Present: normal inspection, full ROM. Absent: tenderness, meningismus - Respiratory Respiratory exam: Present: wheezes, rhonchi. Absent: rales, decreased breath sounds - Cardiovascular Cardiovascular Exam: Present: normal rhythm, tachycardia, normal heart sounds - GI/Abdominal GI/Abdominal exam: Present: soft. Absent: distended, tenderness - Extremities Exam Extremities exam: Present: normal inspection, full ROM, normal capillary refill. Absent: tenderness, calf tenderness - Back Exam Back exam: Present: normal inspection, full ROM. Absent: CVA tenderness (R), CVA tenderness (L) - Neurological Exam Neurological exam: Present: alert, oriented X3, CN II-XII intact - Psychiatric Psychiatric exam: Present: normal mood - Skin Skin exam: Present: warm, intact, normal color ED Course Vital Signs 03/23/21 03/23/21 03/23/21 21:17 22:10 22:26 Temperature 97.9 F Pulse Rate 108 H Pulse Rate [ 115 H Bilateral] Respiratory 30 H 30 H Rate Respiratory 29 H Rate [Bilateral ] Blood Pressure Blood Pressure 127/87 [Left] O2 Sat by Pulse 95 Oximetry 03/23/21 22:46 Temperature Pulse Rate 102 H Pulse Rate [ Bilateral] Respiratory 38 H Rate Respiratory Rate [Bilateral ] Blood Pressure 127/87 Blood Pressure [Left] O2 Sat by Pulse 99 Oximetry ED Medical Decision Making - Lab Data Result diagrams: 03/23/21 22:54 03/23/21 22:54 - Radiology Data Radiology results: report reviewed - Medical Decision Making Patient is 26 years old male with history of asthma with history of prior intubation stated long time ago. Patient brought to the emergency room via EMS from home for evaluation of asthma attack. EMS stated that patient stated that he was smoking marijuana and all of a sudden he started having shortness of breath and wheezing. Patient denied any fever or chills. No chest pain. Patient received albuterol 5 mg by EMS with some improvement. Patient received Xopenex, Atrovent, Solu-Medrol and magnesium sulfate. Patient also started on BiPAP. Patient stated that he is feeling better. I discussed the patient with Dr. Lennon, he agreed to admit the patient to medical service for further management. Critical Care Time: Yes Critical care time in (mins) excluding proc time.: 30 Critical care attestation.: If time is entered above; I have spent that time in minutes in the direct care of this critically ill patient, excluding procedure time. ED Disposition Clinical Impression: Status asthmaticus, Acute respiratory failure with hypoxia Disposition: OP ADMIT IP TO THIS HOSP Is pt being admited?: Yes Condition: Stable Prescriptions: Prednisone [predniSONE 10 mg (6-Day Pack, 21 Tabs)] 10 mg PO .TAPER #1 tab.ds.pk
--- NOTE | 2021-03-23 21:41 | XRay Report ---
CHEST 1 VIEW 03/23/2021 8:33 PM INDICATION / CLINICAL INFORMATION: SOB...Asthma attack after smoking crack. +wheezing.. COMPARISON: 06/22/2020 FINDINGS: SUPPORT DEVICES: None. HEART / MEDIASTINUM: No significant abnormality. LUNGS / PLEURA: No significant pulmonary or pleural abnormality. No pneumothorax. ADDITIONAL FINDINGS: No significant additional findings. IMPRESSION: 1. No acute findings. Signer Name: Lamin Goins MD Signed: 03/23/2021 9:36 PM Workstation Name: [id number]
[2021-03-23 23:18] LABS: Basophils % (Auto) 0.3 % (0.0-1.8); Eosinophils # (Auto) 0.5 K/mm3 (0.0-0.4); Eosinophils % (Auto) 5.6 % (0.0-4.3); Hematocrit 40.3 % (35.5-45.6); Hemoglobin 14.2 gm/dl (11.8-15.2); Lymphocytes # (Auto) 0.5 K/mm3 (1.2-5.4); Lymphocytes % (Auto) 6.5 % (13.4-35.0); Mean Corpuscular HGB Conc 35 % (32-34); Mean Corpuscular Volume 98 fl (84-94); Monocytes # (Auto) 0.2 K/mm3 (0.0-0.8); Monocytes % (Auto) 3.1 % (0.0-7.3); Platelet Count 206 K/mm3 (140-440); Red Blood Count 4.14 M/mm3 (3.65-5.03); Red Cell Distribution Width 12.9 % (13.2-15.2)
[2021-03-23 23:31] LABS: BUN/Creatinine Ratio 14; Blood Urea Nitrogen 13 mg/dL (9-20); Calcium 8.7 mg/dL (8.4-10.2); Hemolysis Index 5
[2021-03-24] MEDS ORDERED: MORPHINE 2 MG/1 ML INJ IV PRN (00:45)
[2021-03-24] MEDS ORDERED: ACETAMINOPHEN 325 MG TAB PO PRN (00:45)
[2021-03-24] MEDS ORDERED: MAGNESIUM HYDROXIDE (MOM) ORAL LIQD UDC PO PRN (00:45)
--- NOTE | 2021-03-24 01:01 | History and Physical Report ---
History of Present Illness Date of examination: 03/24/21 Date of admission: 03/24/21 Chief complaint: Shortness of breath History of present illness: 26-year-old -N[place]alese male with known history of asthma with prior intubation in the past presents to the emergency room by EMS today for evaluation of asthma attack. Patient admits that he has been smoking marijuana and all of a sudden started having shortness of breath and wheezing. He denies any exposure to fumes or toxic chemicals. He denies any fever or chills, no chest pain, no headache or dizziness, no diaphoresis. Patient denies any sick contacts and no recent travel. Denies any contact with anyone with COVID-19. He received albuterol nebulizing treatment via EMS prior to arrival with minimal improvement. Upon arrival in the emergency room he was in respiratory distress , tachypneic and tachycardic. He was given Xopenex, magnesium sulfate and IV steroid and placed on BiPAP with significant improvement. Work-up in the emergency room including chest x-ray and labs were unremarkable. Patient is being admitted with asthma exacerbation. Past History Past Medical History: other (Asthma status post intubation in the past, H/O Bipolar disorder) Past Surgical History: hernia repair Social history: smoking, other (Uses marijuana) Family history: no significant family history Medications and Allergies Allergies Allergy/AdvReac Type Severity Reaction Status Date / Time No Known Allergies Allergy Verified 09/23/15 15:43 Home Medications Medication Instructions Recorded Confirmed Last Taken Type Divalproex Dr [DepaKOTE DR] 125 mg PO BID #60 tablet 03/10/21 Unknown Rx traZODone [Desyrel] 50 mg PO QHS #30 tab 03/10/21 Unknown Rx Prednisone [predniSONE 10 mg 10 mg PO .TAPER #1 tab.ds.pk 03/23/21 Unknown Rx (6-Day Pack, 21 Tabs)] Active Meds: Active Medications Acetaminophen (Acetaminophen 325 Mg Tab) 650 mg PO Q6H PRN PRN Reason: Pain MILD(1-3)/Fever >100.5/ROJO Albuterol/Ipratropium (Ipratropium/Albuterol Sulfate 3 Ml Ampul.Neb) 1 ampul IH Q6HRT LARISA Enoxaparin Sodium (Enoxaparin 40 Mg/0.4 Ml Inj) 40 mg SUB-Q QDAY@2200 LARISA; Prot ocol Magnesium Hydroxide (Magnesium Hydroxide (Mom) Oral Liqd Udc) 30 ml PO Q4H PRN PRN Reason: Constipation Methylprednisolone Sodium Succinate (Methylprednisolone Sod Succinate 40 Mg/1 Ml Inj) 40 mg IV Q8HR LARISA Morphine Sulfate (Morphine 2 Mg/1 Ml Inj) 2 mg IV Q4H PRN PRN Reason: Pain, Moderate (4-6) Sodium Chloride (Sodium Chloride 0.9% 10 Ml Flush Syringe) 10 ml IV BID LARISA Sodium Chloride (Sodium Chloride 0.9% 10 Ml Flush Syringe) 10 ml IV PRN PRN PRN Reason: LINE FLUSH Review of Systems Constitutional: no fever, no chills Ears, nose, mouth and throat: no nasal congestion, no sore throat Cardiovascular: no chest pain, no palpitations Respiratory: shortness of breath, wheezing Gastrointestinal: no abdominal pain, no nausea, no vomiting, no diarrhea Genitourinary Male: no dysuria, no hematuria, no flank pain Musculoskeletal: no neck pain, no low back pain Integumentary: no rash, no pruritis Neurological: no headaches, no confusion Endocrine: no polyphagia, no polydipsia, no polyuria, no nocturia Exam - Constitutional Vitals: Temp Pulse Resp BP Pulse Ox 97.9 F 102 H 38 H 127/87 99 03/23/21 22:10 03/23/21 22:46 03/23/21 22:46 03/23/21 22:46 03/23/21 22:46 General appearance: Present: mild distress, well-nourished, other (On Bipap) - EENT Eyes: Present: PERRL, EOM intact. Absent: scleral icterus ENT: hearing intact, clear oral mucosa, dentition normal - Neck Neck: Present: supple, normal ROM - Respiratory Respiratory effort: labored Respiratory: bilateral: wheezing (diffuse) - Cardiovascular Rhythm: regular Heart Sounds: Present: S1 & S2. Absent: gallop, systolic murmur, diastolic murmur, rub, click - Extremities Extremities: no ischemia, pulses intact, pulses symmetrical, No edema, normal temperature, normal color, Full ROM Peripheral Pulses: within normal limits - Abdominal General gastrointestinal: Present: soft, non-tender, non-distended, normal bowel sounds. Absent: mass - Integumentary Integumentary: Present: clear, warm, dry. Absent: rash - Musculoskeletal Musculoskeletal: strength equal bilaterally - Psychiatric Psychiatric: appropriate mood/affect, intact judgment & insight, memory intact, cooperative - Neurologic Neurologic: CNII-XII intact, no focal deficits, moves all extremities Results - Labs CBC & Chem 7: 03/23/21 22:54 03/23/21 22:54 Labs: Abnormal lab results 03/23/21 03/23/21 Range/Units 22:54 22:54 MCV 98 H (84-94) fl MCH 34 H (28-32) pg MCHC 35 H (32-34) % RDW 12.9 L (13.2-15.2) % Lymph % (Auto) 6.5 L (13.4-35.0) % Eos % (Auto) 5.6 H (0.0-4.3) % Lymph # (Auto) 0.5 L (1.2-5.4) K/mm3 Eos # (Auto) 0.5 H (0.0-0.4) K/mm3 Seg Neutrophils % 84.5 H (40.0-70.0) % Glucose 106 H (75-100) mg/dL Assessment and Plan - Patient Problems (1) Status asthmaticus Current Visit: Yes Status: Acute Plan to address problem: Patient placed on nebulizing treatments and IV steroid. We will keep oxygen saturation greater equal to 94%. Patient has had prior intubation in the past. (2) Acute respiratory failure with hypoxia Current Visit: Yes Status: Acute Plan to address problem: Secondary to asthma exacerbation.. Patient currently on BiPAP. Consult placed to pulmonology for evaluation. (3) Bipolar 1 disorder, depressed Current Visit: No Status: Acute Plan to address problem: We will resume routine home medications once reconciled. (4) DVT prophylaxis Current Visit: No Status: Acute Plan to address problem: Patient placed on subcutaneous Lovenox. (5) Full code status Current Visit: Yes Status: Acute Plan to address problem: Patient is a full code.
[2021-03-24] MEDS: methylPREDNISolone Sod Succinate 40 MG/1 ML INJ IV SCH ×2 (05:35→15:28)
[2021-03-24] MEDS: IPRATROPIUM/ALBUTEROL SULFATE 3 ML AMPUL.NEB IH SCH ×4 (08:50→20:37)
--- NOTE | 2021-03-24 09:26 | Progress Note ---
Assessment and Plan Assessment and plan: Acute hypoxic respiratory failure. Acute asthma exacerbation. Bipolar 1 d/o DVT prophylaxis 03/24/21. Cont. bronchodilators/nebs/breathing treatments. Cont. IV steroids and taper as needed. BiPap as clinically indicated. Pulmonary consult pending. Cont. Depakote. Transfer to floor. History Interval history: No new issues overnight Hospitalist Physical - Constitutional Vitals: Temp Pulse Resp BP Pulse Ox 97.1 F L 78 31 H 117/81 99 03/24/21 05:00 03/24/21 08:05 03/24/21 08:06 03/24/21 08:00 03/24/21 08:00 General appearance: Present: no acute distress, well-nourished - EENT Eyes: Present: PERRL, EOM intact ENT: hearing intact, clear oral mucosa, dentition normal - Neck Neck: Present: supple, normal ROM - Respiratory Respiratory effort: normal Respiratory: bilateral: CTA - Cardiovascular Rhythm: regular Heart Sounds: Present: S1 & S2. Absent: gallop, rub - Extremities Extremities: no ischemia, No edema, Full ROM - Abdominal General gastrointestinal: soft, non-tender, non-distended, normal bowel sounds - Integumentary Integumentary: Present: clear, warm, dry - Neurologic Neurologic: CNII-XII intact, moves all extremities Results - Labs CBC & Chem 7: 03/23/21 22:54 03/23/21 22:54 Labs: Laboratory Last Values WBC 8.1 K/mm3 (4.5-11.0) 03/23/21 22:54 RBC 4.14 M/mm3 (3.65-5.03) 03/23/21 22:54 Hgb 14.2 gm/dl (11.8-15.2) 03/23/21 22:54 Hct 40.3 % (35.5-45.6) 03/23/21 22:54 MCV 98 fl (84-94) H 03/23/21 22:54 MCH 34 pg (28-32) H 03/23/21 22:54 MCHC 35 % (32-34) H 03/23/21 22:54 RDW 12.9 % (13.2-15.2) L 03/23/21 22:54 Plt Count 206 K/mm3 (140-440) 03/23/21 22:54 Lymph % (Auto) 6.5 % (13.4-35.0) L 03/23/21 22:54 [place] % (Auto) 3.1 % (0.0-7.3) 03/23/21 22:54 Eos % (Auto) 5.6 % (0.0-4.3) H 03/23/21 22:54 Baso % (Auto) 0.3 % (0.0-1.8) 03/23/21 22:54 Lymph # (Auto) 0.5 K/mm3 (1.2-5.4) L 03/23/21 22:54 [place] # (Auto) 0.2 K/mm3 (0.0-0.8) 03/23/21 22:54 Eos # (Auto) 0.5 K/mm3 (0.0-0.4) H 03/23/21 22:54 Baso # (Auto) 0.0 K/mm3 (0.0-0.1) 03/23/21 22:54 Seg Neutrophils % 84.5 % (40.0-70.0) H 03/23/21 22:54 Seg Neutrophils # 6.9 K/mm3 (1.8-7.7) 03/23/21 22:54 Sodium 142 mmol/L (137-145) 03/23/21 22:54 Potassium 3.7 mmol/L (3.6-5.0) 03/23/21 22:54 Chloride 105.3 mmol/L (98-107) 03/23/21 22:54 Carbon Dioxide 25 mmol/L (22-30) 03/23/21 22:54 Anion Gap 15 mmol/L 03/23/21 22:54 BUN 13 mg/dL (9-20) 03/23/21 22:54 Creatinine 0.9 mg/dL (0.8-1.3) 03/23/21 22:54 Estimated GFR > 60 ml/min 03/23/21 22:54 BUN/Creatinine Ratio 14 % 03/23/21 22:54 Glucose 106 mg/dL (75-100) H 03/23/21 22:54 Calcium 8.7 mg/dL (8.4-10.2) 03/23/21 22:54 Active Medications - Current Medications Current Medications: Generic Name Dose Route Start Last Admin Trade Name Freq PRN Reason Stop Dose Admin Acetaminophen 650 mg 03/24/21 00:45 Acetaminophen 325 Mg Tab PO Q6H PRN Pain MILD(1-3)/Fever >100.5/ROJO Albuterol/Ipratropium 1 ampul 03/24/21 02:00 Ipratropium/Albuterol Sulfate 3 Ml Ampul.Neb IH Q6HRT [facility] Divalproex Sodium 125 mg 03/24/21 10:[address] 125 Mg Tab PO BID [facility] Enoxaparin Sodium 40 mg 03/24/21 22:00 Enoxaparin 40 Mg/0.4 Ml Inj SUB-Q QDAY@2200 [facility] Protocol Magnesium Hydroxide 30 ml 03/24/21 00:45 Magnesium Hydroxide (Mom) Oral Liqd Udc PO Q4H PRN Constipation Methylprednisolone Sodium Succinate 40 mg 03/24/21 06:00 03/24/21 05:35 Methylprednisolone Sod Succinate 40 Mg/1 Ml Inj IV 40 mg Q8HR [facility] Administration Morphine Sulfate 2 mg 03/24/21 00:45 Morphine 2 Mg/1 Ml Inj IV Q4H PRN Pain, Moderate (4-6) Sodium Chloride 10 ml 03/24/21 10:00 Sodium Chloride 0.9% 10 Ml Flush Syringe IV BID [facility] Sodium Chloride 10 ml 03/24/21 00:45 Sodium Chloride 0.9% 10 Ml Flush Syringe IV PRN PRN LINE FLUSH Trazodone HCl 50 mg 03/24/21 22:00 Trazodone 50 Mg Tab PO QHS [facility]
[2021-03-24] MEDS ORDERED: DIVALPROEX DR 125 MG TAB PO SCH (10:00)
[2021-03-24 16:10] VITALS: BP 136/84
[2021-03-24] MEDS ORDERED: ENOXAPARIN 40 MG/0.4 ML INJ SUB-Q SCH (22:00)
[2021-03-24] MEDS ORDERED: traZODone 50 MG TAB PO SCH (22:00)
--- NOTE | 2021-03-26 07:43 | Discharge Summary ---
Providers - Providers Date of Admission: 03/23/21 23:58 Date of discharge: 03/24/21 Attending physician: RUBEN BENAVIDES 03/24/21 00:45 Consult to Dietitian/Nutrition [CONS] Routine Physician Instructions: Reason For Exam: Reason for Consult: Diet education Consult to Physician [CONS] Routine Comment: Consulting Provider: KEON JOHNSON Physician Instructions: Reason For Exam: ASTHMA EXACERBATION ON BIPAP Primary care physician: [employer] RE[facility] Hospitalization Condition: Stable Hospital course: 26-year-old male with significant past medical history of asthma who presented through the emergency department and was admitted for acute hypoxic respiratory failure and acute asthma exacerbation. Patient received bronchodi lators/nebulizers/breathing treatments. Patient was also started on IV steroids and continued on Depakote for bipolar 1 disorder. Patient was initially admitted to the ICU and later transferred to the floor. The patient had significant improvement throughout hospitalization but still had some residual wheezing. Therefore, patient was to stay 1 additional night for the asthma exacerbation and IV steroids. However, on 03/24/2021 patient left AMA at approximately 6:30 PM. Dedicated discharge time 32 minutes. Disposition: DC-07 LEFT AGAINST MED ADVICE Final Discharge Diagnosis (Prints w/discharge instructions): Acute hypoxic respiratory failure, asthma exacerbation Core Measure Documentation - Palliative Care Palliative Care/ Comfort Measures: Not Applicable - Core Measures Any of the following diagnoses?: none Exam - Constitutional Vitals: Temp Pulse Resp BP Pulse Ox 97.1 F L 89 24 136/84 96 03/24/21 05:00 03/24/21 16:00 03/24/21 15:15 03/24/21 16:00 03/24/21 16:00 Plan Follow up with: ROSA FARRELL MD [Primary Care Provider] - 7 Days Prescriptions: Prednisone [predniSONE 10 mg (6-Day Pack, 21 Tabs)] 10 mg PO .TAPER #1 tab.ds.pk
== END 2021-03-24 17:00 | disposition left against medical advice (07) | DRG 189 ==
LOC: ED 20:36 → IMCU 23:58 → 3A 03-24 16:29
PROVIDERS: ADMIT Internal Medicine Geriatric Medicine; ATTEND Hospitalist
PROC: 5A09357 Assistance with Respiratory Ventilation, Less than 24 Consecutive Hours, Continuous Positive Airway Pressure (ICD-10-PCS; principal; 2021-03-23)
DX: J96.01 Acute respiratory failure with hypoxia (principal); J45.902 Unspecified asthma with status asthmaticus; F31.9 Bipolar disorder, unspecified; F20.9 Schizophrenia, unspecified; F17.200 Nicotine dependence, unspecified, uncomplicated; Z79.899 Other long term (current) drug therapy; Z79.891 Long term (current) use of opiate analgesic; F12.90 Cannabis use, unspecified, uncomplicated
CPT/HCPCS: 36415; 71045; 80048; 85025; 94640; 94644; 96365; 96375; G0378; J2920; J2930; J3475

== ENCOUNTER 2021-04-27 05:28 | Emergency (ER) | payer SELFPAY ==
--- NOTE | 2021-04-27 06:25 | Emergency Department Report ---
HPI - General Chief Complaint: Psych Time Seen by Provider: 04/27/21 06:04 - HPI HPI: 26-year-old male with history of asthma, bipolar/schizoaffective disorder, and crack cocaine use disorder brought in by EMS for SI and being of his psychiatric medications. The patient is unable to explain why he is off his medications. He says that he is here because "I am just sick of everything, man". When asked about SI, the patient initially replied that he does not have SI but when asked if he is thinking of killing himself he replied yes. He is unable to explain why he feels suicidal. He does not have a plan for how he would kill himself. He denies HI. He says he used crack cocaine recently but cannot tell how recently. He denies auditory or visual hallucinations. He denies any physical symptoms or complaints including fever/chills, headache, vision change, chest pain, shortness of breath, cough, back pain, abdominal pain, nausea/vomiting, f ocal weakness, sensory changes, or any other complaints. ED Past Medical Hx - Past Medical History Previous Medical History?: Yes Hx Psychiatric Treatment: Yes (bipolar, depression, schizophrenia) Hx Asthma: Yes (intubation) Hx Tuberculosis: No Additional medical history: Eczema - Surgical History Past Surgical History?: Yes Additional Surgical History: HERNIA REPAIR - Social History Smoking Status: Current Every Day Smoker Substance Use Type: Alcohol, Cocaine, Methamphetamines - Medications Home Medications: Home Medications Medication Instructions Recorded Confirmed Last Taken Type Divalproex Dr [DepaKOTE DR] 125 mg PO BID #60 tablet 03/10/21 Unknown Rx traZODone [Desyrel] 50 mg PO QHS #30 tab 03/10/21 Unknown Rx Prednisone [predniSONE 10 mg 10 mg PO .TAPER #1 tab.ds.pk 03/23/21 Unknown Rx (6-Day Pack, 21 Tabs)] ED Review of Systems ROS: Stated complaint: SUICIDAL IDEATIONS Other details as noted in HPI Constitutional: denies: chills, fever Eyes: denies: eye pain, vision change ENT: denies: throat pain, congestion Respiratory: denies: cough, shortness of breath Cardiovascular: denies: chest pain, palpitations, syncope Gastrointestinal: denies: abdominal pain, nausea, vomiting, diarrhea Genitourinary: denies: dysuria, frequency Musculoskeletal: denies: back pain, joint swelling Skin: denies: rash, lesions Neurological: denies: headache, weakness, numbness, vertigo Psychiatric: anxiety, depression, suicidal thoughts. denies: auditory hallucinations, visual hallucinations, homicidal thoughts Physical Exam - Physical Exam Physical Exam: GENERAL: Well developed and well nourished. No acute distress HEAD: Normocephalic. No obvious signs of trauma. ENT: Moist mucous membranes. EYES: Extraocular movements are intact. Pupils are equal round and reactive to light bilaterally NECK: Supple. Full ROM is intact. Trachea is midline. LUNGS: Nonlabored breathing. Equal chest rise bilaterally. Clear to auscultation bilaterally. CARDIOVASCULAR: Regular rate and rhythm. No murmurs or rubs. VASCULAR: Cap refill < 2 seconds ABDOMEN: Abdomen is soft and nondistended. There is no significant tenderness, guarding or rebound. SKIN: Skin is warm and dry NEURO: Patient is awake, alert, and oriented. 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 No focal deficits. Normal motor and sensory exam throughout. Normal speech. MUSCULOSKELETAL: No obvious deformities. No significant tenderness. Normal ROM throughout. BACK/SPINE: No costovertebral angle tenderness. ED Medical Decision Making - Lab Data Result diagrams: 04/27/21 08:31 04/27/21 08:31 Lab Results 04/27/21 04/27/21 04/27/21 Range/Units 08:31 08:31 08:31 WBC 4.4 L (4.5-11.0) K/mm3 RBC 4.09 (3.65-5.03) M/mm3 Hgb 14.0 (11.8-15.2) gm/dl Hct 40.1 (35.5-45.6) % MCV 98 H (84-94) fl MCH 34 H (28-32) pg MCHC 35 H (32-34) % RDW 12.2 L (13.2-15.2) % Plt Count 184 (140-440) K/mm3 Lymph % (Auto) 44.1 H (13.4-35.0) % [place] % (Auto) 5.1 (0.0-7.3) % Eos % (Auto) 7.3 H (0.0-4.3) % Baso % (Auto) 1.1 (0.0-1.8) % Lymph # (Auto) 2.0 (1.2-5.4) K/mm3 [place] # (Auto) 0.2 (0.0-0.8) K/mm3 Eos # (Auto) 0.3 (0.0-0.4) K/mm3 Baso # (Auto) 0.0 (0.0-0.1) K/mm3 Seg Neutrophils % 42.4 (40.0-70.0) % Seg Neutrophils # 1.9 (1.8-7.7) K/mm3 Sodium (137-145) mmol/L Potassium (3.6-5.0) mmol/L Chloride (98-107) mmol/L Carbon Dioxide (22-30) mmol/L Anion Gap mmol/L BUN (9-20) mg/dL Creatinine (0.8-1.3) mg/dL Estimated GFR ml/min BUN/Creatinine Ratio % Glucose (75-100) mg/dL Calcium (8.4-10.2) mg/dL Total Bilirubin (0.1-1.2) mg/dL AST (5-40) units/L ALT (7-56) units/L Alkaline Phosphatase (35-129) units/L Total Protein (6.3-8.2) g/dL Albumin (3.9-5) g/dL Albumin/Globulin Ratio % Salicylates < 0.3 L (2.8-20.0) mg/dL Acetaminophen 5.0 L (10.0-30.0) ug/mL 04/27/21 Range/Units 08:31 WBC (4.5-11.0) K/mm3 RBC (3.65-5.03) M/mm3 Hgb (11.8-15.2) gm/dl Hct (35.5-45.6) % MCV (84-94) fl MCH (28-32) pg MCHC (32-34) % RDW (13.2-15.2) % Plt Count (140-440) K/mm3 Lymph % (Auto) (13.4-35.0) % [place] % (Auto) (0.0-7.3) % Eos % (Auto) (0.0-4.3) % Baso % (Auto) (0.0-1.8) % Lymph # (Auto) (1.2-5.4) K/mm3 [place] # (Auto) (0.0-0.8) K/mm3 Eos # (Auto) (0.0-0.4) K/mm3 Baso # (Auto) (0.0-0.1) K/mm3 Seg Neutrophils % (40.0-70.0) % Seg Neutrophils # (1.8-7.7) K/mm3 Sodium 141 (137-145) mmol/L Potassium 3.8 (3.6-5.0) mmol/L Chloride 105.8 (98-107) mmol/L Carbon Dioxide 23 (22-30) mmol/L Anion Gap 16 mmol/L BUN 14 (9-20) mg/dL Creatinine 0.7 L (0.8-1.3) mg/dL Estimated GFR > 60 ml/min BUN/Creatinine Ratio 20 % Glucose 118 H (75-100) mg/dL Calcium 9.2 (8.4-10.2) mg/dL Total Bilirubin 0.30 (0.1-1.2) mg/dL AST 18 (5-40) units/L ALT 12 (7-56) units/L Alkaline Phosphatase 85 (35-129) units/L Total Protein 6.1 L (6.3-8.2) g/dL Albumin 4.1 (3.9-5) g/dL Albumin/Globulin Ratio 2.1 % Salicylates (2.8-20.0) mg/dL Acetaminophen (10.0-30.0) ug/mL - Medical Decision Making 26-year-old male brought in by EMS for suicidal ideation and being off his psychiatric medications. The patient initially said he was not suicidal but when specifically prompted whether he wants to kill himself he says yes. He has no physical symptoms or complaints whatsoever. Vital signs are within normal limits. Physical examination is within normal limits. We will therefore place medical clearance labs and have the patient evaluated by the psychiatry/mental health team. Labs have resulted and reveal no significant leukocytosis or anemia. Kidney function is normal and there are no significant electrolyte abnormalities. The patient is medically cleared for psychiatric evaluation and placement as needed. The patient was seen by the mental health/psychiatry team who recommended outpatient follow-up and treatment for the patient's Bipolar disorder. He will be discharged with outpatient resources and strict return precautions. This was explained to the patient to express understanding agreement. Critical care attestation.: If time is entered above; I have spent that time in minutes in the direct care of this critically ill patient, excluding procedure time. ED Disposition Clinical Impression: Bipolar disorder, Suicidal ideations Disposition: DC-01 TO HOME OR SELFCARE Is pt being admited?: No Condition: Stable Instructions: Managing Bipolar Disorder, Suicidal Feelings: How to Help Yourself, Bipolar 1 Disorder Additional Instructions: Please follow-up with the following outpatient resources. Return to the emergency department should you develop any thoughts of hurting yourself/killing yourself or harming others or for any other new concerns Professional and Agency Contacts To help [facility] Cr[facility](10/04) [place] Crisis Line: Suicide Prevention Line: Crisis Text Line: Text START to [phone] Emergency: 911 Outpatient [facility] Behavioral Health Resources: VERA: [facility] [address] [place], [place] [address] [address] Phone: [phone] [facility] - [address] [place] [address] Monday thru Monday - 8am - 5pm [facility] Address: [address] [place] [address] [facility]: [facility] Address: [address] [place] [address] Monday thru Monday- 7am-2pm [facility] Address: [address] [place] [address] Monday thru Monday: 8:30AM-5PM In case of an emergency, please contact the following numbers: [place] Crisis and Access Line: Number: Crisis Text Line: (Text START) Number: 087925 Suicide Prevention Line: Number: Emergency Number: 911 SUBSTANCE ABUSE PROGRAMS: [facility]: Location: [place], [place] [employer] Address: [address] [place] [address] [facility]: Address: [address] [place] [address] [facility]: Address: [address] [place] [address] [facility]: Address: [address] [place] [address] [facility] Address: [address] [place] [address]. Please contact above numbers to attempt placement into free based program. Medicaid Programs: [facility]: Address: [address] [place] [address] [facility]: Address: [address] [place] [address] Phone: [phone] Referrals: [facility] [Provider Group] - 3-5 Days
--- NOTE | 2021-04-27 09:05 | Consultation ---
History of Present Illness - Reason for Consult Consult date: 04/27/21 Reason for consult: mental health evaluation - History of Present Psychiatric Illness ED Note: 26-year-old male with history of asthma, bipolar/schizoaffective disorder, and crack cocaine use disorder brought in by EMS for SI and being of his psychiatric medications. The patient is unable to explain why he is off his medications. He says that he is here because "I am just sick of everything, man". When asked about SI, the patient initially replied that he does not have SI but when asked if he is thinking of killing himself he replied yes. He is unable to explain why he feels suicidal. He does not have a plan for how he would kill himself. He denies HI. He says he used crack cocaine recently but cannot tell how recently. He denies auditory or visual hallucinations. He denies any physical symptoms or complaints including fever/chills, headache, vision change, chest pain, shortness of breath, cough, back pain, abdominal pain, nausea/vomiting, focal weakness, sensory changes, or any other complaints. Rod Bobby is a 26 year old male with a history Bipolar, Schizoaffective, Cocaine use Disorder who presents to the ED with suicidal ideation. In my interview with the patient, he reports that " I was tired last night and fed up." The patient reports having Crack Cocaine addiction for the past three years. He reports smoking about $50 of Crack cocaine daily, last used crack yesterday.The patient reports that he is kellogg handling to maintain his addiction. He reports longest sobriety period as a month and a couple of day. He admits having crack cocaine cravings. The patient denies any current suicidal/homicidal ideation and denies hallucinations. Diagnoses: Bipolar, Schizoaffective, Cocaine use Disorder Suicide attempts or Self-harm behavior:Denies Prior psychiatric hospitalizations: Multiple Substance Abuse history:Crack Cocaine Previous psychiatric medications tried: unknown Outpatient treatment: Denies PAST MEDICAL HISTORY: None reported Family Psychiatric History: None reported or documented SOCIAL HISTORY Marital Status: Single Living Arrangements:Homeless Employment Status: unemployed Access to guns/weapons: Denies Education: GED History of Abuse: None reported Legal History: None reported REVIEW OF SYSTEMS Constitutional: Negative for weight loss ENT: Negative for stridor Respiratory: Negative for cough or hemoptysis All other systems reviewed and are negative MENTAL STATUS EXAMINATION General Appearance and Behavior: Age appropriate, good hygiene, wearing appropriate clothes, cooperative, cooperative Cooperation: Participating/engaged Psychomotor Behavior: normal Mood: "ok" Affect and affective range: congruent with stated mood Thought Process: goal directed Thought Content: Not Suicidal Speech: Normal volume, Regular rate and rhythm Suicidal Ideation: Denies Homicidal Ideation: Denies Hallucinations: Denies Delusions: None elicited Impulse Control: impaired Insight and Judgment: limited insight and judgment, Memory: normal Attention: Normal Orientation: Alert, oriented Assessment and Plan (1) Bipolar disorder (2) Cocaine use disorder Current Visit: Yes Status: Acute Treatment Plan Sitter: Per primary Medical: Per primary Disposition: Do not recommend acute psychiatric inpatient treatment. The patient understands that if suicidal/homicidal ideas or any endangering thou ghts/ behaviors arise, they should seek immediate assistance including but not limited to crisis hotline and emergency room. The patient will follow up with outpatient referrals provided by the mental health finance admin. Will sign off. Thanks Case staffed with Dr. Garcia Medications and Allergies Allergies Allergy/AdvReac Type Severity Reaction Status Date / Time No Known Allergies Allergy Verified 09/23/15 15:43 Home Medications Medication Instructions Recorded Confirmed Last Taken Type Divalproex [Johan GARCIA] 125 mg PO BID #60 tablet 03/10/21 Unknown Rx traZODone [Desyrel] 50 mg PO QHS #30 tab 03/10/21 Unknown Rx Prednisone [predniSONE 10 mg 10 mg PO .TAPER #1 tab.ds.pk 03/23/21 Unknown Rx (6-Day Pack, 21 Tabs)] Results All other labs normal.
[2021-04-27 09:21] LABS: Basophils % (Auto) 1.1 % (0.0-1.8); Eosinophils # (Auto) 0.3 K/mm3 (0.0-0.4); Eosinophils % (Auto) 7.3 % (0.0-4.3); Hematocrit 40.1 % (35.5-45.6); Lymphocytes % (Auto) 44.1 % (13.4-35.0); Mean Corpuscular HGB Conc 35 % (32-34); Mean Corpuscular Volume 98 fl (84-94); Monocytes # (Auto) 0.2 K/mm3 (0.0-0.8); Monocytes % (Auto) 5.1 % (0.0-7.3); Platelet Count 184 K/mm3 (140-440); Red Blood Count 4.09 M/mm3 (3.65-5.03); Red Cell Distribution Width 12.2 % (13.2-15.2)
[2021-04-27 09:35] LABS: Alanine Aminotransferase 12 units/L (7-56); Albumin 4.1 g/dL (3.9-5); Blood Urea Nitrogen 14 mg/dL (9-20); Calcium 9.2 mg/dL (8.4-10.2); Hemolysis Index 28
[2021-04-27 09:38] LABS: BUN/Creatinine Ratio 20
== END 2021-04-27 11:52 | disposition home or self-care (01) ==
LOC: ED 05:28
DX: F31.9 Bipolar disorder, unspecified (principal); R45.851 Suicidal ideations; J45.909 Unspecified asthma, uncomplicated; F17.200 Nicotine dependence, unspecified, uncomplicated; F14.10 Cocaine abuse, uncomplicated; F15.10 Other stimulant abuse, uncomplicated
CPT/HCPCS: 36415; 80053; 80320; 85025; 99284; G0480

== ENCOUNTER 2021-07-04 16:32 | Emergency (ER) | payer SELFPAY ==
[2021-07-04] MEDS ORDERED: ALBUTEROL 2.5 MG/3 ML NEBU IH ONE (16:49)
[2021-07-04] MEDS ORDERED: SODIUM CHLORIDE 0.9% 1000 ML 1,000 ML IV ONE (16:49)
--- NOTE | 2021-07-04 17:01 | Emergency Department Report ---
ED Shortness of Breath HPI - General Chief Complaint: Dyspnea/Respdistress Stated Complaint: DIFFICULTY BREATHING Time Seen by Provider: 07/04/21 16:41 Source: EMS Mode of arrival: Stretcher Limitations: No Limitations - History of Present Illness Initial Comments: Patient presents by ambulance secondary to shortness of breath. He has a long history of asthma. Over the last couple days, his asthma has acted up. EMS started him on BiPAP. They had administered nebulizers, steroids, and magnesium. He has been intubated numerous times before. Patient states he has not really had much of a cough or congestion. Has no chest pain. He states he just could not catch his breath. He is not aware of any specific trigger. He believes that the medication has started to help. - Related Data Previous Rx's Medication Instructions Recorded Last Taken Type ProAir HFA Inhaler 2 puff INHALATION Q4HR #1 07/04/21 Unknown Rx predniSONE [Deltasone] 50 mg PO QDAY #5 tab 07/04/21 Unknown Rx Allergies Allergy/AdvReac Type Severity Reaction Status Date / Time No Known Allergies Allergy Verified 07/04/21 16:42 ED Review of Systems ROS: Stated complaint: DIFFICULTY BREATHING Other details as noted in HPI Comment: All other systems reviewed and negative Constitutional: denies: fever Eyes: denies: eye pain ENT: denies: ear pain Respiratory: see HPI. denies: cough Cardiovascular: denies: chest pain Endocrine: denies: unexplained weight loss Gastrointestinal: denies: abdominal pain Genitourinary: denies: dysuria Musculoskeletal: denies: back pain Skin: denies: rash Neurological: denies: headache Hematological/Lymphatic: denies: easy bruising ED Past Medical Hx - Past Medical History Hx Psychiatric Treatment: Yes (bipolar, depression, schizophrenia) Hx Asthma: Yes (intubation Multiple times) Hx Tuberculosis: No Additional medical history: Eczema - Surgical History Additional Surgical History: HERNIA REPAIR - Family History Family history: asthma - Social History Smoking Status: Current Every Day Smoker Substance Use Type: Alcohol, Cocaine, Methamphetamines - Medications Home Medications: Home Medications Medication Instructions Recorded Confirmed Last Taken Type ProAir HFA Inhaler 2 puff INHALATION Q4HR #1 07/04/21 Unknown Rx predniSONE [Deltasone] 50 mg PO QDAY #5 tab 07/04/21 Unknown Rx ED Physical Exam - General Limitations: No Limitations, Other ( pulse ox was noted on BiPAP and normal.) General appearance: alert, in distress ( Mild) - Head Head exam: Present: atraumatic, normocephalic, normal inspection - Eye Eye exam: Present: normal appearance, EOMI. Absent: scleral icterus - ENT ENT exam: Present: normal exam, normal orophraynx, normal external ear exam - Neck Neck exam: Present: normal inspection. Absent: meningismus - Respiratory Respiratory exam: Present: respiratory distress ( mild. He has 4-5 word dyspnea.), wheezes ( Bilateral), accessory muscle use ( mild. According to nursing staff, this is improved per EMS), prolonged expiratory - Cardiovascular Cardiovascular Exam: Present: normal rhythm, tachycardia - GI/Abdominal GI/Abdominal exam: Present: soft. Absent: tenderness - Extremities Exam Extremities exam: Present: normal capillary refill. Absent: pedal edema, calf tenderness - Back Exam Back exam: Absent: CVA tenderness (R), CVA tenderness (L) - Neurological Exam Neurological exam: Present: alert, oriented X3, CN II-XII intact, normal gait. Absent: motor sensory deficit - Psychiatric Psychiatric exam: Present: normal affect, normal mood - Skin Skin exam: Present: warm, dry ED Course Vital Signs 07/04/21 07/04/21 07/04/21 16:55 17:00 17:01 Temperature 97.7 F Pulse Rate 84 69 Respiratory 19 23 22 Rate Blood Pressure 123/68 Blood Pressure 123/68 [Right] O2 Sat by Pulse 100 100 100 Oximetry 07/04/21 07/04/21 17:46 18:01 Temperature Pulse Rate 65 67 Respiratory 20 22 Rate Blood Pressure 115/59 Blood Pressure 119/55 [Right] O2 Sat by Pulse 100 100 Oximetry - Reevaluation(s) Reevaluation #1: 07/04/21 17:00 continuous neb was ordered. Chest x-ray is ordered. Labs will be ordered as well. We will attempt to wean the patient from BiPAP to see if he tolerates this. Reevaluation #2: 07/04/21 18:31 Work-up is complete. Patient feels better. Chest x-ray shows no pneumonia. We will attempt room air trial. Reevaluation #3: 07/04/21 18:49 Patient is not hypoxic. He is not wheezing. He is in no distress. He was discharged. ED Medical Decision Making - Lab Data Result diagrams: 07/04/21 16:53 07/04/21 16:53 Rhythm strip: Normal sinus rhythm without ectopy per monitor observe 10 seconds. - EKG Data -: EKG Interpreted by Me - EKG Data 07/04/21 18:31 1714- EKG shows normal sinus rhythm at 69. Intervals are normal including a QRS of 88 and a QT corrected of 416. Patient has no ST elevation to suggest STEMI. There is no ST depression suggestive of ischemia. There is some wander of the baseline. There is no ectopy noted. There is no old EKG for comparison. - Radiology Data Radiology results: report reviewed - Medical Decision Making Patient presents with asthma exacerbation. He does not have respiratory failure at this time. He is not persistently hypoxic. He has been treated aggressively with nebulizers, steroids, and magnesium. He has been given fluids here. Patient does not appear to be septic or toxic. He does not have ongoing hypoxia or oxygen need. He will be treated symptomatically and referred for outpatient evaluation and follow-up. There is no risk factor for ACS given his age and history. He certainly does not have any history of immobility. I do not believe this represents pulmonary embolism. Critical Care Time: No Critical care attestation.: If time is entered above; I have spent that time in minutes in the direct care of this critically ill patient, excluding procedure time. ED Disposition Clinical Impression: Shortness of breath Asthma exacerbation Qualifiers: Asthma severity: moderate Asthma persistence: persistent Qualified Code(s): J45.41 - Moderate persistent asthma with (acute) exacerbation Disposition: 01 HOME / SELF CARE / HOMELESS Is pt being admited?: No Condition: Stable Instructions: Asthma, Adult, Shortness of Breath, Adult, [id number], Asthma Attack Prevention, Adult Additional Instructions: Drink plenty water. Return for problems. Continue home medication. Follow-up with your regular doctor for recheck and further management. Avoid all types of smoke. Prescriptions: predniSONE [Deltasone] 50 mg PO QDAY #5 tab ProAir HFA Inhaler 2 puff INHALATION Q4HR #1 Referrals: ROSA FARRELL MD [Primary Care Provider] - 3-5 Days AMAN TRAORE MD [Staff Physician] - 3-5 Days
[2021-07-04 17:15] LABS: Hematocrit 42.1 % (35.5-45.6); Hemoglobin 14.5 gm/dl (11.8-15.2); Mean Corpuscular HGB Conc 35 % (32-34); Mean Corpuscular Volume 99 fl (84-94); Platelet Count 225 K/mm3 (140-440); Red Blood Count 4.25 M/mm3 (3.65-5.03); Red Cell Distribution Width 13.3 % (13.2-15.2)
--- NOTE | 2021-07-04 17:29 | XRay Report ---
CHEST 1 VIEW 07/04/2021 5:19 PM INDICATION / CLINICAL INFORMATION: sob. COMPARISON: 03/23/2021 FINDINGS: SUPPORT DEVICES: None. HEART / MEDIASTINUM: No significant abnormality. LUNGS / PLEURA: No significant pulmonary or pleural abnormality. No pneumothorax. ADDITIONAL FINDINGS: No significant additional findings. IMPRESSION: 1. No acute findings. Signer Name: Germán Price MD Signed: 07/04/2021 5:25 PM Workstation Name: [id number]
[2021-07-04 17:33] LABS: BUN/Creatinine Ratio 14; Blood Urea Nitrogen 13 mg/dL (9-20); Hemolysis Index 12
[2021-07-04 19:51] VITALS: BP 131/83
--- NOTE | 2021-07-08 10:12 | Electrocardiograph Report ---
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
== END 2021-07-04 20:00 | disposition home or self-care (01) ==
LOC: ED 16:32
DX: J45.901 Unspecified asthma with (acute) exacerbation (principal); F31.9 Bipolar disorder, unspecified; F20.9 Schizophrenia, unspecified; F17.200 Nicotine dependence, unspecified, uncomplicated; F14.90 Cocaine use, unspecified, uncomplicated; F15.90 Other stimulant use, unspecified, uncomplicated; Z72.89 Other problems related to lifestyle; Z79.899 Other long term (current) drug therapy
CPT/HCPCS: 36415; 71045; 80048; 85027; 93005; 96360; 99284; J7030

== ENCOUNTER 2021-07-24 18:30 | Emergency (ER) | payer SELFPAY ==
[2021-07-24] MEDS ORDERED: ALBUTEROL 2.5 MG/3 ML NEBU IH ONE (18:50)
[2021-07-24] MEDS ORDERED: IPRATROPIUM 0.02% NEBU 2.5 ML IH ONE (18:50)
--- NOTE | 2021-07-24 18:55 | Emergency Department Report ---
HPI - General Chief Complaint: Adult Asthma Time Seen by Provider: 07/24/21 18:43 - HPI HPI: Room 5 The patient is a 26-year-old male present with a chief complaint of shortness of breath. Patient has a history of asthma and states earlier today developed wheezing and shortness of breath. Patient states he used his inhaler but it did not help. Patient also notes to occasional cough for the past 2 to 3 days has been productive of white sputum. Patient denies history of fever. EMS was called and administered albuterol neb, Solu-Medrol 125 mg IV and magnesium sulfate 2 g IV prior to arrival. Patient states he feels improved at this time ED Past Medical Hx - Past Medical History Previous Medical History?: Yes Hx Psychiatric Treatment: Yes (bipolar, depression, schizophrenia) Hx Asthma: Yes (intubation Multiple times) Additional medical history: Eczema - Surgical History Past Surgical History?: Yes Additional Surgical History: HERNIA REPAIR - Family History Family history: no significant - Social History Smoking Status: Current Every Day Smoker (2 packs/day) Substance Use Type: Alcohol (Occasional), Cocaine (Crack cocaine) - Medications Home Medications: Home Medications Medication Instructions Recorded Confirmed Last Taken Type ProAir HFA Inhaler 2 puff INHALATION Q4HR #1 07/04/21 Unknown Rx predniSONE [Deltasone] 50 mg PO QDAY #5 tab 07/04/21 Unknown Rx Albuterol Mdi (or & Nicu Only) 2 puff IH QID PRN #8.5 gram 07/24/21 Unknown Rx [ProAir HFA Inhaler] Prednisone [predniSONE 10 mg 10 mg PO .TAPER #1 tab.ds.pk 07/24/21 Unknown Rx (6-Day Pack, 21 Tabs)] ED Review of Systems ROS: Stated complaint: ASTHMA Other details as noted in HPI Constitutional: denies: fever Eyes: denies: eye pain ENT: denies: throat pain Respiratory: cough, shortness of breath Cardiovascular: denies: chest pain Endocrine: no symptoms reported Gastrointestinal: denies: abdominal pain Genitourinary: denies: dysuria Musculoskeletal: denies: back pain Neurological: denies: headache Physical Exam - Physical Exam Vital Signs: Vital Signs 07/24/21 18:33 Temperature 97.7 F Pulse Rate 99 H Respiratory 20 Rate Blood Pressure 113/55 O2 Sat by Pulse 99 Oximetry Physical Exam: GENERAL: The patient is well-developed well-nourished male lying on stretcher not appearing to be in acute distress. [] HEENT: Normocephalic. Atraumatic. Extraocular motions are intact. Patient has moist mucous membranes. NECK: Supple. Trachea midline CHEST/LUNGS: Occasional expiratory wheezing diffusely. There is no respiratory distress noted. HEART/CARDIOVASCULAR: Regular. There is no tachycardia. There is no gallop rub or murmur. ABDOMEN: Abdomen is soft, nontender. Patient has normal bowel sounds. There is no abdominal distention. SKIN: There is no rash. There is no edema. There is no diaphoresis. NEURO: The patient is awake, alert, and oriented. The patient is cooperative. The patient has no focal neurologic deficits. The patient has normal speech. GCS 15 MUSCULOSKELETAL: There is no evidence of acute injury. ED Course Vital Signs 07/24/21 18:33 Temperature 97.7 F Pulse Rate 99 H Respiratory 20 Rate Blood Pressure 113/55 O2 Sat by Pulse 99 Oximetry - Reevaluation(s) Reevaluation #1: 07/24/21 20:22 Patient improved after nebs. Lungs CTA ED Medical Decision Making - Radiology Data Radiology results: report reviewed (Chest x-ray), image reviewed (Chest x-ray) interpreted by me: Chest x-ray-no definite focal infiltrate, no pneumothorax. [address] [address] XRay Report Signed Patient: GILSON MORENO MR#: [id number] : 1995 Acct:[id number] Age/Sex: 26 / M ADM Date: 07/24/21 Loc: ED Attending Dr: Ordering Physician: MICHEL GAONA MD Date of Service: 07/24/21 Procedure(s): XR chest 1V ap Accession Number(s): [id number] cc: MICHEL GAONA MD Fluoro Time In Minutes: . CHEST 1 VIEW INDICATION: Shortness of breath, productive cough. COMPARISON: 07/04/2021 FINDINGS: SUPPORT DEVICES: None. HEART: Within normal limits. LUNGS/PLEURA: No acute air space or interstitial disease. ADDITIONAL FINDINGS: None. IMPRESSION: 1. No acute findings. Signer Name: Hayden Mccarthy MD Signed: 07/24/2021 7:12 PM Workstation Name: [id number] Transcribed By: ELIOT Dictated By: Hayden Mccarthy MD Electronically Authenticated By: Hayden Mccarthy MD Signed Date/Time: 07/24/211911 DD/ 10 TD/TT: Print Cancel - Differential Diagnosis Acute asthma exacerbation, pneumonia, bronchitis Critical care attestation.: If time is entered above; I have spent that time in minutes in the direct care of this critically ill patient, excluding procedure time. ED Disposition Clinical Impression: Acute asthma exacerbation Disposition: HOME / SELF CARE / HOMELESS Is pt being admited?: No Does the pt Need Aspirin: No Condition: Stable Instructions: Asthma, Adult Additional Instructions: Return to the emergency department should you develop worsening symptoms, inability to tolerate food or liquids, high fever or any other concerns Prescriptions: Prednisone [predniSONE 10 mg (6-Day Pack, 21 Tabs)] 10 mg PO .TAPER #1 tab.ds.pk Albuterol Mdi (or & Nicu Only) [ProAir HFA Inhaler] 2 puff IH QID PRN #8.5 gram PRN Reason: Shortness Of Breath Referrals: [facility] [Provider Group] - 3-5 Days Time of Disposition: 20:23
--- NOTE | 2021-07-24 19:16 | XRay Report ---
. CHEST 1 VIEW INDICATION: Shortness of breath, productive cough. COMPARISON: 07/04/2021 FINDINGS: SUPPORT DEVICES: None. HEART: Within normal limits. LUNGS/PLEURA: No acute air space or interstitial disease. ADDITIONAL FINDINGS: None. IMPRESSION: 1. No acute findings. Signer Name: Hayden Mccarthy MD Signed: 07/24/2021 7:12 PM Workstation Name: [id number]
[2021-07-24 20:36] VITALS: BP 124/70
== END 2021-07-24 20:33 | disposition home or self-care (01) ==
LOC: ED 18:30
DX: J45.901 Unspecified asthma with (acute) exacerbation (principal); F32.9 Major depressive disorder, single episode, unspecified; F20.9 Schizophrenia, unspecified; F17.200 Nicotine dependence, unspecified, uncomplicated; F14.90 Cocaine use, unspecified, uncomplicated; Z72.89 Other problems related to lifestyle; Z79.899 Other long term (current) drug therapy
CPT/HCPCS: 71045; 94640; 99284

== ENCOUNTER 2021-07-29 16:28 | Emergency (ER) | payer SELFPAY ==
[2021-07-29 16:37] VITALS: BP 102/72
[2021-07-29] MEDS ORDERED: dexAMETHasone 4 MG/ML VIAL IM STA (18:42)
[2021-07-29] MEDS ORDERED: ALBUTEROL 2.5 MG/3 ML NEBU IH ONE (18:42)
[2021-07-29] MEDS ORDERED: methylPREDNISolone Sod Succinate 125 MG/2 ML INJ IV ONE (18:42)
--- NOTE | 2021-07-29 18:50 | Emergency Department Report ---
ED General Adult HPI - General Chief complaint: Adult Asthma Stated complaint: ASTHMA FLARE UP Time Seen by Provider: 07/29/21 18:16 Source: patient Mode of arrival: Ambulatory Limitations: No Limitations - History of Present Illness Initial comments: 26-year-old -[place] male patient presents with complaints of asthma exacerbation x2 days. He has history of bipolar depression and schizophrenia. Patient was seen here 07/24/2021 for the same, however states he lost his prescription for albuterol HFA and prednisone Dosepak. He denies any hem optysis, fever/chills/sweats, loss of taste or smell, or chest pain. He states he does have tightness in his chest and has been coughing a great deal along with wheezing. Patient states this feels like his normal asthma exacerbation. He does have history of multiple intubations. - Related Data Previous Rx's Medication Instructions Recorded Last Taken Type ProAir HFA Inhaler 2 puff INHALATION Q4HR #1 07/04/21 Unknown Rx predniSONE [Deltasone] 50 mg PO QDAY #5 tab 07/04/21 Unknown Rx Albuterol Mdi (or & Nicu Only) 2 puff IH QID PRN #8.5 gram 07/29/21 Unknown Rx [ProAir HFA Inhaler] Prednisone [predniSONE 10 mg 10 mg PO .TAPER #1 tab.ds.pk 07/29/21 Unknown Rx (6-Day Pack, 21 Tabs)] Allergies Allergy/AdvReac Type Severity Reaction Status Date / Time No Known Allergies Allergy Verified 07/29/21 16:33 ED Review of Systems ROS: Stated complaint: ASTHMA FLARE UP Other details as noted in HPI Constitutional: denies: chills, fever, malaise ENT: denies: throat pain Respiratory: cough, shortness of breath, wheezing Cardiovascular: denies: chest pain, palpitations Gastrointestinal: denies: nausea, vomiting ED Past Medical Hx - Past Medical History Hx Psychiatric Treatment: Yes (bipolar, depression, schizophrenia) Hx Asthma: Yes (intubation Multiple times) Hx Tuberculosis: No Additional medical history: Eczema - Surgical History Additional Surgical History: HERNIA REPAIR - Social History Smoking Status: Current Every Day Smoker (2 packs/day) Substance Use Type: Alcohol (Occasional), Cocaine (Crack cocaine) - Medications Home Medications: Home Medications Medication Instructions Recorded Confirmed Last Taken Type ProAir HFA Inhaler 2 puff INHALATION Q4HR #1 07/04/21 Unknown Rx predniSONE [Deltasone] 50 mg PO QDAY #5 tab 07/04/21 Unknown Rx Albuterol Mdi (or & Nicu Only) 2 puff IH QID PRN #8.5 gram 07/29/21 Unknown Rx [ProAir HFA Inhaler] Prednisone [predniSONE 10 mg 10 mg PO .TAPER #1 tab.ds.pk 07/29/21 Unknown Rx (6-Day Pack, 21 Tabs)] ED Physical Exam - General Limitations: No Limitations General appearance: alert, in no apparent distress - Head Head exam: Present: atraumatic, normocephalic - Eye Eye exam: Present: normal appearance - Neck Neck exam: Present: normal inspection - Respiratory Respiratory exam: Present: wheezes (Diffuse), decreased breath sounds (Diffuse). Absent: respiratory distress, rales, rhonchi, stridor - Cardiovascular Cardiovascular Exam: Present: regular rate, normal rhythm - Neurological Exam Neurological exam: Present: alert, oriented X3 - Psychiatric Psychiatric exam: Present: normal affect, normal mood - Skin Skin exam: Present: warm, dry, intact, normal color. Absent: rash ED Course Vital Signs 07/29/21 07/29/21 16:36 19:59 Temperature 98.6 F Pulse Rate 94 H Pulse Rate [ 78 Bilateral] Respiratory 20 Rate Respiratory 20 Rate [Bilateral ] Blood Pressure 102/72 O2 Sat by Pulse 98 Oximetry ED Medical Decision Making - Medical Decision Making 26-year-old -[place] male patient presents with complaints of asthma exacerbation x2 days. He has history of bipolar depression and schizophrenia. Patient was seen here 07/24/2021 for the same, however states he lost his prescription for albuterol HFA and prednisone Dosepak. He denies any hemoptysis, fever/chills/sweats, loss of taste or smell, or chest pain. He states he does have tightness in his chest and has been coughing a great deal along with wheezing. Patient states this feels like his normal asthma exacerbation. He does have history of multiple intubations. Patient chest x-ray on 07/24/2021 was normal Diffuse wheezing bilaterally noted on exam. Patient given Decadron and hour- long DuoNeb. He states he is feeling much better and his chest tightness has significantly decreased. There are still some wheezing noted throughout the lungs on exam. Vitals are normal and patient denies any further shortness of breath. Will discharge home with new prescription for albuterol and prednisone. Patient states he has albuterol neb solution at home. Discussed in detail signs and symptoms that should prompt immediate return to the ED with patient verbalized understanding. He is to follow-up with primary care within 3 to 5 days. Critical care attestation.: If time is entered above; I have spent that time in minutes in the direct care of this critically ill patient, excluding procedure time. ED Disposition Clinical Impression: Acute asthma exacerbation Disposition: HOME / SELF CARE / HOMELESS Is pt being admited?: No Condition: Stable Instructions: Asthma, Adult Prescriptions: Prednisone [predniSONE 10 mg (6-Day Pack, 21 Tabs)] 10 mg PO .TAPER #1 tab.ds.pk Albuterol Mdi (or & Nicu Only) [ProAir HFA Inhaler] 2 puff IH QID PRN #8.5 gram PRN Reason: Shortness Of Breath Referrals: PRIMARY CARE, [Primary Care Provider] - 3-5 Days [facility] [Provider Group] - 3-5 Days
== END 2021-07-29 20:38 | disposition home or self-care (01) ==
LOC: ED 16:28
DX: J45.901 Unspecified asthma with (acute) exacerbation (principal); F17.200 Nicotine dependence, unspecified, uncomplicated; F14.10 Cocaine abuse, uncomplicated
CPT/HCPCS: 94644; 96372; 96374; 99282; J1100; J2930

== ENCOUNTER 2021-11-10 04:21 | Emergency (ER) | payer SELFPAY ==
[2021-11-10] MEDS ORDERED: SODIUM CHLORIDE 0.9% 1000 ML 1,000 ML IV ONE (05:12)
[2021-11-10] MEDS ORDERED: ALBUTEROL 2.5 MG/3 ML NEBU IH ONE (05:12)
--- NOTE | 2021-11-10 05:17 | Event Note ---
ED Screening Note Date of service: 11/10/21 Time: 05:14 ED Screening Note: 26-year-old male with history of asthma and bipolar disorder off of all meds brought in by EMS complaining of shortness of breath/wheezing as well as suicidal thoughts. Patient was given 125 mg of Solu-Medrol, 2 g of magnesium, and albuterol nebs in route. Patient also reports he has not slept in the past 2 days and has thoughts of suicide. Denies auditory or visual hallucinations. Feels symptomatically improved after treatments given in route. He is afebrile and with normal vital signs on 1 L via nasal cannula. Physical examination reveals dry mucous membranes. Lung auscultation reveals diffuse inspiratory and expiratory wheezing throughout. This initial assessment/diagnostic orders/clinical plan/treatment(s) is/are subject to change based on patients health status, clinical progression and re-assessment by fellow clinical providers in the ED. Further treatment and workup at subsequent clinical providers discretion. Patient/guardian urged not to elope from the ED as their condition may be serious if not clinically assessed and managed. Initial orders include: ED hold order Full set of labs Chest x-ray 1 L of IV fluids Albuterol nebs
--- NOTE | 2021-11-10 05:27 | XRay Report ---
XR chest 1V ap INDICATION / CLINICAL INFORMATION: asthma. COMPARISON: 07/24/2021 FINDINGS: SUPPORT DEVICES: None. HEART /PULMONARY VASCULATURE: No significant abnormality. LUNGS / PLEURA: No significant pulmonary or pleural abnormality. No pneumothorax. IMPRESSION: 1. No acute findings. Signer Name: Howard Haddad MD Signed: 11/10/2021 5:22 AM Workstation Name: [id number]
[2021-11-10 05:43] LABS: Basophils % (Auto) 0.6 % (0.0-1.8); Eosinophils # (Auto) 0.2 K/mm3 (0.0-0.4); Eosinophils % (Auto) 6.6 % (0.0-4.3); Hemoglobin 13.9 gm/dl (11.8-15.2); Lymphocytes # (Auto) 1.3 K/mm3 (1.2-5.4); Mean Corpuscular HGB Conc 34 % (32-34); Mean Corpuscular Volume 97 fl (84-94); Monocytes # (Auto) 0.1 K/mm3 (0.0-0.8); Platelet Count 194 K/mm3 (140-440); Red Blood Count 4.22 M/mm3 (3.65-5.03); Red Cell Distribution Width 12.3 % (13.2-15.2)
[2021-11-10 06:02] LABS: Alanine Aminotransferase 15 units/L (7-56); BUN/Creatinine Ratio 19; Blood Urea Nitrogen 15 mg/dL (9-20); Calcium 8.7 mg/dL (8.4-10.2); Hemolysis Index 17
[2021-11-10 06:20] LABS: Bilirubin,Direct < 0.2 mg/dL (0-0.2)
--- NOTE | 2021-11-10 06:50 | Emergency Department Report ---
ED Psych HPI - General Chief Complaint: Adult Asthma Stated Complaint: ASTHMA Time Seen by Provider: 11/10/21 06:09 Source: patient Mode of arrival: Ambulatory - History of Present Illness Initial Comments: Patient is 26 years old male with history of asthma and bipolar disorder. Patient stated that he is off his bipolar medication for a while. Patient brought to the emergency room via EMS with 2 complaints. First complaint patient stated that he has been having asthma attack for the last 2 to 3 days. Patient found to be with generalized wheezing and difficulty breathing. Patient received albuterol, Solu-Medrol and magnesium sulfate. His second complaint is that he is suicidal for the last few days also. He stated that he is off his bipolar medication. His plan is to cut his wrist. Patient also endorses auditory and visual hallucination. He denied any homicidal ideation. MD Complaint: suicidal ideation, feels depressed - Related Data Previous Rx's Medication Instructions Recorded Last Taken Type Albuterol Mdi (or & Nicu Only) 2 puff IH QID PRN #8.5 gram 07/29/21 11/10/21 Rx [ProAir HFA Inhaler] ARIPiprazole [Abilify] 10 mg PO DAILY 30 Days #30 tab 11/11/21 Unknown Rx traZODone [Desyrel] 50 mg PO QHS 30 Days #30 tab 11/11/21 Unknown Rx Allergies Allergy/AdvReac Type Severity Reaction Status Date / Time No Known Allergies Allergy Verified 11/10/21 07:34 ED Review of Systems ROS: Stated complaint: ASTHMA Other details as noted in HPI Comment: All other systems reviewed and negative Constitutional: denies: chills, fever Respiratory: shortness of breath, SOB with exertion, SOB at rest, wheezing Cardiovascular: denies: chest pain, palpitations Gastrointestinal: denies: abdominal pain, nausea, vomiting Musculoskeletal: denies: back pain Neurological: denies: headache, weakness, numbness, paresthesias, confusion Psychiatric: depression, auditory hallucinations, visual hallucinations, suicidal thoughts. denies: homicidal thoughts ED Past Medical Hx - Past Medical History Previous Medical History?: Yes Hx Psychiatric Treatment: Yes (bipolar, depression, schizophrenia) Hx Asthma: Yes (intubation Multiple times) Hx Tuberculosis: No Additional medical history: Eczema - Surgical History Past Surgical History?: Yes Additional Surgical History: HERNIA REPAIR - Social History Smoking Status: Current Every Day Smoker (2 packs/day) Substance Use Type: Alcohol (Occasional), Cocaine (Crack cocaine) - Medications Home Medications: Home Medications Medication Instructions Recorded Confirmed Last Taken Type Albuterol Mdi (or & Nicu Only) 2 puff IH QID PRN #8.5 gram 07/29/21 11/10/21 11/10/21 Rx [ProAir HFA Inhaler] ARIPiprazole [Abilify] 10 mg PO DAILY 30 Days #30 tab 11/11/21 Unknown Rx traZODone [Desyrel] 50 mg PO QHS 30 Days #30 tab 11/11/21 Unknown Rx ED Physical Exam - General Limitations: No Limitations General appearance: alert, in no apparent distress - Head Head exam: Present: atraumatic, normocephalic, normal inspection - Eye Eye exam: Present: normal appearance - ENT ENT exam: Present: normal exam, normal orophraynx, mucous membranes moist - Respiratory Respiratory exam: Present: wheezes. Absent: respiratory distress, rales, rhonchi, accessory muscle use, decreased breath sounds, prolonged expiratory - Cardiovascular Cardiovascular Exam: Present: regular rate, normal rhythm, normal heart sounds - GI/Abdominal GI/Abdominal exam: Present: soft, normal bowel sounds. Absent: distended, tenderness, guarding, rebound, rigid, organomegaly, mass, bruit, pulsatile mass, hernia - Extremities Exam Extremities exam: Present: normal inspection, full ROM, normal capillary refill. Absent: tenderness - Back Exam Back exam: Present: normal inspection, full ROM. Absent: CVA tenderness (R), CVA tenderness (L) - Neurological Exam Neurological exam: Present: alert, oriented X3, CN II-XII intact, normal gait, reflexes normal. Absent: motor sensory deficit - Psychiatric Psychiatric exam: Present: suicidal ideation. Absent: homicidal ideation - Skin Skin exam: Present: warm, intact, normal color ED Course Vital Signs 11/10/21 11/10/21 11/10/21 04:57 05:51 07:14 Temperature 97.7 F Pulse Rate 86 Pulse Rate [ 77 Bilateral] Respiratory 16 19 Rate Respiratory 18 Rate [Bilateral ] Blood Pressure 127/76 [Right] O2 Sat by Pulse 96 96 Oximetry 11/10/21 11/10/21 11/11/21 17:03 20:00 03:06 Temperature 98.3 F 98.2 F 97.6 F Pulse Rate 79 68 76 Pulse Rate [ Bilateral] Respiratory 16 16 16 Rate Respiratory Rate [Bilateral ] Blood Pressure 152/83 119/73 109/58 [Right] O2 Sat by Pulse 100 98 95 Oximetry 11/11/21 09:15 Temperature 97.2 F L Pulse Rate 72 Pulse Rate [ Bilateral] Respiratory 18 Rate Respiratory Rate [Bilateral ] Blood Pressure 118/88 [Right] O2 Sat by Pulse 97 Oximetry - Reevaluation(s) Reevaluation #1: 11/11/21 12:11 Patient has been evaluated by our psychiatric team. Psychiatric team recommended outpatient treatment. Patient denied any suicidal or homicidal ideation. No visual or auditory hallucination. Patient is medically and psychiatrically stable for discharge. ED Medical Decision Making - Lab Data Result diagrams: 11/10/21 05:22 11/10/21 05:22 - Medical Decision Making Patient is 26 years old male with history of asthma and bipolar disorder. Patient stated that he is off his bipolar medication for a while. Patient brought to the emergency room via EMS with 2 complaints. First complaint patient stated that he has been having asthma attack for the last 2 to 3 days. Patient found to be with generalized wheezing and difficulty breathing. Patient received albuterol, Solu-Medrol and magnesium sulfate. His second complaint is that he is suicidal for the last few days also. He stated that he is off his bipolar medication. His plan is to cut his wrist. Patient also endorses auditory and visual hallucination. He denied any homicidal ideation. Labs reviewed and is unremarkable. Patient symptoms much better after breathing treatment. Patient is medically cleared to be evaluated by psychiatric team. Critical care attestation.: If time is entered above; I have spent that time in minutes in the direct care of this critically ill patient, excluding procedure time. ED Disposition Clinical Impression: Suicidal ideation, Asthma exacerbation Disposition: 01 HOME / SELF CARE / HOMELESS Is pt being admited?: No Condition: Stable Instructions: Asthma, Adult, Suicidal Feelings: How to Help Yourself Additional Instructions: Professional and Agency Contacts To help [facility] (10/04) [place] Crisis Line: Suicide Prevention Line: Crisis Text Line: Text START to [phone] Emergency: 911 Outpatient [facility] Behavioral Health Resources: [facility]: [facility] [address], [place] [address] [place]: [facility] [address] [place] [address] Monday thru Monday - 8am - 5pm Call to schedule an assessment for mental health and substance abuse programs [facility] Address: [address] [place], [place] [address] Monday thru Monday- 7am-2pm [facility] Address: [address] [place] [address] Monday thru Monday: 8:30AM-5PM Prescriptions: traZODone [Desyrel] 50 mg PO QHS 30 Days #30 tab ARIPiprazole [Abilify] 10 mg PO DAILY 30 Days #30 tab Referrals: PRIMARY CARE, [Primary Care Provider] - 3-5 Days
[2021-11-10 07:10] LABS: Bilirubin,Urine NEG (Negative); Blood,Urine NEG (Negative); Color,Urine Straw (Yellow); Protein,Urine <15 mg/dL mg/dL (Negative); Urobilinogen,Urine < 2.0 mg/dL (<2.0); WBC,Urine < 1.0 /HPF (0.0-6.0)
--- NOTE | 2021-11-10 10:59 | Consultation ---
History of Present Illness - Reason for Consult Consult date: 11/10/21 Reason for consult: SI - History of Present Psychiatric Illness The patient is a 26 year old male with a history Bipolar, Schizoaffective, Cocaine use disorder who presents to the ED with suicidal ideation. In my interview with the patient, he reports that " I"m ready to change." He reports that he last used crack about 3 days ago. He endorses auditory hallucinations " voices saying it's over, and I see shadows of people and lights." The patient admits having suicidal without a plan. Diagnoses: Bipolar, Schizoaffective, Cocaine use Disorder Suicide attempts or Self-harm behavior:Denies Prior psychiatric hospitalizations: Multiple Substance Abuse history:Crack Cocaine Previous psychiatric medications tried: unknown Outpatient treatment: Denies PAST MEDICAL HISTORY: None reported Family Psychiatric History: None reported or documented SOCIAL HISTORY Marital Status: Single Living Arrangements:Homeless Employment Status: unemployed Access to guns/weapons: Denies Education: GED History of Abuse: None reported Legal History: None reported REVIEW OF SYSTEMS Constitutional: Negative for weight loss ENT: Negative for stridor Respiratory: Negative for cough or hemoptysis All other systems reviewed and are negative MENTAL STATUS EXAMINATION General Appearance and Behavior: Age appropriate, good hygiene, wearing appropriate clothes, cooperative, cooperative Cooperation: Participating/engaged Psychomotor Behavior: normal Mood: "ok" Affect and affective range: congruent with stated mood Thought Process: goal directed Thought Content: Not Suicidal Speech: Normal volume, Regular rate and rhythm Suicidal Ideation: Denies Homicidal Ideation: Denies Hallucinations: Denies Delusions: None elicited Impulse Control: impaired Insight and Judgment: limited insight and judgment, Memory: normal Attention: Normal Orientation: Alert, oriented Assessment and Plan (1) Bipolar disorder (2) Cocaine use disorder Current Visit: Yes Status: Acute Treatment Plan 1013 Start Abilify 10mg po daily Start Trazodone 50 mg po QHS Sitter: Per primary Medical: Per primary Disposition: Recommend acute psychiatric inpatient treatment. Will follow. Thank you for the consult. Case staffed with Dr. Garcia Medications and Allergies Allergies Allergy/AdvReac Type Severity Reaction Status Date / Time No Known Allergies Allergy Verified 11/10/21 07:34 Home Medications Medication Instructions Recorded Confirmed Last Taken Type Albuterol Mdi (or & Nicu Only) 2 puff IH QID PRN #8.5 gram 07/29/21 11/10/21 11/10/21 Rx [ProAir HFA Inhaler] Mental Status Exam - Vital signs Last Vital Signs Temp 97.7 F 11/10/21 04:57 Pulse 77 11/10/21 05:51 Resp 19 11/10/21 07:14 BP 127/76 11/10/21 04:57 Pulse Ox 96 11/10/21 07:14 Results Result Diagrams: 11/10/21 05:22 11/10/21 05:22 Abnormal lab results 11/10/21 11/10/21 11/10/21 Range/Units 05:22 05:22 05:22 WBC 3.6 L (4.5-11.0) K/mm3 MCV 97 H (84-94) fl MCH 33 H (28-32) pg RDW 12.3 L (13.2-15.2) % Eos % (Auto) 6.6 H (0.0-4.3) % Chloride 109.2 H (98-107) mmol/L Carbon Dioxide 21 L (22-30) mmol/L Glucose 102 H (75-100) mg/dL Magnesium 2.60 H (1.7-2.3) mg/dL Total Protein 6.0 L (6.3-8.2) g/dL Salicylates < 0.3 L (2.8-20.0) mg/dL Acetaminophen (10.0-30.0) ug/mL 11/10/21 Range/Units 05:22 WBC (4.5-11.0) K/mm3 MCV (84-94) fl MCH (28-32) pg RDW (13.2-15.2) % Eos % (Auto) (0.0-4.3) % Chloride (98-107) mmol/L Carbon Dioxide (22-30) mmol/L Glucose (75-100) mg/dL Magnesium (1.7-2.3) mg/dL Total Protein (6.3-8.2) g/dL Salicylates (2.8-20.0) mg/dL Acetaminophen 5.0 L (10.0-30.0) ug/mL All other labs normal.
[2021-11-10] MEDS: ARIPiprazole 10 MG TAB PO SCH (11:44)
--- NOTE | 2021-11-10 11:49 | Emergency Department Report ---
Blank Doc - Documentation Documentation: 26-year-old male presents with psychosis, suicidal ideation, and admitted to c rack cocaine abuse. UDS pending. Mental health recommends continuation of 1013. Patient compliant with the p.o. ED medication
[2021-11-10 12:24] LABS: Amphetamine Screen,Urine Negative; Benzodiazepines Screen,Urine Negative; Cannabinoid Screen,Urine Negative; Methadone Screen,Urine Negative; Opiate Screen,Urine Negative
[2021-11-10 12:36] LABS: Cocaine Screen,Urine Positive
[2021-11-10] MEDS ORDERED: traZODone 50 MG TAB PO SCH (22:00)
[2021-11-11] MEDS ORDERED: ACETAMINOPHEN 500 MG TAB PO ONE (06:29)
--- NOTE | 2021-11-11 06:40 | Emergency Department Report ---
Blank Doc - Documentation Documentation: There were no events of the night. Patient is complaining of some left upper quadrant pain after eating. He believes that he may have gastritis or an ulcer. On exam, there is no abdominal tenderness. He has no rebound or guarding. I did review labs. He does not have any pathology based on laboratory evaluation that would require treatment. He can be placed on Pepcid or some other H2 marli for comfort. We are still awaiting psychiatric disposition.
[2021-11-11] MEDS: FAMOTIDINE 20 MG TAB PO SCH ×2 (08:59→09:49)
[2021-11-11 09:16] VITALS: BP 118/88
[2021-11-11] MEDS: ARIPiprazole 10 MG TAB PO SCH (09:49)
--- NOTE | 2021-11-11 10:28 | Progress Note ---
Subjective - Reason for Consult Consult date: 11/11/21 Reason for consult: SI - Chief Complaint Chief complaint: The patient was seen this morning. He reports doing well but complains of flank pain. He states sleep and appetite is good. He denies any current suicidal ideation and denies hallucinations. REVIEW OF SYSTEMS Constitutional: Negative for weight loss ENT: Negative for stridor Respiratory: Negative for cough or hemoptysis All other systems reviewed and are negative MENTAL STATUS EXAMINATION General Appearance and Behavior: Age appropriate, good hygiene, wearing appropriate clothes, cooperative, cooperative Cooperation: Participating/engaged Psychomotor Behavior: normal Mood: "ok" Affect and affective range: congruent with stated mood Thought Process: goal directed Thought Content: reality oriented Speech: Normal volume, Regular rate and rhythm Suicidal Ideation: Denies Homicidal Ideation: Denies Hallucinations: Denies Delusions: None elicited Impulse Control: impaired Insight and Judgment: limited insight and judgment, Memory: normal Attention: Normal Orientation: Alert, oriented Assessment and Plan (1) Bipolar disorder (2) Cocaine use disorder Current Visit: Yes Status: Acute Treatment Plan [id number] Continue Abilify 10mg po daily Continue Trazodone 50 mg po QHS Sitter: Per primary Medical: Per primary Disposition: Do not recommend acute psychiatric inpatient treatment. The machine deburrer will provide patient with psychiatric outpatient resources. Will sign off. Case staffed with Dr. Garcia Medications and Allergies Mental Status Exam - Vital signs Last Vital Signs Temp 97.2 F L 11/11/21 09:15 Pulse 72 11/11/21 09:15 Resp 18 11/11/21 09:15 BP 118/88 11/11/21 09:15 Pulse Ox 97 11/11/21 09:15
== END 2021-11-11 13:25 | disposition home or self-care (01) ==
LOC: ED 04:21
DX: R45.851 Suicidal ideations (principal); Z20.822 Contact with and (suspected) exposure to COVID-19; F17.200 Nicotine dependence, unspecified, uncomplicated; F12.90 Cannabis use, unspecified, uncomplicated; F10.20 Alcohol dependence, uncomplicated
CPT/HCPCS: 36415; 71045; 80048; 80076; 80307; 81001; 83735; 85025; 87040; 87086; 94644; 96360; 99284; J7030; U0003; 80320; Q0162; G0480

== ENCOUNTER 2022-01-02 00:06 | Emergency (ER) | payer SELFPAY ==
[2022-01-02 00:44] VITALS: BP 129/82
[2022-01-02] MEDS ORDERED: ALBUTEROL 2.5 MG/3 ML NEBU IH ONE (00:49)
[2022-01-02] MEDS ORDERED: methylPREDNISolone Sod Succinate 125 MG/2 ML INJ IV ONE (00:49)
[2022-01-02] MEDS ORDERED: IPRATROPIUM/ALBUTEROL SULFATE 3 ML AMPUL.NEB IH ONE (00:53)
--- NOTE | 2022-01-02 00:53 | Emergency Department Report ---
ED Asthma HPI - General Chief Complaint: Adult Asthma Stated Complaint: CARLITA Time Seen by Provider: 01/02/22 00:45 Source: patient Mode of arrival: Stretcher Limitations: No Limitations - History of Present Illness Initial Comments: 26-year-old male with a history of illicit drug use who now presents with episode of asthma attack. Patient has history of asthma and told me that he had crack cocaine tonight. Symptoms started shortly after using the drug. He said he has tried his inhaler with minimal improvement. No chest pain or palpitation reported. No fever or chills reported. No other modifying or associated factors reported. - Related Data Previous Rx's Medication Instructions Recorded Last Taken Type Albuterol Mdi (or & Nicu Only) 2 puff IH QID PRN #8.5 gram 07/29/21 11/10/21 Rx [ProAir HFA Inhaler] ARIPiprazole [Abilify] 10 mg PO DAILY 30 Days #30 tab 11/11/21 Unknown Rx Albuterol Mdi (or & Nicu Only) 2 puff IH QID PRN #1 inhalation 11/11/21 Unknown Rx [ProAir HFA Inhaler] traZODone [Desyrel] 50 mg PO QHS 30 Days #30 tab 11/11/21 Unknown Rx predniSONE [Deltasone] 20 mg PO QDAY 5 Days #10 tab NS 01/02/22 Unknown Rx Allergies Allergy/AdvReac Type Severity Reaction Status Date / Time No Known Allergies Allergy Verified 11/10/21 07:34 ED Review of Systems ROS: Stated complaint: CARLITA Other details as noted in HPI Comment: All other systems reviewed and negative Respiratory: shortness of breath, wheezing ED Past Medical Hx - Past Medical History Previous Medical History?: Yes Hx Psychiatric Treatment: Yes (bipolar, depression, schizophrenia) Hx Asthma: Yes (intubation Multiple times) Hx Tuberculosis: No Additional medical history: Eczema - Surgical History Past Surgical History?: Yes Additional Surgical History: HERNIA REPAIR - Social History Smoking Status: Current Every Day Smoker Substance Use Type: Cocaine - Medications Home Medications: Home Medications Medication Instructions Recorded Confirmed Last Taken Type Albuterol Mdi (or & Nicu Only) 2 puff IH QID PRN #8.5 gram 07/29/21 11/10/21 11/10/21 Rx [ProAir HFA Inhaler] ARIPiprazole [Abilify] 10 mg PO DAILY 30 Days #30 tab 11/11/21 Unknown Rx Albuterol Mdi (or & Nicu Only) 2 puff IH QID PRN #1 inhalation 11/11/21 Unknown Rx [ProAir HFA Inhaler] traZODone [Desyrel] 50 mg PO QHS 30 Days #30 tab 11/11/21 Unknown Rx predniSONE [Deltasone] 20 mg PO QDAY 5 Days #10 tab NS 01/02/22 Unknown Rx ED Physical Exam - General Limitations: No Limitations General appearance: alert, in no apparent distress - Head Head exam: Present: normal inspection - Eye Eye exam: Present: normal appearance Pupils: Present: normal accommodation - ENT ENT exam: Present: normal exam, normal orophraynx, mucous membranes moist - Neck Neck exam: Present: normal inspection, full ROM. Absent: tenderness - Respiratory Respiratory exam: Present: wheezes (bilaterally) - Cardiovascular Cardiovascular Exam: Present: regular rate, normal rhythm, normal heart sounds - GI/Abdominal GI/Abdominal exam: Present: soft, normal bowel sounds. Absent: distended, tenderness - Back Exam Back exam: Present: normal inspection - Neurological Exam Neurological exam: Present: alert, oriented X3 - Psychiatric Psychiatric exam: Present: normal affect, normal mood ED Course Vital Signs 01/02/22 01/02/22 01/02/22 00:30 00:43 02:14 Temperature 98 F 98.4 F Pulse Rate 95 H 117 H Pulse Rate [ 94 H Anterior] Respiratory 18 22 Rate Respiratory 16 Rate [Anterior] Blood Pressure 160/98 Blood Pressure 129/82 [Left] O2 Sat by Pulse 92 92 Oximetry - Reevaluation(s) Reevaluation #1: 01/02/22 00:52 asthma attack-- and noted with bilateral expiratory wheezing--we will go ahead and treat with 125 mg of Solu-Medrol and albuterol Reevaluation #2: 01/02/22 02:28 Patient reported feeling much better after the above treatment and ready to go home Critical care attestation.: If time is entered above; I have spent that time in minutes in the direct care of this critically ill patient, excluding procedure time. ED Disposition Clinical Impression: Illicit drug use Asthma exacerbation attacks Qualifiers: Asthma severity: unspecified severity Asthma persistence: unspecified Qualified Code(s): J45.901 - Unspecified asthma with (acute) exacerbation Disposition: 01 HOME / SELF CARE / HOMELESS Is pt being admited?: No Does the pt Need Aspirin: No Condition: Stable Instructions: Asthma, Adult, [id number], Asthma Attack Prevention, Adult Additional Instructions: Avoid illicit drug use to help your overall health Please do not hesitate to call or return to emergency room if your symptoms worsen Prescriptions: predniSONE [Deltasone] 20 mg PO QDAY 5 Days #10 tab NS Referrals: FRANDY TOM MD [Primary Care Provider] - 3-5 Days Time of Disposition: 02:29
== END 2022-01-02 02:32 | disposition home or self-care (01) ==
LOC: ED 00:06
DX: J45.901 Unspecified asthma with (acute) exacerbation (principal); F19.10 Other psychoactive substance abuse, uncomplicated; F20.9 Schizophrenia, unspecified; F32.9 Major depressive disorder, single episode, unspecified; F17.200 Nicotine dependence, unspecified, uncomplicated; Z72.89 Other problems related to lifestyle; F14.90 Cocaine use, unspecified, uncomplicated; Z79.899 Other long term (current) drug therapy
CPT/HCPCS: 94640; 94644; 96374; 99283

== ENCOUNTER 2022-01-04 06:38 | Emergency (ER) | payer SELFPAY ==
[2022-01-04 06:51] VITALS: BP 129/67
[2022-01-04] MEDS ORDERED: IPRATROPIUM 0.02% NEBU 2.5 ML IH ONE (06:51)
[2022-01-04] MEDS ORDERED: ALBUTEROL 2.5 MG/3 ML NEBU IH ONE (06:51)
--- NOTE | 2022-01-04 06:57 | Emergency Department Report ---
HPI - General Chief Complaint: Dyspnea/Respdistress Time Seen by Provider: 01/04/22 06:47 - HPI HPI: Room 25 Patient is a 26-year-old male present with a chief complaint of shortness of breath. Patient has a history of asthma and admits to smoking cigarettes and crack. Patient states he developed an asthma exacerbation last night at 23: 00. Patient admits to chronic cough productive of clear sputum. Patient denies history of fever. EMS was called and administered albuterol Atrovent neb and Solu-Medrol IM prior to arrival. Patient states he still feels tight. ED Past Medical Hx - Past Medical History Hx Psychiatric Treatment: Yes (bipolar, depression, schizophrenia) Hx Asthma: Yes (intubation Multiple times) Hx Tuberculosis: No Additional medical history: Eczema - Surgical History Additional Surgical History: HERNIA REPAIR - Family History Family history: no significant - Social History Smoking Status: Current Every Day Smoker Substance Use Type: Alcohol (Rarely), Cocaine - Medications Home Medications: Home Medications Medication Instructions Recorded Confirmed Last Taken Type Albuterol Mdi (or & Nicu Only) 2 puff IH QID PRN #8.5 gram 07/29/21 11/10/21 11/10/21 Rx [ProAir HFA Inhaler] ARIPiprazole [Abilify] 10 mg PO DAILY 30 Days #30 tab 11/11/21 Unknown Rx Albuterol Mdi (or & Nicu Only) 2 puff IH QID PRN #1 inhalation 11/11/21 Unknown Rx [ProAir HFA Inhaler] traZODone [Desyrel] 50 mg PO QHS 30 Days #30 tab 11/11/21 Unknown Rx predniSONE [Deltasone] 20 mg PO QDAY 5 Days #10 tab NS 01/02/22 Unknown Rx Albuterol Mdi (or & Nicu Only) 2 puff IH QID PRN #8.5 gram 01/04/22 Unknown Rx [ProAir HFA Inhaler] Prednisone [predniSONE 10 mg 10 mg PO .TAPER #1 01/04/22 Unknown Rx (6-Day Pack, 21 Tabs)] ED Review of Systems ROS: Stated complaint: CARLITA Other details as noted in HPI Constitutional: denies: fever Eyes: denies: eye pain ENT: denies: throat pain Respiratory: cough, shortness of breath, wheezing Cardiovascular: denies: chest pain Endocrine: no symptoms reported Gastrointestinal: denies: abdominal pain Genitourinary: denies: dysuria Musculoskeletal: denies: back pain Neurological: denies: headache Physical Exam - Physical Exam Vital Signs: Vital Signs 01/04/22 06:50 Temperature 98.7 F Pulse Rate 79 Respiratory 20 Rate Blood Pressure 129/67 [Right] O2 Sat by Pulse 99 Oximetry Physical Exam: GENERAL: The patient is well-developed well-nourished male lying on stretcher not appearing to be in acute distress. [] HEENT: Normocephalic. Atraumatic. Extraocular motions are intact. Patient has moist mucous membranes. NECK: Supple. Trachea midline CHEST/LUNGS: Diffuse wheezing. There is no respiratory distress noted. HEART/CARDIOVASCULAR: Regular. There is no tachycardia. There is no gallop rub or murmur. ABDOMEN: Abdomen is soft, nontender. Patient has normal bowel sounds. There is no abdominal distention. SKIN: There is no rash. There is no edema. There is no diaphoresis. NEURO: The patient is awake, alert, and oriented. The patient is cooperative. The patient has no focal neurologic deficits. The patient has normal speech. GCS 15 MUSCULOSKELETAL: There is no evidence of acute injury. ED Course Vital Signs 01/04/22 06:50 Temperature 98.7 F Pulse Rate 79 Respiratory 20 Rate Blood Pressure 129/67 [Right] O2 Sat by Pulse 99 Oximetry ED Medical Decision Making - Radiology Data Radiology results: report reviewed (Chest x-ray), image reviewed (Chest x-ray) interpreted by me: Chest x-ray-no definite focal infiltrates, no pneumothorax [facility] [address] [place] [address] XRay Report Signed Patient: GILSON MORENO MR#: [id number] : 1995 Acct:[id number] Age/Sex: 26 / M ADM Date: 01/04/22 Loc: ED Attending Dr: Ordering Physician: MICHEL GAONA MD Date of Service: 01/04/22 Procedure(s): XR chest 1V ap Accession Number(s): [id number] cc: MICHEL GAONA MD Fluoro Time In Minutes: CHEST 1 VIEW INDICATION: Shortness of breath, cough. COMPARISON: 11/10/2021 FINDINGS: Support devices: None. Heart: Within normal limits. Lungs/Pleura: No acute air space or interstitial disease. No pleural abnormality or pneumothorax. Additional findings: None. IMPRESSION: No acute findings. No change since 11/10/2021. Signer Name: Santi Shipley Jr, MD Signed: 01/04/2022 7:46 AM Workstation Name: [id number] Transcribed By: TTR Dictated By: SANTI SHIPLEY JR, MD Electronically Authenticated By: SANTI SHIPLEY JR, MD Signed Date/Time: 01/04/22745 DD/ 5 TD/TT: - Differential Diagnosis Asthma exacerbation, bronchitis, pneumonia Critical care attestation.: If time is entered above; I have spent that time in minutes in the direct care of this critically ill patient, excluding procedure time. ED Disposition Clinical Impression: Acute asthma exacerbation Disposition: 01 HOME / SELF CARE / HOMELESS Is pt being admited?: No Does the pt Need Aspirin: No Condition: Stable Instructions: Asthma, Adult Additional Instructions: Return to the emergency department should you develop worsening symptoms, inability to tolerate food or liquids, high fever or any other concerns Prescriptions: Prednisone [predniSONE 10 mg (6-Day Pack, 21 Tabs)] 10 mg PO .TAPER #1 Albuterol Mdi (or & Nicu Only) [ProAir HFA Inhaler] 2 puff IH QID PRN #8.5 gram PRN Reason: Shortness Of Breath Referrals: PRIMARY CAREMD [Primary Care Provider] - 3-5 Days [facility] [Provider Group] - 3-5 Days Time of Disposition: 09:16
--- NOTE | 2022-01-04 07:51 | XRay Report ---
CHEST 1 VIEW INDICATION: Shortness of breath, cough. COMPARISON: 11/10/2021 FINDINGS: Support devices: None. Heart: Within normal limits. Lungs/Pleura: No acute air space or interstitial disease. No pleural abnormality or pneumothorax. Additional findings: None. IMPRESSION: No acute findings. No change since 11/10/2021. Signer Name: Santi Trammell Jr, MD Signed: 01/04/2022 7:46 AM Workstation Name: [id number]
== END 2022-01-04 09:45 | disposition home or self-care (01) ==
LOC: ED 06:38
DX: J44.1 Chronic obstructive pulmonary disease with (acute) exacerbation (principal); F31.9 Bipolar disorder, unspecified; F20.9 Schizophrenia, unspecified; J45.909 Unspecified asthma, uncomplicated; F17.210 Nicotine dependence, cigarettes, uncomplicated; F14.10 Cocaine abuse, uncomplicated; Z72.89 Other problems related to lifestyle; Z79.899 Other long term (current) drug therapy
CPT/HCPCS: 71045; 94640; 94644; 99283

== ENCOUNTER 2022-02-19 15:47 | Emergency (ER) | payer SELFPAY ==
[2022-02-19] MEDS ORDERED: ALBUTEROL 2.5 MG/3 ML NEBU IH ONE (16:14)
[2022-02-19] MEDS ORDERED: IPRATROPIUM 0.02% NEBU 2.5 ML IH ONE (16:14)
--- NOTE | 2022-02-19 16:18 | Emergency Department Report ---
ED Asthma HPI - General Chief Complaint: Adult Asthma Stated Complaint: ASTHMA ATTACK Time Seen by Provider: 02/19/22 16:10 Source: patient, EMS Mode of arrival: Stretcher Limitations: No Limitations - History of Present Illness Initial Comments: Patient is 27 years old male with history of asthma. Patient brought to the emergency room via EMS from home for evaluation of asthma attack. Patient stated that symptoms started this morning with shortness of breath, difficulty in breathing and wheezing. Patient received albuterol, Solu-Medrol and magne sium sulfate by EMS with minimal improvement. Upon arrival to the ER patient still with generalized wheezing. Added albuterol and Atrovent. Patient stated that he is out of his albuterol inhaler. MD Complaint: "asthma attack", shortness of breath, wheezing -: This morning Severity: moderate Treatments Prior to Arrival: inhaled bronchodilator, IV steroid - Related Data Current Asthma Therapy: inhaled bronchodilator Previous Rx's Medication Instructions Recorded Last Taken Type Albuterol Mdi (or & Nicu Only) 2 puff IH QID PRN #8.5 gram 07/29/21 11/10/21 Rx [ProAir HFA Inhaler] ARIPiprazole [Abilify] 10 mg PO DAILY 30 Days #30 tab 11/11/21 Unknown Rx Albuterol Mdi (or & Nicu Only) 2 puff IH QID PRN #1 inhalation 11/11/21 Unknown Rx [ProAir HFA Inhaler] traZODone [Desyrel] 50 mg PO QHS 30 Days #30 tab 11/11/21 Unknown Rx predniSONE [Deltasone] 20 mg PO QDAY 5 Days #10 tab NS 01/02/22 Unknown Rx Albuterol Mdi (or & Nicu Only) 2 puff IH QID PRN #8.5 gram 01/04/22 Unknown Rx [ProAir HFA Inhaler] Prednisone [predniSONE 10 mg 10 mg PO .TAPER #1 01/04/22 Unknown Rx (6-Day Pack, 21 Tabs)] Allergies Allergy/AdvReac Type Severity Reaction Status Date / Time No Known Allergies Allergy Verified 02/19/22 16:38 ED Review of Systems ROS: Stated complaint: ASTHMA ATTACK Other details as noted in HPI Comment: All other systems reviewed and negative Constitutional: denies: chills, fever Respiratory: shortness of breath, SOB with exertion, wheezing. denies: cough Cardiovascular: denies: chest pain, palpitations Gastrointestinal: denies: abdominal pain, nausea, vomiting, diarrhea, constipation, hematemesis, melena, hematochezia Musculoskeletal: denies: back pain Neurological: denies: headache, weakness, numbness, paresthesias, confusion ED Past Medical Hx - Past Medical History Hx Psychiatric Treatment: Yes (bipolar, depression, schizophrenia) Hx Asthma: Yes (intubation Multiple times) Hx Tuberculosis: No Additional medical history: Eczema - Surgical History Additional Surgical History: HERNIA REPAIR - Social History Smoking Status: Current Every Day Smoker Substance Use Type: Alcohol (Rarely), Cocaine - Medications Home Medications: Home Medications Medication Instructions Recorded Confirmed Last Taken Type Albuterol Mdi (or & Nicu Only) 2 puff IH QID PRN #8.5 gram 07/29/21 11/10/21 11/10/21 Rx [ProAir HFA Inhaler] ARIPiprazole [Abilify] 10 mg PO DAILY 30 Days #30 tab 11/11/21 Unknown Rx Albuterol Mdi (or & Nicu Only) 2 puff IH QID PRN #1 inhalation 11/11/21 Unknown Rx [ProAir HFA Inhaler] traZODone [Desyrel] 50 mg PO QHS 30 Days #30 tab 11/11/21 Unknown Rx predniSONE [Deltasone] 20 mg PO QDAY 5 Days #10 tab NS 01/02/22 Unknown Rx Albuterol Mdi (or & Nicu Only) 2 puff IH QID PRN #8.5 gram 01/04/22 Unknown Rx [ProAir HFA Inhaler] Prednisone [predniSONE 10 mg 10 mg PO .TAPER #1 01/04/22 Unknown Rx (6-Day Pack, 21 Tabs)] ED Physical Exam - General Limitations: No Limitations General appearance: alert, in distress - Head Head exam: Present: atraumatic, normocephalic, normal inspection - Eye Eye exam: Present: normal appearance - ENT ENT exam: Present: normal exam, normal orophraynx, mucous membranes moist - Neck Neck exam: Present: normal inspection, full ROM. Absent: tenderness, meningismus - Respiratory Respiratory exam: Present: respiratory distress, wheezes, decreased breath sounds. Absent: rales, rhonchi, prolonged expiratory - Cardiovascular Cardiovascular Exam: Present: tachycardia - GI/Abdominal GI/Abdominal exam: Present: soft, normal bowel sounds. Absent: distended, tenderness, rebound, rigid, organomegaly, mass, bruit, pulsatile mass, hernia - Extremities Exam Extremities exam: Present: normal inspection, full ROM, normal capillary refill. Absent: tenderness, pedal edema, joint swelling, calf tenderness - Back Exam Back exam: Present: normal inspection, full ROM. Absent: CVA tenderness (R), CVA tenderness (L) - Neurological Exam Neurological exam: Present: alert, oriented X3, CN II-XII intact, normal gait, reflexes normal. Absent: motor sensory deficit - Psychiatric Psychiatric exam: Present: normal mood - Skin Skin exam: Present: warm, intact, normal color ED Course Vital Signs 02/19/22 02/19/22 02/19/22 15:49 16:06 16:16 Temperature 97.9 F Pulse Rate 102 H Pulse Rate [ Anterior Bilateral Throughout] Pulse Rate [ Anterior Bilateral] Respiratory Rate [Anterior Bilateral Throughout] Respiratory Rate [Anterior Bilateral] Blood Pressure 120/71 Blood Pressure 131/66 [Left] O2 Sat by Pulse 90 95 96 Oximetry 02/19/22 02/19/22 16:30 17:08 Temperature Pulse Rate Pulse Rate [ 71 Anterior Bilateral Throughout] Pulse Rate [ 71 Anterior Bilateral] Respiratory 20 Rate [Anterior Bilateral Throughout] Respiratory 18 Rate [Anterior Bilateral] Blood Pressure 120/71 Blood Pressure [Left] O2 Sat by Pulse 97 Oximetry ED Medical Decision Making - Lab Data Result diagrams: 02/19/22 16:37 02/19/22 16:37 - Radiology Data Radiology results: report reviewed - Medical Decision Making Patient is 27 years old male with history of asthma. Patient brought to the emergency room via EMS from home for evaluation of asthma attack. Patient stated that symptoms started this morning with shortness of breath, difficulty in breathing and wheezing. Patient received albuterol, Solu-Medrol and magnesium sulfate by EMS with minimal improvement. Upon arrival to the ER patient still with generalized wheezing. Added albuterol and Atrovent. Patient stated that he is out of his albuterol inhaler. Patient stated that he is feeling much better. Labs reviewed and is unremarkable. Chest x-ray is negative. Patient given prescription for albuterol and prednisone and advised to follow-up with his primary care physician in the next 2 to 3 days and to return to the ER if he develop any new symptoms. Critical care attestation.: If time is entered above; I have spent that time in minutes in the direct care of this critically ill patient, excluding procedure time. ED Disposition Clinical Impression: Acute asthma exacerbation Disposition: 01 HOME / SELF CARE / HOMELESS Is pt being admited?: No Condition: Stable Instructions: Asthma, Adult Referrals: FRANDY TOM MD [Primary Care Provider] - 3-5 Days
--- NOTE | 2022-02-19 17:24 | XRay Report ---
CHEST 1 VIEW INDICATION: Asthma. COMPARISON: 01/04/2022 FINDINGS: SUPPORT DEVICES: None. HEART: Within normal limits. LUNGS/PLEURA: No acute air space or interstitial disease. ADDITIONAL FINDINGS: None. IMPRESSION: 1. No acute findings. Signer Name: Hayden Mccarthy MD Signed: 02/19/2022 5:20 PM Workstation Name: [id number]
[2022-02-19 17:31] LABS: Basophils % (Auto) 0.7 % (0.0-1.8); Eosinophils # (Auto) 0.3 K/mm3 (0.0-0.4); Eosinophils % (Auto) 11.4 % (0.0-4.3); Hematocrit 41.2 % (35.5-45.6); Hemoglobin 13.7 gm/dl (11.8-15.2); Lymphocytes # (Auto) 0.5 K/mm3 (1.2-5.4); Lymphocytes % (Auto) 22.6 % (13.4-35.0); Mean Corpuscular HGB Conc 33 % (32-34); Mean Corpuscular Volume 98 fl (84-94); Monocytes # (Auto) 0.1 K/mm3 (0.0-0.8); Monocytes % (Auto) 3.1 % (0.0-7.3); Platelet Count 179 K/mm3 (140-440); Red Blood Count 4.21 M/mm3 (3.65-5.03); Red Cell Distribution Width 12.2 % (13.2-15.2)
[2022-02-19 17:55] LABS: BUN/Creatinine Ratio 12; Blood Urea Nitrogen 11 mg/dL (9-20); Calcium 8.9 mg/dL (8.4-10.2); Hemolysis Index 4
[2022-02-19 18:52] VITALS: BP 111/54
== END 2022-02-19 18:54 | disposition home or self-care (01) ==
LOC: ED 15:47
DX: R06.02 Shortness of breath (principal); J45.901 Unspecified asthma with (acute) exacerbation; F32.9 Major depressive disorder, single episode, unspecified; F20.9 Schizophrenia, unspecified; L30.9 Dermatitis, unspecified; Z98.890 Other specified postprocedural states; F17.290 Nicotine dependence, other tobacco product, uncomplicated
CPT/HCPCS: 36415; 71045; 80048; 85025; 94640; 94644; 99284

== ENCOUNTER 2022-03-13 20:39 | Emergency (ER) | payer SELFPAY ==
[2022-03-13] MEDS ORDERED: IPRATROPIUM 0.02% NEBU 2.5 ML IH ONE (20:58)
[2022-03-13] MEDS ORDERED: ALBUTEROL 2.5 MG/3 ML NEBU IH ONE (20:58)
--- NOTE | 2022-03-13 22:11 | Emergency Department Report ---
ED Asthma HPI - General Chief Complaint: Adult Asthma Stated Complaint: CARLITA Time Seen by Provider: 03/13/22 20:58 Source: patient Mode of arrival: Stretcher Limitations: No Limitations - History of Present Illness Initial Comments: 27-year-old male with a past medical history of asthma presents to the hospital wheezing and shortness of breath since this morning. Patient admits to smoking cigarettes and crack use last this morning. He is homeless and did not have access to bronchodilators. EMS provided albuterol 5 mg, magnesium 2 g, and Solu-Medrol 125 mg with mild improvement. Patient still has significant wheezing and chest tightness upon ED arrival. Denies cough, fever, and had only received 1 dose of the [employer] COVID-vaccine. History of 3 intubations - Related Data Previous Rx's Medication Instructions Recorded Last Taken Type ARIPiprazole [Abilify] 10 mg PO DAILY 30 Days #30 tab 11/11/21 Unknown Rx Albuterol Mdi (or & Nicu Only) 2 puff IH QID PRN #1 inhalation 11/11/21 Unknown Rx [ProAir HFA Inhaler] traZODone [Desyrel] 50 mg PO QHS 30 Days #30 tab 11/11/21 Unknown Rx predniSONE [Deltasone] 20 mg PO QDAY 5 Days #10 tab NS 01/02/22 Unknown Rx Albuterol Mdi (or & Nicu Only) 2 puff IH QID PRN #8.5 gram 01/04/22 Unknown Rx [ProAir HFA Inhaler] Albuterol Mdi (or & Nicu Only) 2 puff IH QID PRN #1 inhalation 02/19/22 Unknown Rx [ProAir HFA Inhaler] Prednisone [predniSONE 10 mg 10 mg PO .TAPER #1 tab.ds.pk 02/19/22 Unknown Rx (6-Day Pack, 21 Tabs)] Albuterol Mdi (or & Nicu Only) 2 puff IH QID PRN #8.5 gram 03/13/22 Unknown Rx [ProAir HFA Inhaler] Prednisone [predniSONE 10 mg 10 mg PO .TAPER #1 03/13/22 Unknown Rx (6-Day Pack, 21 Tabs)] Allergies Allergy/AdvReac Type Severity Reaction Status Date / Time No Known Allergies Allergy Verified 02/19/22 16:38 ED Review of Systems ROS: Stated complaint: CARLITA Other details as noted in HPI Comment: All other systems reviewed and negative ED Past Medical Hx - Past Medical History Previous Medical History?: Yes Hx Psychiatric Treatment: Yes (bipolar, depression, schizophrenia) Hx Asthma: Yes (intubation Multiple times) Hx Tuberculosis: No Additional medical history: Eczema - Surgical History Past Surgical History?: Yes Additional Surgical History: HERNIA REPAIR - Social History Smoking Status: Never Smoker Substance Use Type: None - Medications Home Medications: Home Medications Medication Instructions Recorded Confirmed Last Taken Type ARIPiprazole [Abilify] 10 mg PO DAILY 30 Days #30 tab 11/11/21 Unknown Rx Albuterol Mdi (or & Nicu Only) 2 puff IH QID PRN #1 inhalation 11/11/21 Unknown Rx [ProAir HFA Inhaler] traZODone [Desyrel] 50 mg PO QHS 30 Days #30 tab 11/11/21 Unknown Rx predniSONE [Deltasone] 20 mg PO QDAY 5 Days #10 tab NS 01/02/22 Unknown Rx Albuterol Mdi (or & Nicu Only) 2 puff IH QID PRN #8.5 gram 01/04/22 Unknown Rx [ProAir HFA Inhaler] Albuterol Mdi (or & Nicu Only) 2 puff IH QID PRN #1 inhalation 02/19/22 Unknown Rx [ProAir HFA Inhaler] Prednisone [predniSONE 10 mg 10 mg PO .TAPER #1 tab.ds.pk 02/19/22 Unknown Rx (6-Day Pack, 21 Tabs)] Albuterol Mdi (or & Nicu Only) 2 puff IH QID PRN #8.5 gram 03/13/22 Unknown Rx [ProAir HFA Inhaler] Prednisone [predniSONE 10 mg 10 mg PO .TAPER #1 03/13/22 Unknown Rx (6-Day Pack, 21 Tabs)] ED Physical Exam - General Limitations: No Limitations - Other Other exam information: General: No acute distress Head: Atraumatic Eyes: normal appearance ENT: Moist mucous membranes Neck: Normal appearance, no midline tenderness Chest: Tachypnea, wheezing, mild accessory use CV: Regular rate and rhythm Abdomen: Soft, normal bowel sounds, nontender, nondistended, no rebound or guarding Back: Normal inspection Extremity: Normal inspection, full range of motion, no calf tenderness or leg edema Neuro: Alert O x 3, no facial asymmetry, speech clear, no gross motor sensory deficit Psych: Appropriate behavior Skin: No rash ED Course Vital Signs 03/13/22 03/13/22 03/13/22 20:39 22:38 23:25 Temperature 98 F Pulse Rate 86 Pulse Rate [ 89 Bilateral Throughout] Respiratory 20 Rate Respiratory 20 Rate [Bilateral Throughout] Blood Pressure 141/82 O2 Sat by Pulse 100 94 Oximetry - Reevaluation(s) Reevaluation #1: 03/13/22 23:31 Patient feeling much better with bronchodilators provided in the ED. Tolerating ambulation without difficulty with room air saturation 95%. Breath sounds clear ED Medical Decision Making - Radiology Data Radiology results: report reviewed CHEST 1 VIEW INDICATION / CLINICAL INFORMATION: sob, wheeze. FINDINGS: SUPPORT DEVICES: None. HEART / MEDIASTINUM: No significant abnormality. LUNGS / PLEURA: No significant pulmonary or pleural abnormality. No pneumothorax. ADDITIONAL FINDINGS: No significant additional findings. IMPRESSION: 1. No acute findings. - Medical Decision Making 27-year-old male presents to the hospital acute asthma exacerbation, smoking, crack cocaine use, and no access to bronchodilators. Patient symptoms improved with EMS the ED treatment. Patient tolerating ambulation prior to discharge without desaturation. Patient states he plans to obtain an albuterol inhaler tomorrow. Prescriptions will be provided - Differential Diagnosis Asthma, pneumonia, bronchitis Critical Care Time: No Critical care attestation.: If time is entered above; I have spent that time in minutes in the direct care of this critically ill patient, excluding procedure time. ED Disposition Clinical Impression: Cocaine dependence, Acute asthma exacerbation, Tobacco dependence Disposition: HOME / SELF CARE / HOMELESS Is pt being admited?: No Does the pt Need Aspirin: No Condition: Stable Instructions: Asthma, Adult Additional Instructions: Take the medication as prescribed. Follow-up with your doctor or doctor/clinic provided. Return if symptoms worsen as indicated by your discharge instructions. Professional and Agency Contacts To help [facility] (10/04) [place] Crisis Line: Suicide Prevention Line: Crisis Text Line: Text ``START to 119147 Emergency: 911 SUBSTANCE ABUSE PROGRAMS: [facility]: Location: [place], [place] [employer]! Address: [address] [place] [address] [facility]: Address: [address] [place], [place] [address] [facility]: Address: [address] [place] [address] [facility]: Address: [address] [place] [address] Prescriptions: Prednisone [predniSONE 10 mg (6-Day Pack, 21 Tabs)] 10 mg PO .TAPER #1 Albuterol Mdi (or & Nicu Only) [ProAir HFA Inhaler] 2 puff IH QID PRN #8.5 gram PRN Reason: Shortness Of Breath Referrals: FRANDY TOM MD [Primary Care Provider] - 3-5 Days [facility] [Provider Group] - 3-5 Days Time of Disposition: 23:33
--- NOTE | 2022-03-13 22:32 | XRay Report ---
CHEST 1 VIEW INDICATION / CLINICAL INFORMATION: sob, wheeze. FINDINGS: SUPPORT DEVICES: None. HEART / MEDIASTINUM: No significant abnormality. LUNGS / PLEURA: No significant pulmonary or pleural abnormality. No pneumothorax. ADDITIONAL FINDINGS: No significant additional findings. IMPRESSION: 1. No acute findings. Signer Name: Andrea Harley MD Signed: 03/13/2022 10:27 PM Workstation Name: [id number]
[2022-03-13 23:37] VITALS: BP 146/81
== END 2022-03-13 23:25 | disposition home or self-care (01) ==
LOC: ED 20:39
DX: J45.901 Unspecified asthma with (acute) exacerbation (principal); F14.10 Cocaine abuse, uncomplicated; F17.200 Nicotine dependence, unspecified, uncomplicated; F31.9 Bipolar disorder, unspecified; Z79.899 Other long term (current) drug therapy
CPT/HCPCS: 71045; 94644; 99284

== ENCOUNTER 2022-03-22 00:41 | Inpatient (IN) | payer SELFPAY ==
[2022-03-22] MEDS ORDERED: SODIUM CHLORIDE 0.9% 1000 ML 1,000 ML IV ONE (00:56)
[2022-03-22 01:39] LABS: Basophils % (Auto) 0.9 % (0.0-1.8); Eosinophils # (Auto) 0.4 K/mm3 (0.0-0.4); Eosinophils % (Auto) 10.4 % (0.0-4.3); Hematocrit 41.2 % (35.5-45.6); Hemoglobin 13.7 gm/dl (11.8-15.2); Lymphocytes # (Auto) 1.6 K/mm3 (1.2-5.4); Lymphocytes % (Auto) 40.5 % (13.4-35.0); Mean Corpuscular HGB Conc 33 % (32-34); Mean Corpuscular Volume 100 fl (84-94); Monocytes # (Auto) 0.4 K/mm3 (0.0-0.8); Monocytes % (Auto) 9.4 % (0.0-7.3); Platelet Count 190 K/mm3 (140-440); Red Blood Count 4.13 M/mm3 (3.65-5.03); Red Cell Distribution Width 12.5 % (13.2-15.2)
[2022-03-22] MEDS ORDERED: ALBUTEROL 2.5 MG/3 ML NEBU IH ONE ×2 (03:49→04:46)
[2022-03-22] MEDS ORDERED: methylPREDNISolone Sod Succinate 125 MG/2 ML INJ ONE (03:55)
[2022-03-22] MEDS ORDERED: methylPREDNISolone Sod Succinate 125 MG/2 ML INJ IV ONE ×2 (03:55→03:57)
[2022-03-22] MEDS ORDERED: MAGNESIUM SULFATE 1 GM in SODIUM CHLORIDE 0.9% 50 ML IV ONE (04:00)
[2022-03-22] MEDS ORDERED: MAGNESIUM SULFATE 2 GM/50 ML BAG IV ONE (04:02)
[2022-03-22] MEDS ORDERED: ONDANSETRON 4 MG/2 ML INJ IM ONE (04:20)
[2022-03-22] MEDS ORDERED: LORazepam 2 MG/ML VIAL IV ONE (04:23)
[2022-03-22] MEDS ORDERED: IPRATROPIUM 0.02% NEBU 2.5 ML IH ONE ×2 (04:40→04:46)
--- NOTE | 2022-03-22 05:04 | Emergency Department Report ---
History of Present Illness - General Chief Complaint: Dyspnea/Respdistress Stated Complaint: DIFFICULTY BREATHING, SUICIDAL Time Seen by Provider: 03/22/22 00:47 Source: EMS Mode of arrival: Wheelchair Limitations: No Limitations - History of Present Illness Initial Comments: Patient is a 27-year-old male brought in by EMS for evaluation of intoxication and suicidal ideations. Patient states he smoked a lot of crack with intentions to kill himself. - Related Data Previous Rx's Medication Instructions Recorded Last Taken Type ARIPiprazole [Abilify] 10 mg PO DAILY 30 Days #30 tab 11/11/21 Unknown Rx Albuterol Mdi (or & Nicu Only) 2 puff IH QID PRN #1 inhalation 11/11/21 Unknown Rx [ProAir HFA Inhaler] traZODone [Desyrel] 50 mg PO QHS 30 Days #30 tab 11/11/21 Unknown Rx predniSONE [Deltasone] 20 mg PO QDAY 5 Days #10 tab NS 01/02/22 Unknown Rx Albuterol Mdi (or & Nicu Only) 2 puff IH QID PRN #8.5 gram 01/04/22 Unknown Rx [ProAir HFA Inhaler] Albuterol Mdi (or & Nicu Only) 2 puff IH QID PRN #1 inhalation 02/19/22 Unknown Rx [ProAir HFA Inhaler] Prednisone [predniSONE 10 mg 10 mg PO .TAPER #1 tab.ds.pk 02/19/22 Unknown Rx (6-Day Pack, 21 Tabs)] Albuterol Mdi (or & Nicu Only) 2 puff IH QID PRN #8.5 gram 03/13/22 Unknown Rx [ProAir HFA Inhaler] Prednisone [predniSONE 10 mg 10 mg PO .TAPER #1 03/13/22 Unknown Rx (6-Day Pack, 21 Tabs)] Allergies Allergy/AdvReac Type Severity Reaction Status Date / Time No Known Allergies Allergy Verified 03/22/22 01:04 ED Review of Systems ROS: Stated complaint: DIFFICULTY BREATHING, SUICIDAL Other details as noted in HPI Constitutional: denies: chills, fever Respiratory: shortness of breath. denies: cough, wheezing Cardiovascular: denies: chest pain, palpitations Gastrointestinal: denies: abdominal pain, nausea, diarrhea Musculoskeletal: denies: back pain, joint swelling, arthralgia Skin: denies: rash, lesions Neurological: denies: headache, weakness, paresthesias Psychiatric: suicidal thoughts ED Past Medical Hx - Past Medical History Hx Psychiatric Treatment: Yes (bipolar, depression, schizophrenia) Hx Asthma: Yes (intubation Multiple times) Hx Tuberculosis: No Additional medical history: Eczema - Surgical History Additional Surgical History: HERNIA REPAIR - Social History Smoking Status: Current Every Day Smoker Substance Use Type: Cocaine - Medications Home Medications: Home Medications Medication Instructions Recorded Confirmed Last Taken Type ARIPiprazole [Abilify] 10 mg PO DAILY 30 Days #30 tab 11/11/21 Unknown Rx Albuterol Mdi (or & Nicu Only) 2 puff IH QID PRN #1 inhalation 11/11/21 Unknown Rx [ProAir HFA Inhaler] traZODone [Desyrel] 50 mg PO QHS 30 Days #30 tab 11/11/21 Unknown Rx predniSONE [Deltasone] 20 mg PO QDAY 5 Days #10 tab NS 01/02/22 Unknown Rx Albuterol Mdi (or & Nicu Only) 2 puff IH QID PRN #8.5 gram 01/04/22 Unknown Rx [ProAir HFA Inhaler] Albuterol Mdi (or & Nicu Only) 2 puff IH QID PRN #1 inhalation 02/19/22 Unknown Rx [ProAir HFA Inhaler] Prednisone [predniSONE 10 mg 10 mg PO .TAPER #1 tab.ds.pk 02/19/22 Unknown Rx (6-Day Pack, 21 Tabs)] Albuterol Mdi (or & Nicu Only) 2 puff IH QID PRN #8.5 gram 03/13/22 Unknown Rx [ProAir HFA Inhaler] Prednisone [predniSONE 10 mg 10 mg PO .TAPER #1 03/13/22 Unknown Rx (6-Day Pack, 21 Tabs)] ED Physical Exam - General Limitations: No Limitations General appearance: appears intoxicated - Head Head exam: Present: atraumatic, normocephalic - Neck Neck exam: Present: normal inspection - Respiratory Respiratory exam: Present: respiratory distress, wheezes - Cardiovascular Cardiovascular Exam: Present: regular rate, normal rhythm, normal heart sounds - GI/Abdominal GI/Abdominal exam: Present: soft. Absent: distended, tenderness - Rectal Rectal exam: Present: deferred - Neurological Exam Neurological exam: Present: other (Intoxicated) - Psychiatric Psychiatric exam: Present: agitated, suicidal ideation - Skin Skin exam: Present: warm, dry, intact, normal color ED Course Vital Signs 03/22/22 03/22/22 03/22/22 00:47 01:03 04:14 Pulse Rate 88 90 Pulse Rate [ Bilateral] Respiratory 18 20 Rate Respiratory Rate [Bilateral ] Blood Pressure 127/89 Blood Pressure 109/64 [Right] O2 Sat by Pulse 100 97 100 Oximetry 03/22/22 03/22/22 03/22/22 04:30 04:53 05:02 Pulse Rate 85 Pulse Rate [ 78 84 Bilateral] Respiratory 23 Rate Respiratory 42 H 42 H Rate [Bilateral ] Blood Pressure Blood Pressure 116/70 [Right] O2 Sat by Pulse 98 Oximetry ED Medical Decision Making - Lab Data Result diagrams: 03/22/22 01:06 03/22/22 00:00 - Medical Decision Making 1013 filed. Patient given albuterol and Atrovent nebs along with magnesium and Solu-Medrol. He developed worsening symptoms however refuses to be placed on BiPAP. CBC and CMP grossly unremarkable. Will admit to hospitalist for further monitoring and treatment. Critical care attestation.: If time is entered above; I have spent that time in minutes in the direct care of this critically ill patient, excluding procedure time. ED Disposition Clinical Impression: Asthma exacerbation, Intoxication by drug, Suicidal ideation Disposition: ADMITTED INPATIENT Is pt being admited?: Yes Condition: Stable
[2022-03-22 05:45] LABS: Alanine Aminotransferase 17 units/L (7-56); Albumin 4.8 g/dL (3.9-5); BUN/Creatinine Ratio 13; Blood Urea Nitrogen 15 mg/dL (9-20); Calcium 9.5 mg/dL (8.4-10.2); Hemolysis Index 30
[2022-03-22] MEDS ORDERED: ACETAMINOPHEN 325 MG TAB PO PRN (06:00)
[2022-03-22] MEDS ORDERED: MORPHINE 4 MG/1 ML INJ IV PRN (06:00)
[2022-03-22] MEDS ORDERED: ONDANSETRON 4 MG/2 ML INJ IV PRN (06:00)
[2022-03-22] MEDS ORDERED: SODIUM CHLORIDE 0.9% 1000 ML 1,000 ML IV SCH (06:00)
[2022-03-22] MEDS ORDERED: MAGNESIUM HYDROXIDE (MOM) ORAL LIQD UDC PO PRN (06:00)
--- NOTE | 2022-03-22 06:09 | History and Physical Report ---
History of Present Illness Date of examination: 03/22/22 Date of admission: 03/22/2022 Chief complaint: Cocaine Intoxication History of present illness: 27-year-old -[place] male with known history of asthma presents to the emergency room via EMS today for evaluation of intoxication and suicidal ideations. Patient states that he smoked a lot of crack cocaine intention of killing himself today. He denies any chest pain, no headache or dizziness and no diaphoresis. However, upon arrival in the emergency room he went into respiratory distress and had to be given multiple rounds of nebulizing treatments. Work-up so far in the emergency room has been unremarkable. Patient being admitted for cocaine abuse and suicidal ideations. Past History Past Medical History: other (Asthma- Multiple Intubations,Eczema,Yes (bipolar, depression, schizophrenia)) Past Surgical History: hernia repair, Other (Multiple Intubations) Social history: smoking (Current daily Smoker), other (Cocaine) Family history: no significant family history Medications and Allergies Allergies Allergy/AdvReac Type Severity Reaction Status Date / Time No Known Allergies Allergy Verified 03/22/22 01:04 Home Medications Medication Instructions Recorded Confirmed Last Taken Type ARIPiprazole [Abilify] 10 mg PO DAILY 30 Days #30 tab 11/11/21 Unknown Rx Albuterol Mdi (or & Nicu Only) 2 puff IH QID PRN #1 inhalation 11/11/21 Unknown Rx [ProAir HFA Inhaler] traZODone [Desyrel] 50 mg PO QHS 30 Days #30 tab 11/11/21 Unknown Rx predniSONE [Deltasone] 20 mg PO QDAY 5 Days #10 tab NS 01/02/22 Unknown Rx Albuterol Mdi (or & Nicu Only) 2 puff IH QID PRN #8.5 gram 01/04/22 Unknown Rx [ProAir HFA Inhaler] Albuterol Mdi (or & Nicu Only) 2 puff IH QID PRN #1 inhalation 02/19/22 Unknown Rx [ProAir HFA Inhaler] Prednisone [predniSONE 10 mg 10 mg PO .TAPER #1 tab.ds.pk 02/19/22 Unknown Rx (6-Day Pack, 21 Tabs)] Albuterol Mdi (or & Nicu Only) 2 puff IH QID PRN #8.5 gram 03/13/22 Unknown Rx [ProAir HFA Inhaler] Prednisone [predniSONE 10 mg 10 mg PO .TAPER #1 03/13/22 Unknown Rx (6-Day Pack, 21 Tabs)] Review of Systems Constitutional: no fever, no chills Ears, nose, mouth and throat: no nasal congestion, no sore throat Cardiovascular: no chest pain, no palpitations Respiratory: cough, shortness of breath Gastrointestinal: no abdominal pain, no nausea, no vomiting, no diarrhea Genitourinary Male: dysuria, hematuria, flank pain Musculoskeletal: neck pain, low back pain Integumentary: rash, pruritis Neurological: no headaches, no confusion Psychiatric: no anxiety, no depression Endocrine: no polyphagia, no polydipsia, no polyuria, no nocturia Exam - Constitutional Vitals: Temp Pulse Resp BP Pulse Ox 85 23 116/70 98 03/22/22 05:02 03/22/22 05:02 03/22/22 05:02 03/22/22 05:02 General appearance: Present: mild distress, well-nourished - EENT Eyes: Present: PERRL, EOM intact. Absent: scleral icterus ENT: hearing intact, clear oral mucosa, dentition normal - Neck Neck: Present: supple, normal ROM - Respiratory Respiratory effort: labored Respiratory: bilateral: wheezing - Cardiovascular Rhythm: regular Heart Sounds: Present: S1 & S2. Absent: gallop, systolic murmur, diastolic murmur, rub, click - Extremities Extremities: no ischemia, pulses intact, pulses symmetrical, No edema, normal temperature, normal color, Full ROM Peripheral Pulses: within normal limits - Abdominal General gastrointestinal: Present: soft, non-tender, non-distended, normal bowel sounds. Absent: mass - Integumentary Integumentary: Present: clear, warm, dry, normal turgor. Absent: rash - Musculoskeletal Musculoskeletal: strength equal bilaterally - Psychiatric Psychiatric: appropriate mood/affect, intact judgment & insight, memory intact, cooperative - Neurologic Neurologic: CNII-XII intact, no focal deficits, moves all extremities Results - Labs CBC & Chem 7: 03/22/22 01:06 03/22/22 00:00 Labs: Abnormal lab results 03/22/22 03/22/22 03/22/22 Range/Units 01:06 01:06 01:06 WBC 4.0 L (4.5-11.0) K/mm3 MCV 100 H (84-94) fl MCH 33 H (28-32) pg RDW 12.5 L (13.2-15.2) % Lymph % (Auto) 40.5 H (13.4-35.0) % [place] % (Auto) 9.4 H (0.0-7.3) % Eos % (Auto) 10.4 H (0.0-4.3) % Seg Neutrophils % 38.8 L (40.0-70.0) % Seg Neutrophils # 1.6 L (1.8-7.7) K/mm3 Salicylates < 0.3 L (2.8-20.0) mg/dL Acetaminophen 5.0 L (10.0-30.0) ug/mL Assessment and Plan Assessment: 1. Cocaine abuse 2. Asthma exacerbation 3. Suicidal ideations 4 Plan: 1. Patient admitted and placed on close observation. 2. Commenced on nebulizing treatments and IV steroid. 3. We will request mental health evaluation prior to discharge. 4. Counseled on quitting illicit drug use. DVT Prophylaxis:SQ Heparin Code Status: Full Code
--- NOTE | 2022-03-22 08:15 | XRay Report ---
CHEST 1 VIEW 03/22/2022 7:08 AM INDICATION / CLINICAL INFORMATION: Shortness of breath, history of asthma. COMPARISON: 03/13/2022 FINDINGS: SUPPORT DEVICES: None. HEART / MEDIASTINUM: No significant abnormality. LUNGS / PLEURA: No significant pulmonary or pleural abnormality. No pneumothorax. ADDITIONAL FINDINGS: No significant additional findings. IMPRESSION: 1. No acute findings. Signer Name: Santi Trammell Jr, MD Signed: 03/22/2022 8:10 AM Workstation Name: [id number]
[2022-03-22] MEDS: IPRATROPIUM/ALBUTEROL SULFATE 3 ML AMPUL.NEB IH SCH ×3 (10:08→20:16)
--- NOTE | 2022-03-22 11:09 | Progress Note ---
Assessment and Plan Assessment and plan: 27-year-old -[place] male with known history of asthma presented to the emergency room via EMS for evaluation of intoxication and suicidal ideations. Patient stated that he smoked a lot of crack cocaine with intentions of killing himself on the day of admission. Upon arrival in the emergency room, he went into respiratory distress and had to be given multiple rounds of nebulizing treatments. The patient was admitted with diagnosis below: Acute asthma exacerbation Cocaine abuse Suicidal ideations. Bipolar disorder/depression/schizophrenia 03/22/2022. Continue IV steroids and nebulizer treatments. Continue O2 supplementation to maintain sats greater than 92%. Await psychiatric cecil luation. Continue 1013 History Interval history: No new issues overnight. Hospitalist Physical - Constitutional Vitals: Temp Pulse Resp BP Pulse Ox 78 18 107/65 96 03/22/22 10:12 03/22/22 10:12 03/22/22 07:03 03/22/22 07:03 General appearance: Present: mild distress, well-nourished - EENT Eyes: Present: PERRL, EOM intact ENT: hearing intact, clear oral mucosa, dentition normal - Neck Neck: Present: supple, normal ROM - Respiratory Respiratory effort: normal Respiratory: bilateral: CTA - Cardiovascular Rhythm: regular Heart Sounds: Present: S1 & S2. Absent: gallop, rub - Extremities Extremities: no ischemia, No edema, Full ROM - Abdominal General gastrointestinal: soft, non-tender, non-distended, normal bowel sounds - Integumentary Integumentary: Present: clear, warm, dry - Neurologic Neurologic: CNII-XII intact, moves all extremities Results - Labs CBC & Chem 7: 03/22/22 01:06 03/22/22 00:00 Labs: Laboratory Last Values WBC 4.0 K/mm3 (4.5-11.0) L 03/22/22 01:06 RBC 4.13 M/mm3 (3.65-5.03) 03/22/22 01:06 Hgb 13.7 gm/dl (11.8-15.2) 03/22/22 01:06 Hct 41.2 % (35.5-45.6) 03/22/22 01:06 MCV 100 fl (84-94) H 03/22/22 01:06 MCH 33 pg (28-32) H 03/22/22 01:06 MCHC 33 % (32-34) 03/22/22 01:06 RDW 12.5 % (13.2-15.2) L 03/22/22 01:06 Plt Count 190 K/mm3 (140-440) 03/22/22 01:06 Lymph % (Auto) 40.5 % (13.4-35.0) H 03/22/22 01:06 [place] % (Auto) 9.4 % (0.0-7.3) H 03/22/22 01:06 Eos % (Auto) 10.4 % (0.0-4.3) H 03/22/22 01:06 Baso % (Auto) 0.9 % (0.0-1.8) 03/22/22 01:06 Lymph # (Auto) 1.6 K/mm3 (1.2-5.4) 03/22/22 01:06 [place] # (Auto) 0.4 K/mm3 (0.0-0.8) 03/22/22 01:06 Eos # (Auto) 0.4 K/mm3 (0.0-0.4) 03/22/22 01:06 Baso # (Auto) 0.0 K/mm3 (0.0-0.1) 03/22/22 01:06 Seg Neutrophils % 38.8 % (40.0-70.0) L 03/22/22 01:06 Seg Neutrophils # 1.6 K/mm3 (1.8-7.7) L 03/22/22 01:06 Sodium 141 mmol/L (137-145) 03/22/22 00:00 Potassium 4.2 mmol/L (3.6-5.0) 03/22/22 00:00 Chloride 102.9 mmol/L (98-107) 03/22/22 00:00 Carbon Dioxide 26 mmol/L (22-30) 03/22/22 00:00 Anion Gap 16 mmol/L 03/22/22 00:00 BUN 15 mg/dL (9-20) 03/22/22 00:00 Creatinine 1.2 mg/dL (0.8-1.3) 03/22/22 00:00 Estimated GFR > 60 ml/min 03/22/22 00:00 BUN/Creatinine Ratio 13 % 03/22/22 00:00 Glucose 92 mg/dL (75-100) 03/22/22 00:00 Calcium 9.5 mg/dL (8.4-10.2) 03/22/22 00:00 Total Bilirubin 0.40 mg/dL (0.1-1.2) 03/22/22 00:00 AST 26 units/L (5-40) 03/22/22 00:00 ALT 17 units/L (7-56) 03/22/22 00:00 Alkaline Phosphatase 94 units/L (35-129) 03/22/22 00:00 Total Protein 6.4 g/dL (6.3-8.2) 03/22/22 00:00 Albumin 4.8 g/dL (3.9-5) 03/22/22 00:00 Albumin/Globulin Ratio 3.0 % 03/22/22 00:00 Salicylates < 0.3 mg/dL (2.8-20.0) L 03/22/22 01:06 Acetaminophen 5.0 ug/mL (10.0-30.0) L 03/22/22 01:06 Plasma/Serum Alcohol < 0.01 % (0-0.07) 03/22/22 01:06 Active Medications - Current Medications Current Medications: Generic Name Dose Route Start Last Admin Trade Name Freq PRN Reason Stop Dose Admin Acetaminophen 650 mg 03/22/22 06:00 Acetaminophen 325 Mg Tab PO Q4H PRN Pain MILD(1-3)/Fever >100.5/ROJO Albuterol/Ipratropium 1 ampul 03/22/22 08:00 03/22/22 10:08 Ipratropium/Albuterol Sulfate 3 Ml Ampul.Neb IH 1 ampul Q6HRT LARISA Administration Sodium Chloride 1,000 mls @ 75 mls/hr 03/22/22 06:00 Nacl 0.9% 1000 Ml IV DIRECT LARISA Magnesium Hydroxide 30 ml 03/22/22 06:00 Magnesium Hydroxide (Mom) Oral Liqd Udc PO Q4H PRN Constipation Methylprednisolone Sodium Succinate 40 mg 03/22/22 14:00 Methylprednisolone Sod Succinate 40 Mg/1 Ml Inj IV Q8HR LARISA Morphine Sulfate 2 mg 03/22/22 06:00 Morphine 2 Mg/1 Ml Inj IV Q4H PRN Pain, Moderate (4-6) Morphine Sulfate 4 mg 03/22/22 06:00 Morphine 4 Mg/1 Ml Inj IV Q4H PRN Pain , Severe (7-10) Ondansetron HCl 4 mg 03/22/22 06:00 Ondansetron 4 Mg/2 Ml Inj IV Q8H PRN Nausea And Vomiting Sodium Chloride 10 ml 03/22/22 10:00 03/22/22 09:28 Sodium Chloride 0.9% 10 Ml Flush Syringe IV 10 ml BID LARISA Administration Sodium Chloride 10 ml 03/22/22 06:00 Sodium Chloride 0.9% 10 Ml Flush Syringe IV PRN PRN LINE FLUSH
--- NOTE | 2022-03-22 12:02 | Consultation ---
History of Present Illness - Reason for Consult Consult date: 03/22/22 Reason for consult: Cocaine Dependence - Chief Complaint Chief complaint: Cocaine Intoxication - History of Present Psychiatric Illness The patient was seen today. He is known to me from previous visits of crack cocaine use. The patient is drowsy. I have to constantly arouse him to awaken him. He says he came to the hospital because he couldn't breath. he says he was smoking crack. The patient says "that's what I always do is smoke crack." The patient says "I put $50 in my pipe and smoked it." When asking the patient was he trying to harm himself, he says "yes, I was trying to ." I ask the patient was he still feeling this the patient replies "yes, I don't want to live." He denies hallucinations. Diagnoses: Bipolar, Schizoaffective, Cocaine use Disorder Suicide attempts or Self-harm behavior:Denies Prior psychiatric hospitalizations: Multiple Substance Abuse history:Crack Cocaine Previous psychiatric medications tried: unknown Outpatient treatment: Denies PAST MEDICAL HISTORY: None reported Family Psychiatric History: None reported or documented SOCIAL HISTORY Marital Status: Single Living Arrangements:Homeless Employment Status: unemployed Access to guns/weapons: Denies Education: GED History of Abuse: None reported Legal History: None reported REVIEW OF SYSTEMS Constitutional: Negative for weight loss ENT: Negative for stridor Respiratory: Negative for cough or hemoptysis All other systems reviewed and are negative MENTAL STATUS EXAMINATION General Appearance and Behavior: Age appropriate, good hygiene, wearing appropriate clothes, cooperative, cooperative Cooperation: Participating/engaged Psychomotor Behavior: normal Mood: depressed Affect and affective range: congruent with stated mood Thought Process: goal directed Thought Content: Not Suicidal Speech: Normal volume, Regular rate and rhythm Suicidal Ideation: Yes Homicidal Ideation: Denies Hallucinations: Denies Delusions: None elicited Impulse Control: impaired Insight and Judgment: limited insight and judgment, Memory: normal Attention: Normal Orientation: Alert, oriented Assessment and Plan (1) Bipolar disorder (2) Cocaine Dependence Current Visit: Yes Status: Acute Treatment Plan [address] 125mg po BID Olanzapine 5mg po daily Sitter: Per primary Medical: Per primary Disposition: Recommend acute psychiatric inpatient treatment. Will follow. Thanks Case staffed with Dr. Garcia Medications and Allergies Allergies Allergy/AdvReac Type Severity Reaction Status Date / Time No Known Allergies Allergy Verified 03/22/22 01:04 Home Medications Medication Instructions Recorded Confirmed Last Taken Type ARIPiprazole [Abilify] 10 mg PO DAILY 30 Days #30 tab 11/11/21 Unknown Rx Albuterol Mdi (or & Nicu Only) 2 puff IH QID PRN #1 inhalation 11/11/21 Unknown Rx [ProAir HFA Inhaler] traZODone [Desyrel] 50 mg PO QHS 30 Days #30 tab 11/11/21 Unknown Rx predniSONE [Deltasone] 20 mg PO QDAY 5 Days #10 tab NS 01/02/22 Unknown Rx Albuterol Mdi (or & Nicu Only) 2 puff IH QID PRN #8.5 gram 01/04/22 Unknown Rx [ProAir HFA Inhaler] Albuterol Mdi (or & Nicu Only) 2 puff IH QID PRN #1 inhalation 02/19/22 Unknown Rx [ProAir HFA Inhaler] Prednisone [predniSONE 10 mg 10 mg PO .TAPER #1 tab.ds.pk 02/19/22 Unknown Rx (6-Day Pack, 21 Tabs)] Albuterol Mdi (or & Nicu Only) 2 puff IH QID PRN #8.5 gram 03/13/22 Unknown Rx [ProAir HFA Inhaler] Prednisone [predniSONE 10 mg 10 mg PO .TAPER #1 03/13/22 Unknown Rx (6-Day Pack, 21 Tabs)] Active Meds: Active Medications Acetaminophen (Acetaminophen 325 Mg Tab) 650 mg PO Q4H PRN PRN Reason: Pain MILD(1-3)/Fever >100.5/ROJO Last Admin: 03/22/22 11:46 Dose: 650 mg Albuterol/Ipratropium (Ipratropium/Albuterol Sulfate 3 Ml Ampul.Neb) 1 ampul IH Q6HRT LARISA Last Admin: 03/22/22 10:08 Dose: 1 ampul Sodium Chloride (Nacl 0.9% 1000 Ml) 1,000 mls @ 75 mls/hr IV DIRECT LARISA Magnesium Hydroxide (Magnesium Hydroxide (Mom) Oral Liqd Udc) 30 ml PO Q4H PRN PRN Reason: Constipation Last Admin: 03/22/22 11:46 Dose: 30 ml Methylprednisolone Sodium Succinate (Methylprednisolone Sod Succinate 40 Mg/1 Ml Inj) 40 mg IV Q8HR [facility] Morphine Sulfate (Morphine 2 Mg/1 Ml Inj) 2 mg IV Q4H PRN PRN Reason: Pain, Moderate (4-6) Morphine Sulfate (Morphine 4 Mg/1 Ml Inj) 4 mg IV Q4H PRN PRN Reason: Pain , Severe (7-10) Ondansetron HCl (Ondansetron 4 Mg/2 Ml Inj) 4 mg IV Q8H PRN PRN Reason: Nausea And Vomiting Sodium Chloride (Sodium Chloride 0.9% 10 Ml Flush Syringe) 10 ml IV BID [facility] Last Admin: 03/22/22 09:28 Dose: 10 ml Sodium Chloride (Sodium Chloride 0.9% 10 Ml Flush Syringe) 10 ml IV PRN PRN PRN Reason: LINE FLUSH Mental Status Exam - Vital signs Last Vital Signs Temp 97.7 F 03/22/22 11:11 Pulse 78 03/22/22 11:11 Resp 22 03/22/22 11:11 BP 125/67 03/22/22 11:11 Pulse Ox 98 03/22/22 11:11 Results Result Diagrams: 03/22/22 01:06 03/22/22 00:00 Abnormal lab results 03/22/22 03/22/22 03/22/22 Range/Units 01:06 01:06 01:06 WBC 4.0 L (4.5-11.0) K/mm3 MCV 100 H (84-94) fl MCH 33 H (28-32) pg RDW 12.5 L (13.2-15.2) % Lymph % (Auto) 40.5 H (13.4-35.0) % [place] % (Auto) 9.4 H (0.0-7.3) % Eos % (Auto) 10.4 H (0.0-4.3) % Seg Neutrophils % 38.8 L (40.0-70.0) % Seg Neutrophils # 1.6 L (1.8-7.7) K/mm3 Salicylates < 0.3 L (2.8-20.0) mg/dL Acetaminophen 5.0 L (10.0-30.0) ug/mL All other labs normal.
[2022-03-22] MEDS: methylPREDNISolone Sod Succinate 40 MG/1 ML INJ IV SCH ×2 (13:25→21:21)
[2022-03-22] MEDS: DIVALPROEX DR 125 MG TAB PO SCH ×2 (14:15→21:21)
[2022-03-22] MEDS: MORPHINE 2 MG/1 ML INJ IV PRN (19:36)
[2022-03-22] MEDS ORDERED: ALUM-MAG HYDROXIDE-SIMETHICONE 200-200-20MG/5ML ORAL LIQD 30 ML PO ONE (23:10)
[2022-03-23 01:05] LABS: Amphetamine Screen,Urine PRESUMPTIVE NEGATIVE; Benzodiazepines Screen,Urine PRESUMPTIVE NEGATIVE; Cannabinoid Screen,Urine PRESUMPTIVE NEGATIVE; Cocaine Screen,Urine PRESUMPTIVE POSITIVE; Methadone Screen,Urine PRESUMPTIVE NEGATIVE; Opiate Screen,Urine PRESUMPTIVE NEGATIVE
[2022-03-23] MEDS ORDERED: LORazepam 2 MG/ML VIAL IV ONE (03:58)
[2022-03-23] MEDS: IPRATROPIUM/ALBUTEROL SULFATE 3 ML AMPUL.NEB IH SCH ×4 (03:59→20:26)
[2022-03-23] MEDS: methylPREDNISolone Sod Succinate 40 MG/1 ML INJ IV SCH ×3 (05:50→21:53)
[2022-03-23 08:46] LABS: BUN/Creatinine Ratio 15; Blood Urea Nitrogen 12 mg/dL (9-20); Calcium 9.7 mg/dL (8.4-10.2); Hemolysis Index 7
[2022-03-23 08:51] LABS: Basophils % (Auto) 0.2 % (0.0-1.8); Hematocrit 42.5 % (35.5-45.6); Hemoglobin 14.3 gm/dl (11.8-15.2); Lymphocytes # (Auto) 0.5 K/mm3 (1.2-5.4); Lymphocytes % (Auto) 7.6 % (13.4-35.0); Mean Corpuscular HGB Conc 34 % (32-34); Mean Corpuscular Volume 100 fl (84-94); Monocytes # (Auto) 0.2 K/mm3 (0.0-0.8); Monocytes % (Auto) 4.2 % (0.0-7.3); Platelet Count 182 K/mm3 (140-440); Red Blood Count 4.25 M/mm3 (3.65-5.03); Red Cell Distribution Width 12.6 % (13.2-15.2)
[2022-03-23] MEDS: DIVALPROEX DR 125 MG TAB PO SCH (10:23)
--- NOTE | 2022-03-23 12:27 | Progress Note ---
Assessment and Plan Assessment and plan: 27-year-old -[place] male with known history of asthma presented to the emergency room via EMS for evaluation of intoxication and suicidal ideations. Patient stated that he smoked a lot of crack cocaine with intentions of killing himself on the day of admission. Upon arrival in the emergency room, he went into respiratory distress and had to be given multiple rounds of nebulizing treatments. The patient was admitted with diagnosis below: Acute asthma exacerbation Cocaine abuse Suicidal ideations. Bipolar disorder/depression/schizophrenia 03/22/2022. Continue IV steroids and nebulizer treatments. Continue O2 supplementation to maintain sats greater than 92%. Await psychiatric cecil luation. Continue 1013 03/23/2022. Continue 1013 per psych recommendations. Continue Depakote and olanzapine. Psychiatry recommends acute psychiatric inpatient treatment History Interval history: No new issues overnight. Hospitalist Physical - Constitutional Vitals: Temp Pulse Resp BP Pulse Ox 98.1 F 63 18 126/75 95 03/23/22 05:26 03/23/22 08:00 03/23/22 10:00 03/23/22 05:26 03/23/22 05:26 General appearance: Present: no acute distress, well-nourished - EENT Eyes: Present: PERRL, EOM intact ENT: hearing intact, clear oral mucosa, dentition normal - Neck Neck: Present: supple, normal ROM - Respiratory Respiratory effort: normal Respiratory: bilateral: CTA - Cardiovascular Rhythm: regular Heart Sounds: Present: S1 & S2. Absent: gallop, rub - Extremities Extremities: no ischemia, No edema, Full ROM - Abdominal General gastrointestinal: soft, non-tender, non-distended, normal bowel sounds - Integumentary Integumentary: Present: clear, warm, dry - Neurologic Neurologic: CNII-XII intact, moves all extremities Results - Labs CBC & Chem 7: 03/23/22 07:27 03/23/22 07:27 Labs: Laboratory Last Values WBC 6.0 K/mm3 (4.5-11.0) 03/23/22 07:27 RBC 4.25 M/mm3 (3.65-5.03) 03/23/22 07:27 Hgb 14.3 gm/dl (11.8-15.2) 03/23/22 07:27 Hct 42.5 % (35.5-45.6) 03/23/22 07:27 MCV 100 fl (84-94) H 03/23/22 07:27 MCH 34 pg (28-32) H 03/23/22 07:27 MCHC 34 % (32-34) 03/23/22 07:27 RDW 12.6 % (13.2-15.2) L 03/23/22 07:27 Plt Count 182 K/mm3 (140-440) 03/23/22 07:27 Lymph % (Auto) 7.6 % (13.4-35.0) L 03/23/22 07:27 [place] % (Auto) 4.2 % (0.0-7.3) 03/23/22 07:27 Eos % (Auto) 0.0 % (0.0-4.3) 03/23/22 07:27 Baso % (Auto) 0.2 % (0.0-1.8) 03/23/22 07:27 Lymph # (Auto) 0.5 K/mm3 (1.2-5.4) L 03/23/22 07:27 [place] # (Auto) 0.2 K/mm3 (0.0-0.8) 03/23/22 07:27 Eos # (Auto) 0.0 K/mm3 (0.0-0.4) 03/23/22 07:27 Baso # (Auto) 0.0 K/mm3 (0.0-0.1) 03/23/22 07:27 Seg Neutrophils % 88.0 % (40.0-70.0) H 03/23/22 07:27 Seg Neutrophils # 5.3 K/mm3 (1.8-7.7) 03/23/22 07:27 Sodium 140 mmol/L (137-145) 03/23/22 07:27 Potassium 4.4 mmol/L (3.6-5.0) 03/23/22 07:27 Chloride 104.1 mmol/L (98-107) 03/23/22 07:27 Carbon Dioxide 24 mmol/L (22-30) 03/23/22 07:27 Anion Gap 16 mmol/L 03/23/22 07:27 BUN 12 mg/dL (9-20) 03/23/22 07:27 Creatinine 0.8 mg/dL (0.8-1.3) 03/23/22 07:27 Estimated GFR > 60 ml/min 03/23/22 07:27 BUN/Creatinine Ratio 15 % 03/23/22 07:27 Glucose 125 mg/dL (75-100) H 03/23/22 07:27 Calcium 9.7 mg/dL (8.4-10.2) 03/23/22 07:27 Total Bilirubin 0.40 mg/dL (0.1-1.2) 03/22/22 00:00 AST 26 units/L (5-40) 03/22/22 00:00 ALT 17 units/L (7-56) 03/22/22 00:00 Alkaline Phosphatase 94 units/L (35-129) 03/22/22 00:00 Total Protein 6.4 g/dL (6.3-8.2) 03/22/22 00:00 Albumin 4.8 g/dL (3.9-5) 03/22/22 00:00 Albumin/Globulin Ratio 3.0 % 03/22/22 00:00 Salicylates < 0.3 mg/dL (2.8-20.0) L 03/22/22 01:06 Urine Opiates Screen Presumptive negative 03/23/22 00:00 Urine Methadone Screen Presumptive negative 03/23/22 00:00 Acetaminophen 5.0 ug/mL (10.0-30.0) L 03/22/22 01:06 Ur Barbiturates Screen Presumptive negative 03/23/22 00:00 Ur Phencyclidine Scrn Presumptive negative 03/23/22 00:00 Ur Amphetamines Screen Presumptive negative 03/23/22 00:00 U Benzodiazepines Scrn Presumptive negative 03/23/22 00:00 Urine Cocaine Screen Presumptive positive 03/23/22 00:00 U Marijuana (THC) Screen Presumptive negative 03/23/22 00:00 Drugs of Abuse Note Disclamer 03/23/22 00:00 Plasma/Serum Alcohol < 0.01 % (0-0.07) 03/22/22 01:06 Wallace/IV: Voiding Method Urinal Active Medications - Current Medications Current Medications: Generic Name Dose Route Start Last Admin Trade Name Freq PRN Reason Stop Dose Admin Acetaminophen 650 mg 03/22/22 06:00 03/22/22 11:46 Acetaminophen 325 Mg Tab PO 650 mg Q4H PRN Administration Pain MILD(1-3)/Fever >100.5/ROJO Albuterol/Ipratropium 1 ampul 03/22/22 08:00 03/23/22 09:14 Ipratropium/Albuterol Sulfate 3 Ml Ampul.Neb IH 1 ampul Q6HRT LARISA Administration Bisacodyl 10 mg 03/22/22 23:11 03/22/22 23:22 Bisacodyl 5 Mg Tab PO 10 mg QDAY PRN Administration Constipation Divalproex Sodium 125 mg 03/22/22 13:00 03/23/22 10:[address] 125 Mg Tab PO 125 mg BID LARISA Administration Sodium Chloride 1,000 mls @ 75 mls/hr 03/22/22 06:00 Nacl 0.9% 1000 Ml IV DIRECT LARISA Magnesium Hydroxide 30 ml 03/22/22 06:00 03/22/22 11:46 Magnesium Hydroxide (Mom) Oral Liqd Udc PO 30 ml Q4H PRN Administration Constipation Methylprednisolone Sodium Succinate 40 mg 03/22/22 14:00 03/23/22 05:50 Methylprednisolone Sod Succinate 40 Mg/1 Ml Inj IV 40 mg Q8HR LARISA Administration Morphine Sulfate 2 mg 03/22/22 06:00 03/22/22 19:36 Morphine 2 Mg/1 Ml Inj IV 2 mg Q4H PRN Administration Pain, Moderate (4-6) Morphine Sulfate 4 mg 03/22/22 06:00 Morphine 4 Mg/1 Ml Inj IV Q4H PRN Pain , Severe (7-10) Olanzapine 5 mg 03/22/22 13:00 03/23/22 10:24 Olanzapine 5 Mg Tab PO 5 mg QDAY LARISA Administration Ondansetron HCl 4 mg 03/22/22 06:00 Ondansetron 4 Mg/2 Ml Inj IV Q8H PRN Nausea And Vomiting Sodium Chloride 10 ml 03/22/22 10:00 03/23/22 10:24 Sodium Chloride 0.9% 10 Ml Flush Syringe IV 10 ml BID LARISA Administration Sodium Chloride 10 ml 03/22/22 06:00 Sodium Chloride 0.9% 10 Ml Flush Syringe IV PRN PRN LINE FLUSH
--- NOTE | 2022-03-23 12:53 | Progress Note ---
Subjective - Reason for Consult Consult date: 03/23/22 Reason for consult: SI, OD - Chief Complaint Chief complaint: The patient was seen today. He is awake, but drowsy. The patient appears depressed. Her verbalizes feeling depressed and feeling hopeless. He says he wants to stop doing drugs, but knows that he want. He says "I can't. I don't know what to do. I have no help out here." He says "everything is going wrong." The patient endorses SI. He denies hallucinations. He then says "was my uncle here." The patient says "maybe I was dreaming. I wish he was here." REVIEW OF SYSTEMS Constitutional: Negative for weight loss ENT: Negative for stridor Respiratory: Negative for cough or hemoptysis All other systems reviewed and are negative MENTAL STATUS EXAMINATION General Appearance and Behavior: Age appropriate, good hygiene, wearing appropriate clothes, cooperative, cooperative Cooperation: Participating/engaged Psychomotor Behavior: normal Mood: depressed Affect and affective range: congruent with stated mood Thought Process: goal directed Thought Content: Not Suicidal Speech: Normal volume, Regular rate and rhythm Suicidal Ideation: Yes Homicidal Ideation: Denies Hallucinations: Denies Delusions: None elicited Impulse Control: impaired Insight and Judgment: limited insight and judgment Memory: normal Attention: Normal Orientation: Alert, oriented Assessment and Plan (1) Bipolar disorder (2) Cocaine Dependence Current Visit: Yes Status: Acute Treatment Plan [address] 250mg po BID Trazodone 50mg po qhs Olanzapine 5mg po daily Sitter: Per primary Medical: Per primary Disposition: Recommend acute psychiatric inpatient treatment. Will follow. Thanks Case staffed with Dr. Garcia Mental Status Exam - Vital signs Last Vital Signs Temp 98.1 F 03/23/22 05:26 Pulse 63 03/23/22 08:00 Resp 18 03/23/22 10:00 BP 126/75 03/23/22 05:26 Pulse Ox 95 03/23/22 05:26
--- NOTE | 2022-03-23 13:35 | Consultation ---
History of Present Illness Consult date: 03/23/22 History of present illness: 27-year-old -[place] male with known history of asthma presents to the emergency room via EMS today for evaluation of intoxication and suicidal ideations. Patient smoked a lot of crack cocaine intention of killing himself . He denied any chest pain, no headache or dizziness and no diaphoresis. However, upon arrival in the emergency room he went into respiratory distress and had to be given multiple rounds of nebulizing treatments. Work-up so far in the emergency room has been unremarkable. Patient being admitted for cocaine abuse and suicidal ideations. Patient has history of asthma with multiple intubations, Eczema, Bipolar, depression Schizophrenia. Patient has history of smoking cigarettes and uses Cocaine. Patient sleeping at this time. Not responding to verbal stimuli. Patient is on room air. No acute respiratory distress. Patient afebrile. No leukocytosis. Blood pressure 138/77, Pulse 63 , respirations 18. Chest xray done 03/22/22 reported No acute findings. Past History Past Medical History: other (Asthma- Multiple Intubations,Eczema,Yes (bipolar, depression, schizophrenia)) Past Surgical History: hernia repair, Other (Multiple Intubations) Social history: smoking (Current daily Smoker), other (Cocaine) Family history: no significant family history Medications and Allergies Allergies Allergy/AdvReac Type Severity Reaction Status Date / Time No Known Allergies Allergy Verified 03/22/22 01:04 Home Medications Medication Instructions Recorded Confirmed Last Taken Type ARIPiprazole [Abilify] 10 mg PO DAILY 30 Days #30 tab 11/11/21 03/22/22 Unknown Rx Albuterol Mdi (or & Nicu Only) 2 puff IH QID PRN #1 inhalation 11/11/21 03/22/22 Unknown Rx [ProAir HFA Inhaler] traZODone [Desyrel] 50 mg PO QHS 30 Days #30 tab 11/11/21 03/22/22 Unknown Rx predniSONE [Deltasone] 20 mg PO QDAY 5 Days #10 tab NS 01/02/22 03/22/22 Unknown Rx Active Meds: Active Medications Acetaminophen (Acetaminophen 325 Mg Tab) 650 mg PO Q4H PRN PRN Reason: Pain MILD(1-3)/Fever >100.5/ROJO Last Admin: 03/22/22 11:46 Dose: 650 mg Albuterol/Ipratropium (Ipratropium/Albuterol Sulfate 3 Ml Ampul.Neb) 1 ampul IH Q6HRT [facility] Last Admin: 03/23/22 09:14 Dose: 1 ampul Bisacodyl (Bisacodyl 5 Mg Tab) 10 mg PO QDAY PRN PRN Reason: Constipation Last Admin: 03/22/22 23:22 Dose: 10 mg Divalproex Sodium (Divalproex Dr 250 Mg Tab) 250 mg PO BID [facility] Sodium Chloride (Nacl 0.9% 1000 Ml) 1,000 mls @ 75 mls/hr IV DIRECT [facility] Magnesium Hydroxide (Magnesium Hydroxide (Mom) Oral Liqd Udc) 30 ml PO Q4H PRN PRN Reason: Constipation Last Admin: 03/22/22 11:46 Dose: 30 ml Methylprednisolone Sodium Succinate (Methylprednisolone Sod Succinate 40 Mg/1 Ml Inj) 40 mg IV Q8HR [facility] Last Admin: 03/23/22 13:26 Dose: 40 mg Morphine Sulfate (Morphine 2 Mg/1 Ml Inj) 2 mg IV Q4H PRN PRN Reason: Pain, Moderate (4-6) Last Admin: 03/22/22 19:36 Dose: 2 mg Morphine Sulfate (Morphine 4 Mg/1 Ml Inj) 4 mg IV Q4H PRN PRN Reason: Pain , Severe (7-10) Olanzapine (Olanzapine 5 Mg Tab) 5 mg PO QDAY [facility] Last Admin: 03/23/22 10:24 Dose: 5 mg Ondansetron HCl (Ondansetron 4 Mg/2 Ml Inj) 4 mg IV Q8H PRN PRN Reason: Nausea And Vomiting Sodium Chloride (Sodium Chloride 0.9% 10 Ml Flush Syringe) 10 ml IV BID [facility] Last Admin: 03/23/22 10:24 Dose: 10 ml Sodium Chloride (Sodium Chloride 0.9% 10 Ml Flush Syringe) 10 ml IV PRN PRN PRN Reason: LINE FLUSH Trazodone HCl (Trazodone 50 Mg Tab) 50 mg PO QHS [facility] Review of Systems All systems: negative Physical Examination Vital signs: Vital Signs Pulse Resp BP Pulse Ox 88 18 127/89 100 03/22/22 00:47 03/22/22 00:47 03/22/22 00:47 03/22/22 00:47 General appearance: no acute distress, asleep Eyes: non-icteric ENT: oropharynx moist Neck: supple, no lymphadenopathy Effort: normal Ascultation: Bilateral: clear Cardiovascular: regular rate and rhythm Gastrointestinal: normoactive bowel sounds, soft, non-tender Integumentary: normal Extremities: no cyanosis, no edema Musculoskeletal: no deformities non-focal exam, pupils equal and round other (Patient sleeping at this time.) Results - Laboratory Findings CBC and BMP: 03/23/22 07:27 03/23/22 07:27 Abnormal lab findings: Abnormal Labs 03/22/22 03/22/22 03/22/22 01:06 01:06 01:06 WBC 4.0 L MCV 100 H MCH 33 H RDW 12.5 L Lymph % (Auto) 40.5 H [place] % (Auto) 9.4 H Eos % (Auto) 10.4 H Lymph # (Auto) Seg Neutrophils % 38.8 L Seg Neutrophils # 1.6 L Glucose Salicylates < 0.3 L Acetaminophen 5.0 L 03/23/22 03/23/22 07:27 07:27 WBC MCV 100 H MCH 34 H RDW 12.6 L Lymph % (Auto) 7.6 L [place] % (Auto) Eos % (Auto) Lymph # (Auto) 0.5 L Seg Neutrophils % 88.0 H Seg Neutrophils # Glucose 125 H Salicylates Acetaminophen - Diagnostic Findings Chest x-ray: report reviewed, image reviewed Additional studies: CHEST 1 VIEW 03/22/2022 7:08 AM INDICATION / CLINICAL INFORMATION: Shortness of breath, history of asthma. COMPARISON: 03/13/2022 FINDINGS: SUPPORT DEVICES: None. HEART / MEDIASTINUM: No significant abnormality. LUNGS / PLEURA: No significant pulmonary or pleural abnormality. No pneumothorax. ADDITIONAL FINDINGS: No significant additional findings. IMPRESSION: 1. No acute findings. Assessment and Plan 27-year-old -[place] male with known history of asthma presents to the emergency room via EMS today for evaluation of intoxication and suicidal ideations. Patient smoked a lot of crack cocaine intention of killing himself . He denied any chest pain, no headache or dizziness and no diaphoresis. However, upon arrival in the emergency room he went into respiratory distress and had to be given multiple rounds of nebulizing treatments. Work-up so far in the emergency room has been unremarkable. Patient being admitted for cocaine abuse and suicidal ideations. Patient has history of asthma with multiple intubations, Eczema, Bipolar, depression Schizophrenia. Patient has history of smoking cigarettes and uses Cocaine. Patient sleeping at this time. Not responding to verbal stimuli. Patient is on room air. O2 saturation 100%No acute respiratory distress. Patient afebrile. No leukocytosis. Blood pressure 138/77, Pulse 63 , respirations 18. Chest xray done 03/22/22 reported No acute findings. - Patient Problems (1) Asthma exacerbation Current Visit: Yes Status: Acute Plan to address problem: Patient is on I/V solumedrol. Albuterol/atrovent aerosol treatments q 6 hours. (2) Intoxication by drug Current Visit: Yes Status: Acute Plan to address problem: Management as per primary care. Recommend to consult psychiatry. (3) Suicidal ideation Current Visit: Yes Status: Acute Plan to address problem: Recommend to consult psychiatry. (4) Acute respiratory failure with hypoxia Current Visit: No Status: Acute Plan to address problem: Patient presently on room air. O2 saturation 100%. (5) Bipolar 1 disorder, depressed Current Visit: No Status: Acute Plan to address problem: Recommend consult psychiatry. (6) Tobacco dependence Current Visit: No Status: Acute Plan to address problem: Will college admissions counselor to stop smoking. (7) Cocaine dependence Current Visit: No Status: Chronic Qualifiers: Plan to address problem: Will coumsel not to use cocaine any other illicit drugs.
[2022-03-23] MEDS: DIVALPROEX DR 250 MG TAB PO SCH (21:52)
[2022-03-23] MEDS: traZODone 50 MG TAB PO SCH (21:53)
[2022-03-23] MEDS: MORPHINE 2 MG/1 ML INJ IV PRN (21:54)
[2022-03-24] MEDS: IPRATROPIUM/ALBUTEROL SULFATE 3 ML AMPUL.NEB IH SCH ×4 (01:57→21:09)
[2022-03-24] MEDS: methylPREDNISolone Sod Succinate 40 MG/1 ML INJ IV SCH ×3 (06:35→21:05)
[2022-03-24] MEDS: DIVALPROEX DR 250 MG TAB PO SCH ×3 (09:03→20:03)
--- NOTE | 2022-03-24 09:28 | Progress Note ---
Assessment and Plan Assessment and plan: 27-year-old -English male with known history of asthma presented to the emergency room via EMS for evaluation of intoxication and suicidal ideations. Patient stated that he smoked a lot of crack cocaine with intentions of killing himself on the day of admission. Upon arrival in the emergency room, he went into respiratory distress and had to be given multiple rounds of nebulizing treatments. The patient was admitted with diagnosis below: Acute asthma exacerbation Cocaine abuse Suicidal ideations. Bipolar disorder/depression/schizophrenia 03/22/2022. Continue IV steroids and nebulizer treatments. Continue O2 supplementation to maintain sats greater than 92%. Await psychiatric cecil luation. Continue 1013 03/23/2022. Continue 1013 per psych recommendations. Continue Depakote and olanzapine. Psychiatry recommends acute psychiatric inpatient treatment. 03/24/2022. Continue 1013 per psych recommendations. Continue Depakote and olanzapine. Psychiatry recommends acute psychiatric inpatient treatment. History Interval history: No new issues overnight. Hospitalist Physical - Constitutional Vitals: Temp Pulse Resp BP Pulse Ox 98.1 F 104 H 18 125/85 97 03/24/22 04:19 03/24/22 08:55 03/24/22 08:55 03/24/22 04:19 03/24/22 04:19 General appearance: Present: no acute distress, well-nourished - EENT Eyes: Present: PERRL, EOM intact ENT: hearing intact, clear oral mucosa, dentition normal - Neck Neck: Present: supple, normal ROM - Respiratory Respiratory effort: normal Respiratory: bilateral: CTA - Cardiovascular Rhythm: regular Heart Sounds: Present: S1 & S2. Absent: gallop, rub - Extremities Extremities: no ischemia, No edema, Full ROM - Abdominal General gastrointestinal: soft, non-tender, non-distended, normal bowel sounds - Integumentary Integumentary: Present: clear, warm, dry - Neurologic Neurologic: CNII-XII intact, moves all extremities Results - Labs CBC & Chem 7: 03/23/22 07:27 03/23/22 07:27 Labs: Laboratory Last Values WBC 6.0 K/mm3 (4.5-11.0) 03/23/22 07:27 RBC 4.25 M/mm3 (3.65-5.03) 03/23/22 07:27 Hgb 14.3 gm/dl (11.8-15.2) 03/23/22 07:27 Hct 42.5 % (35.5-45.6) 03/23/22 07: MCV 100 fl (84-94) H 03/23/22 07:27 MCH 34 pg (28-32) H 03/23/22 07:27 MCHC 34 % (32-34) 03/23/22 07:27 RDW 12.6 % (13.2-15.2) L 03/23/22 07:27 Plt Count 182 K/mm3 (140-440) 03/23/22 07:27 Lymph % (Auto) 7.6 % (13.4-35.0) L 03/23/22 07:27 [place] % (Auto) 4.2 % (0.0-7.3) 03/23/22 07: Eos % (Auto) 0.0 % (0.0-4.3) 03/23/22 07: Baso % (Auto) 0.2 % (0.0-1.8) 03/23/22 07:27 Lymph # (Auto) 0.5 K/mm3 (1.2-5.4) L 03/23/22 07:27 [place] # (Auto) 0.2 K/mm3 (0.0-0.8) 03/23/22 07:27 Eos # (Auto) 0.0 K/mm3 (0.0-0.4) 03/23/22 07:27 Baso # (Auto) 0.0 K/mm3 (0.0-0.1) 03/23/22 07:27 Seg Neutrophils % 88.0 % (40.0-70.0) H 03/23/22 07:27 Seg Neutrophils # 5.3 K/mm3 (1.8-7.7) 03/23/22 07:27 Sodium 140 mmol/L (137-145) 03/23/22 07:27 Potassium 4.4 mmol/L (3.6-5.0) 03/23/22 07:27 Chloride 104.1 mmol/L (98-107) 03/23/22 07:27 Carbon Dioxide 24 mmol/L (22-30) 03/23/22 07:27 Anion Gap 16 mmol/L 03/23/22 07:27 BUN 12 mg/dL (9-20) 03/23/22 07:27 Creatinine 0.8 mg/dL (0.8-1.3) 03/23/22 07:27 Estimated GFR > 60 ml/min 03/23/22 07:27 BUN/Creatinine Ratio 15 % 03/23/22 07:27 Glucose 125 mg/dL (75-100) H 03/23/22 07:27 Calcium 9.7 mg/dL (8.4-10.2) 03/23/22 07:27 Total Bilirubin 0.40 mg/dL (0.1-1.2) 03/22/22 00:00 AST 26 units/L (5-40) 03/22/22 00:00 ALT 17 units/L (7-56) 03/22/22 00:00 Alkaline Phosphatase 94 units/L (35-129) 03/22/22 00:00 Total Protein 6.4 g/dL (6.3-8.2) 03/22/22 00:00 Albumin 4.8 g/dL (3.9-5) 03/22/22 00:00 Albumin/Globulin Ratio 3.0 % 03/22/22 00:00 Salicylates < 0.3 mg/dL (2.8-20.0) L 03/22/22 01:06 Urine Opiates Screen Presumptive negative 03/23/22 00:00 Urine Methadone Screen Presumptive negative 03/23/22 00:00 Acetaminophen 5.0 ug/mL (10.0-30.0) L 03/22/22 01:06 Ur Barbiturates Screen Presumptive negative 03/23/22 00:00 Ur Phencyclidine Scrn Presumptive negative 03/23/22 00:00 Ur Amphetamines Screen Presumptive negative 03/23/22 00:00 U Benzodiazepines Scrn Presumptive negative 03/23/22 00:00 Urine Cocaine Screen Presumptive positive 03/23/22 00:00 U Marijuana (THC) Screen Presumptive negative 03/23/22 00:00 Drugs of Abuse Note Disclamer 03/23/22 00:00 Plasma/Serum Alcohol < 0.01 % (0-0.07) 03/22/22 01:06 Wallace/IV: Voiding Method Toilet Active Medications - Current Medications Current Medications: Generic Name Dose Route Start Last Admin Trade Name Freq PRN Reason Stop Dose Admin Acetaminophen 650 mg 03/22/22 06:00 03/22/22 11:46 Acetaminophen 325 Mg Tab PO 650 mg Q4H PRN Administration Pain MILD(1-3)/Fever >100.5/ROJO Albuterol/Ipratropium 1 ampul 03/22/22 08:00 03/24/22 08:55 Ipratropium/Albuterol Sulfate 3 Ml Ampul.Neb IH 1 ampul Q6HRT LARISA Administration Bisacodyl 10 mg 03/22/22 23:11 03/24/22 09:00 Bisacodyl 5 Mg Tab PO 10 mg QDAY PRN Administration Constipation Divalproex Sodium 250 mg 03/23/22 22:00 03/24/22 09:[address] 250 Mg Tab PO 250 mg BID LARISA Administration Sodium Chloride 1,000 mls @ 75 mls/hr 03/22/22 06:00 Nacl 0.9% 1000 Ml IV DIRECT LARISA Magnesium Hydroxide 30 ml 03/22/22 06:00 03/22/22 11:46 Magnesium Hydroxide (Mom) Oral Liqd Udc PO 30 ml Q4H PRN Administration Constipation Methylprednisolone Sodium Succinate 40 mg 03/22/22 14:00 03/24/22 06:35 Methylprednisolone Sod Succinate 40 Mg/1 Ml Inj IV 40 mg Q8HR LARISA Administration Morphine Sulfate 2 mg 03/22/22 06:00 03/23/22 21:54 Morphine 2 Mg/1 Ml Inj IV 2 mg Q4H PRN Administration Pain, Moderate (4-6) Morphine Sulfate 4 mg 03/22/22 06:00 Morphine 4 Mg/1 Ml Inj IV Q4H PRN Pain , Severe (7-10) Olanzapine 5 mg 03/22/22 13:00 03/24/22 09:00 Olanzapine 5 Mg Tab PO 5 mg QDAY LARISA Administration Ondansetron HCl 4 mg 03/22/22 06:00 Ondansetron 4 Mg/2 Ml Inj IV Q8H PRN Nausea And Vomiting Sodium Chloride 10 ml 03/22/22 10:00 03/24/22 09:01 Sodium Chloride 0.9% 10 Ml Flush Syringe IV 10 ml BID LARISA Administration Sodium Chloride 10 ml 03/22/22 06:00 Sodium Chloride 0.9% 10 Ml Flush Syringe IV PRN PRN LINE FLUSH Trazodone HCl 50 mg 03/23/22 22:00 03/23/22 21:53 Trazodone 50 Mg Tab PO 50 mg QHS LARISA Administration
--- NOTE | 2022-03-24 11:42 | Progress Note ---
Subjective - Reason for Consult Consult date: 03/24/22 Reason for consult: OD, depression - Chief Complaint Chief complaint: The patient was seen today. He is awake, but drowsy. The patient verbalizes being depressed and hopeless. He also still endorses SI. When asking if he had a plan, he says "I had a plan yesterday but it didn't work." He denies hallucinations. REVIEW OF SYSTEMS Constitutional: Negative for weight loss ENT: Negative for stridor Respiratory: Negative for cough or hemoptysis All other systems reviewed and are negative MENTAL STATUS EXAMINATION General Appearance and Behavior: Age appropriate, good hygiene, wearing appropriate clothes, cooperative, cooperative Cooperation: Participating/engaged Psychomotor Behavior: normal Mood: depressed Affect and affective range: congruent with stated mood Thought Process: goal directed Thought Content: Not Suicidal Speech: Normal volume, Regular rate and rhythm Suicidal Ideation: Yes Homicidal Ideation: Denies Hallucinations: Denies Delusions: None elicited Impulse Control: impaired Insight and Judgment: limited insight and judgment Memory: normal Attention: Normal Orientation: Alert, oriented Assessment and Plan (1) Bipolar disorder (2) Cocaine Dependence Current Visit: Yes Status: Acute Treatment Plan [address] 250mg po TID Trazodone 50mg po qhs Increase Olanzapine 7.5mg po daily Sitter: Per primary Medical: Per primary Disposition: Recommend acute psychiatric inpatient treatment. Will follow. Thanks Case staffed with Dr. Garcia Mental Status Exam - Vital signs Last Vital Signs Temp 98.1 F 03/24/22 04:19 Pulse 104 H 03/24/22 08:55 Resp 18 03/24/22 08:55 BP 125/85 03/24/22 04:19 Pulse Ox 100 03/24/22 10:00
--- NOTE | 2022-03-24 13:59 | Progress Note ---
Assessment and Plan 27-year-old -Pakistani male with known history of asthma presents to the emergency room via EMS today for evaluation of intoxication and suicidal ideations. Patient smoked a lot of crack cocaine intention of killing himself . He denied any chest pain, no headache or dizziness and no diaphoresis. However, upon arrival in the emergency room he went into respiratory distress and had to be given multiple rounds of nebulizing treatments. Work-up so far in the emergency room has been unremarkable. Patient being admitted for cocaine abuse and suicidal ideations. Patient has history of asthma with multiple intubations, Eczema, Bipolar, depression Schizophrenia. Patient has history of smoking cigarettes 40 pack years and uses Cocaine. Denies alcohol abuse. 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 Patient awake, weak. Patient is on room air. O2 saturation 100%. No acute respiratory distress. Patient afebrile. No leukocytosis. Blood pressure 125/85, Pulse 104 , respirations 18. Chest xray done 03/22/22 reported No acute findings. He is currently taking Albuterol/Atrovant aerosol treatments, Solumedral IV Recommend DVT and GI prophylaxis - Patient Problems (1) Asthma exacerbation Current Visit: Yes Status: Acute Plan to address problem: Patient is on I/V solumedrol. Albuterol/atrovent aerosol treatments q 6 hours. (2) Intoxication by drug Current Visit: Yes Status: Acute Plan to address problem: Management as per primary care. Recommend to consult psychiatry. (3) Suicidal ideation Current Visit: Yes Status: Acute Plan to address problem: Recommend to consult psychiatry. (4) Acute respiratory failure with hypoxia Current Visit: No Status: Acute Plan to address problem: Patient presently on room air. O2 saturation 100%. (5) Bipolar 1 disorder, depressed Current Visit: No Status: Acute Plan to address problem: Recommend consult psychiatry. (6) Tobacco dependence Current Visit: No Status: Acute Plan to address problem: counseled to stop smoking. (7) Cocaine dependence Current Visit: No Status: Chronic Qualifiers: Plan to address problem: Was counseled not to use cocaine any other illicit drugs. Subjective Date of service: 03/24/22 Interval history: 27-year-old -Pakistani male with known history of asthma presents to the emergency room via EMS today for evaluation of intoxication and suicidal ideations. Patient smoked a lot of crack cocaine intention of killing himself . He denied any chest pain, no headache or dizziness and no diaphoresis. However, upon arrival in the emergency room he went into respiratory distress and had to be given multiple rounds of nebulizing treatments. Work-up so far in the emergency room has been unremarkable. Patient being admitted for cocaine abuse and suicidal ideations. Patient has history of asthma with multiple intubations, Eczema, Bipolar, depression Schizophrenia. Patient has history of smoking cigarettes 40 pack years and uses Cocaine. Denies alcohol abuse. 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 Patient awake, weak. Patient is on room air. O2 saturation 100%. No acute respiratory distress. Patient afebrile. No leukocytosis. Blood pressure 125/85, Pulse 104 , respirations 18. Chest xray done 03/22/22 reported No acute findings. He is currently taking Albuterol/Atrovant aerosol treatments, Solumedral IV Recommend DVT and GI prophylaxis Objective Vital Signs - 12hr 03/24/22 03/24/22 03/24/22 02:00 04:19 08:55 Temperature 98.1 F Pulse Rate 65 Pulse Rate [ 74 104 H Bilateral] Respiratory 16 Rate Respiratory 18 18 Rate [Bilateral ] Blood Pressure 125/85 O2 Sat by Pulse 97 Oximetry 03/24/22 10:00 Temperature Pulse Rate Pulse Rate [ Bilateral] Respiratory Rate Respiratory Rate [Bilateral ] Blood Pressure O2 Sat by Pulse 100 Oximetry Constitutional: no acute distress, alert Eyes: non-icteric ENT: oropharynx moist Neck: supple, no lymphadenopathy Effort: normal Cardiovascular: regular rate and rhythm Gastrointestinal: normoactive bowel sounds, soft, non-tender Integumentary: normal Extremities: no cyanosis, no edema Neurologic: non-focal exam, pupils equal and round Psychiatric: other (Patient sleeping at this time.) CBC and BMP: 03/23/22 07:27 03/23/22 07:27 Abnormal lab findings: Abnormal Labs 03/22/22 03/22/22 03/22/22 01:06 01:06 01:06 WBC 4.0 L MCV 100 H MCH 33 H RDW 12.5 L Lymph % (Auto) 40.5 H [place] % (Auto) 9.4 H Eos % (Auto) 10.4 H Lymph # (Auto) Seg Neutrophils % 38.8 L Seg Neutrophils # 1.6 L Glucose Salicylates < 0.3 L Acetaminophen 5.0 L 03/23/22 03/23/22 07:27 07:27 WBC MCV 100 H MCH 34 H RDW 12.6 L Lymph % (Auto) 7.6 L [place] % (Auto) Eos % (Auto) Lymph # (Auto) 0.5 L Seg Neutrophils % 88.0 H Seg Neutrophils # Glucose 125 H Salicylates Acetaminophen
[2022-03-24] MEDS: traZODone 50 MG TAB PO SCH (21:05)
[2022-03-25] MEDS: IPRATROPIUM/ALBUTEROL SULFATE 3 ML AMPUL.NEB IH SCH ×3 (02:59→14:43)
[2022-03-25] MEDS: methylPREDNISolone Sod Succinate 40 MG/1 ML INJ IV SCH ×3 (06:03→21:36)
[2022-03-25] MEDS: DIVALPROEX DR 250 MG TAB PO SCH ×3 (09:07→21:00)
--- NOTE | 2022-03-25 09:39 | Progress Note ---
Assessment and Plan Assessment and plan: 27-year-old -Greek male with known history of asthma presented to the emergency room via EMS for evaluation of intoxication and suicidal ideations. Patient stated that he smoked a lot of crack cocaine with intentions of killing himself on the day of admission. Upon arrival in the emergency room, he went into respiratory distress and had to be given multiple rounds of nebulizing treatments. The patient was admitted with diagnosis below: Acute asthma exacerbation Cocaine abuse Suicidal ideations. Bipolar disorder/depression/schizophrenia 03/22/2022. Continue IV steroids and nebulizer treatments. Continue O2 supplementation to maintain sats greater than 92%. Await psychiatric cecil luation. Continue 1013 03/23/2022. Continue 1013 per psych recommendations. Continue Depakote and olanzapine. Psychiatry recommends acute psychiatric inpatient treatment. 03/24/2022. Continue 1013 per psych recommendations. Continue Depakote and olanzapine. Psychiatry recommends acute psychiatric inpatient treatment. 03/25/2022. Continue 1013 per psych recommendations. Continue withdrawal pr ecautions for cocaine abuse. Asthma, compensated. History Interval history: No new issues overnight. Hospitalist Physical - Constitutional Vitals: Temp Pulse Resp BP Pulse Ox 98.8 F 58 L 18 129/86 99 03/25/22 06:11 03/25/22 06:11 03/25/22 06:11 03/25/22 06:11 03/25/22 06:11 General appearance: Present: no acute distress, well-nourished - EENT Eyes: Present: PERRL, EOM intact ENT: hearing intact, clear oral mucosa, dentition normal - Neck Neck: Present: supple, normal ROM - Respiratory Respiratory effort: normal Respiratory: bilateral: CTA - Cardiovascular Rhythm: regular Heart Sounds: Present: S1 & S2. Absent: gallop, rub - Extremities Extremities: no ischemia, No edema, Full ROM - Abdominal General gastrointestinal: soft, non-tender, non-distended, normal bowel sounds - Integumentary Integumentary: Present: clear, warm, dry - Neurologic Neurologic: CNII-XII intact, moves all extremities Results - Labs CBC & Chem 7: 03/23/22 07:27 03/23/22 07:27 Labs: Laboratory Last Values WBC 6.0 K/mm3 (4.5-11.0) 03/23/22 07:27 RBC 4.25 M/mm3 (3.65-5.03) 03/23/22 07:27 Hgb 14.3 gm/dl (11.8-15.2) 03/23/22 07:27 Hct 42.5 % (35.5-45.6) 03/23/22 07:27 MCV 100 fl (84-94) H 03/23/22 07:27 MCH 34 pg (28-32) H 03/23/22 07: MCHC 34 % (32-34) 03/23/22 07:27 RDW 12.6 % (13.2-15.2) L 03/23/22 07:27 Plt Count 182 K/mm3 (140-440) 03/23/22 07:27 Lymph % (Auto) 7.6 % (13.4-35.0) L 03/23/22 07:27 [place] % (Auto) 4.2 % (0.0-7.3) 03/23/22 07:27 Eos % (Auto) 0.0 % (0.0-4.3) 03/23/22 07:27 Baso % (Auto) 0.2 % (0.0-1.8) 03/23/22 07:27 Lymph # (Auto) 0.5 K/mm3 (1.2-5.4) L 03/23/22 07:27 Tripp # (Auto) 0.2 K/mm3 (0.0-0.8) 03/23/22 07:27 Eos # (Auto) 0.0 K/mm3 (0.0-0.4) 03/23/22 07:27 Baso # (Auto) 0.0 K/mm3 (0.0-0.1) 03/23/22 07:27 Seg Neutrophils % 88.0 % (40.0-70.0) H 03/23/22 07:27 Seg Neutrophils # 5.3 K/mm3 (1.8-7.7) 03/23/22 07:27 Sodium 140 mmol/L (137-145) 03/23/22 07:27 Potassium 4.4 mmol/L (3.6-5.0) 03/23/22 07:27 Chloride 104.1 mmol/L (98-107) 03/23/22 07:27 Carbon Dioxide 24 mmol/L (22-30) 03/23/22 07:27 Anion Gap 16 mmol/L 03/23/22 07:27 BUN 12 mg/dL (9-20) 03/23/22 07:27 Creatinine 0.8 mg/dL (0.8-1.3) 03/23/22 07:27 Estimated GFR > 60 ml/min 03/23/22 07:27 BUN/Creatinine Ratio 15 % 03/23/22 07:27 Glucose 125 mg/dL (75-100) H 03/23/22 07:27 Calcium 9.7 mg/dL (8.4-10.2) 03/23/22 07:27 Total Bilirubin 0.40 mg/dL (0.1-1.2) 03/22/22 00:00 AST 26 units/L (5-40) 03/22/22 00:00 ALT 17 units/L (7-56) 03/22/22 00:00 Alkaline Phosphatase 94 units/L (35-129) 03/22/22 00:00 Total Protein 6.4 g/dL (6.3-8.2) 03/22/22 00:00 Albumin 4.8 g/dL (3.9-5) 03/22/22 00:00 Albumin/Globulin Ratio 3.0 % 03/22/22 00:00 Salicylates < 0.3 mg/dL (2.8-20.0) L 03/22/22 01:06 Urine Opiates Screen Presumptive negative 03/23/22 00:00 Urine Methadone Screen Presumptive negative 03/23/22 00:00 Acetaminophen 5.0 ug/mL (10.0-30.0) L 03/22/22 01:06 Ur Barbiturates Screen Presumptive negative 03/23/22 00:00 Ur Phencyclidine Scrn Presumptive negative 03/23/22 00:00 Ur Amphetamines Screen Presumptive negative 03/23/22 00:00 U Benzodiazepines Scrn Presumptive negative 03/23/22 00:00 Urine Cocaine Screen Presumptive positive 03/23/22 00:00 U Marijuana (THC) Screen Presumptive negative 03/23/22 00:00 Drugs of Abuse Note Disclamer 03/23/22 00:00 Plasma/Serum Alcohol < 0.01 % (0-0.07) 03/22/22 01:06 Wallace/IV: Voiding Method Toilet Active Medications - Current Medications Current Medications: Generic Name Dose Route Start Last Admin Trade Name Freq PRN Reason Stop Dose Admin Acetaminophen 650 mg 03/22/22 06:00 03/22/22 11:46 Acetaminophen 325 Mg Tab PO 650 mg Q4H PRN Administration Pain MILD(1-3)/Fever >100.5/ROJO Albuterol/Ipratropium 1 ampul 03/22/22 08:00 03/25/22 08:42 Ipratropium/Albuterol Sulfate 3 Ml Ampul.Neb IH Not Given Q6HRT LARISA Bisacodyl 10 mg 03/22/22 23:11 03/24/22 09:00 Bisacodyl 5 Mg Tab PO 10 mg QDAY PRN Administration Constipation Divalproex Sodium 250 mg 03/24/22 14:00 03/25/22 09:[address] 250 Mg Tab PO 250 mg TID LARISA Administration Sodium Chloride 1,000 mls @ 75 mls/hr 03/22/22 06:00 Nacl 0.9% 1000 Ml IV DIRECT LARISA Magnesium Hydroxide 30 ml 03/22/22 06:00 03/22/22 11:46 Magnesium Hydroxide (Mom) Oral Liqd Udc PO 30 ml Q4H PRN Administration Constipation Methylprednisolone Sodium Succinate 40 mg 03/22/22 14:00 03/25/22 06:03 Methylprednisolone Sod Succinate 40 Mg/1 Ml Inj IV 40 mg Q8HR LARISA Administration Morphine Sulfate 2 mg 03/22/22 06:00 03/23/22 21:54 Morphine 2 Mg/1 Ml Inj IV 2 mg Q4H PRN Administration Pain, Moderate (4-6) Morphine Sulfate 4 mg 03/22/22 06:00 Morphine 4 Mg/1 Ml Inj IV Q4H PRN Pain , Severe (7-10) Olanzapine 7.5 mg 03/25/22 10:00 03/25/22 09:03 Olanzapine 7.5 Mg Tab PO 7.5 mg QDAY LARISA Administration Ondansetron HCl 4 mg 03/22/22 06:00 Ondansetron 4 Mg/2 Ml Inj IV Q8H PRN Nausea And Vomiting Sodium Chloride 10 ml 03/22/22 10:00 03/25/22 09:04 Sodium Chloride 0.9% 10 Ml Flush Syringe IV 10 ml BID LARISA Administration Sodium Chloride 10 ml 03/22/22 06:00 Sodium Chloride 0.9% 10 Ml Flush Syringe IV PRN PRN LINE FLUSH Trazodone HCl 50 mg 03/23/22 22:00 03/24/22 21:05 Trazodone 50 Mg Tab PO 50 mg QHS LARISA Administration
--- NOTE | 2022-03-25 11:56 | Progress Note ---
Subjective - Reason for Consult Consult date: 03/25/22 Reason for consult: MHE - Chief Complaint Chief complaint: The patient was seen today. He is awake and fully oriented. He completely denies being suicidal or homicidal. He denies hallucinations and he is not paranoid. He feels safe going home. REVIEW OF SYSTEMS Constitutional: Negative for weight loss ENT: Negative for stridor Respiratory: Negative for cough or hemoptysis All other systems reviewed and are negative MENTAL STATUS EXAMINATION General Appearance and Behavior: Age appropriate, good hygiene, wearing appropriate clothes, cooperative, cooperative Cooperation: Participating/engaged Psychomotor Behavior: normal Mood: good Affect and affective range: congruent with stated mood Thought Process: goal directed Thought Content: Not Suicidal Speech: Normal volume, Regular rate and rhythm Suicidal Ideation: Denies Homicidal Ideation: Denies Hallucinations: Denies Delusions: None elicited Impulse Control: good Insight and Judgment: good insight and judgment Memory: normal Attention: Normal Orientation: Alert, oriented Assessment and Plan (1) Bipolar disorder (2) Cocaine Dependence Current Visit: Yes Status: Acute Treatment Plan 101[address] rescind[address] Continue Depakote [address] 250mg po TID Trazodone 50mg po qhs Continue Olanzapine 7.5mg po daily Sitter: No Medical: Per primary Disposition: No indication for acute psychiatric inpatient treatment at present time. Will sign off. Thanks Case staffed with Dr. Garcia Mental Status Exam - Vital signs Last Vital Signs Temp 98.8 F 03/25/22 06:11 Pulse 58 L 03/25/22 06:11 Resp 16 03/25/22 10:00 BP 129/86 03/25/22 06:11 Pulse Ox 98 03/25/22 10:00
--- NOTE | 2022-03-25 13:55 | Progress Note ---
Assessment and Plan 27-year-old -Malawian male with known history of asthma presents to the emergency room via EMS today for evaluation of intoxication and suicidal ideations. Patient smoked a lot of crack cocaine intention of killing himself . He denied any chest pain, no headache or dizziness and no diaphoresis. However, upon arrival in the emergency room he went into respiratory distress and had to be given multiple rounds of nebulizing treatments. Work-up so far in the emergency room has been unremarkable. Patient being admitted for cocaine abuse and suicidal ideations. Patient has history of asthma with multiple intubations, Eczema, Bipolar, depression Schizophrenia. Patient has history of smoking cigarettes and uses Cocaine. Patient awake. Patient is resting on room air. O2 saturation 96%No acute respiratory distress. Patient afebrile. No leukocytosis. Blood pressure 121/64, Pulse 63 , respirations 18. Chest xray done 03/22/22 reported No acute findings. - Patient Problems (1) Asthma exacerbation Current Visit: Yes Status: Acute Plan to address problem: Patient is on I/V solumedrol. Albuterol/atrovent aerosol treatments q 6 hours. (2) Intoxication by drug Current Visit: Yes Status: Acute Plan to address problem: Management as per primary care. Recommend to consult psychiatry. (3) Suicidal ideation Current Visit: Yes Status: Acute Plan to address problem: Recommend to consult psychiatry. (4) Acute respiratory failure with hypoxia Current Visit: No Status: Acute Plan to address problem: Patient presently on room air. O2 saturation 96%. (5) Bipolar 1 disorder, depressed Current Visit: No Status: Acute Plan to address problem: Recommend consult psychiatry. (6) Tobacco dependence Current Visit: No Status: Acute Plan to address problem: Will admitting counselor to stop smoking. (7) Cocaine dependence Current Visit: No Status: Chronic Qualifiers: Plan to address problem: Will coumsel not to use cocaine any other illicit drugs. Subjective Date of service: 03/25/22 Interval history: 27-year-old -Mal[place] male with known history of asthma presents to the emergency room via EMS today for evaluation of intoxication and suicidal ideations. Patient smoked a lot of crack cocaine intention of killing himself . He denied any chest pain, no headache or dizziness and no diaphoresis. However, upon arrival in the emergency room he went into respiratory distress a nd had to be given multiple rounds of nebulizing treatments. Work-up so far in the emergency room has been unremarkable. Patient being admitted for cocaine abuse and suicidal ideations. Patient has history of asthma with multiple intubations, Eczema, Bipolar, depression Schizophrenia. Patient has history of smoking cigarettes and uses Cocaine. Patient awake. Patient is resting on room air. O2 saturation 96%No acute respiratory distress. Patient afebrile. No leukocytosis. Blood pressure 121/64, Pulse 63 , respirations 18. Chest xray done 03/22/22 reported No acute findings. Objective Vital Signs - 12hr 03/25/22 03/25/22 03/25/22 02:59 06:11 10:00 Temperature 98.8 F Pulse Rate 58 L Pulse Rate [ 61 Bilateral] Respiratory 18 16 Rate Respiratory 16 Rate [Bilateral ] Blood Pressure Blood Pressure 129/86 [Right] O2 Sat by Pulse 99 98 Oximetry 03/25/22 11:54 Temperature 98.2 F Pulse Rate 63 Pulse Rate [ Bilateral] Respiratory 18 Rate Respiratory Rate [Bilateral ] Blood Pressure 121/64 Blood Pressure [Right] O2 Sat by Pulse 96 Oximetry Constitutional: no acute distress, alert Eyes: non-icteric ENT: oropharynx moist Neck: supple, no lymphadenopathy Effort: normal Ascultation: Bilateral: clear Cardiovascular: regular rate and rhythm Gastrointestinal: normoactive bowel sounds, soft, non-tender Integumentary: normal Extremities: no cyanosis, no edema Neurologic: non-focal exam, pupils equal and round Psychiatric: depressed CBC and BMP: 03/23/22 07:27 03/23/22 07:27 Abnormal lab findings: Abnormal Labs 03/22/22 03/22/22 03/22/22 01:06 01:06 01:06 WBC 4.0 L MCV 100 H MCH 33 H RDW 12.5 L Lymph % (Auto) 40.5 H [place] % (Auto) 9.4 H Eos % (Auto) 10.4 H Lymph # (Auto) Seg Neutrophils % 38.8 L Seg Neutrophils # 1.6 L Glucose Salicylates < 0.3 L Acetaminophen 5.0 L 03/23/22 03/23/22 07:27 07:27 WBC MCV 100 H MCH 34 H RDW 12.6 L Lymph % (Auto) 7.6 L [place] % (Auto) Eos % (Auto) Lymph # (Auto) 0.5 L Seg Neutrophils % 88.0 H Seg Neutrophils # Glucose 125 H Salicylates Acetaminophen Chest x-ray: report reviewed, image reviewed Additional Studies: CHEST 1 VIEW 03/22/2022 7:08 AM INDICATION / CLINICAL INFORMATION: Shortness of breath, history of asthma. COMPARISON: 03/13/2022 FINDINGS: SUPPORT DEVICES: None. HEART / MEDIASTINUM: No significant abnormality. LUNGS / PLEURA: No significant pulmonary or pleural abnormality. No pneumothorax. ADDITIONAL FINDINGS: No significant additional findings. IMPRESSION: 1. No acute findings.
[2022-03-25] MEDS: traZODone 50 MG TAB PO SCH (21:35)
[2022-03-25] MEDS ORDERED: ZOLPIDEM 5 MG TAB PO ONE (23:30)
[2022-03-26 01:29] LABS: WBC,Urine < 1.0 /HPF (0.0-6.0)
[2022-03-26 02:00] LABS: Color,Urine Yellow (Yellow); RBC,Urine < 1.0 /HPF (0.0-6.0)
[2022-03-26 02:01] LABS: Bilirubin,Urine Negative (Negative); Blood,Urine Negative (Negative); Protein,Urine <15 mg/dL mg/dL (Negative)
[2022-03-26] MEDS: IPRATROPIUM/ALBUTEROL SULFATE 3 ML AMPUL.NEB IH SCH ×4 (04:17→14:11)
[2022-03-26] MEDS: methylPREDNISolone Sod Succinate 40 MG/1 ML INJ IV SCH (05:35)
--- NOTE | 2022-03-26 08:30 | Discharge Summary ---
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 Patient stated that he smoked a lot of crack cocaine with intentions of killing himself on the day of admission. Upon arrival in the emergency room, he went into respiratory distress and had to be given multiple rounds of nebulizing treatments. The patient was admitted with diagnosis below: Acute asthma exacerbation Acute hypoxic respiratory Cocaine abuse Suicidal ideations. Bipolar disorder/depression/schizophrenia 03/22/2022. Continue IV steroids and nebulizer treatments. Continue O2 supplementation to maintain sats greater than 92%. Await psychiatric evaluation. Continue 1013 03/23/2022. Continue 1013 per psych recommendations. Continue Depakote and olanzapine. Psychiatry recommends acute psychiatric inpatient treatment. 03/24/2022. Continue 1013 per psych recommendations. Continue Depakote and lebron zapine. Psychiatry recommends acute psychiatric inpatient treatment. 03/25/2022. Continue 1013 per psych recommendations. Continue withdrawal precautions for cocaine abuse. Asthma, compensated. 03/26/2022. Patient with saturations of 100% on room air. No respiratory distress. Patient was seen by psychiatry yesterday and noted to be awake and fully oriented. Patient completely denies being suicidal or homicidal. He denies hallucinations and he is not paranoid. He feels safe going home. Psychiatry rescinded the 1013 and recommended Depakote 250 mg p.o. twice daily, trazodone 50 mg p.o. nightly and olanzapine 7.5 mg p.o. daily. Patient has no indication for acute psychiatric inpatient treatment at this time. Patient will be discharged home. Dedicated discharge time 32 minutes Disposition: HOME / SELF CARE / HOMELESS Final Discharge Diagnosis (Prints w/discharge instructions): Acute asthma exacerbation. Acute hypoxic respiratory. Cocaine abuse. Suicidal ideations. Bipolar disorder/depression/schizophrenia Core Measure Documentation - Palliative Care Palliative Care/ Comfort Measures: Not Applicable - Core Measures Any of the following diagnoses?: none Exam - Constitutional Vitals: Temp Pulse Resp BP Pulse Ox 97.8 F 61 16 135/71 99 03/26/22 05:34 03/26/22 05:34 03/26/22 05:34 03/26/22 05:34 03/26/22 05:34 General appearance: Present: no acute distress, well-nourished - EENT Eyes: Present: PERRL ENT: hearing intact, clear oral mucosa - Neck Neck: Present: supple, normal ROM - Respiratory Respiratory effort: normal Respiratory: bilateral: CTA - Cardiovascular Heart Sounds: Present: S1 & S2. Absent: rub, click - Extremities Extremities: pulses symmetrical, No edema Peripheral Pulses: within normal limits - Abdominal General gastrointestinal: Present: soft, non-tender, non-distended, normal bowel sounds Male genitourinary: Present: normal - Integumentary Integumentary: Present: clear, warm, dry - Musculoskeletal Musculoskeletal: gait normal, strength equal bilaterally - Psychiatric Psychiatric: appropriate mood/affect, intact judgment & insight - Neurologic Neurologic: CNII-XII intact, moves all extremities Plan Activity: advance as tolerated Weight Bearing Status: Weight Bear as Tolerated Diet: regular Follow up with: PRIMARY CARE,MD [Primary Care Provider] - 7 Days Prescriptions: Divalproex [Depakote ] 250 mg PO TID 30 Days #90 tablet traZODone [Desyrel] 50 mg PO QHS #30 tablet OLANzapine [ZyPREXA] 7.5 mg PO QDAY 30 Days #30 tablet
[2022-03-26 12:51] VITALS: BP 128/72
[2022-03-26] MEDS: DIVALPROEX DR 250 MG TAB PO SCH (13:47)
--- NOTE | 2022-03-26 14:39 | Progress Note ---
Subjective - Reason for Consult Consult date: 03/26/22 Reason for consult: SI - Chief Complaint Chief complaint: 03/26/2022: Patients prescription called in to [facility] on [address] Nurse informed. The patient was seen today. He is awake and fully oriented. He completely denies being suicidal or homicidal. He denies hallucinations and he is not paranoid. He feels safe going home. REVIEW OF SYSTEMS Constitutional: Negative for weight loss ENT: Negative for stridor Respiratory: Negative for cough or hemoptysis All other systems reviewed and are negative MENTAL STATUS EXAMINATION General Appearance and Behavior: Age appropriate, good hygiene, wearing appropriate clothes, cooperative, cooperative Cooperation: Participating/engaged Psychomotor Behavior: normal Mood: good Affect and affective range: congruent with stated mood Thought Process: goal directed Thought Content: Not Suicidal Speech: Normal volume, Regular rate and rhythm Suicidal Ideation: Denies Homicidal Ideation: Denies Hallucinations: Denies Delusions: None elicited Impulse Control: good Insight and Judgment: good insight and judgment Memory: normal Attention: Normal Orientation: Alert, oriented Assessment and Plan (1) Bipolar disorder (2) Cocaine Dependence Current Visit: Yes Status: Acute Treatment Plan [address] rescind[address] Continue Depak[address] 250mg po TID Trazodone 50mg po qhs Continue Olanzapine 7.5mg po daily Sitter: No Medical: Per primary Disposition: No indication for acute psychiatric inpatient treatment at present time. Will sign off. Thanks Case staffed with Dr. Garcia Mental Status Exam - Vital signs Last Vital Signs Temp 97.9 F 03/26/22 12:00 Pulse 78 03/26/22 12:00 Resp 18 03/26/22 12:00 BP 128/72 03/26/22 12:00 Pulse Ox 98 03/26/22 12:00
== END 2022-03-26 15:09 | disposition home or self-care (01) | DRG 177 ==
LOC: ED 00:41 → 3A 06:00
PROVIDERS: ADMIT Internal Medicine Geriatric Medicine; ATTEND Hospitalist
DX: U07.1 COVID-19 (principal); J96.01 Acute respiratory failure with hypoxia; J45.901 Unspecified asthma with (acute) exacerbation; F14.20 Cocaine dependence, uncomplicated; F19.929 Other psychoactive substance use, unspecified with intoxication, unspecified; F17.200 Nicotine dependence, unspecified, uncomplicated; F20.9 Schizophrenia, unspecified; F31.9 Bipolar disorder, unspecified
CPT/HCPCS: 36415; 71045; 80048; 80053; 80307; 80320; 81001; 85025; 85027; 94640; 94644; G0378; G0480; J2060; J2270; J2405; J2920; J2930; J3475; J7030; U0003

== ENCOUNTER 2022-04-05 23:19 | Emergency (ER) | payer SELFPAY ==
[2022-04-06] MEDS ORDERED: ALBUTEROL 2.5 MG/3 ML NEBU IH ONE ×2 (00:33→06:58)
[2022-04-06] MEDS ORDERED: IPRATROPIUM 0.02% NEBU 2.5 ML IH STA ×2 (00:33→06:58)
[2022-04-06] MEDS ORDERED: methylPREDNISolone Sod Succinate 125 MG/2 ML INJ IV ONE (00:33)
--- NOTE | 2022-04-06 01:51 | XRay Report ---
CHEST 1 VIEW INDICATION / CLINICAL INFORMATION: Asthma. COMPARISON: Chest x-ray 03/22/2022 FINDINGS: SUPPORT DEVICES: None. HEART / MEDIASTINUM: Heart size is within normal limits. Mediastinal contour demonstrates no signific ant abnormality. LUNGS / PLEURA: No significant pulmonary abnormality. BONES: No significant osseous abnormality. ADDITIONAL FINDINGS: No significant additional findings. IMPRESSION: 1. No active cardiopulmonary disease. Signer Name: Jaziel Hidalgo II, MD Signed: 04/06/2022 1:46 AM Workstation Name: [id number]
[2022-04-06] MEDS ORDERED: EPINEPHrine/PF 1 MG/1 ML INJ SUB-Q ONE (06:58)
[2022-04-06] MEDS ORDERED: MAGNESIUM SULFATE 2 GM/50 ML BAG IV ONE (06:58)
[2022-04-06] MEDS ORDERED: SODIUM CHLORIDE 0.9% 1000 ML 1,000 ML IV ONE (06:58)
[2022-04-06] MEDS ORDERED: ACETAMINOPEN W/CODEINE 120-12MG ORAL LIQD 5 ML PO STA (06:59)
[2022-04-06] MEDS ORDERED: BENZONATATE 100 MG CAP PO ONE (07:21)
--- NOTE | 2022-04-06 07:58 | Emergency Department Report ---
ED Shortness of Breath HPI - General Chief Complaint: Adult Asthma Stated Complaint: CARLITA/ASTHMA Time Seen by Provider: 04/06/22 07:12 Source: patient, EMS Mode of arrival: Ambulatory Limitations: No Limitations - History of Present Illness Initial Comments: 27-year-old black male with a past medical history of asthma with several intubations, bipolar disorder, and anxiety presents to the emergency department for evaluation of 24-hour history of worsening shortness of breath. He states that he has ran out of his inhalers at home. He denies fever, chest pain, nausea, vomiting, dizziness, and diaphoresis. Patient states that he feels short of breath but not as bad as he is when he gets intubated. Patient noted to be sitting up in bed talking in complete sentences, making jokes, and asking for food. MD Complaint: shortness of breath, "asthma attack" -: Gradual, days(s) (1) Known History Of: asthma Associated Symptoms: cough Treatments Prior to Arrival: bronchodilator - Related Data Home Oxygen Therapy: No Previous Rx's Medication Instructions Recorded Last Taken Type ARIPiprazole [Abilify] 10 mg PO DAILY 30 Days #30 tab 11/11/21 Unknown Rx Albuterol Mdi (or & Nicu Only) 2 puff IH QID PRN #1 inhalation 11/11/21 Unknown Rx [ProAir HFA Inhaler] traZODone [Desyrel] 50 mg PO QHS 30 Days #30 tab 11/11/21 Unknown Rx predniSONE [Deltasone] 20 mg PO QDAY 5 Days #10 tab NS 01/02/22 Unknown Rx Divalproex [Cyndy De León] 250 mg PO TID 30 Days #90 tablet 03/25/22 Unknown Rx OLANzapine [ZyPREXA] 7.5 mg PO QDAY 30 Days #30 tablet 03/25/22 Unknown Rx traZODone [Desyrel] 50 mg PO QHS #30 tablet 03/25/22 Unknown Rx Albuterol Mdi (or & Nicu Only) 2 puff IH QID PRN #8.5 gram 04/06/22 Unknown Rx [ProAir HFA Inhaler] Benzonatate [Tessalon Perles] 100 mg PO TID PRN #30 cap 04/06/22 Unknown Rx Prednisone [predniSONE 10 mg 10 mg PO .TAPER #1 pack 04/06/22 Unknown Rx (6-Day Pack, 21 Tabs)] guaiFENesin/CODEINE [Robitussin AC] 10 ml PO TID PRN #120 ml 04/06/22 Unknown Rx Allergies Allergy/AdvReac Type Severity Reaction Status Date / Time No Known Allergies Allergy Verified 03/22/22 01:04 ED Review of Systems ROS: Stated complaint: CARLITA/ASTHMA Other details as noted in HPI Comment: All other systems reviewed and negative Constitutional: denies: chills, fever, malaise, weakness Eyes: denies: vision change ENT: denies: congestion Respiratory: cough, shortness of breath, SOB with exertion, SOB at rest, wheezing. denies: stridor Cardiovascular: denies: chest pain, palpitations, dyspnea on exertion, orthopnea, edema, syncope, paroxysmal nocturnal dyspnea Gastrointestinal: denies: abdominal pain, nausea, vomiting, diarrhea, hematemesis, melena, hematochezia Genitourinary: denies: dysuria Musculoskeletal: denies: back pain Neurological: denies: headache, weakness Psychiatric: denies: anxiety, auditory hallucinations, visual hallucinations, homicidal thoughts, suicidal thoughts ED Past Medical Hx - Past Medical History Hx Psychiatric Treatment: Yes (bipolar, depression, schizophrenia) Hx Asthma: Yes Hx Tuberculosis: No Additional medical history: Eczema - Surgical History Additional Surgical History: HERNIA REPAIR - Social History Smoking Status: Never Smoker - Medications Home Medications: Home Medications Medication Instructions Recorded Confirmed Last Taken Type ARIPiprazole [Abilify] 10 mg PO DAILY 30 Days #30 tab 11/11/21 03/22/22 Unknown Rx Albuterol Mdi (or & Nicu Only) 2 puff IH QID PRN #1 inhalation 11/11/21 03/22/22 Unknown Rx [ProAir HFA Inhaler] traZODone [Desyrel] 50 mg PO QHS 30 Days #30 tab 11/11/21 03/22/22 Unknown Rx predniSONE [Deltasone] 20 mg PO QDAY 5 Days #10 tab NS 01/02/22 03/22/[address] [Depakote Dr] 250 mg PO TID 30 Days #90 tablet 03/25/22 Unknown Rx OLANzapine [ZyPREXA] 7.5 mg PO QDAY 30 Days #30 tablet 03/25/22 Unknown Rx traZODone [Desyrel] 50 mg PO QHS #30 tablet 03/25/22 Unknown Rx Albuterol Mdi (or & Nicu Only) 2 puff IH QID PRN #8.5 gram 04/06/22 Unknown Rx [ProAir HFA Inhaler] Benzonatate [Tessalon Perles] 100 mg PO TID PRN #30 cap 04/06/22 Unknown Rx Prednisone [predniSONE 10 mg 10 mg PO .TAPER #1 pack 04/06/22 Unknown Rx (6-Day Pack, 21 Tabs)] guaiFENesin/CODEINE [Robitussin AC] 10 ml PO TID PRN #120 ml 04/06/22 Unknown Rx ED Physical Exam - General Limitations: No Limitations General appearance: alert, in no apparent distress - Head Head exam: Present: atraumatic, normocephalic - Eye Eye exam: Present: normal appearance. Absent: scleral icterus, conjunctival injection, periorbital swelling, periorbital tenderness - ENT ENT exam: Present: normal exam, normal orophraynx - Neck Neck exam: Present: normal inspection, full ROM. Absent: tenderness, lymphadenopathy - Respiratory Respiratory exam: Present: wheezes. Absent: respiratory distress, rales, rhonc hi, stridor, chest wall tenderness, accessory muscle use - Cardiovascular Cardiovascular Exam: Present: regular rate, normal heart sounds - GI/Abdominal GI/Abdominal exam: Present: soft, normal bowel sounds. Absent: distended, tenderness, guarding, rigid - Extremities Exam Extremities exam: Present: normal inspection, full ROM, normal capillary refill. Absent: pedal edema, joint swelling, calf tenderness - Back Exam Back exam: Present: normal inspection. Absent: CVA tenderness (R), CVA tenderness (L) - Neurological Exam Neurological exam: Present: alert, oriented X3, CN II-XII intact, normal gait - Psychiatric Psychiatric exam: Present: normal affect - Skin Skin exam: Present: warm, dry, intact, normal color ED Course Vital Signs 04/06/22 04/06/22 04/06/22 08:05 08:09 11:50 Temperature 97.2 F L Pulse Rate 66 87 Pulse Rate [ 78 Bilateral Throughout] Respiratory 18 18 Rate Respiratory 18 Rate [Bilateral Throughout] Blood Pressure 129/73 118/77 [Right] O2 Sat by Pulse 95 97 Oximetry 04/06/22 04/06/22 11:55 15:15 Temperature Pulse Rate 66 Pulse Rate [ 79 Bilateral Throughout] Respiratory 18 Rate Respiratory 16 Rate [Bilateral Throughout] Blood Pressure 129/73 [Right] O2 Sat by Pulse 96 Oximetry - Reevaluation(s) Reevaluation #1: 04/06/22 15:01 Wheezing resolved. Patient sleeping comfortably in bed without any complaints of at this time. No acute distress noted. ED Medical Decision Making - EKG Data Rate: bradycardia - Radiology Data Radiology results: report reviewed, image reviewed Chest x-ray: FINDINGS: SUPPORT DEVICES: None. HEART / MEDIASTINUM: Heart size is within normal limits. Mediastinal contour demonstrates no significant abnormality. LUNGS / PLEURA: No significant pulmonary abnormality. BONES: No significant osseous abnormality. ADDITIONAL FINDINGS: No significant additional findings. IMPRESSION: 1. No active cardiopulmonary disease. - Medical Decision Making 27-year-old black male with a past medical history of asthma with several intubations, bipolar disorder, and anxiety presents to the emergency department for evaluation of 24-hour history of worsening shortness of breath. He states that he has ran out of his inhalers at home. He denies fever, chest pain, nausea, vomiting, dizziness, and diaphoresis. Patient states that he feels short of breath but not as bad as he is when he gets intubated. Patient noted to be sitting up in bed talking in complete sentences, making jokes, and asking for food. Patient had wheezing on initial assessment that resolved after [facility]'s medica tion. Patient was also given medication to treat cough. Patient slept for a long time then wheezing will resolve and patient stated that he felt much better. He was able to speak in complete sentences and was walking around the department without any shortness of breath laughing and joking. He will be discharged with prednisone Dosepak, Tessalon Perles, Robitussin-AC, and albuterol inhaler. He is advised to take medications as prescribed and follow- up with primary care provider or lung doctor for further evaluation and management. He is advised to return to the emergency department for any concerning symptoms. He verbalizes understanding of and agreement with plan of care. Critical care attestation.: If time is entered above; I have spent that time in minutes in the direct care of this critically ill patient, excluding procedure time. ED Disposition Clinical Impression: Asthma Qualifiers: Asthma severity: mild Asthma persistence: persistent Asthma complication type: with acute exacerbation Qualified Code(s): J45.31 - Mild persistent asthma with (acute) exacerbation Disposition: 01 HOME / SELF CARE / HOMELESS Is pt being admited?: No Does the pt Need Aspirin: No Condition: Stable Instructions: Asthma, Adult, [id number], Asthma Attack, Asthma (ED) Additional Instructions: Take medications as prescribed. Follow-up with primary care provider or lung doctor for further evaluation and management. Return to the emergency department as needed. Prescriptions: Prednisone [predniSONE 10 mg (6-Day Pack, 21 Tabs)] 10 mg PO .TAPER #1 pack Albuterol Mdi (or & Nicu Only) [ProAir HFA Inhaler] 2 puff IH QID PRN #8.5 gram PRN Reason: Shortness Of Breath guaiFENesin/CODEINE [Robitussin AC] 10 ml PO TID PRN #120 ml PRN Reason: Cough Benzonatate [Tessalon Perles] 100 mg PO TID PRN #30 cap PRN Reason: Cough Referrals: FRANDY TOM MD [Primary Care Provider] - 3-5 Days Time of Disposition: 10:58
[2022-04-06] MEDS ORDERED: predniSONE 20 MG TAB PO ONE (10:42)
[2022-04-06] MEDS ORDERED: IPRATROPIUM/ALBUTEROL SULFATE 3 ML AMPUL.NEB IH ONE (10:43)
[2022-04-06 15:22] VITALS: BP 129/73
== END 2022-04-06 15:14 | disposition home or self-care (01) ==
LOC: ED 23:19
DX: J45.909 Unspecified asthma, uncomplicated (principal); F32.9 Major depressive disorder, single episode, unspecified; F20.9 Schizophrenia, unspecified; Z98.890 Other specified postprocedural states
CPT/HCPCS: 71045; 94640; 96365; 96375; 99284; J2930; J3475; J7030; 94644

== ENCOUNTER 2022-05-21 22:27 | Emergency (ER) | payer SELFPAY ==
[2022-05-21] MEDS ORDERED: IPRATROPIUM 0.02% NEBU 2.5 ML IH ONE (22:57)
[2022-05-21] MEDS ORDERED: ALBUTEROL 2.5 MG/3 ML NEBU IH ONE (22:57)
[2022-05-21] MEDS ORDERED: predniSONE 20 MG TAB PO ONE (22:58)
[2022-05-21] MEDS ORDERED: BENZONATATE 100 MG CAP PO ONE (22:58)
--- NOTE | 2022-05-21 22:59 | Event Note ---
Date: 05/21/22 EMS documentation not available at time of chart dictation Medical screening examination note: 27-year-old gentleman with known history of asthma and reactive airways disease, presenting to the department today with complaint of painless wheezing, cough and shortness of breath. Patient currently watching videos on phone. Patient is speaking in full sentences and he is not stridulous. He is protecting his airway and moving 4 extremities. He is not encephalopathic. He is wheezing. Start albuterol, Atrovent, steroids, x-ray the chest and Tessalon Perles. Detailed history and physical to be performed by oncoming provider.
[2022-05-21 23:24] VITALS: BP 118/53
--- NOTE | 2022-05-21 23:30 | XRay Report ---
CHEST 2 VIEWS INDICATION / CLINICAL INFORMATION: Cough, wheezing and shortness of breath. COMPARISON: 2 views of the chest from 04/06/2022. FINDINGS: SUPPORT DEVICES: None. HEART / MEDIASTINUM: No significant abnormality. LUNGS / PLEURA: No significant pulmonary abnormality. No significant pleural effusion. No pneumothora x. ADDITIONAL FINDINGS: No significant additional findings. IMPRESSION: 1. No acute abnormality of the chest. Signer Name: Ji Moore MD Signed: 05/21/2022 11:26 PM Workstation Name: [id number]
--- NOTE | 2022-05-22 00:33 | Emergency Department Report ---
ED Asthma HPI - General Chief Complaint: Adult Asthma Stated Complaint: ASTHMA ATTACK Time Seen by Provider: 05/21/22 23:25 Source: patient, EMS Mode of arrival: Stretcher Limitations: No Limitations - History of Present Illness Initial Comments: 27-year-old male with a past medical history of asthma with previous intubations presents to the hospital complaints of wheezing and shortness of breath since this afternoon. Patient has a prescription for albuterol inhaler but has not been able to get it filled due to lack of money. He borrowed a friend's fluticasone inhaler but states it did not help his acute asthma exacerbation. Patient complains of cough without fever. He continues to smoke cigarettes. Patient received albuterol 5 mg via EMS prior to ED arrival with improvement in symptoms. He was subsequently treated with p.o. prednisone and 1 hour continuous nebs - Related Data Previous Rx's Medication Instructions Recorded Last Taken Type ARIPiprazole [Abilify] 10 mg PO DAILY 30 Days #30 tab 11/11/21 Unknown Rx traZODone [Desyrel] 50 mg PO QHS 30 Days #30 tab 11/11/21 Unknown Rx predniSONE [Deltasone] 20 mg PO QDAY 5 Days #10 tab NS 01/02/[address] [Depakote Dr] 250 mg PO TID 30 Days #90 tablet 03/25/22 Unknown Rx OLANzapine [ZyPREXA] 7.5 mg PO QDAY 30 Days #30 tablet 03/25/22 Unknown Rx traZODone [Desyrel] 50 mg PO QHS #30 tablet 03/25/22 Unknown Rx Albuterol Mdi (or & Nicu Only) 2 puff IH QID PRN #8.5 gram 04/06/22 Unknown Rx [ProAir HFA Inhaler] Benzonatate [Tessalon Perles] 100 mg PO TID PRN #30 cap 04/06/22 Unknown Rx guaiFENesin/CODEINE [Robitussin AC] 10 ml PO TID PRN #120 ml 04/06/22 Unknown Rx Albuterol Mdi (or & Nicu Only) 2 puff IH QID PRN #1 inhalation 05/22/22 Unknown Rx [ProAir HFA Inhaler] Prednisone [predniSONE 10 mg 10 mg PO .TAPER #1 pack 05/22/22 Unknown Rx (6-Day Pack, 21 Tabs)] Allergies Allergy/AdvReac Type Severity Reaction Status Date / Time No Known Allergies Allergy Verified 03/22/22 01:04 ED Review of Systems ROS: Stated complaint: ASTHMA ATTACK Other details as noted in HPI Comment: All other systems reviewed and negative ED Past Medical Hx - Past Medical History Previous Medical History?: Yes Hx Psychiatric Treatment: Yes (bipolar, depression, schizophrenia) Hx Asthma: Yes Hx Tuberculosis: No Additional medical history: Eczema - Surgical History Past Surgical History?: Yes Additional Surgical History: HERNIA REPAIR - Social History Smoking Status: Current Every Day Smoker Substance Use Type: None - Medications Home Medications: Home Medications Medication Instructions Recorded Confirmed Last Taken Type ARIPiprazole [Abilify] 10 mg PO DAILY 30 Days #30 tab 11/11/21 03/22/22 Unknown Rx traZODone [Desyrel] 50 mg PO QHS 30 Days #30 tab 11/11/21 03/22/22 Unknown Rx predniSONE [Deltasone] 20 mg PO QDAY 5 Days #10 tab NS 01/02/22 03/22/[address] [Depakote Dr] 250 mg PO TID 30 Days #90 tablet 03/25/22 Unknown Rx OLANzapine [ZyPREXA] 7.5 mg PO QDAY 30 Days #30 tablet 03/25/22 Unknown Rx traZODone [Desyrel] 50 mg PO QHS #30 tablet 03/25/22 Unknown Rx Albuterol Mdi (or & Nicu Only) 2 puff IH QID PRN #8.5 gram 04/06/22 Unknown Rx [ProAir HFA Inhaler] Benzonatate [Tessalon Perles] 100 mg PO TID PRN #30 cap 04/06/22 Unknown Rx guaiFENesin/CODEINE [Robitussin AC] 10 ml PO TID PRN #120 ml 04/06/22 Unknown Rx Albuterol Mdi (or & Nicu Only) 2 puff IH QID PRN #1 inhalation 05/22/22 Unknown Rx [ProAir HFA Inhaler] Prednisone [predniSONE 10 mg 10 mg PO .TAPER #1 pack 05/22/22 Unknown Rx (6-Day Pack, 21 Tabs)] ED Physical Exam - General Limitations: No Limitations - Other Other exam information: General: No acute distress Head: Atraumatic Eyes: normal appearance ENT: Moist mucous membranes Neck: Normal appearance, no midline tenderness Chest: No tachypnea, no accessory muscle use, no wheezing during our continuous neb CV: Regular rate and rhythm Abdomen: Soft, normal bowel sounds, nontender, nondistended, no rebound or guarding Back: Normal inspection Extremity: Normal inspection, full range of motion, no calf tenderness or leg edema Neuro: Alert O x 3, no facial asymmetry, speech clear, no gross motor sensory deficit Psych: Appropriate behavior Skin: No rash ED Course Vital Signs 05/21/22 05/21/22 05/21/22 22:28 23:20 23:22 Temperature 98 F 98.1 F Pulse Rate 92 H 65 Pulse Rate [ 66 Bilateral Throughout] Respiratory 20 18 Rate Respiratory 20 Rate [Bilateral Throughout] Blood Pressure 123/81 Blood Pressure 118/53 [Right] O2 Sat by Pulse 97 100 Oximetry 05/22/22 01:13 Temperature Pulse Rate Pulse Rate [ Bilateral Throughout] Respiratory 18 Rate Respiratory Rate [Bilateral Throughout] Blood Pressure Blood Pressure [Right] O2 Sat by Pulse 100 Oximetry ED Medical Decision Making - Radiology Data Radiology results: report reviewed (Chest x-ray: No acute finding) - Medical Decision Making 27-year-old male with chronic asthma presents to the hospital acute asthma exacerbation. patient is unable to treat at home due to lack of albuterol MDI. Chest x-ray negative. Patient has a albuterol MDI prescription and was encouraged to fill his albuterol inhaler prescription. Will also be prescribed steroids. Outpatient follow-up advised Critical Care Time: Yes Critical care time in (mins) excluding proc time.: 35 Critical care attestation.: If time is entered above; I have spent that time in minutes in the direct care of this critically ill patient, excluding procedure time. Critical Care Time: Patient required continuous neb treatment and reassessment ED Disposition Clinical Impression: Acute asthma exacerbation Disposition: HOME / SELF CARE / HOMELESS Is pt being admited?: No Does the pt Need Aspirin: No Condition: Stable Instructions: Asthma, Adult Additional Instructions: Take the medication as prescribed. Follow-up with your doctor or doctor/clinic provided. Return if symptoms worsen as indicated by your discharge instructions. Prescriptions: Prednisone [predniSONE 10 mg (6-Day Pack, 21 Tabs)] 10 mg PO .TAPER #1 pack Albuterol Mdi (or & Nicu Only) [ProAir HFA Inhaler] 2 puff IH QID PRN #1 inhalation PRN Reason: Shortness Of Breath
== END 2022-05-22 02:02 | disposition home or self-care (01) ==
LOC: ED 22:27
DX: J45.901 Unspecified asthma with (acute) exacerbation (principal); F31.9 Bipolar disorder, unspecified; F20.9 Schizophrenia, unspecified; F17.200 Nicotine dependence, unspecified, uncomplicated; Z98.890 Other specified postprocedural states; Z79.899 Other long term (current) drug therapy
CPT/HCPCS: 71046; 94640; 94644; 99284